=== PATIENT | male | born 1950 | race Hispanic/Latino ===

== ENCOUNTER 2019-02-25 11:29 | Emergency (ER) | payer OTHER ==
--- NOTE | 2019-02-25 13:11 | RAD REPORT ---
EXAM DESCRIPTION: Mario Alberto Vela (2 Views)02/25/2019 1:03 pm CLINICAL HISTORY: Chest pain COMPARISON: 2017 FINDINGS: The lungs appear clear of acute infiltrate. The heart is normal size IMPRESSION: No acute abnormalities displayed
--- NOTE | 2019-02-25 13:37 | EDPHYS ---
Physician Documentation [facility] Name: Shahid Milton Age: 68 yrs Sex: Male : 1950 Arrival Date: 02/25/2019 Time: 11:32 Bed 12 Private MD: Nilay Otero ED Physician Suresh Holder HPI: 02/25 13:31 This 68 yrs old Male presents to ER via Ambulatory with complaints of Fall snw Injury. 13:31 Details of fall: The patient fell from an upright position, while walking. Onset: The snw symptoms/episode began/occurred suddenly, 3 day(s) ago, and became persistent. Associated injuries: The patient sustained injury to the low back, pain. Severity of symptoms: At their worst the symptoms were moderate. The patient has not experienced similar symptoms in the past. It is unknown whether or not the patient has recently seen a physician. no significant pain at time of fall, tripped, + tightening, pulling, tingling pain to right lower back since, denies hematuria, denies chest pain. Historical: - Allergies: 11:47 No Known Allergies; aa5 - Home Meds: 11:47 "mood swings medication" [Active]; "medicine to help me urinate" [Active]; aa5 - PMHx: 11:47 "Anger problems"; aa5 - PSHx: 11:47 Hernia repair; Cholecystectomy; aa5 - Immunization history:: Flu vaccine is up to date. - Social history:: Smoking status: Patient/guardian denies using tobacco. - Ebola Screening: : No symptoms or risks identified at this time. ROS: 13:31 Constitutional: Negative for fever, chills, and weight loss, Eyes: Negative for injury, snw pain, redness, and discharge, ENT: Negative for injury, pain, and discharge, Neck: Negative for injury, pain, and swelling, Cardiovascular: Negative for chest pain, palpitations, and edema, Respiratory: Negative for shortness of breath, cough, wheezing, and pleuritic chest pain, Abdomen/GI: Negative for abdominal pain, nausea, vomiting, diarrhea, and constipation, : Negative for injury, bleeding, discharge, and swelling, MS/Extremity: Negative for injury and deformity, Skin: Negative for injury, rash, and discoloration, Neuro: Negative for headache, weakness, numbness, tingling, and seizure. 13:31 Back: Positive for pain at rest, pain with movement, of the right low back. Exam: 13:30 Constitutional: This is a well developed, well nourished patient who is awake, alert, snw and in no acute distress. Head/Face: Normocephalic, atraumatic. Eyes: Pupils equal round and reactive to light, extra-ocular motions intact. Lids and lashes normal. Conjunctiva and sclera are non-icteric and not injected. Cornea within normal limits. Periorbital areas with no swelling, redness, or edema. ENT: Nares patent. No nasal discharge, no septal abnormalities noted. Tympanic membranes are normal and external auditory canals are clear. Oropharynx with no redness, swelling, or masses, exudates, or evidence of obstruction, uvula midline. Mucous membranes moist. Neck: Trachea midline, no thyromegaly or masses palpated, and no cervical lymphadenopathy. Supple, full range of motion without nuchal rigidity, or vertebral point tenderness. No Meningismus. Chest/axilla: Normal chest wall appearance and motion. Nontender with no deformity. No lesions are appreciated. Cardiovascular: Regular rate and rhythm with a normal S1 and S2. No gallops, murmurs, or rubs. Normal PMI, no JVD. No pulse deficits. Respiratory: Lungs have equal breath sounds bilaterally, clear to auscultation and percussion. No rales, rhonchi or wheezes noted. No increased work of breathing, no retractions or nasal flaring. Abdomen/GI: Soft, non-tender, with normal bowel sounds. No distension or tympany. No guarding or rebound. No evidence of tenderness throughout. Skin: Warm, dry with normal turgor. Normal color with no rashes, no lesions, and no evidence of cellulitis. MS/ Extremity: Pulses equal, no cyanosis. Neurovascular intact. Full, normal range of motion. Neuro: Awake and alert, GCS 15, oriented to person, place, time, and situation. Cranial nerves II-XII grossly intact. Motor strength 5/5 in all extremities. Sensory grossly intact. Cerebellar exam normal. Normal gait. Psych: Awake, alert, with orientation to person, place and time. Behavior, mood, and affect are within normal limits. 13:30 Back: pain, that is moderate, ROM is normal, normal spinal alignment noted, vertebral tenderness, is not appreciated, muscle spasm, is appreciated in the right low back. Vital Signs: 11:48 BP 116 / 73; Pulse 63; Resp 16 S; Temp 97.5(TE); Pulse Ox 97% on R/A; Weight 88.45 kg aa5 (R); Height 5 ft. 9 in. (175.26 cm) (R); Pain 2/10; 11:48 Body Mass Index 28.80 (88.45 kg, 175.26 cm) aa5 MDM: 13:21 Patient medically screened. snw 13:37 Data reviewed: vital signs, nurses notes. Data interpreted: Pulse oximetry: on room air snw is 97 %. Interpretation: normal. Counseling: I had a detailed discussion with the patient and/or guardian regarding: the historical points, exam findings, and any diagnostic results supporting the discharge/admit diagnosis, radiology results, the need for outpatient follow up, to return to the emergency department if symptoms worsen or persist or if there are any questions or concerns that arise at home. Special discussion: Based on the history and exam findings, there is no indication for further emergent testing or inpatient evaluation. I discussed with the patient/guardian the need to see the orthopedic surgeon for further evaluation of the symptoms. I discussed with the patient/guardian the need to see the primary care provider for further evaluation of the symptoms. 02/25 12:37 Order name: Chest Pa And Lat (2 Views) XRAY; Complete Time: 13:15 snw Administered Medications: 13:55 Drug: TORadol 60 mg Route: IM; Site: left deltoid; iw 13:55 Drug: Valium 2 mg Route: PO; iw Disposition: 17:15 Co-signature as Attending Physician, Suresh Holder MD. rn Disposition: 02/25/19 13:36 Discharged to Home. Impression: Fall on same level, unspecified, Muscle spasm of back. - Condition is Stable. - Discharge Instructions: Fall Prevention in the Home, Muscle Cramps and Spasms, Cryotherapy, Heat Therapy. - Prescriptions for Mobic 7.5 mg Oral Tablet - take 1 tablet by ORAL route once daily take with food; 20 tablet. orphenadrine citrate 100 mg Oral Tablet Sustained Release - take 1 tablet by ORAL route 2 times per day As needed; 20 tablet. - Work release form, Medication Reconciliation Form, Thank You Letter, Antibiotic Education, Prescription Opioid Use form. - Follow up: Nilay Otero MD; When: 2 - 3 days; Reason: Recheck today's complaints, Continuance of care, Re-evaluation by your physician. Follow up: Emergency Department; When: As needed; Reason: Worsening of condition. Signatures: Dispatcher [employer] EDMS Jennifer Hitchcock, PULL SOCKET ASSEMBLER-C PULL SOCKET ASSEMBLER-Csnw Dolores Olivera, Suresh Watson RN, MD MD rn Calderon, Audri, RN RN aa5 Nory Walker sm3 Corrections: (The following items were deleted from the chart) 14:04 13:36 02/25/2019 13:36 Discharged to Home. Impression: Fall on same level, unspecified; sm3 Muscle spasm of back. Condition is Stable. Forms are Medication Reconciliation Form, Thank You Letter, Antibiotic Education, Prescription Opioid Use. Follow up: Nilay Otero; When: 2 - 3 days; Reason: Recheck today's complaints, Continuance of care, Re-evaluation by your physician. Follow up: Emergency Department; When: As needed; Reason: Worsening of condition. snw
--- NOTE | 2019-02-25 13:37 | ER ---
Nurse's Notes [facility] Name: Shahid Milton Age: 68 yrs Sex: Male : 1950 Arrival Date: 02/25/2019 Time: 11:32 Bed 12 Private MD: Nilay Otero Diagnosis: Fall on same level, unspecified;Muscle spasm of back Presentation: 02/25 11:44 Presenting complaint: Patient states: "I fell a week ago and landed on my right side". aa5 Pt c/o pain to right mid-lower back that it's described as burning, tingling, and stabbing. Transition of care: patient was not received from another setting of care. Onset of symptoms was January 2019. Risk Assessment: Do you want to hurt yourself or someone else? Patient reports no desire to harm self or others. Initial Sepsis Screen: Does the patient meet any 2 criteria? No. Patient's initial sepsis screen is negative. Does the patient have a suspected source of infection? No. Patient's initial sepsis screen is negative. Care prior to arrival: None. 11:44 Method Of Arrival: Ambulatory aa5 11:44 Acuity: FAITH 4 aa5 Triage Assessment: 14:00 General: Appears in no apparent distress. Behavior is calm. iw Historical: - Allergies: 11:47 No Known Allergies; aa5 - Home Meds: 11:47 "mood swings medication" [Active]; "medicine to help me urinate" [Active]; aa5 - PMHx: 11:47 "Anger problems"; aa5 - PSHx: 11:47 Hernia repair; Cholecystectomy; aa5 - Immunization history:: Flu vaccine is up to date. - Social history:: Smoking status: Patient/guardian denies using tobacco. - Ebola Screening: : No symptoms or risks identified at this time. Screenin:00 Abuse screen: Denies threats or abuse. Denies injuries from another. Nutritional iw screening: No deficits noted. Tuberculosis screening: No symptoms or risk factors identified. Fall Risk None identified. Assessment: 13:00 General: Appears in no apparent distress. Behavior is calm, cooperative. Pain: iw Complains of pain in right low back. Neuro: Level of Consciousness is awake, alert, obeys commands, Oriented to person, place, time, situation, Moves all extremities. Full function. Cardiovascular: Patient's skin is warm and dry. Respiratory: Respiratory effort is even, unlabored. Derm: Skin is intact, is healthy with good turgor. Musculoskeletal: Range of motion: intact in all extremities, Reports pain in right low back. Vital Signs: 11:48 BP 116 / 73; Pulse 63; Resp 16 S; Temp 97.5(TE); Pulse Ox 97% on R/A; Weight 88.45 kg aa5 (R); Height 5 ft. 9 in. (175.26 cm) (R); Pain 2/10; 11:48 Body Mass Index 28.80 (88.45 kg, 175.26 cm) aa5 ED Course: 11:32 Patient arrived in ED. mr 11:32 Nilay Otero MD is Private Physician. mr 11:45 Triage completed. aa5 11:45 Arm band placed on. aa5 11:45 Patient placed in waiting room, Patient notified of wait time. aa5 12:51 Dolores Olivera, RN is Primary Nurse. iw 12:54 Jennifer Hitchcock FNP-C is PHCP. snw 12:54 Suresh Holder MD is Attending Physician. snw 12:58 X-ray completed. Patient tolerated procedure well. Patient moved to radiology via mh1 wheelchair. Patient moved back from radiology. 13:00 Patient has correct armband on for positive identification. iw 13:02 Chest Pa And Lat (2 Views) XRAY In Process Unspecified. EDMS 13:35 Nilay Otero MD is Referral Physician. snw 14:03 No provider procedures requiring assistance completed. Patient did not have IV access iw during this emergency room visit. Administered Medications: 13:55 Drug: TORadol 60 mg Route: IM; Site: left deltoid; iw 13:55 Drug: Valium 2 mg Route: PO; iw Outcome: 13:36 Discharge ordered by . snw 14:03 Discharged to home ambulatory, with family. iw 14:03 Condition: good 14:03 Discharge instructions given to patient, family, Instructed on discharge instructions, follow up and referral plans. medication usage, Demonstrated understanding of instructions, follow-up care, medications, Prescriptions given X 2. 14:04 Patient left the ED. sm3 Signatures: Dispatcher [employer] EDMS Jennifer Hitchcock FNP-C FNP-Csnw BrockSusi mr JamesNuris mh1 Dolores Olivera, RN RN iw Dolores Healy RN RN aa5 Nory Walker 3
[2019-02-25] MEDS ORDERED: KETOROLAC 30 MG/ML INJ ONE (14:00)
[2019-02-25] MEDS ORDERED: DIAZEPAM 2 MG TABLET ONE ×2 (14:00→14:03)
[2019-02-25] MEDS ORDERED: ACETAMINOPHEN 500 MG TAB ONE (14:05)
[2019-02-25 15:40] VITALS: BP 116/73; TEMP 97.5; O2SAT 97
== END 2019-02-25 14:04 | disposition home or self-care (01) ==
LOC: ER 11:29
DX: M62.830 Muscle spasm of back (principal); W01.0XXA Fall on same level from slipping, tripping and stumbling without subsequent striking against object, initial encounter; Y93.01 Activity, walking, marching and hiking
CPT/HCPCS: 71046; 96372; 99283

== ENCOUNTER 2020-11-01 10:42 | Emergency (ER) | payer OTHER ==
[2020-11-01] MEDS ORDERED: ACETAMINOPHEN 500 MG TAB ONE (11:18)
--- NOTE | 2020-11-01 12:20 | RAD REPORT ---
EXAM DESCRIPTION: Mario Alberto Single View11/01/2020 11:23 am CLINICAL HISTORY: Chest pain COMPARISON: 2019 FINDINGS: The right base is mildly hazy. Left lung appears clear of acute infiltrate. The heart is n ormal size IMPRESSION: Right base is mildly hazy which may indicate mild pneumonia
--- NOTE | 2020-11-01 12:33 | ER ---
Nurse's Notes [facility] Name: Shahid Milton Age: 70 yrs Sex: Male : 1950 Arrival Date: 11/01/2020 Time: 10:44 Bed 23 Private MD: Chelsea Rosales Diagnosis: Pneumonia, unspecified organism;Coronavirus infection, unspecified Presentation: 11/01 10:51 Chief complaint: Patient states: nausea, body aches, fatigue, generalized weakness, no aa5 taste, no smell since Saturday. Pt denies SOB but reports chest pain with inspiration. Pt also reports "feeling hot this morning" and chills. Pt also reports diarrhea. Coronavirus screen: fatigue, fever, muscle pain, Client presents with at least one sign or symptom that may indicate coronavirus-19. Standard/surgical mask placed on the client. Provider contacted for isolation considerations. Ebola Screen: Patient negative for fever greater than or equal to 101.5 degrees Fahrenheit, and additional compatible Ebola Virus Disease symptoms. Initial Sepsis Screen: Does the patient meet any 2 criteria? No. Patient's initial sepsis screen is negative. Does the patient have a suspected source of infection? No. Patient's initial sepsis screen is negative. Risk Assessment: Do you want to hurt yourself or someone else? Patient reports no desire to harm self or others. Onset of symptoms was October 2020. 10:51 Acuity: FAITH 3 aa5 10:51 Method Of Arrival: Ambulatory aa5 Historical: - Allergies: 10:54 No Known Allergies; aa5 - PMHx: 10:54 "Anger problems"; aa5 - PSHx: 10:54 Hernia repair; Cholecystectomy; aa5 - Immunization history:: Flu vaccine is up to date. - Social history:: Smoking status: Patient denies any tobacco usage or history of. Screenin:00 Abuse screen: Denies threats or abuse. Nutritional screening: No deficits noted. aa5 Tuberculosis screening: No symptoms or risk factors identified. Fall Risk None identified. Assessment: 10:55 General: Appears comfortable, Behavior is calm, cooperative, Reports chills for 0-12 aa5 hours, fatigue for 2-3 days. Pain: Complains of pain in whole body Pain does not radiate. Pain currently is 6 out of 10 on a pain scale. Quality of pain is described as aching, Pain began 2-3 days ago. Is continuous. Neuro: Level of Consciousness is awake, alert, obeys commands, Oriented to person, place, time, situation. Cardiovascular: Reports chest pain only with inspiration and "taking a deep breath" Heart tones S1 S2 present Rhythm is regular. Respiratory: Reports slight cough Airway is patent Respiratory effort is even, unlabored, Respiratory pattern is regular, symmetrical, Breath sounds are clear bilaterally. Denies shortness of breath. GI: Abdomen is round non-distended, Bowel sounds present X 4 quads. Abd is soft and non tender X 4 quads. Reports diarrhea, nausea, Patient currently denies vomiting. : No signs and/or symptoms were reported regarding the genitourinary system. EENT: Reports no taste and no smell. Derm: Skin is pink, warm \\T\\ dry. Musculoskeletal: Range of motion: intact in all extremities. 12:50 General: Appears comfortable, Behavior is calm, cooperative, Reports chills for feeling zb ill for fatigue for 2-3 days. Pain:. Neuro: Level of Consciousness is awake, alert, obeys commands, Oriented to person, place, time, situation. Cardiovascular: Heart tones S1 S2 present Patient's skin is warm and dry. Respiratory: Airway is patent Respiratory effort is even, unlabored, Respiratory pattern is regular, symmetrical. GI: Abdomen is round non-distended, Bowel sounds present X 4 quads. Abd is soft and non tender X 4 quads. Reports diarrhea, nausea, Patient currently denies vomiting. : No signs and/or symptoms were reported regarding the genitourinary system. EENT: Reports no taste or smell . Derm: Skin is intact, is healthy with good turgor, Skin is normal. Musculoskeletal: Circulation, motion, and sensation intact. Range of motion: intact in all extremities. Vital Signs: 10:52 BP 152 / 68; Pulse 88; Resp 16 S; Temp 100.9(O); Pulse Ox 97% on R/A; Weight 90.72 kg aa5 (R); Height 5 ft. 9 in. (175.26 cm) (R); Pain 6/10; 12:50 Temp 97.9; Pulse Ox 100% on R/A; zb 10:52 Body Mass Index 29.54 (90.72 kg, 175.26 cm) aa5 ED Course: 10:44 Patient arrived in ED. ag5 10:45 Chelsea Rosales MD is Private Physician. ag5 10:51 Arm band placed on. aa5 10:51 Patient has correct armband on for positive identification. Bed in low position. Call aa5 light in reach. Side rails up X 1. 10:53 Triage completed. aa5 10:54 [facility]C [facility] kb 10:54 Barbi Monge MD is Attending Physician. kb 11:11 COVID swab sent to lab. Flu and/or RSV swab sent to lab. aa5 11:14 Dolores Healy RN is Primary Nurse. aa5 11:23 Chest Single View In Process Unspecified. EDMS 12:50 No provider procedures requiring assistance completed. Patient did not have IV access zb during this emergency room visit. Administered Medications: 11:14 Drug: Tylenol 1000 mg Route: PO; aa5 12:50 Follow up: Response: Temperature is decreased zb 12:50 Drug: Zithromax 500 mg Route: PO; zb 13:01 Follow up: Response: No adverse reaction zb 12:50 Drug: predniSONE 60 mg Route: PO; zb 13:01 Follow up: Response: No adverse reaction zb Outcome: 12:32 Discharge ordered by MD. kb 12:50 Discharged to home ambulatory, with family. zb 12:50 Condition: stable 12:50 Discharge instructions given to patient, family, Instructed on discharge instructions, follow up and referral plans. medication usage, Demonstrated understanding of instructions, follow-up care, medications, Prescriptions given X 3. 13:01 Patient left the ED. zb Addendum: 11/02/2020 16:46 Addendum: COVID-19 Result: Positive result giiven to ED physician to notify pt. h b Physician left voice mail for pt to call the ED back. 11/04/2020 16:00 Addendum: COVID-19 Result: Positive result giiven to ED physician to notify pt. d m5 Physician: Lawrence Prado MD Physician was able to contact pt and pt was notified of positive COVID-19 swab result. Physician answered pt questions. Signatures: Dispatcher [employer] EDMS Sera Jane FNP-C FNP-Ckb Markwardt, Deana, RN RN dm5 Dolores Healy RN RN aa5 Glo Jackson RN RN Sherine Brandon [facility] Glenis Kauffman RN RN zb Corrections: (The following items were deleted from the chart) 11/01 10:53 10:51 Chief complaint: Patient states: nausea, body aches, fatigue, generalized aa5 weakness, no taste, no smell since Saturday. Pt denies SOB but reports chest pain with inspiration. Pt also reports "feeling hot this morning" and chills. aa5 11:28 10:55 Cardiovascular: Heart tones S1 S2 present Rhythm is regular aa5 aa5
--- NOTE | 2020-11-01 12:33 | EDPHYS ---
Physician Documentation [facility] Name: Shahid Milton Age: 70 yrs Sex: Male : 1950 Arrival Date: 11/01/2020 Time: 10:44 Bed 23 Private MD: Chelsea Rosales ED Physician Barbi Monge HPI: 11/01 12:57 This 70 yrs old Male presents to ER via Ambulatory with complaints of Fever, kb Nausea, Cough, Weakness. 12:56 Pt reports cough, congestion, fever, chills, malaise, nausea, diarrhea, bodyaches, loss kb of taste and smell for 3 days. States "I came to get tested for covid". 12:57 The patient or guardian reports cough, that is intermittent, described as mild, with no kb sputum, flu symptoms, low-grade fever, myalgias. Onset: The symptoms/episode began/occurred 3 day(s) ago. Severity of symptoms: At their worst the symptoms were mild, moderate, in the emergency department the symptoms are unchanged. Modifying factors: The symptoms are alleviated by nothing, the symptoms are aggravated by nothing. Associated signs and symptoms: Pertinent positives: diarrhea, fever, nausea, rhinorrhea, Pertinent negatives: chest pain, ear ache, sore throat, vomiting. The patient has not experienced similar symptoms in the past. The patient has not recently seen a physician. Historical: - Allergies: 10:54 No Known Allergies; aa5 - PMHx: 10:54 "Anger problems"; aa5 - PSHx: 10:54 Hernia repair; Cholecystectomy; aa5 - Immunization history:: Flu vaccine is up to date. - Social history:: Smoking status: Patient denies any tobacco usage or history of. ROS: 12:57 Cardiovascular: Negative for chest pain, palpitations, and edema, MS/Extremity: kb Negative for injury and deformity, Skin: Negative for injury, rash, and discoloration. 12:57 Constitutional: Positive for body aches, chills, fatigue, fever, malaise. 12:57 ENT: Positive for sinus congestion. 12:57 Respiratory: Positive for cough, Negative for dyspnea on exertion, hemoptysis, orthopnea, pleurisy, shortness of breath, sputum production, wheezing. 12:57 Abdomen/GI: Positive for nausea, diarrhea. 12:57 Neuro: Positive for headache. Exam: 12:57 Constitutional: This is a well developed, well nourished patient who is awake, alert, kb and in no acute distress. Head/Face: Normocephalic, atraumatic. Chest/axilla: Normal chest wall appearance and motion. Nontender with no deformity. No lesions are appreciated. Cardiovascular: Regular rate and rhythm with a normal S1 and S2. No gallops, murmurs, or rubs. Normal PMI, no JVD. No pulse deficits. Respiratory: Lungs have equal breath sounds bilaterally, clear to auscultation and percussion. No rales, rhonchi or wheezes noted. No increased work of breathing, no retractions or nasal flaring. Abdomen/GI: Soft, non-tender, with normal bowel sounds. No distension or tympany. No guarding or rebound. No evidence of tenderness throughout. Skin: Warm, dry with normal turgor. Normal color with no rashes, no lesions, and no evidence of cellulitis. MS/ Extremity: Pulses equal, no cyanosis. Neurovascular intact. Full, normal range of motion. Neuro: Awake and alert, GCS 15, oriented to person, place, time, and situation. Cranial nerves II-XII grossly intact. Motor strength 5/5 in all extremities. Sensory grossly intact. Cerebellar exam normal. Normal gait. Vital Signs: 10:52 BP 152 / 68; Pulse 88; Resp 16 S; Temp 100.9(O); Pulse Ox 97% on R/A; Weight 90.72 kg aa5 (R); Height 5 ft. 9 in. (175.26 cm) (R); Pain 6/10; 12:50 Temp 97.9; Pulse Ox 100% on R/A; zb 10:52 Body Mass Index 29.54 (90.72 kg, 175.26 cm) aa5 MDM: 10:57 Patient medically screened. kb 12:31 Data reviewed: vital signs, nurses notes. Data interpreted: Pulse oximetry: on room air kb is 97 %. Interpretation: normal. Counseling: I had a detailed discussion with the patient and/or guardian regarding: the historical points, exam findings, and any diagnostic results supporting the discharge/admit diagnosis, lab results, radiology results, the need for outpatient follow up, a family practitioner, to return to the emergency department if symptoms worsen or persist or if there are any questions or concerns that arise at home. 11/01 10:55 Order name: COVID-19 kb 11/01 10:57 Order name: Chest Single View; Complete Time: 12:21 EDMS 11/01 11:26 Order name: Influenza Screen (A ; Complete Time: 12:15 EDMS Administered Medications: 11:14 Drug: Tylenol 1000 mg Route: PO; aa5 12:50 Follow up: Response: Temperature is decreased zb 12:50 Drug: Zithromax 500 mg Route: PO; zb 13:01 Follow up: Response: No adverse reaction zb 12:50 Drug: predniSONE 60 mg Route: PO; zb 13:01 Follow up: Response: No adverse reaction zb Disposition: 18:33 Co-signature as Attending Physician, Barbi Monge MD. ma2 Disposition: 11/01/20 12:32 Discharged to Home. Impression: Pneumonia, unspecified organism, Coronavirus infection, unspecified. - Condition is Stable. - Discharge Instructions: Community-Acquired Pneumonia, Adult, Njbx-po-Uawy, COVID-19. - Prescriptions for Medrol (Nirav) 4 mg Oral Tablets, Dose Pack - take 1 tablet by ORAL route as directed - follow package instructions; 1 packet. Albuterol Sulfate 90 mcg/actuation - inhale 1-2 puff by INHALATION route every 4-6 hours; 1 Inhaler. Zithromax 500 mg Oral Tablet - take 1 tablet by ORAL route once daily for 5 days; 5 tablet. - Medication Reconciliation Form, Thank You Letter, Antibiotic Education, Prescription Opioid Use form. - Follow up: Emergency Department; When: As needed; Reason: Worsening of condition. Follow up: Private Physician; When: 2 - 3 days; Reason: Recheck today's complaints, Continuance of care, Re-evaluation by your physician. Signatures: Dispatcher [employer] EDSera Joseph FNP-C FNP-Ckb Calderon, Audri, RN RN aa5 Barbi Monge MD MD ma2 Glenis Kauffman RN RN zb Corrections: (The following items were deleted from the chart) 12:46 12:39 Chest Single View+RAD.RAD.BRZ ordered. EDNJ EDMS 12:58 12:56 Pt reports cough, congestion, fever, chills, malaise, nausea, diarrhea, loss of kb taste and smell. . kb 13:01 12:32 11/01/2020 12:32 Discharged to Home. Impression: Pneumonia, unspecified organism; zb Coronavirus infection, unspecified. Condition is Stable. Forms are Medication Reconciliation Form, Thank You Letter, Antibiotic Education, Prescription Opioid Use. Follow up: Emergency Department; When: As needed; Reason: Worsening of condition. Follow up: Private Physician; When: 2 - 3 days; Reason: Recheck today's complaints, Continuance of care, Re-evaluation by your physician. kb
[2020-11-01] MEDS ORDERED: AZITHROMYCIN 250 MG TAB ONE (12:59)
[2020-11-01] MEDS ORDERED: predniSONE 20 MG TAB ONE (13:00)
--- OUTSIDE RECORDS SUMMARY | 2020-11-01 16:59 | XMS REPORT | Summary of Care ---
:1950 Author Organization [facility] Address [address] [place] [address] Care Team Providers Name Role Phone Nilay Otero Primary Care Provider Reason for Visit Reason Comments Exposure covid Encounter Details Date Type Department Care Team Description 09/14/2020 Laboratory Only [facility] Family Ceci Max PA [address] [place] [address] [facility] [place] [address] Exposure to Medicine - [facility], Adc Fam Pob I SARS-associated [address] [place] [address] coron[address] s ([address] Dx) [place] [address] Allergies No Known Allergiesdocumented as of this encounter (statuses as of 09/14/2020) Medications Medication Sig Dispensed Refills Start Date End Date Status tamsulosin 0.4 mg 24 hr Take by mouth 2 0 Active capsule (two) times daily. baclofen 10 mg tablet Take 10 mg by 0 Active mouth 3 (three) times daily. SERTraline 50 mg tablet Take 50 mg by 0 Active mouth daily. meloxicam 7.5 mg tablet Take 7.5 mg by 0 Active mouth daily. documented as of this encounter (statuses as of 09/14/2020) Active Problems No known active problemsdocumented as of this encounter (statuses as of 09/14/2020) Social History Tobacco Use Types Packs/Day Years Used Date Never Assessed Sex Assigned at Date Recorded Not on file documented as of this encounter Last Filed Vital Signs Not on filedocumented in this encounter Nursing Notes Sonali Lan RN - 09/14/2020 3:00 PM Zakia Milton is a 70 year old male here for a Rule Out Covid-19 Nasopharyngeal Swab. Patient educated on plan of care for visit, swabbing technique, risks and benefits of test and length of time toreceive results. Verbal consent obtained to perform test. CDC Fact Sheet for Patients provided to patient. All droplet and contact precautions taken with appropriate PPE worn while interacting with patient. - Goggles - N95 Mask - Gloves - Gown RR=18 % O2 Sat=98 Patient swabbed using appropriate nasopharyngeal technique, and patient tolerated well. Patient was discharged in stable condition. SONALI LAN RN 09/14/2020 2:53 PM documented in this encounter Plan of Treatment Name Type Priority Associated Diagnoses Order S mansoor COVID-19 (PCR MOLECULAR LAB Routine Exposure to Expe cted: 09/14/2020, TESTING) SARS-associated Expires: coronavirus Health Maintenance Due Date Last Done Comments HEPATITIS C (HCV) SCREEN 1950 DTaP,Tdap,and Td Vaccines (1 - Tdap) 1969 COLON CANCER SCREENING ANNUAL FIT/FOBT 2000 COLON CANCER SCREENING FIT DNA EVERY 3 YEARS 2000 COLON CANCER SCREENING SIGMOIDOSCOPY EVERY 5 YEARS 2000 COLONOSCOPY 2000 Colorectal Cancer Screening 2000 Zoster Recombinant Vaccine (SHINGRIX) (1 of 2) 2000 Medicare Wellness Visit 2015 PNEUMOCOCCAL VACCINES 65+ (1 of 1 - PPSV23) 2015 INFLUENZA VACCINE (#1) 2020 Depression Screening 01/20/2021 01/20/2020 documented as of this encounter Results Not on filedocumented in this encounter Visit Diagnoses Diagnosis Exposure to SARS-associated coronavirus - Primary documented in this encounter Additional Health Concerns Infection Onset Date Last Indicated Resolved Time COVID-19 Rule Out 09/14/2020 09/14/2020 documented as of this encounter Insurance Payer Benefit Plan / Subscriber ID Effective Dates Phone Addre ss Type Group [employer] C[employer]ON [id number] 2020-Prese Medicare Adv PLUS PLUS nt HMO CLASSIC/VALUE [address] (Home) [phone] [place], [place] (Work) [address] documented as of this encounter
--- OUTSIDE RECORDS SUMMARY | 2020-11-01 16:59 | XMS REPORT | Continuity of Care Document ---
:1950 Author Organization [facility] t Address 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 Social History Smoking Status Start Date Stop Date Source Never Smoker Leda Family P savita Medications Ordered Filled Start Stop Current Ordering Indication Dosage Frequency Signature Comments Components Source Medication Medication Date Date Medication? Clinician (SIG) Name Name Diclofenac Diclofenac Na Rosales [address] [facility] Sodium Sodium 06-23 applicatio Ta s - 00:00: 00:00 n to Memoria 00 :00 affected [facility] Gabapentin Gabapentin 2019- Yes Na Rosales [address] [facility] 03-03 [facility] - 00:[facility]: Mem[facility] 00 [facility] Magnesium Magnesium 2019- No Na Rosales [address] [facility] Oxide -Mg Oxide -Mg 03-03 as needed [facility] - Supplement Supplement 00:00: 00:00 Memoria 00 :00 [facility] meloxicam meloxicam No 1 Q1D meloxicam [facility] 7.5 mg 7.5 mg 7.5 mg Family tablet Take tablet Take tablet Practic 1 tablet 1 tablet Take 1 e every day every day tablet by oral by oral every day route. route. by oral route. sertraline sertraline No 1 Q1D sertraline [facility] 50 mg 50 mg 50 mg Family tablet Take tablet Take tablet Practic 1 tablet 1 tablet Take 1 e every day every day tablet by oral by oral every day route. route. by oral route. tamsulosin tamsulosin No 1capsul Q1D tamsulosin [facility] 0.4 mg 0.4 mg e(s) 0.4 mg Family capsule capsule capsule Practi c Take 1 Take 1 Take 1 e capsule capsule capsule every day every day every day by oral by oral by oral route. route. route. Sertraline Sertraline Yes Na Rosales [address] [facility] HCl HCl [facility] [place] Tamsulosin Tamsulosin Yes Na Rosales [address] [facility] HCl HCl [facility] [place] Meloxicam Meloxicam Yes Na Rosales [address] [facility] [place] Immunizations Ordered Immunization Filled Immunization Date Status Commen ts Source Name Name Influenza A Influenza A 2019-08-25 [facility] Fami ly monovalent (H5N1), monovalent (H5N1), 00:00:00 Practice ADJUVANTED-2013 ADJUVANTED-2012 Procedures This patient has no known procedures. Encounters Start End Encounter Admission Attending Care Care Encounter Source Date/Time Date/Time Type Type Clinicians Facility Department ID 2020-10-28 2020-10-28 Outpatient [facility] [id number] [facility] [place] 2020-10-11 2020-10-11 Outpatient [facility] [id number] [facility] 2020-09-22 2020-09-22 Outpatient [facility] [id number] [facility] l Outpati ent Clinics 2020-09-14 2020-09-14 Laboratory Lab, [facility] [id number] 14:51:48 15:11:48 Only [facility] [id number] [place] [id number] Professio [id number] nal 0[address] One 2020-07-25 2020-07-25 [facility] [id number] [address] 10:16:00 10:16:00 [facility] Outpati ent Clinics 2020-07-04 2020-07-04 [facility] [id number] 15:00:00 15:00:00 [facility] Outpati ent Clinics 2020-07-04 2020-07-[address] [facility] [id number] 09:52:00 09:52:00 [facility] l Group Outpati ent Clinics 2020-06-23 2020-06-23 [facility] [id number] 10:40:00 10:40:00 [facility] Medicine Medicine Outpati ent Clinics 2020-04-13 2020-04-13 [facility] [id number] 09:40:00 09:40:00 t [facility] Medicine l Medicine Outpati ent Clinics 2020-03-17 2020-03-17 [facility] [id number] 09:20:00 09:20:00 [facility] Medicine Outpati ent Clinics 2020-03-03 2020-03-03 [facility] [id number] 10:34:00 10:34:00 [facility] l Medicine Outpati ent Clinics 2020-03-03 2020-03-03 Outpatient Fernando Mistry [id number] 09:00:00 09:00:00 t [facility] [employer] [place] [facility] Family Medicine l Medicine Outpati ent Clinics 2020-02-24 2020-02-24 [place] [facility] [place] - [id number] V illage 00:00:00 00:00:00 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
--- OUTSIDE RECORDS SUMMARY | 2020-11-01 17:00 | XMS REPORT ---
:1950 Author Organization [facility] Address [address] [place] [address] Care Team Providers Name Role Phone Tray Ortega Unavailable [phone] PROBLEMS Type Condition ICD9-CM PMW11-XX Onset Condition SNOMED Code Notes Code Code Dates Status Problem Anxiety F41.9 Active 90568199 Problem Localized M17.11 Active 374081369 osteoarthritis of right knee Problem Osteoarthritis of M16.12 Active 12901030237024 8 left hip, unspecified osteoarthritis type Problem Erectile N52.9 Active 301732618 dysfunction, unspecified erectile dysfunction type Problem Benign prostatic N40.1 Active 2865568200477 hyperplasia with lower urinary tract symptoms Problem Pharyngoesophageal R13.14 Active 03609065 dysphagia Problem Acute pain of left M25.562 Active 81370111 knee Problem Primary M17.11 Active 001314400571128 osteoarthritis of right knee Problem 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 47650469332203 1 right hip joint due to dysplasia Problem Primary M17.12 Active 693179915595044 osteoarthritis of left knee Problem 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 Problem Dysphagia, R13.10 Active 19077531 unspecified type Problem Pain in right thigh M79.651 Active 927122880185 107 Problem History of colon Z86.010 Active 373960049 polyps Problem Abnormal barium R93.3 Active 084286880 swallow ALLERGIES No Known Allergies ENCOUNTERS from 1950 to 2020-10-13 Encounter Location Date Provider Diagnosis [facility] Nov, 2020 Tray Ortega Pain , joint, knee, left [facility] [address] M25.562 ; Carl in, joint, [facility], [place] knee, right M25 .561 ; [id number] Primary osteoar thritis of right knee M 17.11 and Primary osteoarthritis of left knee M17.12 IMMUNIZATIONS Vaccine Route Administration Date Status FluAD Unknown Dec 15, 2019 Administered PNEUMAVAX 23 Unknown Dec 24, 2018 Administered SOCIAL HISTORY Tobacco Use: Social History Observation Description Date Details (start date - stop date) Never Smoker Sex Assigned At : Social History Observation Description Sex Assigned At Unknown Alcohol Screen Question Answer Notes Did you have a drink containing alcohol in the past year? No Points 0 Interpretation Negative Tobacco Use/Smoking Question Answer Notes Are you a never smoker Additional Findings: Tobacco Non-User Current non-smoker REASON FOR REFERRAL No Information VITAL SIGNS Height 69.00 in Sep, Weight 200 lbs Sep, Temperature 97.5 degrees Fahrenheit Sep, BMI 29.53 kg/m2 Sep, Blood pressure systolic 114 mm Hg Sep, Blood pressure diastolic 76 mm Hg Sep, MEDICATIONS Medication SIG (Take, Route, Notes Start Date End Date Status Frequency, Duration) Pantoprazole Sodium Activ e Sertraline HCl 50 MG 1 tablet Orally Once a Active day for 90 days Magnesium Oxide -Mg 1 capsule as needed Active Supplement 400 MG Orally Once a day for 90 days Tamsulosin HCl 0.4 MG 1 capsule Orally Twice a Active day for 90 days Tramadol HCl Active Meloxicam 7.5 MG 1 tablet Orally Once a Active day for 30 day(s) Gabapentin 300 MG 2 tablet Orally three Active times a day for 90 days PROCEDURES No Information RESULTS No Results REASON FOR VISIT NEW PATIENT: [place] KNEE PAIN - XRAY MEDICAL (GENERAL) HISTORY Type Description Date Medical History erectile dysfunction Medical History anxiety Medical History sinus problems Surgical History Hernia 2016 Surgical History Meniscus right knee 2019 Goals Section No Information Health Concerns No Information MEDICAL EQUIPMENT No Information MENTAL STATUS No Information FUNCTIONAL STATUS No Information ASSESSMENTS Encounter Date Diagnosis Assessment Notes Treatment Notes Treatm ent Clinical Notes Sep, Pain, joint, knee, left (ICD-10 - M25.562) Sep, Pain, joint, knee, right (ICD-10 - M25.561) Sep, Primary I discussed with osteoarthritis of the patient at right knee (ICD-10 - length his M17.11) diagnosis and treatment plan and he expressed understanding. We will proceed with conservative treatment at this time. We discussed weight management, strengthening exercises, NSAIDs use, and corticosteroid/vis cosupplementation injections. The patient will return for bilateral knee kenalog/hyalgan injections once approved by insurance. Sep, Primary I discussed with osteoarthritis of the patient at left knee (ICD-10 - length his M17.12) diagnosis and treatment plan and he expressed understanding. We will proceed with conservative treatment at this time. We discussed weight management, strengthening exercises, NSAIDs use, and corticosteroid/vis cosupplementation injections. The patient will return for bilateral knee kenalog/hyalgan injections once approved by insurance. PLAN OF TREATMENT Treatment Notes Assessment Notes Clinical Notes Primary osteoarthritis of right knee I discussed with the carl barakat at length his diagnosis and treatment plan and he expressed understanding. We will proceed with conservative treatment at this time. We discussed weight management, strengthening exercises, NSAIDs use, and corticosteroid/viscosupplementatio n injections. The patient will return for bilateral knee kenalog/hyalgan injections once approved by insurance. Primary osteoarthritis of left knee I discussed with the adeel mead at length his diagnosis and treatment plan and he expressed understanding. We will proceed with conservative treatment at this time. We discussed weight management, strengthening exercises, NSAIDs use, and corticosteroid/viscosupplementatio n injections. The patient will return for bilateral knee kenalog/hyalgan injections once approved by insurance. Treatment Notes Test Name Order Date X-RAY EXAM KNEE 1 OR 2 VIEWS ([id number]) 2020-10-13 X-RAY EXAM KNEE STANDING VIEW ([id number]) 2020-10-13 XR KNEE 1 OR 2 ([id number]) 2020-10-13 Next Appt Details f/u for bilateral kenalog/hyalgan inject ions Reason: Provider Name:Chelsea Rosales, 2020-10-25 11:2 0:00 AM, [address], [place], [address], Insurance Providers Payer Name Payer Address Payer Insured Patient Coverage Cover age End Phone Name Relationship to Start Date Elio e Insured [employer] [address] Nini Milton GHISLA[place] CARL [place] [phone]
--- OUTSIDE RECORDS SUMMARY | 2020-11-01 17:00 | XMS REPORT ---
:1950 Author Organization [facility] Address [address], [address] [place] [address] Care Team Providers Name Role Phone Tray Ortega Unavailable [phone] PROBLEMS Type Condition ICD9-CM [id number] Onset Condition SNOMED Code Notes Code Code Dates Status Problem Anxiety F41.9 Active 95965607 Problem Localized M17.11 Active 031875754 osteoarthritis of right knee Problem Osteoarthritis of M16.12 Active 91885163411150 8 left hip, unspecified osteoarthritis type Problem Erectile N52.9 Active 369562097 dysfunction, unspecified erectile dysfunction type Problem Benign prostatic N40.1 Active 8263137018626 hyperplasia with lower urinary tract symptoms Problem Pharyngoesophageal R13.14 Active 87949115 dysphagia Problem Acute pain of left M25.562 Active 02010799 knee Problem Primary M17.11 Active 856694949635596 osteoarthritis of right knee Problem 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 93909630771205 1 right hip joint due to dysplasia Problem Primary M17.12 Active 580689971674849 osteoarthritis of left knee Problem 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 Problem Dysphagia, R13.10 Active 53635249 unspecified type Problem Pain in right thigh M79.651 Active 322065490558 107 Problem History of colon Z86.010 Active 312140228 polyps Problem Abnormal barium R93.3 Active 690170332 swallow ALLERGIES No Known Allergies ENCOUNTERS from 1950 to 2020-10-31 Encounter Location Date Provider Diagnosis [facility] [address] Oct, Tray cedeño osteoarthritis [facility] of right kne e M17.11 [facility] [place], [place] and Primary [address] osteoarthritis of left knee M17.12 IMMUNIZATIONS Vaccine Route Administration Date Status FluAD Unknown Dec 15, 2019 Administered PNEUMAVAX 23 Unknown Dec 24, 2018 Administered Bupivicaine [place] Unknown Oct 28, 2020 Administered Bupivicaine [place] Unknown Oct 28, 2020 Administered Hyalgan 20 mg Unknown Oct 28, 2020 Administered Hyalgan 20 mg Unknown Oct 28, 2020 Administered Kenalog (Triamcinolone) Unknown Oct 28, 2020 Administ ered Kenalog (Triamcinolone) Unknown Oct 28, 2020 Administ ered SOCIAL HISTORY Tobacco Use: Social History Observation [...] No Information VITAL SIGNS Height 69.00 in Oct, Weight 200 lbs Oct, Temperature 97.1 degrees Fahrenheit Oct, BMI 29.53 kg/m2 Oct, Blood pressure systolic 124 mm Hg Oct, Blood pressure diastolic 78 mm Hg Oct, MEDICATIONS Medication SIG (Take, Route, Notes Start Date End Date Status Frequency, Duration) Gabapentin 300 MG 2 tablet Orally three Active times a day for 90 days Meloxicam 7.5 MG 1 tablet Orally Once a Active day for 30 day(s) Tamsulosin HCl 0.4 MG 1 capsule Orally Twice Active a day for 90 days Tramadol HCl Active Sertraline HCl 50 MG 1 tablet Orally Once a Active day for 90 days Pantoprazole Sodium Not-T aking Magnesium Oxide -Mg 1 capsule as needed Active Supplement 400 MG Orally Once a day for 90 days PROCEDURES No Information RESULTS No Results REASON FOR VISIT [place] KNEE HYALGAN & KENALOG MEDICAL (GENERAL) HISTORY Type Description Date Medical History erectile dysfunction Medical History anxiety Medical History sinus problems Surgical History Hernia 2016 Surgical History Meniscus right knee 2020 Goals Section No Information Health Concerns No Information MEDICAL EQUIPMENT No Information MENTAL STATUS No Information FUNCTIONAL STATUS No Information ASSESSMENTS Encounter Date Diagnosis Assessment Notes Treatment Notes Treatm ent Clinical Notes Oct, Primary I discussed with osteoarthritis of the patient at right knee (ICD-10 - length his M17.11) diagnosis and treatment plan and he expressed understanding. We will proceed with conservative treatment at this time. We discussed weight management, strengthening exercises, NSAIDs use, and corticosteroid/vis cosupplementation injections. The patient underwent bilateral knee kenalog/hyalgan injections without complication. The patient was instructed to refrain from strenuous activities for the next 24 hours and to ice the area. He will return to clinic in 1 week for his 2nd hyaglan injection of the series. Oct, Primary I discussed with osteoarthritis of the patient at left knee (ICD-10 - length his M17.12) diagnosis and treatment plan and he expressed understanding. We will proceed with conservative treatment at this time. We discussed weight management, strengthening exercises, NSAIDs use, and corticosteroid/vis cosupplementation injections. The patient underwent bilateral knee kenalog/hyalgan injections without complication. The patient was instructed to refrain from strenuous activities for the next 24 hours and to ice the area. He will return to clinic in 1 week for his 2nd hyaglan injection of the series. PLAN OF TREATMENT Treatment Notes Assessment Notes Clinical Notes Primary osteoarthritis of right knee I discussed with the monica barakat at length his diagnosis and treatment plan and he expressed understanding. We will proceed with conservative treatment at this time. We discussed weight management, strengthening exercises, NSAIDs use, and corticosteroid/viscosupplementatio n injections. The patient underwent bilateral knee kenalog/hyalgan injections without complication. The patient was instructed to refrain from strenuous activities for the next 24 hours and to ice the area. He will return to clinic in 1 week for his 2nd hyaglan injection of the series. Primary osteoarthritis of left knee I discussed with the adeel mead at length his diagnosis and treatment plan and he expressed understanding. We will proceed with conservative treatment at this time. We discussed weight management, strengthening exercises, NSAIDs use, and corticosteroid/viscosupplementatio n injections. The patient underwent bilateral knee kenalog/hyalgan injections without complication. The patient was instructed to refrain from strenuous activities for the next 24 hours and to ice the area. He will return to clinic in 1 week for his 2nd hyaglan injection of the series. Next Appt Details 1 Week Reason: Provider Name:Tray Ortega 2020-11-03 0 9:45:00 AM, [address], [place], [address], Provider Name:Chelsea Rosales, 2020-11-03 11:4 0:00 AM, [address], [address], [place], [address], Insurance Providers Payer Name Payer Address Payer Insured Patient Coverage Cover age End Phone Name Relationship to Start Date Elio e Insured [facility] [address] Nini [place] self [place]LA[place] mess[place] [phone]
--- OUTSIDE RECORDS SUMMARY | 2020-11-01 17:00 | XMS REPORT ---
:1950 Author Organization [facility] Address 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 064512092 lumbar region without myelopathy or radiculopathy Problem Acute pain of left M25.562 Active 79256472 knee Problem History of colon Z86.010 Active 387546288 polyps Problem 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 74352709397072 1 right hip joint due to dysplasia Problem Abnormal barium R93.3 Active 502248696 swallow Problem Anxiety F41.9 Active 63452079 Problem Dysphagia, R13.10 Active 53342414 unspecified type Problem Benign prostatic N40.1 Active 7565289596044 hyperplasia with lower urinary tract symptoms Problem Pharyngoesophageal R13.14 Active 69201429 dysphagia Problem Pain in right thigh M79.651 Active 794736116667 107 ALLERGIES No Known Allergies ENCOUNTERS from 1950 to 2020-09-25 Encounter Location Date Provider Diagnosis [facility] [address] Aug, Chelsea Lowry te pain of left knee Family Medicine [address], M25.562 ; Anxiety F41.9 [place] [address] ; Localized osteoarthritis of right knee M17.11 ; P ain in right thigh M79 .651 ; Abnormal barium swallow R93.3 ; Dysphag ia, unspecified typ e R13.10 ; Muscle cramp, nocturnal R25.2 ; Status post medial men iscectomy of right knee Z 98.890 ; Benign prostati c hyperplasia wit h lower urinary tract s ymptoms N40.1 ; Nocturi a R35.1 and History of colon polyps Z86.010 IMMUNIZATIONS Vaccine Route Administration Date Status FluAD [...] Answer Notes Are you a never smoker REASON FOR REFERRAL No Information VITAL SIGNS Height 69.00 in Aug, Weight 200.4 lbs Aug, Temperature 97.3 degrees Fahrenheit Aug, BMI 29.59 kg/m2 Aug, Oximetry 99 % Aug, Respiratory Rate 15 /min Aug, Blood pressure systolic 129 mm Hg Aug, Blood pressure diastolic 73 mm Hg Aug, MEDICATIONS Medication SIG (Take, Route, Start Date End Date Status Frequency, Duration) Sertraline HCl 50 MG 1 tablet Orally Once a day Active for 90 days Gabapentin 300 MG 2 tablet Orally three A ctive times a day for 90 days Meloxicam 7.5 MG 1 tablet Orally Once a day Active for 30 day(s) Tamsulosin HCl 0.4 MG 1 capsule Orally Twice a Active day for 90 days Tramadol HCl 50 MG 1 tablet Orally every 12 Aug,Sep, 20 Active hours prn pain of 7-10 scale for 14 days Magnesium Oxide -Mg 1 capsule as needed Orally Active Supplement 400 MG Once a day for 90 days PROCEDURES No Information RESULTS No Results REASON FOR VISIT 3 [facility] f/u [phone], back pain, knee pain right and left, anxiety, abdominal pain hernia MEDICAL (GENERAL) HISTORY Type Description Date Medical History erectile dysfunction Medical History anxiety Medical History sinus problems Surgical History Hernia 2016 Surgical History Meniscus 2020 Goals Section No Information Health Concerns No Information MEDICAL EQUIPMENT No Information MENTAL STATUS No Information FUNCTIONAL STATUS No Information ASSESSMENTS Encounter Date Diagnosis Notes Aug, Acute pain of left knee (ICD-10 - M25.56 2) Aug, History of colon polyps (ICD-10 - Z86.01 0) Aug, Localized osteoarthritis of right knee ( ICD-10 - M17.11) Aug, Anxiety (ICD-10 - F41.9) Aug, Status post medial meniscectomy of right knee (ICD-10 - Z98.890) Aug, Nocturia (ICD-10 - R35.1) Aug, Benign prostatic hyperplasia with lower urinary tract symptoms (ICD-10 - N40.1) Aug, Abnormal barium swallow (ICD-10 - R93.3) Aug, Pain in right thigh (ICD-10 - M79.651) Aug, Muscle cramp, nocturnal (ICD-10 - R25.2) Aug, Dysphagia, unspecified type (ICD-10 - R1 3.10) PLAN OF TREATMENT Medication Medication Name Sig Start Date Stop Date Sertraline HCl 50 MG 1 tablet Orally Once a day for 90 days Tramadol HCl 50 MG 1 tablet Orally every 12 Aug, 11 N ov2019 hours prn pain of 7-10 scale for 14 days Meloxicam 7.5 MG 1 tablet Orally Once a day for 30 day(s) Magnesium Oxide -Mg Supplement 1 capsule as needed Orally 400 MG Once a day for 90 days Gabapentin 300 MG 2 tablet Orally three times a day for 90 days Treatment Notes Assessment Notes Clinical Notes Anxiety Anxiety Disorder: Care Instructions material was printed Localized osteoarthritis of right Knee Arthritis: Exercises- - will knee increase gabapentin to 2 tabs three times a day-- last took baclofen was 1 months ago-- Continue meloxican 7.5mg once daily may increase to twice daily as needed.rcurrent pain level 3 referral to chiropractor and pain mamanagment Pain in right thigh improving. with stretches and exercises. advised to put additional pillow under lower right leg to alleviate pressure on right knee also due to compensation for right upper thigh pain. discussed with hx of scope and meniscal injury may increase risk of OA pain in joint. Muscle cramp, nocturnal Gluteal Strain: Rehab Exercises material was printed, Gluteal Strain: Rehab Exercises material was printed Status post medial meniscectomy of if worsens please f/u wit h ortho right knee Next Appt Details 4 Weeks Reason: Provider Name:Chelsea Rosales, 2020-10-25 11:2 0:00 AM, [address], [place], [address], Insurance Providers Payer Name Payer Address Payer Insured Patient Coverage Cover age End Phone Name Relationship to Start Date Elio e Insured [employer] [address] Nini [place] self [place]LA[place] messina [phone]
== END 2020-11-01 13:01 | disposition home or self-care (01) ==
LOC: ER 10:42
DX: U07.1 COVID-19 (principal); J18.9 Pneumonia, unspecified organism
CPT/HCPCS: 87804 ×2; 71045; 99284; U0002; J7512

== ENCOUNTER 2020-11-05 16:47 | Emergency (ER) | payer OTHER ==
--- OUTSIDE RECORDS SUMMARY | 2020-11-05 16:49 | XMS REPORT | Continuity of Care Document ---
:1950 Author Organization [facility] Address 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 Social History Smoking Status Start Date Stop Date Source Never Smoker [facility] Medications Ordered Filled Start Stop Current Ordering Indication Dosage Frequency Signature Comments Components Source Medication Medication Date Date Medication? Clinician (SIG) Name Name Diclofenac Diclofenac 2020- No Na Rosales [address] [facility] Sodium Sodium 06-23 applicatio Ta s - 00:00: 00:00 n to Memoria 00 :00 affected [facility] Gabapentin Gabapentin Yes Na Rosales [address] [facility] 03-03 [facility]: Memoria 00 [facility] Magnesium Magnesium 2019- No Na Rosales [address] [facility] Oxide -Mg Oxide -Mg 03-03 as needed [facility] - Supplement Supplement 00:00: 00:00 Memoria 00 :00 [facility] meloxicam meloxicam No 1 Q1D meloxicam [facility] 7.5 mg 7.5 mg 7.5 mg Family tablet Take tablet Take tablet Practic 1 tablet 1 tablet Take 1 e every day every day tablet by oral by oral every day route. route. by oral route. sertraline sertraline No 1 Q1D sertraline [facility] 50 mg 50 mg 50 mg Family tablet Take tablet Take tablet Practic 1 tablet 1 tablet Take 1 e every day every day tablet by oral by oral every day route. route. by oral route. tamsulosin tamsulosin No 1capsul Q1D tamsulosin [facility] 0.4 mg 0.4 mg e(s) 0.4 mg Family capsule capsule capsule Practi c Take 1 Take 1 Take 1 e capsule capsule capsule every day every day every day by oral by oral by oral route. route. route. Sertraline Sertraline Yes Na Rosales [address] [facility] HCl HCl [facility] Tamsulosin Tamsulosin Yes Na Rosales [address] [facility] [address] HCl HCl [facility] Meloxicam Meloxicam Yes Na Rosales [address] [facility] Immunizations Ordered Immunization Filled Immunization Date Status Commen ts Source Name Name Influenza A Influenza A 2019-08-25 [facility] ly monovalent (H5N1), monovalent (H5N1), 00:00:00 Practice ADJUVANTED-2013 ADJUVANTED-2012 Procedures This patient has no known procedures. Encounters Start End Encounter Admission Attending Care Care Encounter Source Date/Time Date/Time Type Type Clinicians Facility Department ID 2020-10-28 2020-10-28 Outpatient [facility] [id number] [facility]00 [facility] 2020-10-11 2020-10-11 Outpatient [facility] [id number] [facility] 2020-09-22 2020-09-22 Outpatient [facility] [id number] [facility] 00:[facility]:00 [facility] - [facility] l Outpati ent Clinics 2020-09-14 2020-09-14 Laboratory Lab, [facility] [id number] 14:51:48 15:11:48 Only [facility] [id number] [place] [id number] Professio [phone] nal [address] One 2020-07-25 2020-07-25 [facility] [id number] [address] 10:16:00 10:16:00 [facility] Medicine Medicine Outpati ent Clinics 2020-07-04 2020-07-04 [facility] [id number] 15:00:00 15:00:00 [facility] Medicine Outpati ent Clinics 2020-07-04 2020-07-04 Outpatient [facility] [id number] 09:52:00 09:52:00 [place] l Group Outpati ent Clinics 2020-06-23 2020-06-23 [facility] [id number] 10:40:00 10:40:00 [facility] Family Medicine l Medicine Outpati ent Clinics 2020-04-13 2020-04-13 [facility] [id number] 09:40:00 09:40:00 t [facility] Medicine l Medicine Outpati ent Clinics 2020-03-17 2020-03-17 [facility] [id number] 09:20:00 09:20:00 [facility] Medicine l Medicine Outpati ent Clinics 2020-03-03 2020-03-03 [facility] [id number] 10:34:00 10:34:00 [facility] Medicine l Medicine Outpati ent Clinics 2020-03-03 2020-03-03 Outpatient Fernando Kingt [id number] 09:00:00 09:00:00 t [facility] [place] [facility] Medicine l Medicine Outpati ent Clinics 2020-02-24 2020-02-24 [place] [facility] [place] - [id number] [facility] 00:00:00 00:00:00 [place] Fam kirsten o, TRANSPORTATION MANAGER: Medical - Practi c [email or web address] [email or web address], [address], [place] [address] , Ph. 2020-01-20 2020-01-20 [facility] [id number] 05:37:00 09:41:00 Encounter Levar Lowe [id number] [place] [id number] Surgical [id number] [place] 071 2020-01-20 2020-01-20 Orders Doctor DAVIS [id number] 00:00:00 00:00:00 Only Unassigned, JUAN MANUEL [id number] [place] [facility] [id number] 2020-01-19 2020-01-19 Correctional Maintenance Technician Devon Urrutia [facility] [id number] 13:19:44 13:39:36 Visit Lab Main [place] [id number] [place] [id number] Professio [phone] [facility] 353 Building Results This patient has no known results.
[2020-11-05 19:26] LABS: Absolute Lymphocytes (CBC) 0.7 K/uL (0.7-4.9); Basophils % 0.6 % (0-1.3); Hematocrit 38.8 % (39.6-49.0); RBC Red Blood Cell Count 4.72 M/uL (4.33-5.43)
[2020-11-05] MEDS ORDERED: ALBUTEROL INHALER 60 PUFF/8 GM IH ONE (19:26)
[2020-11-05] MEDS ORDERED: BENZONATATE 100 MG CAP PO ONE (19:26)
[2020-11-05 19:41] LABS: Protime INR 1.19
[2020-11-05 19:49] LABS: ALT/SGPT 39 U/L (12-78); AST/SGOT 36 U/L (15-37); Albumin 3.1 g/dL (3.4-5.0); Alkaline Phosphatase 85 U/L (45-117); BUN Blood Urea Nitrogen 22 mg/dL (7-18); Bicarbonate 28 mmol/L (21-32); Bilirubin Direct 0.1 mg/dL (0-0.2); Bilirubin Total 0.7 mg/dL (0.2-1.0); Glucose Level 100 mg/dL (74-106); Magnesium 2.1 mg/dL (1.8-2.4); NT PRO-BNP 108 pg/mL (<125); Potassium 4.8 mmol/L (3.5-5.1); Protein, Total 7.7 g/dL (6.4-8.2); Sodium Level 136 mmol/L (136-145); Troponin (Emerg Dept Use Only) < 0.02 ng/mL (0.0-0.045)
[2020-11-05] MEDS ORDERED: METHYLPREDNISOLONE 40 MG INJ ONE (20:20)
--- NOTE | 2020-11-05 20:26 | RAD REPORT ---
EXAM DESCRIPTION: Eugen[place] Single View11/05/2020 7:44 pm CLINICAL HISTORY: Shortness of breath COMPARISON: November 01, 2020 FINDINGS: Moderate patchy right lung opacities. Mild patchy left lung opacities Heart is mildly enlarged. Right hemidiaphragm is elevated IMPRESSION: Bilateral pulmonary opacities probably pneumonia
--- NOTE | 2020-11-05 20:30 | RAD REPORT ---
EXAM DESCRIPTION: 11 - Chest For Pe Angio - 11/05/2020 8:17 pm CLINICAL HISTORY: Shortness breath COMPARISON: None. TECHNIQUE: Dynamically enhanced axial 3 mm thick images of the chest were obtained during administra tion of <100> mL Isovue 370 IV contrast. Coronal and oblique reconstruction images were generated and reviewed. Exam utilizes a protocol for optimal evaluation of pulmonary arterial tree. Maximum intensity projections 3D imaging was utilized All CT scans are performed using dose optimization technique as appropriate and may include automated exposure control or mA/KV adjustment according to patient size. FINDINGS: A pulmonary embolus is not seen. A thoracic aortic aneurysm is not noted. A pleural effusion is not seen. A pericardial effusion is not seen. Mild to moderate right and mild left ground-glass opacities Small hiatal hernia IMPRESSION: Negative for a pulmonary embolism. Mild to moderate ground-glass opacities within the lungs may indicate Covid pneumonia
--- NOTE | 2020-11-05 20:40 | EDPHYS ---
Physician Documentation [facility] Name: Shahid Milton Age: 70 yrs Sex: Male : 1950 Arrival Date: 11/05/2020 Time: 16:50 Bed 19 Private MD: ED Physician Baldomero Aguirre HPI: 11/05 19:00 This 70 yrs old Male presents to ER via Ambulatory with complaints of cp Breathing Difficulty, COVID+. 19:00 The patient has shortness of breath at rest. Onset: The symptoms/episode began/occurred cp gradually, and became worse today. The patient's shortness of breath is aggravated by light activity. Associated signs and symptoms: Pertinent positives: chest pain, non-productive cough, Pertinent negatives: fever, hemoptysis, vomiting. 19:00 Patient reports testing positive for COVID-19 4 days ago. Currently taking oral cp Zithromax and Medrol dose deven. Historical: - Allergies: 17:20 No Known Allergies; jl7 - PMHx: 17:20 "Anger problems"; jl7 - PSHx: 17:20 Hernia repair; Cholecystectomy; jl7 - Immunization history:: Adult Immunizations up to date. - Social history:: Smoking status: Patient denies any tobacco usage or history of. ROS: 19:05 Constitutional: Negative for body aches, chills, fever, poor PO intake. cp 19:05 Eyes: Negative for injury, pain, redness, and discharge. cp 19:05 ENT: Negative for ear pain, sore throat, difficulty swallowing, difficulty handling secretions. 19:05 Cardiovascular: Positive for chest pain, with cough, Negative for edema, palpitations. 19:05 Respiratory: Positive for cough, "sounds productive". 19:05 Abdomen/GI: Negative for abdominal pain, nausea, vomiting, and diarrhea. 19:05 Neuro: Positive for headache, Negative for altered mental status, syncope, weakness. 19:05 All other systems are negative. Exam: 19:10 Constitutional: The patient appears in no acute distress, alert, awake, cp non-diaphoretic, non-toxic, well developed, well nourished. 19:10 Head/Face: Normocephalic, atraumatic. cp 19:10 Eyes: Periorbital structures: appear normal, Conjunctiva: normal, no exudate, no injection, Sclera: no appreciated abnormality, Lids and lashes: appear normal, bilaterally. 19:10 ENT: External ear(s): are unremarkable, Nose: is normal, Mouth: Lips: moist, Oral mucosa: moist, Posterior pharynx: is normal, airway is patent. 19:10 Neck: ROM/movement: is normal, is supple, without pain, no range of motions limitations. 19:10 Chest/axilla: Inspection: normal, Palpation: is normal, no crepitus, no tenderness. 19:10 Cardiovascular: Rate: normal, Rhythm: regular, Edema: is not appreciated, JVD: is not appreciated. 19:10 Respiratory: the patient does not display signs of respiratory distress, Respirations: labored breathing, is not present, intercostal retractions, are absent, shallow respirations, are not present, Breath sounds: bronchial sounds, that are mild, are heard diffusely, decreased breath sounds, are not appreciated, stridor, is not appreciated. 19:10 Abdomen/GI: Inspection: abdomen appears normal, Palpation: abdomen is soft and non-tender, in all quadrants. 19:10 Skin: no rash present. 19:10 Neuro: Orientation: to person, place \\T\\ time. Mentation: is normal, Motor: moves all fours. 19:27 ECG was reviewed by the Attending Physician. Vital Signs: 17:16 BP 114 / 82; Pulse 73; Resp 22; Temp 98.5; Pulse Ox 99% ; Weight 90.72 kg; Height 5 ft. jl7 10 in. (177.80 cm); Pain 2/10; 19:32 BP 119 / 74; Pulse 72; Resp 24 S; Pulse Ox 96% on R/A; ca1 20:28 BP 125 / 69; Pulse 78; Resp 24 S; Pulse Ox 98% on R/A; ca1 17:16 Body Mass Index 28.70 (90.72 kg, 177.80 cm) jl7 MDM: 18:32 Patient medically screened. [place] 20:39 Data reviewed: vital signs, nurses notes, lab test result(s), EKG, radiologic studies, cp CT scan, plain films, I have discussed the patient's presentation/case with the attending Emergency Department Physician; and as a result, I will discharge patient. 20:39 Test interpretation: by ED physician or midlevel provider: ECG. Counseling: I had a cp detailed discussion with the patient and/or guardian regarding: the historical points, exam findings, and any diagnostic results supporting the discharge/admit diagnosis, lab results, radiology results, to return to the emergency department if symptoms worsen or persist or if there are any questions or concerns that arise at home. ED course: VSS. Patient appears non-toxic and no signs of respiratory distress. Oxygen sats 89% on RA. Will discharge to home for continued monitoring. 12 18:51 Order name: Basic Metabolic Panel; Complete Time: 19:49 cp 1212 18:51 Order name: CBC with Diff; Complete Time: 19:44 cp /12 18:51 Order name: LFT's; Complete Time: 19:49 cp 12 18:51 Order name: Magnesium; Complete Time: 19:49 cp 1212 18:51 Order name: NT PRO-BNP; Complete Time: 19:49 cp 12 18:51 Order name: PT-INR; Complete Time: 19:49 cp 12 18:51 Order name: Troponin (emerg Dept Use Only); Complete Time: 19:49 cp 12 18:51 Order name: XRAY Chest (1 view); Complete Time: 20:32 cp 12 18:51 Order name: EKG; Complete Time: 18:52 cp /12 18:51 Order name: D-Dimer; Complete Time: 19:49 cp 12/12 19:50 Order name: CT Chest For PE Angio; Complete Time: 20:32 cp /12 20:32 Interpretation: Report reviewed. 12 18:51 Order name: Cardiac monitoring; Complete Time: 19:24 cp 12 18:51 Order name: EKG - Nurse/Tech; Complete Time: 19:24 cp 12 18:51 Order name: IV Saline Lock; Complete Time: 19:24 cp 12 18:51 Order name: Labs collected and sent; Complete Time: 19:24 cp 12/12 18:51 Order name: O2 Per Protocol; Complete Time: 19:24 cp 12 18:51 Order name: O2 Sat Monitoring; Complete Time: 19:24 cp EC:27 Rate is 83 beats/min. Rhythm is regular. DE interval is normal. QRS interval is normal. cp QT interval is normal. T waves are Inverted in leads III, aVF, aVR. Interpreted by me. Reviewed by me. Administered Medications: 19:23 Drug: Albuterol HFA Inhaler 2 puffs Route: Inhalation; mg2 20:30 Follow up: Response: No adverse reaction; Marked relief of symptoms ca1 19:24 Drug: Tessalon Perle 200 mg Route: PO; mg2 20:30 Follow up: Response: No adverse reaction; Marked relief of symptoms ca1 20:08 Drug: SOLU-Medrol 80 mg Route: IVP; Site: right antecubital; ca1 20:45 Follow up: Response: No adverse reaction; Marked relief of symptoms ca1 Disposition: 11/06 17:57 Co-signature as Attending Physician, Baldomero Aguirre MD I agree with the assessment and [facility] plan of care. Disposition: 11/05/20 20:40 Discharged to Home. Impression: Coronavirus infection, unspecified, Pneumonia due to other specified infectious organisms. - Condition is Stable. - Discharge Instructions: Community-Acquired Pneumonia, Adult, COVID-19. - Prescriptions for Prednisone 20 mg Oral Tablet - take 2 tablet by ORAL route once daily for 5 days; 10 tablet. Albuterol Sulfate 2.5 mg /3 mL (0.083 %) Inhalation Solution for Nebulization - inhale 1 unit by NEBULIZATION route every 8 hours As needed; 1 box. - Medication Reconciliation Form, Thank You Letter, Antibiotic Education, Prescription Opioid Use form. - Follow up: Private Physician; When: 1 - 2 days; Reason: Recheck today's complaints. - Problem is new. - Symptoms have improved. Signatures: Dispatcher [employer] Baldomero Smith MD MD cha Page, Corey, PA PA cp Leal, Jahala RN RN jl7 Crow Dillon, JOEL RN mg2 Misty Fair RN RN ca1 Corrections: (The following items were deleted from the chart) 11/05 20:56 20:40 11/05/2020 20:40 Discharged to Home. Impression: Coronavirus infection, ca1 unspecified; Pneumonia due to other specified infectious organisms. Condition is Stable. Forms are Medication Reconciliation Form, Thank You Letter, Antibiotic Education, Prescription Opioid Use. Follow up: Private Physician; When: 1 - 2 days; Reason: Recheck today's complaints. Problem is new. Symptoms have improved. cp
--- NOTE | 2020-11-05 20:40 | ER ---
Nurse's Notes [facility] Name: Shahid Milton Age: 70 yrs Sex: Male : 1950 Arrival Date: 11/05/2020 Time: 16:50 Bed 19 Private MD: Diagnosis: Coronavirus infection, unspecified;Pneumonia due to other specified infectious organisms Presentation: 11/05 17:16 Chief complaint: Patient states: Shortness of breath on exertion, can't complete a jl7 sentence, tested positive for COVID on Saturday, ROBLERO and body aches and chest soreness with coughing. Coronavirus screen: Client denies travel out of the [place] in the last 14 days. cough unrelated to allergies, difficulty breathing, shortness of breath, Client presents with at least one sign or symptom that may indicate coronavirus-19. Standard/surgical mask placed on the client. Provider contacted for isolation considerations. Client reports previous positive COVID test result. Date of collection: November 01, 2020 results are located within the EHR/EMR. Staff notified of need for isolation. Ebola Screen: No symptoms or risks identified at this time. Initial Sepsis Screen: Does the patient meet any 2 criteria? No. Patient's initial sepsis screen is negative. Does the patient have a suspected source of infection? No. Patient's initial sepsis screen is negative. Risk Assessment: Do you want to hurt yourself or someone else? Patient reports no desire to harm self or others. Onset of symptoms was November 01, 2020. 17:16 Method Of Arrival: Ambulatory jl7 17:16 Acuity: FAITH 3 jl7 Triage Assessment: 17:20 General: Appears in no apparent distress. uncomfortable, Behavior is calm, cooperative, jl7 appropriate for age. Pain: Complains of pain in all over Pain currently is 2 out of 10 on a pain scale. Respiratory: Reports shortness of breath on exertion Airway is patent Respiratory effort is even, unlabored, Respiratory pattern is symmetrical, tachypnea Onset: The symptoms/episode began/occurred gradually, the patient has mild shortness of breath. Historical: - Allergies: 17:20 No Known Allergies; jl7 - PMHx: 17:20 "Anger problems"; jl7 - PSHx: 17:20 Hernia repair; Cholecystectomy; jl7 - Immunization history:: Adult Immunizations up to date. - Social history:: Smoking status: Patient denies any tobacco usage or history of. Screenin:24 Abuse screen: Denies threats or abuse. Denies injuries from another. Nutritional mg2 screening: No deficits noted. Tuberculosis screening: No symptoms or risk factors identified. Fall Risk IV access (20 points). Assessment: 19:25 General: Appears in no apparent distress. comfortable, Behavior is calm, cooperative. mg2 Pain: Complains of pain in chest. Neuro: Level of Consciousness is awake, alert, obeys commands, Oriented to person, place, time, situation. Cardiovascular: Rhythm is with PVC. Respiratory: Airway is patent Respiratory effort is even, unlabored, Respiratory pattern is regular, symmetrical. Respiratory: Reports shortness of breath cough that is. GI: No signs and/or symptoms were reported involving the gastrointestinal system. : No signs and/or symptoms were reported regarding the genitourinary system. EENT: No signs and/or symptoms were reported regarding the EENT system. Derm: Skin is intact, is healthy with good turgor, Skin is pink, warm \\T\\ dry. normal. Musculoskeletal: Circulation, motion, and sensation intact. Capillary refill < 3 seconds. 20:28 Reassessment: Patient appears in no apparent distress at this time. Patient and/or ca1 family updated on plan of care and expected duration. Pain level reassessed. Patient is alert, oriented x 3, equal unlabored respirations, skin warm/dry/pink. 20:55 Reassessment: Patient appears in no apparent distress at this time. Patient is alert, ca1 oriented x 3, equal unlabored respirations, skin warm/dry/pink. Vital Signs: 17:16 BP 114 / 82; Pulse 73; Resp 22; Temp 98.5; Pulse Ox 99% ; Weight 90.72 kg; Height 5 ft. jl7 10 in. (177.80 cm); Pain 2/10; 19:32 BP 119 / 74; Pulse 72; Resp 24 S; Pulse Ox 96% on R/A; ca1 20:28 BP 125 / 69; Pulse 78; Resp 24 S; Pulse Ox 98% on R/A; ca1 17:16 Body Mass Index 28.70 (90.72 kg, 177.80 cm) jl7 ED Course: 16:50 Patient arrived in ED. ag5 17:19 Triage completed. jl7 17:20 Arm band placed on right wrist. jl7 18:32 Baldomero Hughes PA is PHCP. cp 18:32 Baldomero Aguirre MD is Attending Physician. cp 18:47 Misty Fair RN is Primary Nurse. ca1 19:10 Inserted saline lock: 20 gauge in right antecubital area, using aseptic technique. mg2 Blood collected. 19:24 No provider procedures requiring assistance completed. mg2 19:26 Patient has correct armband on for positive identification. Placed in gown. Call light mg2 in reach. Side rails up X2. case monitor on. Pulse ox on. NIBP on. Door closed. 19:44 Notified Nurse Practitioner and/or Physician Mortarman of a critical lab result(s), ca1 D-Dimer 1821. 19:45 XRAY Chest (1 view) In Process Unspecified. EDMS 20:17 CT Chest For PE Angio In Process Unspecified. EDMS 20:55 IV discontinued, intact, bleeding controlled, No redness/swelling at site. Pressure ca1 dressing applied. Administered Medications: 19:23 Drug: Albuterol HFA Inhaler 2 puffs Route: Inhalation; mg2 20:30 Follow up: Response: No adverse reaction; Marked relief of symptoms ca1 19:24 Drug: Tessalon Perle 200 mg Route: PO; mg2 20:30 Follow up: Response: No adverse reaction; Marked relief of symptoms ca1 20:08 Drug: SOLU-Medrol 80 mg Route: IVP; Site: right antecubital; ca1 20:45 Follow up: Response: No adverse reaction; Marked relief of symptoms ca1 Outcome: 20:40 Discharge ordered by MD. cp 20:55 Discharged to home via wheelchair, with significant other. ca1 20:55 Condition: stable 20:55 Discharge instructions given to patient, Instructed on discharge instructions, follow up and referral plans. medication usage, Demonstrated understanding of instructions, follow-up care, medications, Prescriptions given X 2. 20:56 Patient left the ED. ca1 Signatures: Dispatcher [employer] EDMS Baldomero Hughes PA PA cp Leal, Jahala, RN RN jl7 Crow Dillon RN RN mg2 Misty Fair RN RN ca1 Sherine Brandon ag5
[2020-11-09 20:16] VITALS: TEMP 98.5
[2020-11-09 20:18] VITALS: BP 125/69; O2SAT 98
== END 2020-11-05 20:56 | disposition home or self-care (01) ==
LOC: ER 16:47
DX: U07.1 COVID-19 (principal); J16.8 Pneumonia due to other specified infectious organisms
CPT/HCPCS: 93005; 85025; 80048; 36415; 83735; 85610; 85379; 80076; 84484; 83880; 71275; 71045; 96374; 99285; Q9967; J2920

== ENCOUNTER 2021-07-14 14:35 | Emergency (ER) | payer OTHER ==
--- OUTSIDE RECORDS SUMMARY | 2021-07-14 14:38 | XMS REPORT | Continuity of Care Document ---
:1950 Author Organization [facility] t Address [address] [place] [address] [address] [place] [address] Care Team Providers Name Role Phone Lab, Fam Pob I Attending Clinician Unavailable Nurse, Fam Pob I Attending Clinician Unavailable Doctor Unassigned, Name Attending Clinician Unavailable Everette Salter MD Attending Clinician Pob, Lab Main Attending Clinician Unavailable Everette Salter MD Admitting Clinician Problems Condition Condition Condition Status Onset Resolution Last Treating Co mments Source Name Details Category Date Date Treatment Clinician Date Benign Benign Problem Active [facility] prostatic Prostatic 02-22 Fami ly hyperplasi Hyperplasi 00:00: Pr actic a a 00 e Osteoarthr Osteoarthr Problem Active [facility] it[facility] itis 02-22 Family 00:00: Practic 00 e 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 Depression 00 e Allergies, Adverse Reactions, Alerts This [...] gram [facility] Sodium Sodium 06-23 applicatio Luke s - 00:00: 00:00 n to [facility]oria 00 :00 affected [facility] Gabapentin Gabapentin 2019-0 Yes Na Rosales [address] [facility] 03-03 [facility]: [facility] 00 [facility] Magnesium Magnesium 2019-0 2020- No Na Rosales [address] [facility] Oxide -Mg Oxide -Mg 03-03 as needed [facility] - Supplement Supplement 00:00: 00:00 Memoria 00 :00 [facility] Sertraline Sertraline Yes Na Rosales [address] [facility] HCl HCl [facility] Tamsulosin Tamsulosin Yes Na Rosales [address] [facility] HCl HCl [facility] Meloxicam Meloxicam Yes Na Rosales [address] [facility] meloxicam meloxicam No 1 Q1D meloxicam [facility] 7.5 mg 7.5 mg 7.5 mg Family tablet Take tablet Take tablet Practic 1 tablet 1 tablet Take 1 e every day every day tablet by oral by oral every day route. route. by oral route. sertraline sertraline No 1 Q1D sertraline [place] 50 mg 50 mg 50 mg Family tablet Take tablet Take tablet Practic 1 tablet 1 tablet Take 1 e every day every day tablet by oral by oral every day route. route. by oral route. tamsulosin tamsulosin No 1capsul Q1D tamsulosin [place] 0.4 mg 0.4 mg e(s) 0.4 mg Family capsule capsule capsule Practi c Take 1 Take 1 Take 1 e capsule capsule capsule every day every day every day by oral by oral by oral route. route. route. Immunizations Ordered Immunization Filled Immunization Date Status Commen ts Source Name Name Influenza A Influenza A 2019-08-25 Completed [facility] Fami [facility] monovalent (H5N1), monovalent (H5N1), 00:00:00 Practice ADJUVANTED-2013 ADJUVANTED-2012 Procedures This patient has no known procedures. Encounters Start End Encounter Admission Attending Care Care Encounter Source Date/Time Date/Time Type Type Clinicians Facility Department ID 2021-06-16 2021-06-[address] [facility] [id number] [facility] 2021-06-08 2021-06-08 Outpatient [facility] [id number] [facility] 2021-03-12 2021-03-12 [facility] [id number] [facility] 2021-03-09 2021-03-09 Out[facility] [id number] [facility] 2021-03-06 2021-03-06 [facility] [id number] [facility] 2021-01-17 2021-01-17 [facility] [id number] [facility] 2021-01-05 2021-01-05 [facility] [id number] [facility] 2020-12-21 2020-12-21 Laboratory Lab, [facility] [id number] 10:53:43 11:13:43 Only Fam Pob I Health [id number] [place] [id number] Professio [phone] nal [facility] Office [facility] 2020-12-05 2020-12-05 Telephone Nurse, [facility] [id number] 00:00:00 00:00:00 Fam Pob I Health [id number] [place] [id number] Professio [phone] nal [facility] 2020-12-02 2020-12-02 Laboratory Lab, [facility] [id number] 18:20:33 18:40:33 Only Fam Pob I Health [id number] [place] [id number] Professio [phone] nal [facility] 2020-11-30 2020-11-30 Outpatient [facility] [id number] [facility] 2020-11-15 2020-11-15 Letter Doctor [place] [id number] 00:00:00 00:00:00 (Out) Unassigned, JUAN MANUEL [id number] [place] [id number] 2020-10-28 2020-10-28 [facility]patient [facility] [id number] [facility] 2020-10-11 2020-10-11 [facility]patient [facility] [id number] [facility] 2020-09-22 2020-09-22 Outpatient [facility] [id number] [facility] 2020-09-14 2020-09-14 Laboratory Lab, [facility] [id number] 14:51:48 15:11:48 Only Fam [facility] [id number] [place] [id number] Kristy [phone] nal 044 Office Building One 2020-07-25 2020-07-25 [facility] [id number] [facility] 10:16:00 10:16:00 t [employer] [facility] l Medicine Outpati ent Clinics 2020-07-04 2020-07-04 [facility] [id number] 15:00:00 15:00:00 t [employer] [facility] Family [facility] l Medicine Outpati ent Clinics 2020-07-04 2020-07-04 Outpatient [facility] [id number] 09:52:00 09:52:00 [facility] Outpati ent Clinics 2020-06-23 2020-06-23 [facility] [id number] 10:40:00 10:40:00 t Convergent Radiotherapy [facility] Medicine Outpati ent Clinics 2020-04-13 2020-04-13 [facility] [id number] 09:40:00 09:40:00 t [place] [employer] LuRetrotope s - Drive [facility] Medicine Outpati ent Clinics 2020-03-17 2020-03-17 [facility] [id number] 09:20:00 09:20:00 t [place] [employer] - Drive [facility] Medicine Outpati ent Clinics 2020-03-03 2020-03-03 [facility] [id number] 10:34:00 10:34:00 t [place] [employer] [facility] Medicine Outpati ent Clinics 2020-03-03 2020-03-03 [facility] [id number] 09:00:00 09:00:00 t [employer] [facility] Medicine Outpati ent Clinics 2020-02-24 2020-02-24 [facility] [place] - [id number] V illage 00:00:00 00:00:00 [facility] kirsten o, VC++ DEVELOPER: Medical - Practi c [email or web address] [email or web address] [place] [address], [place] [address] , Ph. 2020-01-20 2020-01-20 [facility] [id number] 05:37:00 09:41:00 Encounter Levar Lowe [id number] [place] [id number] Surgical [phone] [place] 071 2020-01-20 2020-01-20 Orders Doctor DAVIS [id number] 00:00:00 00:00:00 Only Unassigned, JUAN MANUEL [id number] [place] [facility] [id number] 2020-01-19 2020-01-19 Awake Overnight Counselor Devon [facility] [id number] 13:19:44 13:39:36 Visit Lab Main [place] [id number] [place] [id number] Professio [phone] [facility] 353 Building Results This patient has no known results.
--- NOTE | 2021-07-14 16:59 | RAD REPORT ---
EXAM DESCRIPTION: Mario Alberto Single View07/14/2021 4:41 pm CLINICAL HISTORY: cough COMPARISON: 2019 FINDINGS: The lungs appear clear of acute infiltrate. The heart is normal size IMPRESSION: No acute abnormalities displayed
--- NOTE | 2021-07-14 18:30 | ER ---
Nurse's Notes [facility] Name: Shahid Milton Age: 71 yrs Sex: Male : 1950 Arrival Date: 07/14/2021 Time: 14:38 Bed 26 Private MD: Diagnosis: Acute upper respiratory infection, unspecified Presentation: 07/14 15:38 Chief complaint: Patient states: Chest pain, coughing, loss taste a little bit, fatigue kg starting 2 days ago. Pt stated "I previously had COVID and this is what it felt like this back in November.". Coronavirus screen: Client denies travel out of the [place] in the last 14 days. At this time, unable to obtain information related to travel outside the [place] Client presents with at least one sign or symptom that may indicate coronavirus-19. Standard/surgical mask placed on the client. Provider contacted for isolation considerations. [facility] Department has been notified of person under investigation for COVID-19. Ebola Screen: Patient negative for fever greater than or equal to 101.5 degrees Fahrenheit, and additional compatible Ebola Virus Disease symptoms Patient denies exposure to infectious person. Patient denies travel to an Ebola-affected area in the 21 days before illness onset. Initial Sepsis Screen: Does the patient meet any 2 criteria?. Initial Sepsis Screen: Does the patient meet any 2 criteria? No. Patient's initial sepsis screen is negative. Does the patient have a suspected source of infection? No. Patient's initial sepsis screen is negative. Risk Assessment: Do you want to hurt yourself or someone else? Patient reports no desire to harm self or others. Onset of symptoms was July 12, 2021. 15:38 Method Of Arrival: Ambulatory kg 15:38 Acuity: FAITH 4 kg Triage Assessment: 15:42 General: Appears in no apparent distress. Behavior is calm, cooperative, appropriate kg for age, quiet. Pain: Complains of pain in chest. Historical: - Allergies: 15:42 No Known Allergies; kg - PMHx: 15:42 "Anger problems"; kg - PSHx: 15:42 None; kg - Immunization history:: Adult Immunizations up to date, Client reports receiving the 2nd dose of the Covid vaccine, Date received: February 03, 2021 Moderna Client reports receiving the 1st dose of the Covid vaccine, December 30, 2020 [facility]eri. - Social history:: Smoking status: Patient denies any tobacco usage or history of. Screenin:25 Abuse screen: Denies threats or abuse. Nutritional screening: No deficits noted. vg1 Tuberculosis screening: No symptoms or risk factors identified. Fall Risk None identified. Assessment: 18:24 General: Appears in no apparent distress. comfortable, Behavior is calm, cooperative. vg1 Pain: Complains of pain in mid-sternal area Pain currently is 1 out of 10 on a pain scale. Pain began 2-3 days ago. Neuro: Level of Consciousness is awake, alert, obeys commands, Oriented to person, place, time, situation. Cardiovascular: Patient's skin is warm and dry. Respiratory: Reports cough that is dry, pain with respiration Airway is patent Respiratory effort is even, unlabored. GI: Patient currently denies diarrhea, nausea, vomiting. : No signs and/or symptoms were reported regarding the genitourinary system. EENT: Reports sore throat. Derm: Skin is intact, is healthy with good turgor. Musculoskeletal: Circulation, motion, and sensation intact. Vital Signs: 15:38 BP 124 / 66; Pulse 75; Resp 20; Temp 98.3(O); Pulse Ox 99% on R/A; Weight 86.18 kg (R); kg Height 5 ft. 9 in. (175.26 cm) (R); Pain 2/10; 18:38 BP 122 / 68; Pulse 78; Resp 18; Pulse Ox 98% on R/A; vg1 15:38 Body Mass Index 28.06 (86.18 kg, 175.26 cm) kg ED Course: 14:38 Patient arrived in ED. as 15:42 Triage completed. kg 15:42 Arm band placed on right wrist. kg 15:43 Josef Pickens PA is PHCP. jmm 15:43 Lawrence Prado MD is Attending Physician. jmm 16:41 Chest Single View XRAY In Process Unspecified. EDMS 18:15 Pretty Arnold, RN is Primary Nurse. vg1 18:25 Patient has correct armband on for positive identification. Bed in low position. Call vg1 light in reach. 18:38 No provider procedures requiring assistance completed. Patient did not have IV access vg1 during this emergency room visit. Administered Medications: No medications were administered Outcome: 18:29 Discharge ordered by . jennifer 18:38 Discharged to home ambulatory. vg1 18:38 Condition: stable 18:38 Discharge instructions given to patient, Instructed on discharge instructions, follow up and referral plans. Demonstrated understanding of instructions, follow-up care. 18:39 Patient left the ED. vg1 Signatures: Dispatcher [employer] EDMS Josef Pickens PA PA jmm Martinez, Amelia as Garcia, Victoria, RN RN vg1 Hailey Singh RN RN kg
--- NOTE | 2021-07-14 18:30 | EDPHYS ---
Physician Documentation [facility] Name: Shahid Milton Age: 71 yrs Sex: Male : 1950 Arrival Date: 07/14/2021 Time: 14:38 Bed 26 Private MD: ED Physician Lawrence Prado HPI: 07/14 18:26 This 71 yrs old Male presents to ER via Ambulatory with complaints of r/o jmm covid. 18:26 The patient or guardian reports cough. Onset: The symptoms/episode began/occurred jmm gradually, 2 day(s) ago. Modifying factors: The symptoms are alleviated by nothing. the symptoms are aggravated by nothing. Associated signs and symptoms: Pertinent negatives: fever. 71-year-old male that presents emerged part with complaints of cough, congestion, shortness of breath, and loss of taste. Patient states symptoms are similar to when he was infected with coronavirus this past November. Patient states he did recently have exposure to someone with coronavirus.. Historical: - Allergies: 15:42 No Known Allergies; kg - PMHx: 15:42 "Anger problems"; kg - PSHx: 15:42 None; kg - Immunization history:: Adult Immunizations up to date, Client reports receiving the 2nd dose of the Covid vaccine, Date received: February 03, 2021 [facility] Client reports receiving the 1st dose of the Covid vaccine, December 30, 2020 [facility]. - Social history:: Smoking status: Patient denies any tobacco usage or history of. ROS: 18:26 Constitutional: Negative for fever, chills, and weight loss. jmm 18:26 Cardiovascular: Positive for chest pain, with cough. 18:26 Respiratory: Positive for cough, shortness of breath. 18:26 All other systems are negative. Exam: 18:26 Constitutional: This is a well developed, well nourished patient who is awake, alert, jmm and in no acute distress. Head/Face: atraumatic. Eyes: EOMI, no conjunctival erythema appreciated ENT: Moist Mucus Membranes Neck: Trachea midline, Supple Chest/axilla: Normal chest wall appearance and motion. Cardiovascular: Regular rate and rhythm. No edema appreciated Respiratory: Normal respirations, no respiratory distress appreciated Abdomen/GI: Non distended, soft Back: Normal ROM Skin: General appearance color normal MS/ Extremity: Moves all extremities, no obvious deformities appreciated, no edema noted to the lower extremities Neuro: Awake and alert, normal gait Psych: Behavior is normal, Mood is normal, Patient is cooperative and pleasant Vital Signs: 15:38 BP 124 / 66; Pulse 75; Resp 20; Temp 98.3(O); Pulse Ox 99% on R/A; Weight 86.18 kg (R); kg Height 5 ft. 9 in. (175.26 cm) (R); Pain 2/10; 18:38 BP 122 / 68; Pulse 78; Resp 18; Pulse Ox 98% on R/A; vg1 15:38 Body Mass Index 28.06 (86.18 kg, 175.26 cm) kg MDM: 16:08 Patient medically screened. [facility] 18:28 Data reviewed: vital signs, nurses notes. ED course: Patient is alert and nontoxic in jmm appearance in the ER. I discussed all labs and imaging studies with the patient. Patient will follow up with their primary care provider. Patient understood and agrees with plan of care. Patient is alert and nontoxic in appearance in the ER. . 07/14 16:09 Order name: Chest Single View XRAY; Complete Time: 17:12 [facility] 07/14 17:27 Order name: SARS-COV-2 RT PCR; Complete Time: 17:31 EDMS Administered Medications: No medications were administered Disposition: 19:22 Co-signature as Attending Physician, Lawrence Prado MD I agree with the assessment and kdr plan of care. Disposition Summary: 07/14/21 18:29 Discharge Ordered Location: Home [facility] Condition: Stable [facility] Diagnosis - Acute upper respiratory infection, unspecified [facility] Followup: [facility] - With: Private Physician - When: 2 - 3 days - Reason: Recheck today's complaints, Continuance of care, Re-evaluation by your physician Discharge Instructions: - Discharge Summary Sheet [facility] - COVID-19 [facility] Forms: - Medication Reconciliation Form [facility] - Thank You Letter [facility] - Antibiotic Education [facility] - Prescription Opioid Use [facility] Signatures: Dispatcher [employer] EDMS Lawrence Prado MD MD kdr Mickail, Joel, PA PA [facility] Hailey Singh, RN RN kg
[2021-07-14 19:25] VITALS: TEMP 98.3
[2021-07-14 19:27] VITALS: BP 122/68; O2SAT 98
== END 2021-07-14 18:39 | disposition home or self-care (01) ==
LOC: ER 14:35
DX: J06.9 Acute upper respiratory infection, unspecified (principal); Z86.16 Personal history of COVID-19
CPT/HCPCS: 71045; 99283; U0003

== ENCOUNTER 2021-11-08 10:27 | Day surgery (SDC) | payer OTHER ==
[2021-11-03 11:46] LABS: Absolute Lymphocytes (CBC) 1.3 K/uL (0.7-4.9); Basophils % 0.7 % (0-1.3); Hematocrit 37.2 % (39.6-49.0); Lymphocytes % 19.3 % (15.3-44.8); MPV 7.5 fL (7.6-11.3); RBC Red Blood Cell Count 4.45 M/uL (4.33-5.43)
[2021-11-03 11:53] LABS: Protime INR 1.03
[2021-11-03 11:58] LABS: BUN Blood Urea Nitrogen 24 mg/dL (7-18); Bicarbonate 27 mmol/L (21-32); Glucose Level 103 mg/dL (74-106); Potassium 3.7 mmol/L (3.5-5.1); Sodium Level 144 mmol/L (136-145)
[2021-11-08] MEDS ORDERED: Ringers Lactate 1,000 ML IV ONE ×2 (10:43→15:27)
[2021-11-08] MEDS ORDERED: CEFAZOLIN/SWI 2gm 2 GM/20 ML SYR ONE (10:47)
[2021-11-08] MEDS ORDERED: TRANEXAMIC ACID 1,000 MG in NA CHLORIDE 0.9% 50 ML IV ONE (11:00)
[2021-11-08] MEDS ORDERED: propofoL 200 MG/20 ML VIAL IV ONE (11:39)
[2021-11-08] MEDS ORDERED: FENTANYL CITR 100 MCG/2 ML ONE (11:39)
[2021-11-08] MEDS ORDERED: LIDOCAINE 2% MPF 5 ML VIAL ONE (11:39)
[2021-11-08] MEDS ORDERED: MIDAZOLAM HCL 2 MG/2 ML INJ ONE ×2 (11:39→13:12)
[2021-11-08] MEDS ORDERED: CELECOXIB 100 MG CAPSULE ONE (11:52)
[2021-11-08] MEDS ORDERED: ACETAMINOPHEN 500 MG TAB ONE (11:52)
[2021-11-08] MEDS ORDERED: CELECOXIB 100 MG CAPSULE PO ONE (12:00)
[2021-11-08] MEDS ORDERED: ACETAMINOPHEN 500 MG TAB PO ONE (12:00)
[2021-11-08] MEDS ORDERED: BUPIVACAINE 0.5% Inj,MDV 50 mL VIAL ONE (12:32)
[2021-11-08] MEDS ORDERED: BUPIVACAINE 0.5% PF 10 ML VIAL ONE (12:33)
[2021-11-08] MEDS ORDERED: LIDOCAINE 1% MPF 5 ML VIAL ONE (12:37)
[2021-11-08] MEDS ORDERED: BUPIVACAINE 0.25% PF 10 ML VIAL ONE (12:41)
[2021-11-08] MEDS ORDERED: dexAMETHasone 10 MG/ML VIAL ONE (12:41)
[2021-11-08] MEDS ORDERED: HYDROMORPHONE HCL 1 MG/ML INJ ONE (13:42)
[2021-11-08] MEDS ORDERED: KETAMINE HCL 500 MG/5 ML VIAL ONE (13:45)
[2021-11-08] MEDS ORDERED: NS 0.9% VIAL 10 ML ONE (13:45)
[2021-11-08] MEDS ORDERED: GLYCOPYRROLATE 0.2 MG/ML SYR ONE (14:01)
[2021-11-08] MEDS: BUPIVACAINE 0.5% PF 10 ML VIAL ONE ×2 (14:31→15:15)
--- NOTE | 2021-11-08 16:07 | P.BOP ---
Preoperative diagnosis: right knee osteoarthritis Postoperative diagnosis: same Primary procedure: right total knee arthroplasty Satellite Dish Technician: NONE,NONE Estimated blood loss: 20 cc Specimen: right knee bone remnants Findings: see dictation Anesthesia: General Complications: None Implants: Biomet Alison Persona 10 CR femur, G tibia, 32 patella, 10 CR poly Fluids & blood products: per anesthesia record; TT: 64 mins @ 300 mmHg Transferred to: Recovery Room Condition: Good
[2021-11-08] MEDS ORDERED: ONDANSETRON 4 MG/2 ML VIAL IV PRN (16:11)
[2021-11-08] MEDS ORDERED: DOCUSATE NA 100 MG CAP PO PRN (16:11)
[2021-11-08] MEDS ORDERED: TRAMADOL HCL 50 MG TAB PO PRN (16:14)
[2021-11-08 16:38] LABS: Hematocrit 35.5 % (39.6-49.0)
[2021-11-08] MEDS: HYDROMORPHONE HCL 1 MG/ML INJ ONE ×2 (16:50→16:55)
--- NOTE | 2021-11-08 16:57 | RAD REPORT ---
EXAM DESCRIPTION: RAD - Knee Right 2 View - 11/08/2021 4:26 pm CLINICAL HISTORY: Right knee surgery FINDINGS: Right knee prosthesis in good position No fracture or dislocation
[2021-11-08 17:07] VITALS: O2SAT 100
[2021-11-08] MEDS: CEFAZOLIN 2 GM in NA CHLORIDE 0.9% 100 ML IVPB SCH (17:38)
[2021-11-08] MEDS: MORPHINE 2 MG/ML SYR IV PRN ×2 (17:39→23:20)
[2021-11-08 17:58] VITALS: BMI 30.1
[2021-11-08] MEDS ORDERED: PNEUMOCOCCAL VACCINE 0.5 ML IMVAC ONE (20:00)
[2021-11-08] MEDS: GABAPENTIN 300 MG CAP PO SCH (20:33)
[2021-11-08] MEDS: HYDROCODONE/APAP 7.5/325 MG TAB PO PRN (20:33)
[2021-11-08] MEDS ORDERED: TAMSULOSIN 0.4 MG SR CAP PO SCH (21:00)
--- NOTE | 2021-11-08 21:46 | P.OP ---
Preoperative diagnosis: right knee osteoarthritis Postoperative diagnosis: same Primary procedure: right total knee arthroplasty Anesthesia: general Estimated blood loss: 20 cc Specimen: right knee bone remnants Findings: see dictation Operative Technique: Indication For Procedure: Shahid is a 71 year-old male presenting to my clinic with signs, symptoms and x-ray findings consistent with severe right knee osteoarthritis. I discussed with the patient at length risks and benefits associated with operative and nonoperative treatment. He had failed conservative treatment measures and had significant difficulties with ADLs secondary to his pain. We discussed operative treatment and elected to proceed with right total knee arthroplasty. He expressed understanding and elected to proceed with operative treatment. Description Of Procedure: After informed consent was obtained, the patient was identified in the preoperative holding area. The right lower extremity was marked. The patient was then taken to the PACU where he underwent a right lower extremity adductor canal block performed by Anesthesia. He was then taken to the operating room, transferred to the operating table in supine fashion, and placed under general anesthesia. The right lower extremity was then prepped and draped in usual sterile fashion. A time-out was initiated. The correct patient and procedure were confirmed and identified. The patient did receive his preoperative prophylactic antibiotics. The right lower extremity was then exsanguinated and tourniquet was inflated to 300 mmHg. Approximately 15 cm longitudinal incision was made centered over the anterior aspect of the right knee. Dissection was then taken to the extensor mechanism and a medial parapatellar arthrotomy was performed. The patella was everted and dislocated laterally and the knee was flexed in the fat pad. Medial lateral meniscus and ACL were all excised exposing the distal femur. Excess hypertrophic synovium was also excised within the suprapatellar pouch. The patient had an MRI of her right knee preoperatively for surgical planning and creation of cutting blocks. The cutting block was then placed over the distal femur and pins were then placed. The distal femoral cutting block was then placed over the pins. Knee joint was then used to ensure proper depth cut and the distal femur was then cut. The chamfer cutting guide was then placed over the distal end of the femur. Anterior, posterior cuts as well as anterior and posterior chamfer cuts were then made again confirming proper depth of the cut using an Juan Manuel wing. Excess bone remnants were then sent to pathology for further evaluation. Next, attention was taken to the proximal tibia. A tibial jig and tibial cutting blo ck was then placed on proximal aspect of the right tibia and locked into position. Pins were then placed and alignment guide was then used to confirm proper alignment of the cut and then coronal and sagittal planes. Once this was confirmed, the cutting jig was placed over the pins and the proximal tibia was cut. Sizing trays were then selected and size 10 mm spacer was used and there was good overall balance in flexion and extension. Next, the trial implants were then placed using the size 10 standard CR femur and a size F tibia with an 10 mm CR poly. There was overall good range of motion and good stability. The trial implants were then removed. This improved the overall stability of the knee and components. The wound was then irrigated thoroughly with normal saline and the knee was then injected with 30 cc of 0.5% Marcaine both in the posterior capsule and mediallateral gutters as well as quadriceps tendon and periosteum. The tibia was then punched. The femur was drilled. The cement was then prepared on the back table. Cement was then placed first on the tibial surface followed by size F tibia. Excess cement was removed with [place] elevators. Size 10 standard CR femur was then placed on the distal femur after cement was placed on the distal femur. Excess cement was then removed and a size 10 mm CR trial poly was then placed. The knee was held in extension as the cement hardened. Undersurface of the patella was prepared debriding osteophytes using rongeurs as well as osteophytes.. Cement was placed on the undersurface of the patella after it was cut and a size 32 patella was placed. Once the cement was hardened, the knee was ranged, there was good overall stability both in flexion, extension and as well as stability with varus and valgus stresses. Trial poly was then removed and a size 10 mm CR poly was then placed and locked into position. The knee was then ranged again. There was good overall range of motion both for flexion and extension with good stability. The wound was then irrigated again thoroughly with normal saline using pulse lavage. Tourniquet was let down. Hemostasis was achieved using Bovie electrocautery. Extensor mechanism was then approximated using a #1 Vicryl both in interrupted and running fashion. The fascia was then approximated using 0 Vicryl. Subcutaneous tissue was approximated with a 2-0 Vicryl. Skin was approximated using madison. Sterile dressings were applied. The patient was awakened and transferred back in stable condition Complications: None Implants: Biomet Alison Persona 10 CR femur, F tibia, 32 patella, 10 CR poly Fluids & blood products: per anesthesia record; TT: 64 mins @ 300 mmHg Transferred to: Recovery Room Condition: Good
[2021-11-09] MEDS: HYDROCODONE/APAP 7.5/325 MG TAB PO PRN ×2 (03:11→13:00)
[2021-11-09] MEDS: MORPHINE 2 MG/ML SYR IV PRN (05:33)
[2021-11-09] MEDS: ENOXAPARIN 30 MG/0.3 ML SQ SCH ×2 (05:33→08:19)
[2021-11-09 05:56] LABS: Hematocrit 35.3 % (39.6-49.0)
[2021-11-09] MEDS ORDERED: PANTOPRAZOLE 40MG TABLET PO SCH (07:30)
[2021-11-09] MEDS: GABAPENTIN 300 MG CAP PO SCH (08:18)
[2021-11-09] MEDS: CEFAZOLIN 2 GM in NA CHLORIDE 0.9% 100 ML IVPB SCH ×3 (08:19)
[2021-11-09] MEDS ORDERED: SERTRALINE HCL 50 MG TAB PO SCH (09:00)
[2021-11-09] MEDS ORDERED: CELECOXIB 100 MG CAPSULE PO SCH (09:00)
[2021-11-09 10:31] VITALS: BP 113/57; TEMP 97.5
--- NOTE | 2021-11-09 13:05 | P.DS ---
Discharge Date: 11/09/21 Disposition: [facility] HOME/HOME HEALTH CARE Discharge Condition: GOOD Consultations: none Procedures: right total knee arthroplasty Brief History of Present Illness: Shahid is a 71-year-old male who was admitted after right total knee arthroplasty on November 08, 2021 in stable condition. Hospital Course: Patient was admitted to floor after his right total knee arthroplasty in stable condition. Physical therapy was consulted to aid with mobilization. Patient mobilized well and his vital signs remained stable while in the hospital. He was given Lovenox for DVT prophylaxis while in the hospital and was discharged on Xarelto. He will follow up in 2 weeks for wound check and staple removal. Vital Signs/Physical Exam: Temp Pulse Resp BP Pulse Ox 97.5 F 74 19 113/57 L 97 11/09/21 10:30 11/09/21 10:30 11/09/21 10:30 11/09/21 10:30 11/09/21 10:30 Laboratory Data at Discharge: WBC 6.60 K/uL (4.3-10.9) 11/03/21 11:26 Hgb 11.8 g/dL (13.6-17.9) L 11/09/21 05:35 Hct 35.3 % (39.6-49.0) L 11/09/21 05:35 Plt Count 296 K/uL (152-406) 11/03/21 11:26 PT 11.8 SECONDS (9.5-12.5) 11/03/21 11:26 INR 1.03 11/03/21 11:26 APTT 36.1 SECONDS (24.3-36.9) 11/03/21 11:26 Sodium 144 mmol/L (136-145) 11/03/21 11:26 Potassium 3.7 mmol/L (3.5-5.1) 11/03/21 11:26 BUN 24 mg/dL (7-18) H 11/03/21 11:26 Creatinine 0.78 mg/dL (0.55-1.3) 11/03/21 11:26 Glucose 103 mg/dL (74-106) 11/03/21 11:26 Home Medications: Tamsulosin [Flomax*] 0.4 mg PO BEDTIME 06/18/17 Ascorbic Acid [Vitamin C] 1 cap PO DAILY 11/03/21 Cholecalciferol (Vitamin D3) [Vitamin D3] 25 mcg PO DAILY 11/03/21 Cyanocobalamin (Vitamin B-12) [Vitamin B12] 1,000 mcg PO DAILY 11/03/21 Gabapentin 600 mg PO BID 11/03/21 Pantoprazole [Protonix Tab*] 1 tab PO DAILY 11/03/21 Sertraline HCl 1 tab PO DAILY 11/03/21 Hydrocodone 7.5/APAP 325 [[place] 7.5/325 mg*] 1 tab PO Q4H PRN tab 11/09/21 Physician Discharge Instructions: Keep dressing clean dry and intact. Use bilateral thigh-high JONO hose for 2 weeks. Follow-up with Dr. Ortega in 2 weeks for staple removal. Begin Lyudmilarelto tomorrow, November 10 with breakfast. Diet: Regular Activity: Weight bearing as tolerated Followup: Tray Ortega MD [ACTIVE - CAN ADMIT] - 1-2 Weeks
== END 2021-11-09 16:25 | disposition home health service (06) ==
LOC: OR 10:27 → 2ND 16:36 → OR 11-09 16:25
PROVIDERS: ATTEND Orthopaedic Surgery Sports Medicine
PROC: 0SRC069 Replacement of Right Knee Joint with Oxidized Zirconium on Polyethylene Synthetic Substitute, Cemented, Open Approach (ICD-10-PCS; principal; 2021-11-08 12:30)
DX: M17.11 Unilateral primary osteoarthritis, right knee (principal); F41.9 Anxiety disorder, unspecified; N52.9 Male erectile dysfunction, unspecified; Z86.16 Personal history of COVID-19; Z83.3 Family history of diabetes mellitus; Z82.61 Family history of arthritis
CPT/HCPCS: 93005; 85025; 80048; 36415 ×3; 85610; 88304; 88311; 85730; 85018 ×2; 85014 ×2; 73560; 97110; 97116; 97161; 94010; 27447; U0002; J2704; J1650 ×2; J2250 ×2; J3010; J1100; J2270 ×3; J1170 ×2; J0690 ×4; J7120 ×2; J2405; 88305

== ENCOUNTER 2022-07-10 11:32 | Emergency (ER) | payer MEDICARE ==
--- OUTSIDE RECORDS SUMMARY | 2022-07-10 11:36 | XMS REPORT | Continuity of Care Document ---
:1950 Author Organization [facility] t Address [address] [place] [address] [address] [place] [address] Care Team Providers Name Role Phone VAN, NA LY Primary Care Physician Unavailable Van, Na L Attending Clinician Unavailable LOU CLARK Attending Clinician Unavailable OWENS_Matthew Attending Clinician Unavailable Doctor Unassigned, [place] Attending Clinician Unavailable Lou Clark MD Attending Clinician Pob, [facility] Lab Main Attending Clinician Unavailable YESSI GONZALEZ Attending Clinician Unavailable Yessi Walter Attending Clinician Lab, [facility] Fam Pob I Attending Clinician Unavailable Nurse, [facility] Pob I Attending Clinician Unavailable Gay-Estelaayo_A_AH Attending Clinician Unavailable Levar Salter MD Attending Clinician [phone] LOU CLARK Admitting Clinician Unavailable OWENS_T Admitting Clinician Unavailable Gay-Mbayo_A_AH Admitting Clinician Unavailable Levar Salter MD Admitting Clinician [phone] Payers Payer Name Policy Type Policy Number Effective Date Expiration Date S sofi [employer] GENERIC [id number] 2021 00:00:00 [facility] [id number] 2021 (MEDICARE 00:00:00 REPLACEMENT HMO) [employer] OF [place] - [id number] [place] (MEDICARE 00:00:00 REPLACEMENT/ADVANTA GE - HMO) Problems Condition Condition Condition Status Onset Resolution Last Treating Co mments Source Name Details Category Date Date Treatment Clinician Date Primary Primary Disease Active Overview: Univ ers osteoarthr osteoarthr 03-30 Formattin ity of itis of itis of 00:00: g of this [place] left knee left knee 00 note Medi juan might be Branch different from the original. 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 Hyperplasi 00:00: Pr actic a a 00 e Osteoarthr Osteoarthr Problem Active V illage itis itis 02-22 Family 00:00: Practic 00 e Allergies, Adverse Reactions, Alerts Allergy Allergy Status Severity Reaction(s) Onset Inactive Treating Comm ents Source Name Type Date Date Clinician NO KNOWN Drug Active Univers ALLERGIE Class ity of [facility] Social History Social Habit Start Date Stop Date Quantity Comments Source Exposure to 2022-03-27 2022-04-06 Not sure [facility] SARS-CoV-2 (event) 00:00:00 14:14:00 Medica l Branch Tobacco use and 2022-04-06 2022-04-06 Never used [facility] exposure 00:00:00 00:00:[address] [facility] Branch Sex Ass[birth year] At [birth year] [facility] 00:00:00 00:00:00 [facility] Smoking Status Start Date Stop Date Source Unknown if ever smoked [facility] Never smoker [facility] Medications Ordered Filled Start Stop Current Ordering Indication Dosage Frequency Signature Comments Components Source Medication Medication Date Date Medication? Clinician (SIG) Name Name gabapentin Yes 300mg Take 300 Un denise 300 mg 5-13 mg by ity of capsule 14:11: mouth 2 [place] 56 (two) Medical times Branch daily. mecobalamin Yes 1000mg Take 1,000 Univers (B12 ACTIVE 5-13 mg by ity of ORAL) 14:11: mouth [place] 56 daily. Medical Branch ascorbic 2022-0 Yes 500mg Take 500 Univ ers acid, 5-13 mg by ity of vitamin C, 14:11: mouth [place] (VITAMIN C) 56 daily. Medica l 500 mg Branch tablet Cholecalcif 2022-0 Yes 1{capsu Take 1 U nivers jian, 5-13 le} capsule by ity of Vitamin D3, 14:11: mouth [place] (VITAMIN 56 daily. Medical D3) 25 mcg Branch (1,000 unit) capsule gabapentin 2022-0 Yes 300mg Take 300 Un denise 300 mg 5-13 mg by ity of capsule 14:11: mouth 2 [place] 56 (two) Medical times Branch daily. mecobalamin 2022-0 Yes 1000mg Take 1,000 Univers (B12 ACTIVE 5-13 mg by ity of ORAL) 14:11: mouth [place] 56 daily. Medical Branch ascorbic 2022-0 Yes 500mg Take 500 Univ ers acid, 5-13 mg by ity of vitamin C, 14:11: mouth [place] (VITAMIN C) 56 daily. Medica l 500 mg Branch tablet Cholecalcif 2022-0 Yes 1{capsu Take 1 U nivers jian, 5-13 le} capsule by ity of Vitamin D3, 14:11: mouth [place] (VITAMIN 56 daily. Medical D3) 25 mcg Branch (1,000 unit) capsule gabapentin 2022-0 Yes 300mg Take 300 Un denise 300 mg 5-13 mg by ity of capsule 14:11: mouth 2 [place] 56 (two) Medical times Branch daily. mecobalamin 2022-0 Yes 1000mg Take 1,000 Univers (B12 ACTIVE 5-13 mg by ity of ORAL) 14:11: mouth [place] 56 daily. Medical Branch ascorbic 2022-0 Yes 500mg Take 500 Univ ers acid, 5-13 mg by ity of vitamin C, 14:11: mouth [place] (VITAMIN C) 56 daily. Medica l 500 mg Branch tablet Cholecalcif 2022-0 Yes 1{capsu Take 1 U nivers jian, 5-13 le} capsule by ity of Vitamin D3, 14:11: mouth [place] (VITAMIN 56 daily. Medical D3) 25 mcg Branch (1,000 unit) capsule gabapentin 2022-0 Yes 300mg Take 300 Un denise 300 mg 5-13 mg by ity of capsule 14:11: mouth 2 [place] 56 (two) Medical times Branch daily. mecobalamin 0 Yes 1000mg Take 1,000 Univers (B12 ACTIVE 5-13 mg by ity of ORAL) 14:11: mouth [place] 56 daily. Medical Branch ascorbic 2021-0 Yes 500mg Take 500 Univ ers acid, 5-13 mg by ity of vitamin C, 14:11: mouth [place] (VITAMIN C) 56 daily. Medica l 500 mg Branch tablet Cholecalcif 0 Yes 1{capsu Take 1 U nivers jian, 5-13 le} capsule by ity of Vitamin D3, 14:11: mouth [place] (VITAMIN 56 daily. Medical D3) 25 mcg Branch (1,000 unit) capsule tamsulosin 0 Yes Take by Univ ers 0.4 mg 24 5-13 mouth 2 ity of hr capsule 14:07: (two) [place] 41 times Medical daily. Branch baclofen 10 0 Yes 10mg Take 10 mg Univers mg tablet 5-13 by mouth 3 ity of 14:07: (three) [place] 41 times Medical daily. Branch SERTraline 0 Yes 50mg Take 50 mg U nivers 50 mg 5-13 by mouth ity of tablet 14:07: daily. Medical Branch meloxicam 2021-0 Yes 7.5mg Take 7.5 Uni vers 7.5 mg 5-13 mg by ity of tablet 14:07: mouth [place] 41 daily. Medical Branch tamsulosin 0 Yes Take by Univ ers 0.4 mg 24 5-13 mouth 2 ity of hr capsule 14:07: (two) [place] 41 times Medical daily. Branch baclofen 10 2021-0 Yes 10mg Take 10 mg Univers mg tablet 5-13 by mouth 3 ity of 14:07: (three) [place] 41 times Medical daily. Branch SERTraline 2021-0 Yes 50mg Take 50 mg U nivers 50 mg 5-13 by mouth ity of tablet 14:07: daily. [place] [address] Medical Branch meloxicam 2021-0 Yes 7.5mg Take 7.5 Uni vers 7.5 mg 5-13 mg by ity of tablet 14:07: mouth [place] 41 daily. Medical Branch tamsulosin 2021-0 Yes Take by Univ ers 0.4 mg 24 5-13 mouth 2 ity of hr capsule 14:07: (two) [place] 41 times Medical daily. Branch baclofen 10 2021-0 Yes 10mg Take 10 mg Univers mg tablet 5-13 by mouth 3 ity of 14:07: (three) [place] 41 times Medical daily. Branch SERTraline 2021-0 Yes 50mg Take 50 mg U nivers 50 mg 5-13 by mouth ity of tablet 14:07: daily. [place] [address] Medical Branch meloxicam 2021-0 Yes 7.5mg Take 7.5 Uni vers 7.5 mg 5-13 mg by ity of tablet 14:07: mouth [place] 41 daily. Medical Branch tamsulosin 0 Yes Take by Univ ers 0.4 mg 24 5-13 mouth 2 ity of hr capsule 14:07: (two) [place] 41 times Medical daily. Branch baclofen 10 0 Yes 10mg Take 10 mg Univers mg tablet 5-13 by mouth 3 ity of 14:07: (three) [place] 41 times Medical daily. Branch SERTraline 2021-0 Yes 50mg Take 50 mg U nivers 50 mg 5-13 by mouth ity of tablet 14:07: daily. [place] [address] Medical Branch meloxicam 2021-0 Yes 7.5mg Take 7.5 Uni vers 7.5 mg 5-13 mg by ity of tablet 14:07: mouth [place] 41 daily. Medical Branch tamsulosin 2021-0 Yes Take by Univ ers 0.4 mg 24 5-13 mouth 2 ity of hr capsule 14:07: (two) [place] 41 times Medical daily. Branch baclofen 10 2021-0 Yes 10mg Take 10 mg Univers mg tablet 5-13 by mouth 3 ity of 14:07: (three) [place] 41 times Medical daily. Branch SERTraline 2021-0 Yes 50mg Take 50 mg U nivers 50 mg 5-13 by mouth ity of tablet 14:07: daily. [place] [address] Medical Branch meloxicam 2021-0 Yes 7.5mg Take 7.5 Uni vers 7.5 mg 5-13 mg by ity of tablet 14:07: mouth [place] 41 daily. Medical Branch diclofenac 2021-0 2022- No [id number] 75mg Take 1 Univers 75 mg EC 03-30- 9109 tablet by ity o f tablet 00:00: 04:59 mouth 2 [place] 00 :00 (two) Medical times [place] daily with meals for 30 days. diclofenac 2021-0 2- No [id number] 75mg Take 1 Univers 75 mg EC 03-30 9109 tablet by ity o f tablet 00:00: 04:59 mouth 2 [place] 00 :00 (two) [facility] times [place] daily with meals for 30 days. diclofenac 2021-0 2- No [id number] 75mg Take 1 Univers 75 mg EC 03-30 9109 tablet by ity o f tablet 00:00: 04:59 mouth 2 [place] 00 :00 (two) [facility] times [place] daily with meals for 30 days. diclofenac 2021-0 2021- No [id number] 75mg Take 1 Univers 75 mg EC 03-30 9109 tablet by ity o f tablet 00:00: 04:59 mouth 2 [place] 00 :00 [place] [facility] times [place] daily with meals for 30 days. pantoprazol 0 Yes 40mg Take 40 mg Univers e 40 mg EC 4-20 by mouth ity o f tablet 00:00: daily. [address] pantoprazol 2021-0 Yes 40mg Take 40 mg Univers e 40 mg EC 4-20 by mouth ity o f tablet 00:00: daily. [address] pantoprazol 2021-0 Yes 40mg Take 40 mg Univers e 40 mg EC 4-20 by mouth ity o f tablet 00:00: daily. [address] pantoprazol 0 Yes 40mg Take 40 mg Univers e 40 mg EC 4-20 by mouth ity o f tablet 00:00: daily. [address] Diclofenac Diclofenac 2020-0 2020- No Na Van 2 gram Common Sodium Sodium 06-23 applicatio Spir it 00:00: 00:00 n to - [facility] 00 :00 affected [facility] Gabapentin Gabapentin 2020-0 Yes Na Van 2 tablet Common 03-03 Spirit 00:00: - [facility] 00 [facility] Magnesium Magnesium 2020-0 2020- No Na Van 1 capsule Common Oxide -Mg Oxide -Mg 03-03 07-08 as needed Spirit Supplement Supplement 00:00: 00:00 - [facility] 00 :00 [facility] Sertraline Sertraline Yes Na Van 1 tablet Common HCl HCl Spirit - [facility] Tamsulosin Tamsulosin Yes Na Van 1 capsule Common HCl HCl [facility] Meloxicam Meloxicam Yes Na Van 1 tablet Common [facility] meloxicam meloxicam No 1 Q1D meloxicam [facility] 7.5 mg 7.5 mg 7.5 mg Family tablet Take tablet Take tablet Practic 1 tablet 1 tablet Take 1 e every day every day tablet by oral by oral every day route. route. by oral route. sertraline sertraline No 1 Q1D sertraline [facility] 50 mg 50 mg 50 mg Family tablet Take tablet Take tablet Practic 1 tablet 1 tablet Take 1 e every day every day tablet by oral by oral every day route. route. by oral route. tamsulosin tamsulosin No 1capsul Q1D tamsulosin [facility] 0.4 mg 0.4 mg e(s) 0.4 mg Family capsule capsule capsule Practi c Take 1 Take 1 Take 1 e capsule capsule capsule every day every day every day by oral by oral by oral route. route. route. Immunizations Ordered Immunization Filled Immunization Date Status Commen ts Source Name Name Influenza A Influenza A 2019-08-25 Completed [facility] Fami ly monovalent (H5N1), monovalent (H5N1), 00:00:00 Practice ADJUVANTED-2013 ADJUVANTED-2012 Procedures Procedure Date / Time Performed Performing Clinician [facility] facundo EXTERNAL PROVIDER 2022-05-04 05:01:00 [facility] Name [facility] Branch EXTERNAL PROVIDER 2022-04-09 05:01:00 [facility], [facility] REC[facility] Name [facility] Encounters Start End Encounter Admission Attending Care Care Encounter Source Date/Time Date/Time Type Type Clinicians Facility Department ID 2022-06-[address] [facility] [id number] 2 Common 16:32:01 [facility] 2022-04-[address] [facility] [id number] 2 Common 10:48:00 [facility] 2022-04-10 Outpatient Juani CLARK [facility] SOR [id number] Univers 10:12:09 LOU jimenez [facility] 2022-03-[address] [facility] [id number] 2 Common 08:54:02 [facility] 2022-02-13 Outpatient Van, Na STLMLC STLMLC [id number] 2 Common 14:43:01 [facility] 2022-02-07 Outpatient Van, Na STLMLC STLMLC [id number] 2 Common 13:52:00 [facility] 2021-12-20 Outpatient Van, Na STLMLC STLMLC [id number] 2 Common 14:31:59 [facility] 2021-12-20 Outpatient Van, Na STLMLC STLMLC [id number] 2 Common 14:21:08 05701 [facility] 2021-12-20 Outpatient Van, Na STLMLC STLMLC [id number] 2 Common 14:08:38 [id number] [facility] 2021-12-20 Outpatient Van, Na STLMLC STLMLC [id number] 2 Common 14:03:42 [id number] [facility] 2021-12-20 Outpatient Van, Na STLMLC STLMLC [id number] 2 Common 14:02:52 72706 [facility] 2021-12-20 Outpatient Van, Na STLMLC STLMLC [id number] 2 Common 13:57:01 [id number] [facility] 2021-12-20 Outpatient Van, Na STLMLC STLMLC [id number] 2 Common 13:26:06 [id number] [facility] 2021-12-20 Outpatient Van, Na STLMLC STLMLC [id number] 2 Common 12:31:46 [id number] [facility] 2021-12-20 Outpatient Van, Na STLMLC STLMLC [id number] 2 Common 12:17:55 [id number] [facility] 2021-12-20 Outpatient Van, Na STLMLC STLMLC [id number] 2 Common 12:17:21 01539 [facility] 2021-12-20 Outpatient Van, Na STLMLC STLMLC [id number] 2 Common 12:11:20 [id number] [facility] 2021-12-20 Outpatient Van, Na STLMLC STLMLC [id number] 2 Common 12:08:44 [id number] [facility] 2021-12-20 Outpatient Van, Na STLMLC STLMLC [id number] 2 Common 12:06:23 05184 [facility] 2021-12-20 Outpatient Van, Na STLMLC STLMLC [id number] 2 Common 12:00:42 93742 [facility] 2021-12-20 Outpatient Van, Na STLMLC STLMLC [id number] 2 Common 12:00:23 94512 [facility] 2021-12-20 Outpatient Van, Na STLMLC STLMLC [id number] 2 Common 11:59:14 [id number] [facility] 2021-12-20 Outpatient Van, Na STLMLC STLMLC [id number] 2 Common 11:17:32 [id number] [facility] 2022-06-20 2022-06-20 ambulatory STLMLC STLMLC [id number] Common 00:00:00 00:00:00 [facility] 2022-06-08 2022-06-08 Outpatient OWENS_T DMG DMG [id number] Devoted 03:28:00 03:28:00 0715 Medica l Group 2022-06-05 2022-06-05 ambulatory STLMLC STLMLC [id number] Common 00:00:00 00:00:00 [facility] 2022-06-05 2022-06-05 ambulatory STLMLC STLMLC [id number] Common 00:00:00 00:00:00 [facility] 2022-06-05 2022-06-05 ambulatory STLMLC STLMLC [id number] Common 00:00:00 00:00:00 [facility] 2022-06-05 2022-06-05 ambulatory STLMLC STLMLC [id number] Common 00:00:00 00:00:00 [facility] 2022-05-11 2022-05-11 ambulatory STLMLC STLMLC [id number] Common 00:00:00 00:00:00 [facility] 2022-05-04 2022-05-04 ambulatory STLMLC STLMLC [id number] Common 00:00:00 00:00:00 [facility] 2022-05-04 2022-05-04 Orders Doctor DAVIS [id number] Univers 00:00:00 00:00:00 Only Unassigned, JUAN MANUEL 350.1.13.10 [facility] [id number] [place] as [phone] [address] 2022-04-30 2022-04-30 Outpatient Juani CLARK [facility] [id number] Univers 13:45:00 13:45:00 LOU [id number] [facility] 2022-04-30 2022-04-30 [facility] [id number] Univers 13:45:00 13:45:00 LOU [facility] 2022-04-30 2022-04-30 ambulatory STLMLC STLMLC [id number] Common 00:00:00 00:00:00 [facility] 2022-04-27 2022-04-27 Outpatient OWENS_T DMG G [id number] Devoted 07:01:00 07:01:00 0603 Medica l Group 2022-04-24 2022-04-24 Outpatient OWENS_T KE KEG [id number] Devoted 09:01:00 09:01:00 0531 Medica l Group 2022-04-13 2022-04-13 Outpatient Juani CLARK [facility] [id number] Univers 10:15:00 10:15:00 LOU [facility] 2022-04-13 2022-04-13 Outpatient OWENS_T DMG [facility] [id number] Devoted 09:00:00 09:00:00 0520 Medica l Group 2022-04-11 2022-04-11 [facility] [id number] Univers 12:32:49 23:59:00 LOU ity [facility] 2022-04-11 2022-04-11 Hospital Eduardo [facility] [id number] Univers 12:32:49 23:59:00 Encounter Lou SIMPSON [id number] ity [place]2.[place] [id number] [facility] 807 [place] 2022-04-11 2022-04-11 Outpatient R [facility] [id number] Univers 13:00:00 13:00:00 LOU [id number] ity [facility] 2022-04-11 2022-04-11 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 [id number] Ia dical WILTON 353 Branch BUILDING 2022-04-09 2022-04-09 Orders Doctor DAVIS [id number] [id number] Univers 00:00:00 00:00:00 Only Unassigned, JUAN MANUEL 350.1.13.10 ity of [place] [facility] 4.2.7.2.686 Sander as [id number] [facility] 00[address] [place] 2022-04-05 2022-04-07 Outpatient R [facility] [id number] Univers 13:00:00 11:47:07 LOU jimenez [facility] 2022-03-30 2022-03-30 Outpatient R CARLOS [facility] [id number] Univers 09:00:00 10:16:49 YESSI ity [facility] 2022-03-30 2022-03-30 Alexandra Gonzalez [facility] [id number] Univers 00:00:00 00:00:00 Yessi [facility] 350.1.13.10 it y of [place] 4.2.7.2.686 Sander as ANNELISE?BLEA [phone] Ia dical KNEY [address] [place] MEDICAL OFFICE BUILDING 2022-03-20 2022-03-20 ambulatory STLMLC STLMLC [id number] Common 00:00:00 00:00:00 [facility] 2022-03-15 2022-03-15 ambulatory STLMLC STLMLC [id number] Common 00:00:00 00:00:00 [facility] 2022-03-14 2022-03-14 ambulatory STLMLC STLMLC [id number] Common 00:00:00 00:00:00 [facility] 2022-02-28 2022-02-28 ambulatory STLMLC STLMLC [id number] Common 00:00:00 00:00:00 [facility] 2022-02-26 2022-02-26 ambulatory STLMLC STLMLC [id number] Common 00:00:00 00:00:00 [facility] 2022-02-26 2022-02-26 ambulatory STLMLC STLMLC [id number] Common 00:00:00 00:00:00 [facility] 2022-02-26 2022-02-26 ambulatory STLMLC STLMLC [id number] Common 00:00:00 00:00:00 [facility] 2022-01-30 2022-01-30 ambulatory STLMLC STLMLC [id number] Common 00:00:00 00:00:00 [facility] 2022-01-08 2022-01-08 ambulatory STLMLC STLMLC [id number] Common 00:00:00 00:00:00 [facility] 2022-01-03 2022-01-03 ambulatory STLMLC STLMLC [id number] Common 00:00:00 00:00:00 [facility] 2021-12-14 2021-12-14 ambulatory STLMLC STLMLC [id number] Common 00:00:00 00:00:00 [facility] 2021-12-07 2021-12-07 ambulatory STLMLC STLMLC [id number] Common 00:00:00 00:00:00 [facility] 2021-12-07 2021-12-07 ambulatory STLMLC STLMLC [id number] Common 00:00:00 00:00:00 [facility] 2021-11-30 2021-11-30 ambulatory STLMLC STLMLC [id number] Common 00:00:00 00:00:00 [facility] 2021-11-28 2021-11-28 ambulatory STLMLC STLMLC [id number] Common 00:00:00 00:00:00 [facility] 2021-11-15 2021-11-15 ambulatory STLMLC STLMLC [id number] Common 00:00:00 00:00:00 [facility] 2021-11-14 2021-11-14 ambulatory STLMLC STLMLC [id number] Common 00:00:00 00:00:00 [facility] 2021-10-31 2021-10-31 ambulatory STLMLC STLMLC [id number] Common 00:00:00 00:00:00 [facility] 2021-09-27 2021-09-27 ambulatory STLMLC STLMLC [id number] Common 00:00:00 00:00:00 [facility] 2021-09-27 2021-09-27 ambulatory STLMLC STLMLC [id number] Common 00:00:00 00:00:00 [facility] 2021-09-25 2021-09-25 Outpatient STLMLC STLMLC [id number] Common 00:00:00 00:00:00 [facility] 2021-09-25 2021-09-25 ambulatory STLMLC STLMLC [id number] Common 00:00:00 00:00:00 [facility] 2021-09-20 2021-09-20 Outpatient STLMLC STLMLC [id number] Common 00:00:00 00:00:00 [facility] 2021-09-14 2021-09-14 Outpatient STLMLC STLMLC [id number] Common 00:00:00 00:00:00 [facility] 2021-09-12 2021-09-12 Outpatient STLMLC STLMLC [id number] Common 00:00:00 00:00:00 [facility] 2021-08-15 2021-08-15 Outpatient STLMLC STLMLC [id number] Common 00:00:00 00:00:00 [facility] 2021-06-16 2021-06-16 Outpatient STLMLC STLMLC [id number] Common 00:00:00 00:00:00 [facility] 2021-06-08 2021-06-08 Outpatient STLMLC STLMLC [id number] Common 00:00:00 00:00:00 [facility] 2021-06-06 2021-06-06 Outpatient OWENS_T DMG [facility] [id number] Devoted 12:57:00 12:57:00 0713 Medica l Group 2021-03-27 2021-03-27 [place] [id number] Devoted 06:02:00 06:02:00 0503 Medica l Group 2021-03-14 2021-03-14 Outpatient DMG [facility] [id number] Devoted 12:00:00 12:00:00 0420 Medica l Group 2021-03-12 2021-03-12 Outpatient STLMLC STLMLC [id number] Common 00:00:00 00:00:00 [facility] 2021-03-09 2021-03-09 Outpatient STLMLC STLMLC [id number] Common 00:00:00 00:00:00 [facility] 2021-03-06 2021-03-06 Outpatient STLMLC STLMLC [id number] Common 00:00:00 00:00:00 [facility] 2021-01-17 2021-01-17 Outpatient STLMLC STLMLC [id number] Common 00:00:00 00:00:00 [facility] 2021-01-05 2021-01-05 Outpatient STLMLC STLMLC [id number] Common 00:00:00 00:00:00 [facility] 2020-12-21 2020-12-21 Laboratory Lab, [facility] [id number] [id number] 10:53:43 11:13:43 Only Fam Pob I Health 350.1.13.10 [place] [id number] Professio [phone] [place] [address] [address] 2020-12-05 2020-12-05 Telephone Nurse, [facility] 1.2.840.114 [id number] 00:00:00 00:00:00 Fam Pob I Health 350.1.13.10 [place] [id number] Professio [phone] [place] [address] [address] 2020-12-02 2020-12-02 Laboratory Lab, [facility] 1.2.840.114 [id number] 18:20:33 18:40:33 Only Fam Pob I Health 350.1.13.10 [place] 4.2.7.2.686 Professio [phone] [place] [address] [address] 2020-11-30 2020-11-30 Outpatient STLMLC STLMLC [id number] Common 00:00:00 00:00:00 [facility] 2020-11-18 2020-11-18 Outpatient Gay-Mbayo [facility] [id number] 12:04:00 12:04:00 _A_AH [id number] Family Practic e 2020-11-18 2020-11-18 Outpatient Gay-Mbayo VFP VFP [id number] [facility] 12:04:00 12:04:00 _A_AH [id number] Family Practic e 2020-11-15 2020-11-15 Letter Doctor CANNON 1.2.840.114 [id number] 00:00:00 00:00:00 (Out) Unassigned, JUAN MANUEL 350.1.13.10 [place] [facility] 4.2.7.2.686 [id number] 2020-10-28 2020-10-28 Outpatient STLMLC STLMLC [id number] Common 00:00:00 00:00:00 [facility] 2020-10-11 2020-10-11 Outpatient STLMLC STLMLC [id number] Common 00:00:00 00:00:00 [facility] 2020-09-22 2020-09-22 Outpatient STLMLC STLC [id number] Common 00:00:00 00:00:00 [facility] 2020-09-14 2020-09-14 Laboratory Lab, [facility] 1.2.840.114 [id number] 14:51:48 15:11:48 Only Fam [facility] 350.1.13.10 [place] 4.2.7.2.686 Professio [phone] nal [address] 2020-07-25 2020-07-25 Outpatient [facility] [id number] Common 10:16:00 10:16:[address] [place] [address] [facility] 2020-07-04 2020-07-04 Outpatient [facility] [id number] Common 15:00:00 15:00:00 t [address] [facility] 2020-07-04 2020-07-04 Outpatient [facility] [id number] Common 09:52:00 09:52:00 [facility] 2020-06-23 2020-06-23 [facility] [id number] Common 10:40:00 10:40:[address] [facility] 2020-06-08 2020-06-08 Outpatient Gay-Mbayo VFP VFP [id number] [facility] 09:39:00 09:39:00 _A_AH [id number] Family Practic [facility] 2020-06-02 2020-06-02 Outpatient Gay-Mbayo VFP VFP [id number] [facility] 12:40:00 12:40:00 _A_AH [id number] Family Practic e 2020-04-28 2020-04-28 Outpatient Gay-Mbayo VFP VFP [id number] [facility] 01:10:00 01:10:00 _A_AH [id number] Family Practic e 2020-04-13 2020-04-13 Out[facility] 30 [id number] [place] 09:40:00 09:40:[address] [facility] 2020-03-24 2020-03-24 Outpatient Gay-Edo VFP VFP [id number] [facility] 12:45:00 12:45:00 _A_AH [id number] Family Practic e 2020-03-24 2020-03-24 Outpatient Gay-Edo VFP VFP [id number] [facility] 12:45:00 12:45:00 _A_AH [id number] Family Practic e 2020-03-23 2020-03-23 Outpatient Gay-Edo VFP VFP [id number] [facility] 08:31:00 08:31:00 _A_AH [id number] Family Practic e 2020-03-17 2020-03-17 Outpatient [facility] 30 [id number] [place] 09:20:00 09:20:[address] [facility] 2020-03-03 2020-03-03 Outpatient [facility] [id number] Common 10:34:00 10:34:[address] [facility] 2020-03-03 2020-03-03 Out[facility] 29 [id number] Common 09:00:00 09:00:[address] [facility] 2020-02-24 2020-02-24 [facility] [place] - [id number] V illage 00:00:00 00:00:00 Eduarda [facility] 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
[2022-07-10 12:07] LABS: Hematocrit 37.7 % (39.6-49.0); Lymphocytes % 10.8 % (15.3-44.8); MCV 83.2 fL (80-100); MPV 8.2 fL (7.6-11.3); RBC Red Blood Cell Count 4.54 M/uL (4.33-5.43)
[2022-07-10] MEDS ORDERED: ONDANSETRON 4 MG/2 ML VIAL ONE ×2 (12:17→14:59)
[2022-07-10] MEDS ORDERED: MORPHINE 4 MG/ML SYR ONE ×2 (12:25→14:59)
[2022-07-10 12:31] LABS: Urine Blood 3+ (Negative); Urine Glucose Negative (Negative); Urine Protein Negative (Negative); Urine Specific Gravity >=1.030 (1.005-1.030); Urine pH 5.5 (5.0-7.0)
[2022-07-10 12:50] LABS: Albumin 3.5 g/dL (3.4-5.0); Bilirubin Total 0.8 mg/dL (0.2-1.0); Potassium 3.9 mmol/L (3.5-5.1); Protein, Total 7.6 g/dL (6.4-8.2)
--- NOTE | 2022-07-10 13:26 | RAD REPORT ---
EXAM DESCRIPTION: CT - Abdomen Pelvis W Contrast - 07/10/2022 1:05 pm CLINICAL HISTORY: LLQ abdominal pain COMPARISON: No comparisons TECHNIQUE: Biphasic, helical CT imaging of the abdomen and pelvis was performed following 100 ml non -ionic IV contrast. No oral contrast administered. All CT scans are performed using dose optimization technique as appropriate and may include automated exposure control or mA/KV adjustment according to patient size. FINDINGS: No suspicious findings in the lung bases. The liver, spleen, and pancreas show no suspicious findings. Gallbladder is absent. Intrahepatic and extrahepatic mild biliary tree dilatation is present. This is not uncommon after cholecystectomy. No right-sided pain symptoms were detailed. Duct stones can be occult but are not suspected. Right renal function is normal. No right-sided hydronephrosis. 5 mm sized nonobstructing calculi are seen in the lower pole calices of the right kidney. There is mild hydronephrosis of the pelvis and ca lices of the left kidney. There is a 6 millimeter obstructing calculus in the mid left ureter. This c auses delayed left renal function. No pyelonephritis findings. No solid mass lesion of either kidney. There is mild left perinephric stranding. Urinary bladder is mostly contracted limiting assessment. Approximately 15 millimeter area along the right anterior bladder wall could be a diverticulum. Further assessment could be performed in the keith dder or full. Prominent prostate gland is present. No adrenal abnormalities. No dilated bowel loops or bowel wall thickening. Moderate stool volume seen in the right-side of the colon. An active colon process is not identified. No free air, free fluid or inflammatory stranding. No mass or bulky lymphadenopathy. Clips are present from prior right inguinal hernia repair. Moderat nubia large fat only left inguinal hernia is present. No suspicious bony findings. Disc and bone degenerative changes are present. IMPRESSION: Mild left-sided hydronephrosis secondary to a 6 mm obstructing calculus in the mid left ureter. This stone causes delayed function of the left kidney compared to the right. No pyelonephritis or solid mass lesion. Nonobstructing calculi are seen in the lower pole of the righ t kidney. Bladder is too contracted to allow assessment. No bladder calculi seen. There is a small focal protru laura right anterior bladder wall that may be a diverticulum. This can be monitored or evaluated by so nography when the bladder is full.
[2022-07-10 13:38] LABS: Urine Bacteria <20 /HPF (<20)
--- NOTE | 2022-07-10 15:34 | ER ---
Nurse's Notes [facility] Name: Shahid Milton Age: 72 yrs Sex: Male : 1950 Arrival Date: 07/10/2022 Time: 11:35 Bed 13 Private MD: Chelsea Rosales Diagnosis: Lower abdominal pain, unspecified;6mm Left kidney stone;Mild Hydronephrosis Presentation: 07/10 11:45 Chief complaint: Patient states: left lower abd pain, nausea, vomiting. Coronavirus iw screen: Client presents with at least one sign or symptom that may indicate coronavirus-19. Ebola Screen: Patient negative for fever greater than or equal to 101.5 degrees Fahrenheit, and additional compatible Ebola Virus Disease symptoms Patient denies exposure to infectious person. Patient denies travel to an Ebola-affected area in the 21 days before illness onset. No symptoms or risks identified at this time. Initial Sepsis Screen: Does the patient meet any 2 criteria? No. Patient's initial sepsis screen is negative. Does the patient have a suspected source of infection? No. Patient's initial sepsis screen is negative. Risk Assessment: Do you want to hurt yourself or someone else? Patient reports no desire to harm self or others. Onset of symptoms was July 09, 2022. 11:45 Method Of Arrival: Ambulatory iw 11:45 Acuity: FAITH 3 iw Triage Assessment: 13:30 General: Appears in no apparent distress. Behavior is calm, cooperative. GI: Reports jg9 lower abdominal pain, pain is improving and only increased with movement/activity. Historical: - Allergies: 12:02 No Known Allergies; jg9 - Home Meds: 12:02 "medicine to help me urinate" [Active]; "mood swings medication" [Active]; jg9 - PMHx: 12:02 "Anger problems"; jg9 - Immunization history:: Adult Immunizations up to date. - Social history:: Smoking status: Patient denies any tobacco usage or history of. Screenin:52 Abuse screen: Denies threats or abuse. Denies injuries from another. Nutritional jg9 screening: No deficits noted. Tuberculosis screening: No symptoms or risk factors identified. Fall Risk None identified. Assessment: 12:00 Reassessment: Patient appears in no apparent distress at this time. No changes from jg9 previously documented assessment. Patient and/or family updated on plan of care and expected duration. Pain level reassessed. Patient is alert, oriented x 3, equal unlabored respirations, skin warm/dry/pink. 12:01 Pain: Complains of pain in left lower quadrant Pain currently is 5 out of 10 on a pain jg9 scale. GI: Abdomen is round non-distended, Last BM was July 09, 1900. 13:00 Reassessment: No changes from previously documented assessment. Patient and/or family jg9 updated on plan of care and expected duration. Pain level reassessed. Patient is alert, oriented x 3, equal unlabored respirations, skin warm/dry/pink. Patient states feeling better. Patient states symptoms have improved. 14:00 Reassessment: No changes from previously documented assessment. patient updated on plan jg9 of care. 15:00 Reassessment: Patient and/or family updated on plan of care and expected duration. Pain jg9 level reassessed. Patient is alert, oriented x 3, equal unlabored respirations, skin warm/dry/pink. Patient states feeling better. Patient states symptoms have improved. Vital Signs: 11:45 BP 124 / 76; Pulse 74; Resp 16 S; Pulse Ox 98% on R/A; Pain 5/10; jg9 12:30 BP 114 / 69; Pulse 59; Resp 16 S; Pulse Ox 96% ; jg9 13:00 BP 126 / 76; Pulse 58; Resp 17 S; Pulse Ox 96% on R/A; Pain 0/10; jg9 14:00 BP 117 / 72; Pulse 65; Resp 14 S; Pulse Ox 100% on R/A; Pain 0/10; jg9 15:30 BP 122 / 78; Pulse 75; Resp 16 S; Pulse Ox 97% on R/A; Pain 0/10; jg9 ED Course: 11:35 Patient arrived in ED. mr 11:35 Chelsea Rosales MD is Private Physician. mr 11:35 Marlo Orlando DO is Attending Physician. ms3 11:39 Maria Fernanda Suggs, JOEL is Primary Nurse. jg9 11:50 Inserted saline lock: 20 gauge in right antecubital area, using aseptic technique. jg9 Blood collected. 11:52 Pt visited by . jg9 11:52 Patient has correct armband on for positive identification. Bed in low position. Call jg9 light in reach. Side rails up X 1. Warm blanket given. 13:06 CT Abd/Pelvis - IV Contrast Only In Process Unspecified. EDMS 13:29 Triage completed. iw 13:30 Arm band placed on right wrist. jg9 15:33 Roney Cristina MD is Referral Physician. ms3 15:55 No provider procedures requiring assistance completed. jg9 15:56 IV discontinued. jg9 Administered Medications: 12:12 Drug: Zofran (Ondansetron) 4 mg Route: IVP; Site: right antecubital; jg9 12:37 Follow up: Response: No adverse reaction; Nausea is decreased jg9 12:37 Drug: morphine 4 mg {Note: pain 5/10 to LL abdomen, RASS-0.} Route: IVP; Infused Over: jg9 4 mins; Site: right antecubital; 14:09 Follow up: Response: No adverse reaction; Pain is decreased jg9 15:00 Drug: morphine 4 mg Route: IVP; Infused Over: 4 mins; Site: right antecubital; jg9 15:30 Follow up: Response: No adverse reaction; Pain is decreased; RASS: Alert and Calm (0) jg9 15:00 Drug: Zofran (Ondansetron) 4 mg Route: IVP; Site: right antecubital; jg9 15:30 Follow up: Response: No adverse reaction; Nausea is decreased jg9 Medication: 15:56 VIS not applicable for this client. jg9 Outcome: 15:34 Discharge ordered by . ms3 15:55 Discharged to home ambulatory. jg9 15:55 Condition: improved 15:55 Discharge instructions given to patient, Instructed on discharge instructions, follow up and referral plans. Demonstrated understanding of instructions, follow-up care, Prescriptions given X 3. 15:58 Patient left the ED. jg9 Signatures: Dispatcher [employer] EDFL Vinod Susi Dolores Jeff, RN RN Marlo Camilo DO DO ms3 Maria Fernanda Suggs RN RN jg9 Corrections: (The following items were deleted from the chart) 12:41 11:45 BP 124 / 76; Pulse 74bpm; Resp 16bpm; Spontaneous; Pulse Ox 98% RA; jg9 jg9 12:41 12:01 Pain: Complains of pain in left lower quadrant Pain currently is 7 out of 10 on a jg9 pain scale. jg9
--- NOTE | 2022-07-10 15:35 | EDPHYS ---
Physician Documentation [facility] Name: Shahid Milton Age: 72 yrs Sex: Male : 1950 Arrival Date: 07/10/2022 Time: 11:35 Bed 13 Private MD: Chelsea Rosales ED Physician Marlo Orlando HPI: 07/10 15:34 This 72 yrs old Male presents to ER via Ambulatory with complaints of ms3 Nausea/Vomiting, Abdominal Pain, Back Pain. 15:34 The patient presents to the emergency department with nausea, vomiting. Onset: The ms3 symptoms/episode began/occurred yesterday. Possible causes: bad food exposure. The symptoms are aggravated by nothing. The symptoms are alleviated by nothing. Associated signs and symptoms: The patient has no apparent associated signs or symptoms. Severity of symptoms: At their worst the symptoms were moderate in the emergency department the symptoms are unchanged Pain is currently a 5 / 10. Historical: - Allergies: 12:02 No Known Allergies; jg9 - Home Meds: 12:02 "medicine to help me urinate" [Active]; "mood swings medication" [Active]; jg9 - PMHx: 12:02 "Anger problems"; jg9 - Immunization history:: Adult Immunizations up to date. - Social history:: Smoking status: Patient denies any tobacco usage or history of. ROS: 15:34 Eyes: Negative for injury, pain, redness, and discharge, ENT: Negative for injury, ms3 pain, and discharge, Neck: Negative for injury, pain, and swelling, Cardiovascular: Negative for chest pain, and palpitations. Respiratory: Negative for shortness of breath, cough, wheezing, and pleuritic chest pain. 15:34 Constitutional: Positive for chills. 15:34 Abdomen/GI: Positive for abdominal pain, nausea, vomiting. 15:34 All other systems are negative. Exam: 15:34 Constitutional: This is a well developed, well nourished patient who is awake, alert, ms3 and in no acute distress. Head/Face: Normocephalic, atraumatic. Neck: Trachea midline, no cervical lymphadenopathy. Supple, full range of motion without nuchal rigidity, or vertebral point tenderness. No Meningismus. Chest/axilla: Normal chest wall appearance and motion. Nontender with no deformity. Cardiovascular: Regular rate and rhythm with a normal S1 and S2. No gallops, murmurs, or rubs. Normal PMI, no JVD. No pulse deficits. Respiratory: Lungs have equal breath sounds bilaterally, clear to auscultation and percussion. No rales, rhonchi or wheezes noted. No increased work of breathing, no retractions or nasal flaring. 15:34 Skin: Warm, dry with normal turgor. Normal color with no rashes, no lesions, and no evidence of cellulitis. MS/ Extremity: Pulses equal, no cyanosis. Neurovascular intact. Full, normal range of motion. Psych: Awake, alert, with orientation to person, place and time. Behavior, mood, and affect are within normal limits. 15:34 Abdomen/GI: Inspection: abdomen appears normal, Bowel sounds: normal, Palpation: mild abdominal tenderness, in the left lower quadrant. Vital Signs: 11:45 BP 124 / 76; Pulse 74; Resp 16 S; Pulse Ox 98% on R/A; Pain 5/10; jg9 12:30 BP 114 / 69; Pulse 59; Resp 16 S; Pulse Ox 96% ; jg9 13:00 BP 126 / 76; Pulse 58; Resp 17 S; Pulse Ox 96% on R/A; Pain 0/10; jg9 14:00 BP 117 / 72; Pulse 65; Resp 14 S; Pulse Ox 100% on R/A; Pain 0/10; jg9 15:30 BP 122 / 78; Pulse 75; Resp 16 S; Pulse Ox 97% on R/A; Pain 0/10; jg9 MDM: 11:48 Patient medically screened. ms3 15:34 Differential diagnosis: Nonspecific abd pain, appendicitis, diverticulitis. Data ms3 reviewed: vital signs, nurses notes, lab test result(s), radiologic studies, and as a result, I will discharge patient. Counseling: I had a detailed discussion with the patient and/or guardian regarding: the historical points, exam findings, and any diagnostic results supporting the discharge/admit diagnosis, lab results, radiology results, the need for outpatient follow up, a urologist. Special discussion: I discussed with the patient/guardian in detail that at this point there is no indication for admission to the hospital. It is understood, however, that if the symptoms persist or worsen the patient needs to return immediately for re-evaluation. ED course: Patient is improved, in NAD, non-toxic appearing, ambulatory in ED, speaking full sentences.. 07/10 11:51 Order name: CBC with Diff; Complete Time: 13:27 ms3 07/10 11:51 Order name: CMP; Complete Time: 13:27 ms3 07/10 11:51 Order name: Lipase; Complete Time: 13:27 ms3 07/10 11:51 Order name: Urine Microscopic Only; Complete Time: 14:18 ms3 07/10 11:51 Order name: CT Abd/Pelvis - IV Contrast Only; Complete Time: 13:27 ms3 07/10 12:31 Order name: Urine Dipstick-Ancillary; Complete Time: 13:27 EDMS 07/10 11:51 Order name: IV Saline Lock; Complete Time: 11:51 ms3 07/10 11:51 Order name: Labs collected and sent; Complete Time: 11:58 ms3 07/10 11:51 Order name: Urine Dipstick-Ancillary (obtain specimen); Complete Time: 12:37 ms3 Administered Medications: 12:12 Drug: Zofran (Ondansetron) 4 mg Route: IVP; Site: right antecubital; jg9 12:37 Follow up: Response: No adverse reaction; Nausea is decreased jg9 12:37 Drug: morphine 4 mg {Note: pain 5/10 to LL abdomen, RASS-0.} Route: IVP; Infused Over: jg9 4 mins; Site: right antecubital; 14:09 Follow up: Response: No adverse reaction; Pain is decreased jg9 15:00 Drug: morphine 4 mg Route: IVP; Infused Over: 4 mins; Site: right antecubital; jg9 15:30 Follow up: Response: No adverse reaction; Pain is decreased; RASS: Alert and Calm (0) jg9 15:00 Drug: Zofran (Ondansetron) 4 mg Route: IVP; Site: right antecubital; jg9 15:30 Follow up: Response: No adverse reaction; Nausea is decreased jg9 Disposition Summary: 07/10/22 15:34 Discharge Ordered Location: Home ms3 Condition: Stable ms3 Diagnosis - Lower abdominal pain, unspecified ms3 - 6mm Left kidney stone ms3 - Mild Hydronephrosis ms3 Followup: ms3 - With: Roney Cristina MD - When: 1 - 2 days - Reason: Recheck today's complaints Discharge Instructions: - Discharge Summary Sheet ms3 - Kidney Stones, [id number] ms3 Forms: - Medication Reconciliation Form ms3 - Thank You Letter ms3 - Antibiotic Education ms3 - Prescription Opioid Use ms3 Prescriptions: - Zofran 4 mg Oral Tablet - take 1 tablet by ORAL route every 8 hours As needed; 20 tablet; Refills: 0, ms3 Product Selection Permitted - Flomax 0.4 mg Oral capsule - take 1 capsule by ORAL route once daily 1/2 hour following the same meal each kb day; 20 capsule; Refills: 0, Product Selection Permitted Signatures: Dispatcher [employer] Marlo Santos DO DO ms3 Maria Fernanda Suggs, RN RN jg9
[2022-07-10 16:32] VITALS: BP 122/78; O2SAT 97
== END 2022-07-10 15:58 | disposition home or self-care (01) ==
LOC: ER 11:32
DX: N13.2 Hydronephrosis with renal and ureteral calculous obstruction (principal)
CPT/HCPCS: 85025; 36415; 83690; 80053; 74177; Q9967; J2405 ×2; 81003; 81015

== ENCOUNTER 2022-07-11 15:53 | Day surgery (SDC) | payer MEDICARE ==
[~2022-07-11 15:53] MED LIST: ACETAMINOPHEN 500 MG TAB PO ONE
[2022-07-11 16:10] LABS: SARS-CoV-2 Antigen Rapid Res Negative (Negative)
[2022-07-11] MEDS ORDERED: CEFAZOLIN 2 GM IN 0.9% NACL 2 GM/100 ML BAG ONE (17:51)
[2022-07-11] MEDS ORDERED: propofoL 200 MG/20 ML VIAL IV ONE (18:50)
[2022-07-11] MEDS ORDERED: FENTANYL CITR 100 MCG/2 ML ONE (18:50)
[2022-07-11] MEDS ORDERED: LIDOCAINE 1% MPF 5 ML VIAL ONE (18:50)
--- NOTE | 2022-07-11 18:59 | RAD REPORT ---
EXAM DESCRIPTION: RAD - Chest Single View - 07/11/2022 6:20 pm CLINICAL HISTORY: pending procedure, obstructing calculus, flank pain COMPARISON: Single-view chest 07/14/2021 TECHNIQUE: AP portable chest image was obtained 07/11/2022 6:20 pm . FINDINGS: Lung volumes are low. No focal lung parenchymal process. Interstitial pattern is accentuat ed by portable technique and low lung volumes. Heart size is accentuated by the same limitations. No failure or volume overload seen. No measurable pleural effusion and no pneumothorax. No acute bony abnormality seen. No acute aortic findings suspe cted. IMPRESSION: No acute cardiopulmonary process.
[2022-07-11] MEDS ORDERED: HYDROCODONE/APAP 5/325 MG TAB PO PRN (19:22)
[2022-07-11] MEDS ORDERED: PHENAZOPYRIDINE 100MG TAB PO ONE (19:22)
[2022-07-11] MEDS ORDERED: dexAMETHasone 10 MG/ML VIAL ONE (19:34)
[2022-07-11] MEDS ORDERED: ONDANSETRON 4 MG/2 ML VIAL ONE (19:43)
[2022-07-11] MEDS ORDERED: KETOROLAC 30 MG/ML INJ ONE (19:46)
[2022-07-11] MEDS ORDERED: Ringers Lactate 1,000 ML IV ONE (20:17)
--- NOTE | 2022-07-11 20:45 | RAD REPORT ---
EXAM DESCRIPTION: RAD - Urethrocystogrphy Retrograde - 07/11/2022 8:20 pm FINDINGS: There were 6 portable KUB images obtained during fluoroscopic assisted placement of a left ureteral stent. No suspicious or unexpected findings. Fluoro time was 10 seconds. Cumulative dose wa s 5.5 mGy.
[2022-07-11 21:17] VITALS: BP 123/63; TEMP 97.5; O2SAT 97
--- NOTE | 2022-07-12 07:54 | EKG ---
Test Date: 2022-07-11 Test Time: 15:41:03 Kier Operator: ЮЛИЯ MEASUREMENT RESULTS: Intervals: Rate: 62 MO: 166 QRSD: 82 QT: 416 QTc: 422 [place]: P: 42 MO: 166 QRS: 26 T: -17 INTERPRETIVE STATEMENTS: Normal sinus rhythm T wave abnormality, consider inferior ischemia Abnormal ECG Compared to ECG 11/03/2021 11:01:53 T-wave abnormality now present Possible ischemia now present Sinus bradycardia no longer present Atrial premature complex(es) no longer present Electronically Signed On 07-12-22 07:53:15 CDT by Marshall Wilcox
--- NOTE | 2022-07-12 11:17 | OP ---
Surgeon: ANDIE ESPINOZA Preoperative Diagnoses: 1.Acute kidney injury. 2.Left flank pain. 3.Left hydronephrosis. 4.Left ureterolithiasis with 6 mm mid ureteral calculus. Postoperative Diagnoses: 1.Acute kidney injury. 2.Left flank pain. 3.Left hydronephrosis. 4.Left ureterolithiasis with 6 mm mid ureteral calculus. 5.Meatal stenosis. 6.Benign prostatic hypertrophy with lower urinary obstructive symptoms. Principal Procedures: 1.Cystoscopy. 2.Left retrograde pyelography. 3.Left ureteral stent placement. 4.Meatal dilation using sounds. Indication For Procedure: Mr. Milton is a 72-year-old gentleman with GERD, who is a first-time sto ne former with a left 6 mm mid ureteral stone causing intractable nausea and vomiting as well as acut e kidney injury associated with 5 mm right-sided nephroureterolithiasis. Because of his intractable nausea and vomiting and acute kidney injury, he was counseled and recommended for left ureteral stent placement urgently. Procedure In Detail: The patient was consented in the preoperative holding area before being transfe rred to the operative suite where general anesthesia was induced. He was given Ancef IV antimicrobia l prophylaxis and pneumo boots were provided for DVT prophylaxis. He was placed in the lithotomy pos ition, padded, and secured to the table appropriately. His genitalia were prepped using Hibiclens an d he was draped in standard fashion. The case was begun, attempting to use a 22-Senegalese rigid cystosc ope to enter the urethra, but there was significant meatal stenosis that prohibited this. As a resul t, urethral sounds were required to dilate the meatus and fossa navicularis to 26-Senegalese. After this , I was able to pass the 22-Senegalese rigid cystoscope via the urethra and into the bladder, surpassing a prostate with significant lateral lobar hypertrophy with elevated median bar and intravesical proje ction of a median lobe that abutted the trigone. We then, the bladder was free of mucosal lesions, f oreign body, or stone, but the bladder was moderately trabeculated throughout with numerous cellule f ormation. The ureteral orifices were orthotopic in location and I cannulated the left ureteral orifi ce using the tip of the 5-Senegalese ureteral access catheter. Left retrograde pyelography: Using a 70:30 mixture of Omnipaque and saline, contrast mixture was injected via the 5-Senegalese uretera l access catheter and did propagate up a mildly tortuous ureter before entering a mildly hydronephrot ic renal pelvis with mild caliectasis. No radio-opaque calculus was visible. I thus passed a Sensor wire via the 5-Senegalese ureteral access catheter and was able to successfully navigate it into the upp er pole as evidenced fluoroscopically. Over the Sensor wire, I then placed a 6-Senegalese by 24 cm doubl e-J ureteral stent with a coil observed fluoroscopically in the upper pole and 1 cystoscopically form ed in the bladder. I then decompressed his bladder of fluid and urine, before removing the cystoscop e. The patient was taken out of the lithotomy position, awakened from general anesthesia, transferre d to a stretcher, and then transferred to the recovery room in good condition. Complications: None. Discharge Disposition: He will be discharged if he meets PACU protocol with a prescription for Bactr im Double Strength tablets times the next 7 days. Subsequently, he should be scheduled for definitiv e management of the stone via left-sided ureteroscopy with laser lithotripsy and stent exchange withi n the coming weeks. Since he has a 5 mm right sided stone, a KUB may be obtained to assess for visib ility to see if potentially we could perform ESWL on that right side before he has another stone event. He will subsequently require a metabolic stone profile asses sment. NAREN/MODL Voice ID: [id number] Report ID: [id number]
== END 2022-07-11 21:36 | disposition home or self-care (01) ==
LOC: OR 15:53
PROVIDERS: ATTEND Urology
PROC: 0T9780Z Drainage of Left Ureter with Drainage Device, Via Natural or Artificial Opening Endoscopic (ICD-10-PCS; principal; 2022-07-11 19:00)
DX: N17.9 Acute kidney failure, unspecified (principal); R11.2 Nausea with vomiting, unspecified; N13.30 Unspecified hydronephrosis; N20.1 Calculus of ureter; N35.911 Unspecified urethral stricture, male, meatal; N40.1 Benign prostatic hyperplasia with lower urinary tract symptoms; Z20.822 Contact with and (suspected) exposure to COVID-19
CPT/HCPCS: 87088; 87086; 36415; 71045; 74450; 51610; 87811; 52332; J2704; J3010; J1100; J0690; J7120; J2405; 93005

== ENCOUNTER 2022-07-24 09:31 | Day surgery (SDC) | payer MEDICARE ==
[2022-07-20 15:43] LABS: SARS-CoV-2 Antigen Rapid Res Negative (Negative)
[2022-07-20 15:44] LABS: Protime INR 1.12
[2022-07-20 16:07] LABS: Potassium 4.2 mmol/L (3.5-5.1)
--- NOTE | 2022-07-20 16:43 | RAD REPORT ---
EXAM DESCRIPTION: RAD - Abdomen 1 View (KUB) - 07/20/2022 2:52 pm CLINICAL HISTORY: Pre op pending surgery COMPARISON: Abdomen Pelvis W Contrast dated 07/10/2022 FINDINGS: Double pigtail stent is in place in the left collecting system. Stent appears well positio constantino. There are numerous pelvic phleboliths present. Patient had a left mid ureter 5 mm obstructing ca lculus. There is a calcification of similar size superimposed on the stent at the inferior aspect of the left sacral ala. There is an additional larger overall density just distal the small calcification also s uperimposed on the ureter. Patient had no corresponding calculus for this larger density on the study. This may be superimposed vascular structure. No other evidence for a stone along the c ourse of the stent. No acute bowel finding. Lower lumbar degenerative change. IMPRESSION: Well-positioned left ureteral stent. Small 5 mm calcific density superimposed on the stent in the mid pelvis may be the obstructing calcul us seen on the July 10 study.
[~2022-07-24 09:31] MED LIST changes: -ACETAMINOPHEN 500 MG TAB PO ONE; +AMPICILLIN SODIUM 2 GM in NA CHLORIDE 0.9% 100 ML IVPB ONE; +Gentamicin Inj 200 MG in NA CHLORIDE 0.9% 100 ML IV SCH
[2022-07-24] MEDS ORDERED: Ringers Lactate 1,000 ML IV ONE (09:45)
[2022-07-24] MEDS ORDERED: propofoL 200 MG/20 ML VIAL IV ONE (11:03)
[2022-07-24] MEDS ORDERED: dexAMETHasone 10 MG/ML VIAL ONE (11:04)
[2022-07-24] MEDS ORDERED: KETOROLAC 30 MG/ML INJ ONE (11:04)
[2022-07-24] MEDS ORDERED: FENTANYL CITR 100 MCG/2 ML ONE (11:04)
[2022-07-24] MEDS ORDERED: ONDANSETRON 4 MG/2 ML VIAL ONE (11:04)
[2022-07-24] MEDS ORDERED: LIDOCAINE 2% MPF 5 ML VIAL ONE (11:07)
[2022-07-24] MEDS ORDERED: MIDAZOLAM HCL 2 MG/2 ML INJ ONE (13:30)
[2022-07-24] MEDS ORDERED: HYDROCODONE/APAP 5/325 MG TAB PO PRN (13:38)
[2022-07-24] MEDS ORDERED: PHENAZOPYRIDINE 100MG TAB PO ONE ×2 (13:38→15:09)
[2022-07-24] MEDS ORDERED: Mastisol Adhesive Liq ONE (14:03)
[2022-07-24 14:58] VITALS: TEMP 97.5
--- NOTE | 2022-07-24 15:05 | OP ---
Surgeon: ANDIE ESPINOZA Preoperative Diagnosis: Left ureterolithiasis approximately 5 mm. Postoperative Diagnosis: Left ureterolithiasis approximately 5 mm. Principal Procedures: 1.Cystoscopy. 2.Left ureteroscopy with stone basketing and removal. 3.Left ureteral stent exchange. Indication For Procedure: Mr. Milton presented to the Urology Clinic with a 6 mm mid ureterolithia sis with intractable nausea, vomiting, and acute kidney injury. He underwent left ureteral stent dhaval cement 07/11/2022 and presents today for definitive management and removal of the calculus. Procedure In Detail: The patient was consented in the preoperative holding area before being transfe rred to the operative suite where general anesthesia was induced. Pneumo boots were applied for DVT prophylaxis, and he was given ampicillin and 2-3 mg/kg gentamicin, IV antimicrobial prophylaxis. He was placed in the lithotomy position, padded and secured to the table appropriately, and his genitali a was prepped using Hibiclens. He was draped in standard fashion and the case was begun using a 22-F rench rigid cystoscope to traverse the urethra and into the bladder with relative ease. The bladder was decompressed of fluid and urine, and the left ureteral stent was noted to emanate from the left u reteral orifice. Using an alligator grasper, the stent was grasped via its tip and delivered via the meatus with the proximal coil remaining in the mid ureter as evidenced fluoroscopically. I then pas sed a Sensor wire via the stent and observed a coil within the putative upper pole of the kidney. Le aving the Sensor wire in place as a safety wire, I then employed the semi-rigid ureteroscope and pres surized normal saline irrigation to traverse the urethra and into the left ureteral orifice navigatin g it up into the mid proximal ureter where the stone was visualized. Because the ureter was relative ly dilated at this point and the stone relative to the ureter lumen was small enough, I employed a 1. 9-Yakut 0 tip Nitinol basket to grasp the stone and delivered out of the ureter and via the meatus w ith ease. The stone was sent for chemical analysis. I then passed over the indwelling safety wire. A 6-Yakut x 26 cm double-J ureteral stent with a coil observed fluoroscopically in the upper pole a nd 1 cystoscopically formed in the bladder. The stent was left on its tether, and so I entered the b ladder using a cystoscope and decompressed the bladder confirming the coil of the stent appropriately within the bladder. I then secured the tether of the stent to the glans penis using benzoin and Juan José ri-Strips. He was then taken out of the lithotomy position, awakened from general anesthesia, transf erred to a stretcher, and then transferred to the recovery room in good condition. Complications: None. Discharge Disposition: He should follow up in the Urology Clinic on Saturday morning for tethered uret eral stent removal. He will be given a single dose of antimicrobial prophylaxis at that time. Since this is his first time in stone forming event, he need only follow up if he has another recurrent ev ent. Otherwise, he will be counseled to increase the volume of his fluid intake so that he does not form another stone. NAREN/ADRIANE Voice ID: [id number] Report ID: [id number]
[2022-07-24] MEDS ORDERED: HYDROCODONE/APAP 5/325 MG TAB ONE (15:09)
[2022-07-24 15:45] VITALS: BP 123/72; O2SAT 99
--- NOTE | 2022-07-24 15:47 | RAD REPORT ---
EXAM DESCRIPTION: RAD - Urethrocystogrphy Retrograde - 07/24/2022 2:35 pm CLINICAL HISTORY: LEFT STENT COMPARISON: Urethrocystogrphy Retrograde dated 07/11/2022 FINDINGS/IMPRESSION: Seven intraoperative fluoroscopic images were submitted showing cannulation of the left ureter and placement of a left-sided ureteral stent. Fluoro time: 16 seconds Cumulative dose: 7.4 mGy
== END 2022-07-24 15:30 | disposition home or self-care (01) ==
LOC: OR 09:31
PROVIDERS: ATTEND Urology
PROC: 0T9780Z Drainage of Left Ureter with Drainage Device, Via Natural or Artificial Opening Endoscopic (ICD-10-PCS; 2022-07-24)
PROC: 0TC78ZZ Extirpation of Matter from Left Ureter, Via Natural or Artificial Opening Endoscopic (ICD-10-PCS; principal; 2022-07-24 12:30)
DX: N20.1 Calculus of ureter (principal); Z20.822 Contact with and (suspected) exposure to COVID-19; F41.9 Anxiety disorder, unspecified; N52.9 Male erectile dysfunction, unspecified; Z80.42 Family history of malignant neoplasm of prostate
CPT/HCPCS: 52352; 52332; 87088; 87086; 80048; 36415; 85610; 88300; 82360; 74018; 74450; 51610; 87811; J2704; J1580; J2250; J3010; J1100; J7120; J2405; J0290; J2001

== ENCOUNTER 2022-08-22 05:53 | Observation (INO) | payer MEDICARE ==
[2022-08-17 08:53] LABS: Specific Gravity 1.027 (1.005-1.030); Urine Bilirubin NEGATIVE (Negative); Urine Blood Negative (Negative); Urine Clarity Clear (Clear); Urine Color Light-Yellow (Yellow); Urine Glucose NEGATIVE (Negative); Urine Protein NEGATIVE (Negative); Urine Urobilinogen Normal (Normal); Urine pH 5.5 (5.0-7.0)
[2022-08-17 09:02] LABS: SARS-CoV-2 Antigen Rapid Res Negative (Negative)
[2022-08-22] MEDS ORDERED: CEFAZOLIN 2 GM IN 0.9% NACL 2 GM/100 ML BAG ONE (06:12)
[2022-08-22] MEDS ORDERED: Ringers Lactate 1,000 ML IV ONE (06:12)
[2022-08-22] MEDS ORDERED: LIDOCAINE 1% MPF 5 ML VIAL ONE (07:04)
[2022-08-22] MEDS ORDERED: EPINEPHRINE/PF 1 MG/ML AMP ONE (07:05)
[2022-08-22] MEDS ORDERED: BUPIVACAINE 0.25% PF 30 ML VIAL ONE (07:05)
[2022-08-22] MEDS ORDERED: FENTANYL CITR 100 MCG/2 ML ONE (07:05)
[2022-08-22] MEDS ORDERED: MIDAZOLAM HCL 2 MG/2 ML INJ ONE (07:05)
[2022-08-22] MEDS ORDERED: dexAMETHasone 10 MG/ML VIAL ONE ×2 (07:05→07:52)
[2022-08-22] MEDS ORDERED: CELECOXIB 100 MG CAPSULE ONE (07:06)
[2022-08-22] MEDS ORDERED: GABAPENTIN 100 MG CAP ONE (07:07)
[2022-08-22] MEDS ORDERED: Oxycodone HCl/Acetaminophen 1 TAB TAB ONE (07:07)
[2022-08-22] MEDS ORDERED: ACETAMINOPHEN 500 MG TAB ONE (07:07)
[2022-08-22] MEDS ORDERED: TRANEXAMIC ACID 1,000 MG/10 ML VIAL IV ONE (07:38)
[2022-08-22] MEDS ORDERED: HYDROMORPHONE HCL 1 MG/ML INJ ONE (07:46)
[2022-08-22] MEDS ORDERED: LIDOCAINE 2% MPF 5 ML VIAL ONE (07:52)
[2022-08-22] MEDS ORDERED: KETOROLAC 30 MG/ML INJ ONE (07:52)
[2022-08-22] MEDS ORDERED: propofoL 200 MG/20 ML VIAL IV ONE (07:52)
[2022-08-22] MEDS ORDERED: ONDANSETRON 4 MG/2 ML VIAL ONE (07:53)
[2022-08-22] MEDS ORDERED: KETAMINE HCL 500 MG/5 ML VIAL ONE (07:53)
[2022-08-22] MEDS ORDERED: EPHEDRINE SULF 50 MG/ML VIAL ONE (08:34)
--- NOTE | 2022-08-22 10:55 | P.BOP ---
Preoperative diagnosis: left knee osteoarthritis Postoperative diagnosis: same Primary procedure: left total knee arthroplasty Purchasing Clerk: NONE,NONE Estimated blood loss: 40 cc Specimen: left knee bone remnants Findings: see dictation Anesthesia: General Complications: None Implants: Biomet Alison Persona 10 CR femur, F tibia, 10 CR poly, 32 patella Fluids & blood products: per anesthesia record; TT: 79 mins @ 300 mmHg Transferred to: Recovery Room Condition: Good
[2022-08-22] MEDS ORDERED: ONDANSETRON 4 MG/2 ML VIAL IV PRN (10:56)
[2022-08-22] MEDS ORDERED: ACETAMINOPHEN 325 MG TABLET PO PRN (10:56)
[2022-08-22] MEDS ORDERED: MORPHINE 2 MG/ML SYR IV PRN (10:56)
[2022-08-22] MEDS ORDERED: DOCUSATE NA 100 MG CAP PO PRN (10:56)
[2022-08-22] MEDS ORDERED: TRAMADOL HCL 50 MG TAB PO PRN (10:59)
--- NOTE | 2022-08-22 11:04 | P.OP ---
Preoperative diagnosis: left knee osteoarthritis Postoperative diagnosis: same Primary procedure: left total knee arthroplasty Anesthesia: general Estimated blood loss: 40 cc Specimen: left knee bone remnants Findings: see dictation Operative Technique: Indication For Procedure: Shahid is a 72 year-old male presenting to my clinic with signs, symptoms and x-ray findings consistent with severe left knee osteoarthritis. I discussed with the patient at length risks and benefits associated with operative and nonoperative treatment. He had failed conservative treatment measures and had significant difficulties with ADLs secondary to his pain. We discussed operative treatment and elected to proceed with left total knee arthroplasty. He expressed understanding and elected to proceed with operative treatment. Description Of Procedure: After informed consent was obtained, the patient was identified in the preoperative holding area. The left lower extremity was marked. The patient was then taken to the PACU where he underwent a left lower extremity adductor canal block performed by Anesthesia. He was then taken to the operating room, transferred to the operating table in supine fashion, and placed under general anesthesia. The left lower extremity was then prepped and draped in usual sterile fashion. A time-out was initiated. The correct patient and procedure were confirmed and identified. The patient did receive his preoperative prophylactic antibiotics. The left lower extremity was then exsanguinated and tourniquet was inflated to 300 mmHg. Approximately 15 cm longitudinal incision was made centered over the anterior aspect of the left knee. Dissection was then taken to the extensor mechanism and a medial parapatellar arthrotomy was performed. The patella was everted and dislocated laterally and the knee was flexed in the fat pad. Medial lateral meniscus and ACL were all excised exposing the distal femur. Excess hypertrophic synovium was also excised within the suprapatellar pouch. The patient had an MRI of her left knee preoperatively for surgical planning and creation of cutting blocks. The cutting block was then placed over the distal femur and pins were then placed. The distal femoral cutting block was then placed over the pins. Knee joint was then used to ensure proper depth cut and the distal femur was then cu t. The chamfer cutting guide was then placed over the distal end of the femur. Anterior, posterior cuts as well as anterior and posterior chamfer cuts were then made again confirming proper depth of the cut using an Juan Manuel wing. Excess bone remnants were then sent to pathology for further evaluation. Next, attention was taken to the proximal tibia. A tibial jig and tibial cutting block was then placed on proximal aspect of the left tibia and locked into position. Pins were then placed and alignment guide was then used to confirm proper alignment of the cut and then coronal and sagittal planes. Once this was confirmed, the cutting jig was placed over the pins and the proximal tibia was cut. Sizing trays were then selected and size 10 mm spacer was used and there was good overall balance in flexion and extension. Next, the trial implants were then placed using the size 10 standard CR femur and a size F tibia with an 10 mm CR poly. There was overall good range of motion and good stability. The trial implants were then removed. This improved the overall stability of the knee and components. The wound was then irrigated thoroughly with normal saline and the knee was then injected with 30 cc of 0.5% Marcaine both in the posterior capsule and mediallateral gutters as well as quadriceps tendon and periosteum. The tibia was then punched. The femur was drilled. The cement was then prepared on the back table. Cement was then placed first on the tibial surface followed by size F tibia. Excess cement was removed with [place] elevators. Size 10 standard CR femur was then placed on the distal femur after cement was placed on the distal femur. Excess cement was then removed and a size 10 mm CR trial poly was then placed. The knee was held in extension as the cement hardened. Undersurface of the patella was prepared debriding osteophytes using rongeurs as well as osteophytes.. Cement was placed on the undersurface of the patella after it was cut and a size 32 patella was placed. Once the cement was hardened, the knee was ranged, there was good overall stability both in flexion, extension and as well as stability with varus and valgus stresses. Trial poly was then removed and a size 10 mm CR poly was then placed and locked into position. The knee was then ranged again. There was good overall range of motion both for flexion and extension with good stability. The wound was then irrigated again thoroughly with normal saline using pulse lavage. Tourniquet was let down. Hemostasis was achieved using Bovie electrocautery. Extensor mechanism was then approximated using a #1 Vicryl both in interrupted and running fashion. The fascia was then approximated using 0 Vicryl. Subcutaneous tissue was approximated with a 2-0 Vicryl. Skin was approximated using madison. Sterile dressings were applied. The patient was awakened and transferred back in stable condition Complications: None Implants: Biomet Alison Persona 10 CR femur, F tibia, 10 CR poly, 32 patella Fluids & blood products: per anesthesia record; TT: 79 mins @ 300 mmHg Transferred to: Recovery Room Condition: Good
--- OUTSIDE RECORDS SUMMARY | 2022-08-22 11:23 | XMS REPORT | Continuity of Care Document ---
:1950 Author Organization [facility] t Address [address] [place] [address] Dr. Can. [address] [place] [id number] Care Team Providers Name Role Phone RANJAN VAN Primary Care Physician Unavailable Ranjan Van Attending Clinician Unavailable LOU CLARK Attending Clinician Unavailable Delbridge_T Attending Clinician Unavailable OWENS_T Attending Clinician Unavailable Doctor Unassigned, [place] Attending Clinician Unavailable Lou Clark MD Attending Clinician Pob, Adc Lab Main Attending Clinician Unavailable YESSI GONZALEZ Attending Clinician Unavailable Yessi Walter Attending Clinician Lab, Adc Fam Pob I Attending Clinician Unavailable Nurse, Devon Fam Pob I Attending Clinician Unavailable Gya-Junior_A_AH Attending Clinician Unavailable Levar Salter MD Attending Clinician [phone] LOU CLARK Admitting Clinician Unavailable Delbridge_T Admitting Clinician Unavailable OWENS_T Admitting Clinician Unavailable Gay-Edo_A_AH Admitting Clinician Unavailable Levar Salter MD Admitting Clinician [phone] Payers Payer Name Policy Type Policy Number Effective Date Expiration Date Jesus GALDAMEZ [employer] [id number] 2021 00:00:00 [employer] [id number] 2021 (MEDICARE 00:00:00 REPLACEMENT HMO) [employer] [facility] [place] - [id number] ZAFAR (MEDICARE 00:00:00 REPLACEMENT/ADVANTA GE - HMO) Problems Condition Condition Condition Status Onset Resolution Last Treating Co mments Source Name Details Category Date Date Treatment Clinician Date 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 Depression 00 e Benign Benign Problem Active [place] prostatic Prostatic 02-22 Fami ly hyperplasi Hyperplasi 00:00: Pr actic a a 00 e Osteoarthr Osteoarthr Problem Active [facility] ill[facility] itis itis 02-22 Family 00:00: Practic 00 e History of History of Problem C ommon arthroplas arthroplas Sp rick ty of ty of - CHI right knee right knee [facility] [id number] Anxiety Problem [facility] [id number] Erectile Problem Comm on dysfunctio Spirit n, - [facility]I unspecifie [facility] erectile [facility] dysfunctio Medica l n type [place] [id number] Osteoarthr Problem C ommon itis of Spirit left hip, - CHI unspecifie d [facility] osteoarthr Medica l itis type Center [id number] Localized Problem Com mon osteoarthr Spirit itis of - [facility]I right knee [facility] [id number] Osteoarthr Problem C ommon itis of Spirit right hip - CHI joint due to [facility] dysplasia [facility] [id number] 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[facility] [place] myelopathy Medica l or Center radiculopa thy [id number] Gastroesop Problem Co mmon hageal Spirit reflux - [facility], [facility] es[facility] Center s present Chronic Chronic Problem Common fatigue fatigue Spirit syndrome - [facility] [id number] Pain in Problem Comm on right Spirit thigh - CHI [facility] [id number] Benign Problem Commo n 101 prostatic Spirit hyperplasi - [facility]I a with [facility] urinary Medical tract Center symptoms [id number] Abnormal Problem Comm on barium Spirit swallow - [facility] [id number] History of Problem Co mmon colon Spirit polyps - [facility] [id number] Localized Problem Co mmon [address] osteoarthr Spirit itis of - CHI left knee [facility] [id number] Primary Problem Comm on osteoarthr Spirit itis of - CHI right knee [facility] Memory Memory Problem Common deficit deficit [facility] Vitamin D Vitamin D Problem Com mon deficiency deficiency Sp rick [facility] [id number] Chronic Problem Common gastritis [facility] without - [facility] bleeding[facility] type [id number] Status Problem Commo n 105 post total Spirit right knee - CHI replacemen [facility] [id number] MEGHAN (acute Problem C ommon [id number] kidney Spirit injury) [facility] [id number] Acute pain Problem Com mon of left Spirit knee [facility] [id number] Calculus Problem Commo n of kidney Spirit [facility] [id number] Dysphagia, Problem Com mon unspecifie Spirit d type [facility] Somnolence Somnolence Problem C ommon , daytime [facility] [id number] Ureterolit Problem Com mon hiasis [facility] Allergies, Adverse Reactions, Alerts Allergy Allergy Status Severity Reaction(s) Onset Inactive Treating Comm ents Source Name Type Date Date Clinician NO KNOWN Drug Active [facility] Social History Social Habit Start Date Stop Date Quantity Comments Source History of Tobacco [facility] - [facility] Use [facility] Sex Assigned At Common Sp rick - [facility]I [facility] Exposure to 2022-03-27 2022-04-06 Not sure [facility] SARS-CoV-2 (event) 00:00:00 14:14:00 [facility] Tobacco use and 2022-04-06 2022-04-06 Never used [facility] exposure 00:00:00 00:00:00 Medical Branch Smoking Status Start Date Stop Date Source Unknown if ever smoked [facility] Never Smoker Common [facility] Medications Ordered Filled Start Stop Current Ordering Indication Dosage Frequency Signature Comments Components Source Medication Medication Date Date Medication? Clinician (SIG) Name Name HYDROcodone HYDROcodone No 1{table HYDROcodon -Acetaminop -Acetaminop - t_as_ne e-Acetamin hen 7.5-325 hen 7.5-325 00:00: eded} ophen MG MG 00 7.5-325 MG Xarelto 10 Xarelto 10 No 1{table QD Xarelto 10 MG MG 9-26 t} MG 00:00: 00 HYDROcodone HYDROcodone No 1{table HYDROcodon -Acetaminop -Acetaminop - t_as_ne e-Acetamin hen 7.5-325 hen 7.5-325 00:00: eded} ophen MG MG 00 7.5-325 MG Xarelto 10 Xarelto 10 No 1{table QD Xarelto 10 MG MG 9-26 t} MG 00:00: 00 traMADol traMADol No 1{table traMADol HCl 50 MG HCl 50 MG 08-16 t_as_ne HCl 50 MG 00:00: eded} 00 traMADol traMADol No 1{table traMADol HCl 50 MG HCl 50 MG -22 t_as_ne HCl 50 MG 00:00: eded} 00 Diclofenac Diclofenac No 1{table BID Diclofenac Sodium 75 Sodium 75 7-12 t_as_ne Sodium 75 MG MG 00:00: eded} MG 00 Diclofenac Diclofenac No 1{table BID Diclofenac Sodium 75 Sodium 75 7-12 t_as_ne Sodium 75 MG MG 00:00: eded} MG 00 Diclofenac Diclofenac No 1{table BID Diclofenac Sodium 75 Sodium 75 7-12 t_as_ne Sodium 75 MG MG 00:00: eded} MG 00 gabapentin Yes 300mg Take 300 Un denise 300 mg 5-13 mg by ity of capsule 14:11: mouth 2 [place] 56 (two) Medical times Branch daily. mecobalamin Yes 1000mg Take 1,000 Univers (B12 ACTIVE 5-13 mg by ity of ORAL) 14:11: mouth [place] 56 daily. Medical Branch ascorbic Yes 500mg Take 500 Univ ers acid, [...] mouth [place] 56 daily. Medical Branch ascorbic Yes 500mg Take 500 Univ ers acid, 5-13 mg by ity of vitamin C, 14:11: mouth [place] (VITAMIN C) 56 daily. Medica l 500 mg Branch tablet Cholecalcif Yes 1{capsu Take 1 U nivers jian, 5-13 le} capsule by ity of Vitamin D3, 14:11: mouth [place] (VITAMIN 56 daily. Medical D3) 25 mcg Branch (1,000 unit) capsule tamsulosin Yes Take by Univ ers 0.4 mg 24 5-13 mouth 2 ity of hr capsule 14:07: (two) [place] 41 times Medical daily. Branch baclofen 10 Yes 10mg Take 10 mg Univers mg tablet 5-13 by mouth 3 ity of 14:07: (three) [place] 41 times Medical daily. Branch SERTraline Yes 50mg Take 50 mg U nivers 50 mg 5-13 by mouth ity of tablet 14:07: daily. [place] [address] Medical Branch meloxicam 0 Yes 7.5mg Take 7.5 Uni vers 7.5 mg 5-13 mg by ity of tablet 14:07: mouth [place] 41 daily. Medical Branch tamsulosin Yes Take by Univ ers 0.4 mg 24 5-13 mouth 2 ity of hr capsule 14:07: (two) [place] 41 times Medical daily. Branch baclofen 10 0 Yes 10mg Take 10 mg Univers mg tablet 5-13 by mouth 3 ity of 14:07: (three) [place] 41 times Medical daily. Branch SERTraline 2021-0 Yes 50mg Take 50 mg U nivers 50 mg 5-13 by mouth ity of tablet 14:07: daily. [place] [address] Medical Branch meloxicam 0 Yes 7.5mg Take 7.5 Uni vers 7.5 mg 5-13 mg by ity of tablet 14:07: mouth [place] 41 daily. Medical Branch tamsulosin 0 Yes Take by Univ ers 0.4 mg 24 5-13 mouth 2 ity of hr capsule 14:07: (two) [place] 41 times Medical daily. Branch baclofen 10 0 Yes 10mg Take 10 mg Univers mg tablet 5-13 by mouth 3 ity of 14:07: (three) [place] 41 times Medical daily. Branch SERTraline 0 Yes 50mg Take 50 mg U nivers 50 mg 5-13 by mouth ity of tablet 14:07: daily. [place] [address] Medical Branch meloxicam Yes 7.5mg Take 7.5 Uni vers 7.5 mg 5-13 mg by ity of tablet 14:07: mouth [place] 41 daily. Medical Branch tamsulosin Yes Take by Univ ers 0.4 mg 24 5-13 mouth 2 ity of hr capsule 14:07: (two) [place] 41 times Medical daily. Branch baclofen 10 Yes 10mg Take 10 mg Univers mg tablet 5-13 by mouth 3 ity of 14:07: (three) [place] 41 times Medical daily. Branch SERTraline Yes 50mg Take 50 mg U nivers 50 mg 5-13 by mouth ity of tablet 14:07: daily. [place] [address] Medical Branch meloxicam Yes 7.5mg Take 7.5 Uni vers 7.5 mg 5-13 mg by ity of tablet 14:07: mouth [place] 41 daily. Medical Branch tamsulosin Yes Take by Univ ers 0.4 mg 24 5-13 mouth 2 ity of hr capsule 14:07: (two) [place] 41 times Medical daily. Branch baclofen 10 Yes 10mg Take 10 mg Univers mg tablet 5-13 by mouth 3 ity of 14:07: (three) [place] 41 times Medical daily. Branch SERTraline Yes 50mg Take 50 mg U nivers 50 mg 5-13 by mouth ity of tablet 14:07: daily. [place] [address] Medical Branch meloxicam Yes 7.5mg Take 7.5 Uni vers 7.5 mg 5-13 mg by ity of tablet 14:07: mouth [place] 41 daily. Medical Branch diclofenac 2021-2021- No [id number] 75mg Take 1 Univers 75 mg EC 03-30 9109 tablet by ity o f tablet 00:00: 04:59 mouth 2 [place] 00 :00 (two) Medical times [place] daily with meals for 30 days. diclofenac 2021-2021- No [id number] 75mg Take 1 Univers 75 mg EC 03-30 9109 tablet by ity o f tablet 00:00: 04:59 mouth 2 [place] 00 :00 (two) Medical times [place] daily with meals for 30 days. diclofenac 2021- No [id number] 75mg Take 1 Univers 75 mg EC 03-30 9109 tablet by ity o f tablet 00:00: 04:59 mouth 2 [place] 00 :00 (two) [facility] daily with meals for 30 days. diclofenac 2021- No [id number] 75mg Take 1 Univers 75 mg EC 03-30 9109 tablet by ity o f tablet 00:00: 04:59 mouth 2 [place] 00 :00 (two) [facility] times [place] daily with meals for 30 days. pantoprazol Yes 40mg Take 40 mg Univers e 40 mg EC 4-20 by mouth ity o f tablet 00:00: daily. [address] pantoprazol Yes 40mg Take 40 mg Univers e 40 mg EC 4-20 by mouth ity o f tablet 00:00: daily. [address] pantoprazol Yes 40mg Take 40 mg Univers e 40 mg EC 4-20 by mouth ity o f tablet 00:00: daily. [address] pantoprazol Yes 40mg Take 40 mg Univers e 40 mg EC 4-20 by mouth ity o f tablet 00:00: daily. [address] traMADol traMADol No 1{table traMADol HCl 50 MG HCl 50 MG 1-13 t_as_ne HCl 50 MG 00:00: eded} 00 traMADol traMADol No 1{table traMADol HCl 50 MG HCl 50 MG 1-13 t_as_ne HCl 50 MG 00:00: eded} 00 traMADol traMADol No 1{table traMADol HCl 50 MG HCl 50 MG 1-13 t_as_ne HCl 50 MG 00:00: eded} 00 HYDROcodone HYDROcodone No 1{table QID HYDROcodon -Acetaminop -Acetaminop 1-04 t_as_ne e-Acetamin hen 5-325 hen 5-325 00:00: eded} ophen MG MG 00 5-325 MG HYDROcodone HYDROcodone No 1{table QID HYDROcodon -Acetaminop -Acetaminop 1-04 t_as_ne e-Acetamin hen 5-325 hen 5-325 00:00: eded} ophen MG MG 00 5-325 MG HYDROcodone HYDROcodone No 1{table QID HYDROcodon -Acetaminop -Acetaminop 1-04 t_as_ne e-Acetamin hen 5-325 hen 5-325 00:00: eded} ophen MG MG 00 5-325 MG Xarelto 10 Xarelto 10 2020-11 No 1{table QD Xarelto 10 MG MG 2-14 t} MG 00:00: 00 HYDROcodone HYDROcodone 2020-11 No 1{table HYDROcodon -Acetaminop -Acetaminop 2-14 t_as_ne e-Acetamin hen 7.5-325 hen 7.5-325 00:00: eded} ophen MG MG 00 7.5-325 MG HYDROcodone HYDROcodone 2020-11 No 1{table HYDROcodon -Acetaminop -Acetaminop 2-14 t_as_ne e-Acetamin hen 7.5-325 hen 7.5-325 00:00: eded} ophen MG MG 00 7.5-325 MG Xarelto 10 Xarelto 10 2020-11 No 1{table QD Xarelto 10 MG MG 2-14 t} MG 00:00: 00 HYDROcodone HYDROcodone 2020-11 No 1{table HYDROcodon -Acetaminop -Acetaminop 2-14 t_as_ne e-Acetamin hen 7.5-325 hen 7.5-325 00:00: eded} ophen MG MG 00 7.5-325 MG Xarelto 10 Xarelto 10 2020-11 No 1{table QD Xarelto 10 MG MG 2-14 t} MG 00:00: 00 Vitamin B12 Vitamin B12 No 1000ug Common (Cyanocobal (Cyanocobal 7-15 S pirit ivory) ivory) 00:00: - CHI 00 [facility] Vitamin B12 Vitamin B12 No 1000ug Common (Cyanocobal (Cyanocobal 7-15 S pirit ivory) ivory) 00:00: - CHI 00 [facility] Vitamin B12 Vitamin B12 2021-0 No 1000ug Common (Cyanocobal (Cyanocobal 7-15 S pirit ivory) ivory) 00:00: - CHI 00 [facility] Hyalgan 20 Hyalgan 20 2020-0 No 20mg C ommon mg mg 2- Spirit 00:00: - CHI 00 [facility] Hyalgan 20 Hyalgan 20 2020-0 No 20mg C ommon mg mg 2 Spirit 00:00: - CHI 00 [facility] Hyalgan 20 Hyalgan 20 2020-0 No 20mg C ommon mg mg 2 Spirit 00:00: - CHI 00 [facility] Hyalgan 20 Hyalgan 20 2020-0 No 20mg C ommon mg mg 01-17 Spirit 00:00: - CHI 00 [facility] Hyalgan 20 Hyalgan 20 2020-0 No 20mg C ommon mg mg 01-17 Spirit 00:00: - CHI 00 [facility] Hyalgan 20 Hyalgan 20 2020-0 No 20mg C ommon mg mg 01-17 Spirit 00:00: - CHI [facility] Hyalgan 20 Hyalgan 20 2020-0 No 20mg C ommon mg mg 2 Spirit 00:00: - CHI 00 [facility] Hyalgan 20 Hyalgan 20 2020-0 No 20mg C ommon mg mg 2 Spirit 00:00: - CHI [facility] Hyalgan 20 Hyalgan 20 2020-0 No 20mg C ommon mg mg 2 Spirit 00:00: - CHI [facility] Hyalgan 20 Hyalgan 20 2020-0 No 20mg C ommon mg mg 2 Spirit 00:00: - CHI 00 [facility] Hyalgan 20 Hyalgan 20 2020-0 No 20mg C ommon mg mg 2 Spirit 00:00: - CHI [facility] Hyalgan 20 Hyalgan 20 2020-0 No 20mg C ommon mg mg 2- Spirit 00:00: - CHI 00 [facility] Bupivicaine Bupivicaine 2020-1 No 2.5mg Common [place] 2-04 Spirit 00:00: - CHI 00 [facility] Bupivicaine Bupivicaine 2020-1 No 2.5mg Common [place] 2-04 Spirit 00:00: - CHI 00 [facility] Hyalgan 20 Hyalgan 20 2019- No 20mg C ommon mg mg 2-04 Spirit 00:00: - CHI 00 [facility] Hyalgan 20 Hyalgan 20 2019- No 20mg C ommon mg mg 2-04 Spirit 00:00: - CHI 00 [facility] Kenalog Kenalog 2019-11 No 40mg Common (Triamcinol (Triamcinol 2-04 S pirit one) one) 00:00: - CHI 00 [facility] Kenalog Kenalog 2019-11 No 40mg Common (Triamcinol (Triamcinol 2-04 S pirit one) one) 00:00: - CHI 00 [facility] Bupivicaine Bupivicaine 2019- No 2.5mg Common [place] 2-04 Spirit 00:00: - CHI 00 [facility] Bupivicaine Bupivicaine 2019- No 2.5mg Common [place] 2-04 Spirit 00:00: - CHI 00 [facility] Hyalgan 20 Hyalgan 20 2019- No 20mg C ommon mg mg 2-04 Spirit 00:00: - CHI 00 [facility] Hyalgan 20 Hyalgan 20 2019- No 20mg C ommon mg mg 2-04 Spirit 00:00: - CHI 00 [facility] Kenalog Kenalog 2019- No 40mg Common (Triamcinol (Triamcinol 2-04 S pirit one) one) 00:00: - CHI 00 [facility] Kenalog Kenalog 2019- No 40mg Common (Triamcinol (Triamcinol 2-04 S pirit one) one) 00:00: - CHI 00 [facility] Bupivicaine Bupivicaine 2019- No 2.5mg Common [place] 2-04 Spirit 00:00: - CHI 00 [facility] Bupivicaine Bupivicaine 2019- No 2.5mg Common [place] 2-04 Spirit 00:00: - CHI 00 [facility] Hyalgan 20 Hyalgan 20 2019- No 20mg C ommon mg mg 2-04 Spirit 00:00: - CHI 00 [facility] Hyalgan 20 Hyalgan 20 2019- No 20mg C ommon mg mg 2-04 Spirit 00:00: - CHI 00 [facility] Kenalog Kenalog 2019- No 40mg Common (Triamcinol (Triamcinol 2-04 S pirit one) one) 00:00: - CHI 00 [facility] Kenalog Kenalog 2019- No 40mg Common (Triamcinol (Triamcinol 2-04 S pirit one) one) 00:00: - CHI 00 [facility] Diclofenac Diclofenac 2020-0 2020- No Na Van 2 gram Common Sodium Sodium 30 09-21 applicatio Spir it 00:00: 00:00 n to - CHI 00 :00 affected [facility] Gabapentin Gabapentin 2019-0 Yes Na Van 2 tablet Common 4 Spirit 00:00: - CHI 00 [facility] Magnesium Magnesium 2019-0 2020- No Na Van 1 capsule Common Oxide -Mg Oxide -Mg 03-03 as needed Spirit Supplement Supplement 00:00: 00:00 - CHI 00 :00 [facility] Sertraline Sertraline Yes Na Van 1 tablet Common HCl HCl [facility] Tamsulosin Tamsulosin Yes Na Van 1 capsule Common HCl HCl [facility] Meloxicam Meloxicam Yes Na Van 1 tablet Common [facility] Sertraline Sertraline No 1{table QD Sertraline HCl 50 MG HCl 50 MG t} HCl 50 MG Tamsulosin Tamsulosin No Tamsulosin HCl 0.4 MG HCl 0.4 MG HCl 0.4 MG Gabapentin Gabapentin No 2{table TID Gabapentin 300 MG 300 MG t} 300 MG Sertraline Sertraline No Sertraline HCl 50 MG HCl 50 MG HCl 50 MG Pantoprazol Pantoprazol No 1{table QD Pantoprazo e Sodium 40 e Sodium 40 t} le Sodium MG MG 40 MG HYDROcodone HYDROcodone No 1{table QID HYDROcodon -Acetaminop -Acetaminop t_as_ne e-Acetamin hen 5-325 hen 5-325 eded} ophen MG MG 5-325 MG Meloxicam Meloxicam No 1{table QD Meloxicam 7.5 MG 7.5 MG t} 7.5 MG Vitamin C Vitamin C No 1{table QD Vitamin C 100 MG 100 MG t} 100 MG Magnesium Magnesium No 1{capsu QD Magnesium Oxide -Mg Oxide -Mg le_as_n Oxide -Mg Supplement Supplement eeded} Supplement 400 MG 400 MG 400 MG Pantoprazol Pantoprazol No 1{table QD Pantoprazo e Sodium 40 e Sodium 40 t} le Sodium MG MG 40 MG Magnesium Magnesium No 1{capsu QD Magnesium Oxide -Mg Oxide -Mg le_as_n Oxide -Mg Supplement Supplement eeded} Supplement 400 MG 400 MG 400 MG Gabapentin Gabapentin No 2{table TID Gabapentin 300 MG 300 MG t} 300 MG Sertraline Sertraline No Sertraline HCl 50 MG HCl 50 MG HCl 50 MG Vitamin C Vitamin C No 1{table QD Vitamin C 100 MG 100 MG t} 100 MG Sertraline Sertraline No 1{table QD Sertraline HCl 50 MG HCl 50 MG t} HCl 50 MG Tamsulosin Tamsulosin No Tamsulosin HCl 0.4 MG HCl 0.4 MG HCl 0.4 MG Meloxicam Meloxicam No 1{table QD Meloxicam 7.5 MG 7.5 MG t} 7.5 MG HYDROcodone HYDROcodone No 1{table QID HYDROcodon -Acetaminop -Acetaminop t_as_ne e-Acetamin hen 5-325 hen 5-325 eded} ophen MG MG 5-325 MG Pantoprazol Pantoprazol No 1{table QD Pantoprazo e Sodium 40 e Sodium 40 t} le Sodium MG MG 40 MG Vitamin C Vitamin C No 1{table QD Vitamin C 100 MG 100 MG t} 100 MG Magnesium Magnesium No 1{capsu QD Magnesium Oxide -Mg Oxide -Mg le_as_n Oxide -Mg Supplement Supplement eeded} Supplement 400 MG 400 MG 400 MG Gabapentin Gabapentin No 2{table TID Gabapentin 300 MG 300 MG t} 300 MG Sertraline Sertraline No Sertraline HCl 50 MG HCl 50 MG HCl 50 MG Sertraline Sertraline No 1{table QD Sertraline HCl 50 MG HCl 50 MG t} HCl 50 MG Tamsulosin Tamsulosin No Tamsulosin HCl 0.4 MG HCl 0.4 MG HCl 0.4 MG Meloxicam Meloxicam No 1{table QD Meloxicam 7.5 MG 7.5 MG t} 7.5 MG HYDROcodone HYDROcodone No 1{table QID HYDROcodon -Acetaminop -Acetaminop t_as_ne e-Acetamin hen 5-325 hen 5-325 eded} ophen MG MG 5-325 MG meloxicam meloxicam No 1 Q1D meloxicam [place] 7.5 mg 7.5 mg 7.5 mg Family tablet Take tablet Take tablet Practic 1 tablet 1 tablet Take 1 e every day every day tablet by oral by oral every day route. route. by oral route. sertraline sertraline No 1 Q1D sertraline [facility] 50 mg 50 mg 50 mg Family tablet Take tablet Take tablet Practic 1 tablet 1 tablet Take 1 e every day every day tablet by oral by oral every day route. route. by oral route. tamsulosin tamsulosin No 1capsul Q1D tamsulosin [facility] 0.4 mg 0.4 mg e(s) 0.4 mg Family capsule capsule capsule Practi c Take 1 Take 1 Take 1 e capsule capsule capsule every day every day every day by oral by oral by oral route. route. route. Immunizations Ordered Immunization Filled Immunization Date Status Commen ts Source Name Name Prevnar 20 (PCV20) Prevnar 20 (PCV20) 2022-08-14 Completed [facility] - 15:32:00 [facility] FLUZONE HIGH DOSE FLUZONE HIGH DOSE 2022-08-14 Completed [facility] - OVER 65 OVER 65 15:32:00 [facility] Prevnar 20 (PCV20) Prevnar 20 (PCV20) 2022-08-14 Completed [facility] - 15:32:00 [facility] FLUZONE HIGH DOSE FLUZONE HIGH DOSE 2022-08-14 Completed [facility] - OVER 65 OVER 65 15:32:00 [facility] Prevnar 20 (PCV20) Prevnar 20 (PCV20) 2022-08-14 Completed [facility] - 15:32:00 [facility] FLUZONE HIGH DOSE FLUZONE HIGH DOSE 2022-08-14 Completed [facility] - OVER 65 OVER 65 15:32:00 [facility] FluAD FluAD 2021-09-12 Completed [facility] - 16:26:00 [facility] FluAD FluAD 2021-09-12 Completed [facility] - 16:26:00 [facility] FluAD FluAD 2021-09-12 Completed [facility] - 16:26:00 [facility] FluAD FluAD 2019-12-15 Completed [facility] - 16:17:00 [facility] FluAD FluAD 2019-12-15 Completed [facility] - 16:17:00 [facility] FluAD FluAD 2019-12-15 Completed [facility] - 16:17:00 [facility] Influenza A Influenza A 2019-08-25 Completed [facility] monovalent (H5N1), monovalent (H5N1), 00:00:00 Practice ADJUVANTED-2012 ADJUVANTED-2012 PNEUMAVAX 23 PNEUMAVAX 2018-12-24 Completed Common Spi rit - 16:17:00 [facility] PNEUMAVAX 23 PNEUMAVAX 2018-12-24 Completed Common Spi rit - 16:17:00 [facility] PNEUMAVAX 23 PNEUMAVAX 2018-12-24 Completed Common Spi rit - 16:17:00 [facility] Vital Signs Vital Name Observation Time Observation Value Comments Source height 2022-08-16 13:00:00 69.00 [in_i] [facility] weight 2022-08-16 13:00:00 208 [lb_av] [facility] temperature 2022-08-16 13:00:00 98.2 [degF] [facility] bmi 2022-08-16 13:00:00 30.71 kg/m2 [facility] blood pressure 2022-08-16 13:00:00 132 mm[Hg] [facility] - systolic [facility] blood pressure 2022-08-16 13:00:00 74 mm[Hg] [facility] - diastolic [facility] height 2022-08-14 14:00:00 69.00 [in_i] [facility] weight 2022-08-14 14:00:00 210.6 [lb_av] [facility] temperature 2022-08-14 14:00:00 98.0 [degF] [facility] bmi 2022-08-14 14:00:00 31.1 kg/m2 Common S [facility] oximetry 2022-08-14 14:00:00 97 % Common S [facility] respiratory rate 2022-08-14 14:00:00 18 /min Comm on [facility] blood pressure 2022-08-14 14:00:00 136 mm[Hg] Common [facility] - systolic [facility] blood pressure 2022-08-14 14:00:00 71 mm[Hg] Common [facility] - diastolic [facility] Procedures Procedure Date / Time Performed Performing Clinician Sour e EXTERNAL PROVIDER 2022-05-04 05:01:00 Doctor Unassigned, No Univ ersity [facility] RECORDS Name Medical Branch EXTERNAL PROVIDER 2022-04-09 05:01:00 [facility] Encounters Start End Encounter Admission Attending Care Care Encounter Source Date/Time Date/Time Type Type Clinicians Facility Department ID 2022-08-16 Outpatient Van, Na STLMLC STLMLC [id number] 2 Common 11:29:01 [facility] 2022-08-14 Outpatient Van, Na STLMLC STLMLC [id number] 2 Common 14:01:00 [facility] 2022-08-10 Outpatient Van, Na STLMLC STLMLC [id number] 2 Common 10:27:01 [facility] 2022-08-01 Outpatient Van, Na STLMLC STLMLC [id number] 2 Common 16:21:00 [facility] 2022-07-18 Outpatient Van, Na STLMLC STLMLC [id number] 2 Common 10:20:01 [facility] 2022-06-05 Outpatient Van, Na STLMLC STLMLC [id number] 2 Common 16:32:01 [facility] 2022-04-24 Outpatient Van, Na STLMLC STLMLC [id number] 2 Common 10:48:00 [facility] 2022-04-10 Outpatient Juani CLARK [facility] [id number] [facility]:12[facility] Van, Na STLMLC STLMLC [id number] Common 08:54:02 [facility] 2022-02-13 Outpatient Van, Na STLMLC STLMLC [id number] Common 14:43:01 [facility] 2022-02-07 Outpatient Van, Na STLMLC STLMLC [id number] 2 Common 13:52:00 [facility] 2021-12-20 Outpatient Van, Na STLMLC STLMLC [id number] 2 Common 14:31:59 [facility] 2021-12-20 Outpatient Van, Na STLMLC STLMLC [id number] 2 Common 14:21:08 [id number] [facility] 2021-12-20 Outpatient Van, Na STLMLC STLMLC [id number] Common 14:08:38 [id number] [facility] 2021-12-20 Outpatient Van, Na STLMLC STLMLC [id number] 2 Common 14:03:42 [id number] [facility] 2021-12-20 Outpatient Van, Na STLMLC STLMLC [id number] 2 Common 14:02:52 [facility] 2021-12-20 Outpatient Van, Na STLMLC STLMLC [id number] 2 Common 13:57:01 [id number] [facility] 2021-12-20 Outpatient Van, Na STLMLC STLMLC [id number] 2 Common 13:26:06 [id number] [facility] 2021-12-20 Outpatient Van, Na STLMLC STLMLC [id number] Common 12:31:46 [id number] [facility] 2021-12-20 Outpatient Van, Na STLMLC STLMLC [id number] 2 Common 12:17:55 [id number] [facility] 2021-12-20 Outpatient Van, Na STLMLC STLMLC [id number] 2 Common 12:17:21 [id number] [facility] 2021-12-20 Outpatient Van, Na STLMLC STLMLC [id number] 2 Common 12:11:20 [id number] [facility] 2021-12-20 Outpatient Van, Na STLMLC STLMLC [id number] 2 Common 12:08:44 [id number] [facility] 2021-12-20 Outpatient Van, Na STLMLC STLMLC [id number] 2 Common 12:06:23 [id number] [facility] 2021-12-20 Outpatient Van, Na STLMLC STLMLC [id number] 2 Common 12:00:42 [id number] [facility] 2021-12-20 Outpatient Van, Na STLMLC STLMLC [id number] 2 Common 12:00:23 [id number] [facility] 2021-12-20 Outpatient Van, Na STLMLC STLMLC [id number] 2 Common 11:59:14 [id number] [facility] 2021-12-20 Outpatient Van, Na STLMLC STLMLC [id number] 2 Common 11:17:32 [id number] [facility] 2022-08-20 2022-08-20 (TEL) STLMLC STLMLC [id number] Co mmon 00:00:00 00:00:00 [facility] 2022-08-16 2022-08-16 Outpatient Delbridge_T DMG DM [id number] Devoted 00:00:00 00:00:00 0922 [facility] 2022-08-16 2022-08-16 OFFICE STLMLC STLMLC [id number] Co mmon 00:00:00 00:00:00 VISIT [facility] ESTAB PT - CHI LEVEL 4 [facility] 2022-08-14 2022-08-14 SUB ANNUAL STLMLC STLMLC [id number] Common 00:00:00 00:00:00 MCR Spirit WELLNESS - CHI VISIT [facility] 2022-07-27 2022-07-27 ambulatory STLMLC STLMLC [id number] Common 00:00:00 00:00:00 [facility] 2022-07-26 2022-07-26 ambulatory STLMLC STLMLC [id number] Common 00:00:00 00:00:00 [facility] 2022-07-11 2022-07-11 ambulatory STLMLC STLMLC [id number] Common 00:00:00 00:00:00 [facility] 2022-07-10 2022-07-10 ambulatory STLMLC STLMLC [id number] Common 00:00:00 00:00:00 [facility] 2022-06-20 2022-06-20 ambulatory STLMLC STLMLC [id number] Common 00:00:00 00:00:00 [facility] 2022-06-08 2022-06-08 Outpatient OWENS_T DMG DMG [id number] Devoted 03:28:00 03:28:00 0715 [facility] 2022-06-05 2022-06-05 ambulatory STLMLC STLMLC [id number] Common 00:00:00 00:00:00 [facility] 2022-06-05 2022-06-05 ambulatory STLMLC STLMLC [id number] Common 00:00:00 00:00:00 [facility] 2022-06-05 2022-06-05 ambulatory STLMLC STLMLC [id number] Common 00:00:00 00:00:00 [facility] 2022-06-05 2022-06-05 ambulatory STLMLC STLMLC [id number] Common 00:00:00 00:00:00 [facility] 2022-05-11 2022-05-11 ambulatory STLMLC STLMLC [id number] Common 00:00:00 00:00:00 [facility] 2022-05-04 2022-05-04 ambulatory STLMLC STLMLC [id number] Common 00:00:00 00:00:00 [facility] 2022-05-04 2022-05-04 Alejandra CANNON 1.2.840.114 [id number] Univers 00:00:00 00:00:00 Only Unassigned, JUAN MANUEL 350.1.13.10 ity of [facility] 4.2.7.2.686 Sander [id number] [facility] [address] 2022-04-30 2022-04-30 Outpatient Juani CLARK [facility] [id number] Univers 13:45:00 13:45:00 LOU [id number] tony [facility] 2022-04-30 2022-04-30 [facility] [id number] Univers 13:45:00 13:45:00 LOU jimenez [facility] 2022-04-30 2022-04-30 ambulatory STLMLC STLMLC [id number] Common 00:00:00 00:00:00 [facility] 2022-04-27 2022-04-27 [facility] [id number] Devoted 07:01:00 07:01:00 0603 [facility] 2022-04-24 2022-04-24 Outpatient OWENS_T [facility] [id number] Devoted 09:01:00 09:01:00 0531 [facility] 2022-04-13 2022-04-13 [facility] [id number] Univers 10:15:00 10:15:00 LOU selam [facility] 2022-04-13 2022-04-13 Outpatient OWENS_T [facility] [id number] Devoted 09:00:00 09:00:00 0520 [facility] 2022-04-11 2022-04-11 Outpatient Juani CLARK [facility] [id number] Univers 12:32:49 23:59:00 LOU [facility] 2022-04-11 2022-04-11 [facility] 1.2.840.114 [id number] Univers 12:32:49 23:59:00 Encounter Lou SIMPSON 350.1.13.10 ity of [place] 4.2.7.2.686 [facility] [id number] [facility] [address] 2022-04-11 2022-04-11 Outpatient R [facility] [id number] Univers 13:00:00 13:00:00 LOU [id number] ity [facility] 2022-04-11 2022-04-11 Low Vision Therapist Renan, Devon Lab Main [facility] 1.2.8 40.114 [id number] Univers 12:30:00 12:45:00 Visit Lou Clark [place] 350.1.13.10 ity of [place].2.7.2.[place] [id number] Vt stacie NÚÑEZ 353 [facility] 2022-04-09 2022-04-09 Orders Doctor DAVIS 1.2.840.114 [id number] Univers 00:00:00 00:00:00 Only Unassigned, JUAN MANUEL 350.1.13.10 ity of [facility] 4.2.7.2.686 Sander as [phone] [address] 2022-04-05 2022-04-07 [facility] [id number] Univers 13:00:00 11:47:07 LOU [facility] 2022-03-30 2022-03-30 Outpatient [facility]ani [facility] [id number] Univers 09:00:00 10:16:49 YESSI [facility] 2022-03-30 2022-03-30 Telephone [facility] [id number] Univers 00:00:00 00:00:00 [facility] 350.1.13.10 it y of [place] 4.2.7.2.686 Sander as ANNELISE?BLEA [phone] Vt stacie [facility] [address] [facility] 2022-03-20 2022-03-20 ambulatory STLMLC STLMLC [id number] Common 00:00:00 00:00:00 [facility] 2022-03-15 2022-03-15 ambulatory STLMLC STLMLC [id number] Common 00:00:00 00:00:00 [facility] 2022-03-14 2022-03-14 ambulatory STLMLC STLMLC [id number] Common 00:00:00 00:00:00 [facility] 2022-02-28 2022-02-28 ambulatory STLMLC STLMLC [id number] Common 00:00:00 00:00:00 [facility] 2022-02-26 2022-02-26 ambulatory STLMLC STLMLC [id number] Common 00:00:00 00:00:00 [facility] 2022-02-26 2022-02-26 ambulatory STLMLC STLMLC [id number] Common 00:00:00 00:00:00 [facility] 2022-02-26 2022-02-26 ambulatory STLMLC STLMLC [id number] Common 00:00:00 00:00:00 [facility] 2022-01-30 2022-01-30 ambulatory STLMLC STLMLC [id number] Common 00:00:00 00:00:00 [facility] 2022-01-08 2022-01-08 ambulatory STLMLC STLMLC [id number] Common 00:00:00 00:00:00 [facility] 2022-01-03 2022-01-03 ambulatory STLMLC STLMLC [id number] Common 00:00:00 00:00:00 [facility] 2021-12-14 2021-12-14 ambulatory STLMLC STLMLC [id number] Common 00:00:00 00:00:00 [facility] 2021-12-07 2021-12-07 ambulatory STLMLC STLMLC [id number] Common 00:00:00 00:00:00 [facility] 2021-12-07 2021-12-07 ambulatory STLMLC STLMLC [id number] Common 00:00:00 00:00:00 [facility] 2021-11-30 2021-11-30 ambulatory STLMLC STLMLC [id number] Common 00:00:00 00:00:00 [facility] 2021-11-28 2021-11-28 ambulatory STLMLC STLMLC [id number] Common 00:00:00 00:00:00 [facility] 2021-11-152021-11-15 ambulatory STLMLC STLMLC [id number] Common 00:00:00 00:00:00 [facility] 2021-11-14 2021-11-14 ambulatory STLMLC STLMLC [id number] Common 00:00:00 00:00:00 [facility] 2021-10-31 2021-10-31 ambulatory STLMLC STLMLC [id number] Common 00:00:00 00:00:00 [facility] 2021-09-27 2021-09-27 ambulatory STLMLC STLMLC [id number] Common 00:00:00 00:00:00 [facility] 2021-09-27 2021-09-27 ambulatory STLMLC STLMLC [id number] Common 00:00:00 00:00:00 [facility] 2021-09-25 2021-09-25 Outpatient STLMLC STLMLC [id number] Common 00:00:00 00:00:00 [facility] 2021-09-25 2021-09-25 ambulatory STLMLC STLMLC [id number] Common 00:00:00 00:00:00 [facility] 2021-09-20 2021-09-20 Outpatient STLMLC STLMLC [id number] Common 00:00:00 00:00:00 [facility] 2021-09-14 2021-09-14 Outpatient STLMLC STLMLC [id number] Common 00:00:00 00:00:00 [facility] 2021-09-12 2021-09-12 Outpatient STLMLC STLMLC [id number] Common 00:00:00 00:00:00 [facility] 2021-08-15 2021-08-15 Outpatient STLMLC STLMLC [id number] Common 00:00:00 00:00:00 [facility] 2021-06-16 2021-06-16 Outpatient STLMLC STLMLC [id number] Common 00:00:00 00:00:00 [facility] 2021-06-08 2021-06-08 Outpatient STLMLC STLMLC [id number] Common 00:00:00 00:00:00 [facility] 2021-06-06 2021-06-06 Outpatient OWENS_T DMG [facility] [id number] Devoted 12:57:00 12:57:00 0713 [facility] 2021-03-27 2021-03-27 Outpatient DMG [facility] [id number] Devoted 06:02:00 06:02:00 0503 [facility] l [facility] 2021-03-14 2021-03-14 Outpatient DMG [facility] [id number] Devoted 12:00:00 12:00:00 0420 Med[facility] l [facility] 2021-03-12 2021-03-12 Outpatient STLMLC STLMLC [id number] Common 00:00:00 00:00:00 [facility] 2021-03-09 2021-03-09 Outpatient STLMLC STLMLC [id number] Common 00:00:00 00:00:00 [facility] 2021-03-06 2021-03-06 Outpatient STLMLC STLMLC [id number] Common 00:00:00 00:00:00 [facility] 2021-01-17 2021-01-17 Outpatient STLMLC STLMLC [id number] Common 00:00:00 00:00:00 [facility] 2021-01-05 2021-01-05 Outpatient STLMLC STLMLC [id number] Common 00:00:00 00:00:00 [facility] 2020-12-21 2020-12-21 Laboratory Lab, [facility] 1.2.840.114 [id number] 10:53:43 11:13:43 Only Fam [facility] 350.1.13.10 [place] 4.2.7.2.686 Professio [phone] nal 0[address] One 2020-12-05 2020-12-05 Telephone Nurse, [facility] 1.2.840.114 [id number] 00:00:00 00:00:00 Fam Pob I Health 350.1.13.10 [place] 4.2.7.2.686 Professio [phone] nal 044 [address] One 2020-12-02 2020-12-02 Laboratory Lab, [facility] 1.2.840.114 [id number] 18:20:33 18:40:33 Only Fam Pob I Health 350.1.13.10 [place] 4.2.7.2.686 Professio [phone] nal 044 Office [address] One 2020-11-30 2020-11-30 Outpatient STLMLC STLMLC [id number] Common 00:00:00 00:00:00 [facility] 2020-11-18 2020-11-18 Outpatient Gay-Mbayo VFP VFP [id number] [place] [address] 12:04:00 12:04:00 _A_AH 44941 Family Practic e 2020-11-18 2020-11-18 Outpatient Gay-Mbayo VFP VFP [id number] 12:04:00 12:04:00 _A_AH 44915 Family Practic e 2020-11-15 2020-11-15 Letter Doctor DAVIS 1.2.840.114 [id number] 00:00:00 00:00:00 (Out) Unassigned, JUAN MANUEL 350.1.13.10 [place] [facility] 4.2.7.2.686 [phone] 044 2020-10-28 2020-10-28 Outpatient STLMLC STLMLC [id number] Common 00:00:00 00:00:00 [facility] 2020-10-11 2020-10-11 Outpatient STLMLC STLMLC [id number] Common 00:00:00 00:00:00 [facility] 2020-09-22 2020-09-22 Outpatient STLMLC STLMLC [id number] Common 00:00:00 00:00:00 [facility] 2020-09-14 2020-09-14 Laboratory Lab, [facility] 1.2.840.114 [id number] 14:51:48 15:11:48 Only Fam Pob I Health 350.1.13.10 [place] 4.2.7.2.686 Professio [phone] nal 044 Office [address] One 2020-07-25 2020-07-25 [facility] [id number] Common 10:16:00 10:16:[address] [facility] 2020-07-04 2020-07-04 Outpatient [facility] [id number] Common 15:00:00 15:00:[address] [facility] 2020-07-04 2020-07-04 Outpatient [facility] [id number] Common 09:52:00 09:52:00 [facility] 2020-06-23 2020-06-23 [facility] [id number] Common 10:40:00 10:40:[address] [facility] 2020-06-08 2020-06-08 Outpatient Gay-Mbayo VFP VFP [id number] [place] 09:39:00 09:39:00 _A_AH 79414 Family Practic e 2020-06-02 2020-06-02 Outpatient Gay-Mbayo VFP VFP [id number] [place] 12:40:00 12:40:00 _A_AH 60349 Family Practic e 2020-04-28 2020-04-28 Outpatient Gay-Mbayo VFP VFP [id number] [place] 01:10:00 01:10:00 _A_AH 09245 Family Practic e 2020-04-13 2020-04-13 [facility] [id number] Common 09:40:00 09:40:[address] [facility] 2020-03-24 2020-03-24 Outpatient Gay-Mbayo VFP VFP [id number] Village 12:45:00 12:45:00 _A_AH 51693 Family Practic e 2020-03-24 2020-03-24 Outpatient Gay-Mbayo VFP VFP [id number] [id number] Village 12:45:00 12:45:00 _A_AH 50339 Family Practic e 2020-03-23 2020-03-23 Outpatient Gay-Mbayo VFP VFP [id number] [place] 08:31:00 08:31:00 _A_AH 87540 Family Practic e 2020-03-17 2020-03-17 Out[facility] [id number] Common 09:20:00 09:20:[address] [facility] 2020-03-03 2020-03-03 Outpatient [facility] [id number] Common 10:34:00 10:34:[address] [facility] 2020-03-03 2020-03-03 Outpatient [facility] [id number] Common 09:00:00 09:00:[address] [facility] 2020-02-24 2020-02-24 [place] [facility] [place] - [id number] V illage 00:00:00 00:00:00 GayEd [facility] Fam kisrten stewart, MEETING FACILITATOR: Medical - Practi c [address] VM_HOU_V@_ e [facility], [address] [place] [address], [place] [address] , Ph. 2020-01-20 2020-01-20 [facility]ly [facility] 1.2.840.114 [id number] 05:37:00 09:41:00 Encounter Levar Simpson 350.1.13.10 [place] 4.2.7.2.686 Surgical [id number] [place] 07 2020-01-20 2020-01-20 Orders Doctor DAVIS 1.2.840.114 [id number] 00:00:00 00:00:00 Only Unassigned, JUAN MANUEL 350.1.13.10 [place] [facility] 4.2.7.2.686 [id number] [id number] 2020-01-19 2020-01-19 Low Vision Therapist Devon Urrutia [facility] 1.2.840.114 [id number] 13:19:44 13:39:36 Visit Lab Main [place] 350.1.13.10 [place] 4.2.7.2.686 Professio [id number] [address] 2020-01-13 2020-01-13 Outpatient Zafar [facility] [address] [place] [address] 07:14:00 07:14:00 _A_AH 04136 Family Practic e Results This patient has no known results.
[2022-08-22 11:34] LABS: Hematocrit 36.1 % (39.6-49.0)
[2022-08-22 11:50] VITALS: O2SAT 98
--- NOTE | 2022-08-22 12:52 | RAD REPORT ---
EXAM DESCRIPTION: RAD - Knee Left 2 View - 08/22/2022 11:37 am CLINICAL HISTORY: Post Op COMPARISON: No comparisons FINDINGS: Left total knee arthroplasty has been performed. Hardware is in expected positioning and a lignment. Skin madison are noted. No unexpected immediate postoperative finding.
[2022-08-22 13:22] VITALS: BMI 31.0
[2022-08-22] MEDS ORDERED: INFLUENZA VACCINE (for 6+ mo) 0.5 ML DOSE IMVAC ONE (14:00)
[2022-08-22] MEDS ORDERED: PNEUMOCOCCAL VACCINE 0.5 ML IMVAC ONE (14:00)
[2022-08-22] MEDS: CEFAZOLIN SODIUM 2 GM in NA CHLORIDE 0.9% 100 ML IVPB SCH (16:04)
[2022-08-22] MEDS: GABAPENTIN 300 MG CAP PO SCH (19:53)
[2022-08-22] MEDS ORDERED: TAMSULOSIN 0.4 MG SR CAP PO SCH (21:00)
[2022-08-22 22:07] VITALS: TEMP 97.7
[2022-08-23] MEDS: CEFAZOLIN SODIUM 2 GM in NA CHLORIDE 0.9% 100 ML IVPB SCH ×2 (00:59→09:03)
[2022-08-23 03:52] LABS: Hematocrit 33.4 % (39.6-49.0)
[2022-08-23] MEDS ORDERED: ENOXAPARIN 30 MG/0.3 ML SQ SCH (06:00)
[2022-08-23 08:39] VITALS: BP 148/65
[2022-08-23] MEDS ORDERED: MAGNESIUM OXIDE 400 MG TAB PO SCH (09:00)
[2022-08-23] MEDS ORDERED: PANTOPRAZOLE 40MG TABLET PO SCH (09:00)
[2022-08-23] MEDS ORDERED: CELECOXIB 100 MG CAPSULE PO SCH (09:00)
[2022-08-23] MEDS ORDERED: SERTRALINE HCL 50 MG TAB PO SCH (09:00)
[2022-08-23] MEDS: GABAPENTIN 300 MG CAP PO SCH (09:03)
--- NOTE | 2022-08-23 09:41 | P.DS ---
Admission Date: 08/22/22 Discharge Date: 08/23/22 Disposition: DC HOME/HOME HEALTH CARE Discharge Condition: GOOD Reason for Admission: L TKA Consultations: none Procedures: left TKA on 08/22/2022 Brief History of Present Illness: Shahid is a 72-year-old male that underwent left total knee arthroplasty on August 22, 2022 without complication. He was admitted to the floor in stable condition. Hospital Course: Patient was admitted to floor after left total knee arthroplasty in stable condition. Physical therapy was consulted to aid with mobilization. Patient's vital signs remained stable while on the floor and was discharged in stable condition on August 23, 2022. He was mobilizing well. He will begin Xarelto tomorrow with breakfast for DVT prophylaxis. He will follow-up in 2 weeks for staple removal. Vital Signs/Physical Exam: Temp Pulse Resp BP Pulse Ox 97.7 F 69 16 148/65 H 99 08/23/22 00:00 08/23/22 08:00 08/23/22 08:00 08/23/22 08:00 08/23/22 08:00 Laboratory Data at Discharge: Hgb 11.5 g/dL (13.6-17.9) L 08/23/22 03:35 Hct 33.4 % (39.6-49.0) L 08/23/22 03:35 Home Medications: Tamsulosin [Flomax*] 0.4 mg PO BEDTIME 06/18/17 Cholecalciferol (Vitamin D3) [Vitamin D3] 25 mcg PO DAILY 11/03/21 Gabapentin 600 mg PO BID 11/03/21 Pantoprazole [Protonix Tab*] 1 tab PO DAILY 11/03/21 Sertraline HCl 1 tab PO DAILY 11/03/21 Magnesium Oxide [Mag 0X*] 1 tab PO DAILY 07/11/22 Physician Discharge Instructions: keep dressing clean and dry. Begin taking Xarelto on August 24, 2022 with breakfast. Use JONO hose for 2 weeks to aid with swelling. Follow-up with Dr. Ortega in 2 weeks for removal of madison. Diet: Regular Activity: Weight bearing as tolerated Followup: Tray Ortega MD [ACTIVE - CAN ADMIT] - 1-2 Weeks
== END 2022-08-23 10:59 | disposition home or self-care (01) ==
LOC: PRE 05:53 → 4TH 11:18
PROVIDERS: ADMIT Orthopaedic Surgery Sports Medicine; ATTEND Orthopaedic Surgery Sports Medicine
PROC: 0SRD069 Replacement of Left Knee Joint with Oxidized Zirconium on Polyethylene Synthetic Substitute, Cemented, Open Approach (ICD-10-PCS; principal; 2022-08-22 08:00)
DX: M17.12 Unilateral primary osteoarthritis, left knee (principal); Z20.822 Contact with and (suspected) exposure to COVID-19
CPT/HCPCS: 87088; 87086; 36415 ×3; 88305; 88311; 85018 ×2; 85014 ×2; 81003; 73560; 97110 ×2; 97116 ×3; 97139; 97161; 97530; 94010; 87811; 27447; G0379; J2704; J0171; J2001 ×2; J1650; J2250; J3010; J1100 ×2; J1170; J0690; J7120; J2405; G0378 ×2

== ENCOUNTER 2022-09-15 10:05 | Emergency (ER) | payer MEDICARE ==
--- OUTSIDE RECORDS SUMMARY | 2022-09-15 10:18 | XMS REPORT | Continuity of Care Document ---
:1950 Author Organization [facility] t Address [address] [place] [address] Care Team Providers Name Role Phone RANJAN VAN Primary Care Physician Unavailable [id number] Attending Clinician Unavailable Ranjan Van Attending Clinician Unavailable LOU CLARK Attending Clinician Unavailable LEVAR SALTER Attending Clinician Unavailable Rasheed_T Attending Clinician Unavailable OW_T Attending Clinician Unavailable Doctor Unassigned, [place] Attending Clinician Unavailable Lou Clark MD Attending Clinician Pob, [facility] Main Attending Clinician Unavailable Stephanie Munroe PT Attending Clinician Unavailable YESSI GONZALEZ Attending Clinician Unavailable Yessi Walter S Attending Clinician Lab, [facility] Fam Pob I Attending Clinician Unavailable TAYLER COREAS Attending Clinician Unavailable Nurse, Devon Fam Pob I Attending Clinician Unavailable DAVIS GARRETT Attending Clinician Unavailable Zafar_Rubin_JASON Attending Clinician Unavailable TRENA FRANCO Attending Clinician Unavailable Levar Salter MD Attending Clinician [phone] Admitting Clinician Unavailable LOU CLARK Admitting Clinician Unavailable LEVAR SALTER Admitting Clinician Unavailable Rasheed_Matthew Admitting Clinician Unavailable LEXIE_Matthew Admitting Clinician Unavailable Gay-Mbayo_A_AH Admitting Clinician Unavailable Joie CERNA, Levar Gaviria Admitting Clinician [phone] Payers Payer Name Policy Type Policy Number Effective Date Expiration Date S sofi MISC MISC [id number] CIGNA GENERIC [id number] 2021 00:00:00 [employer] [place] [id number] 2020 PLUS 00:00:00 CLASSIC/VALUE [employer] [id number] 2021 (MEDICARE 00:00:00 REPLACEMENT HMO) [facility] [employer] [address] [facility] [address] [facility] [facility] [address] [facility] [facility] [address] [employer] DW2E [facility] [employer] OF [place] - [id number] [place] 00:00:00 (MEDICARE REPLACEMENT/ADVAN TAGE - HMO) Problems Condition Condition Condition Status [...] Osteoarthr Problem Active V illage itis itis 3 Family 00:00: Practic 00 e [id number] Anxiety Problem Common [facility] [id number] Erectile Problem Comm on dysfunctio Spirit n, - [facility] un[facility]ie [facility] type Center [id number] Osteoarthr Problem C ommon 16991 itis of Spirit left hip, - [facility] osteoarthr Medica l itis type Center [id number] Localized Problem Com mon osteoarthr Spirit itis of - [facility] right knee [facility] [id number] Osteoarthr Problem C ommon itis of Spirit right hip - [facility] joint due [facility] [id number] MEGHAN (acute Problem C ommon [id number] kidney Spirit injury) - 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 [id number] Pain in Problem Comm on right [facility] thigh [facility] [id number] Benign Problem Commo n 101 prostatic [facility] hyperplasi - [facility] a with [facility] urinary Medical tract Center symptoms [id number] Abnormal Problem Comm on barium [facility] swallow [facility] [id number] History of Problem Co mmon colon [facility] polyps [facility] [id number] Localized Problem Co mmon osteoarthr Spirit itis of - [facility]I left knee [facility] [id number] Primary Problem Comm on osteoarthr Spirit itis of - [facility] right knee [facility] Memory Memory Problem Common deficit deficit [facility] Vitamin D Vitamin D Problem Com mon deficiency deficiency Sp rick [facility] [id number] Chronic Problem Common gastritis [facility] without - [facility] bleeding[facility] Center type Somnolence Somnolence Problem C ommon , daytime [facility] [id number] Acute pain Problem Com mon of left Spirit knee - [facility] [id number] Dysphagia, Problem Com mon unspecifie [facility] d type - 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 - [facility] replacemen [facility] History of History of Problem C ommon arthroplas arthroplas Sp rick ty of ty of - [facility] right knee right knee [facility] Allergies, Adverse Reactions, Alerts Allergy Allergy Status Severity Reaction(s) Onset Inactive Treating Comm ents Source Name Type Date Date Clinician NO KNOWN Drug Active Univers ALLERGIE Class ity of S [facility] Social History Social Habit Start Date Stop Date Quantity Comments Source History of Tobacco Common [facility] - [facility] Use [facility] Sex Assigned At Common Sp rick - [facility] Exposure to 2022-03-27 2022-04-06 Not sure [facility] SARS-CoV-2 (event) 00:00:00 14:14:00 [facility] Tobacco use and 2022-04-06 2022-04-06 Never used [facility] exposure 00:00:00 00:00:00 [facility] Branch Smoking Status Start Date Stop Date Source Unknown if ever smoked [facility] Never Smoker Common [facility] Medications Ordered Filled Start Stop Current Ordering Indication Dosage Frequency Signature Comments Components Source Medication Medication Date Date Medication? Clinician (SIG) Name Name HYDROcodone HYDROcodone 2021-11 No 1{table QID HYDROcodon -Acetaminop -Acetaminop 0-04 t_as_ne e-Acetamin hen 7.5-325 hen 7.5-325 00:00: eded} ophen MG MG 00 7.5-325 MG HYDROcodone HYDROcodone No 1{table HYDROcodon -Acetaminop -Acetaminop 9-27 t_as_ne e-Acetamin hen 7.5-325 hen 7.5-325 00:00: eded} ophen MG MG 00 7.5-325 MG HYDROcodone HYDROcodone No 1{table HYDROcodon -Acetaminop -Acetaminop 9-27 t_as_ne e-Acetamin hen 7.5-325 hen 7.5-325 00:00: eded} ophen MG MG 00 7.5-325 MG HYDROcodone HYDROcodone No 1{table HYDROcodon -Acetaminop -Acetaminop 9-27 t_as_ne e-Acetamin hen 7.5-325 hen 7.5-325 00:00: eded} ophen MG MG 00 7.5-325 MG HYDROcodone HYDROcodone No 1{table HYDROcodon -Acetaminop -Acetaminop 9-27 t_as_ne e-Acetamin hen 7.5-325 hen 7.5-325 00:00: eded} ophen MG MG 00 7.5-325 MG HYDROcodone HYDROcodone No 1{table HYDROcodon -Acetaminop -Acetaminop 9-27 t_as_ne e-Acetamin hen 7.5-325 hen 7.5-325 00:00: eded} ophen MG MG 00 7.5-325 MG HYDROcodone HYDROcodone No 1{table HYDROcodon -Acetaminop -Acetaminop -27 t_as_ne e-Acetamin hen 7.5-325 hen 7.5-325 00:00: eded} ophen MG MG 00 7.5-325 MG HYDROcodone HYDROcodone No 1{table HYDROcodon -Acetaminop -Acetaminop 9-27 t_as_ne e-Acetamin hen 7.5-325 hen 7.5-325 00:00: eded} ophen MG MG 00 7.5-325 MG HYDROcodone HYDROcodone No 1{table HYDROcodon -Acetaminop -Acetaminop -27 t_as_ne e-Acetamin hen 7.5-325 hen 7.5-325 00:00: eded} ophen MG MG 00 7.5-325 MG HYDROcodone HYDROcodone No 1{table HYDROcodon -Acetaminop -Acetaminop -27 t_as_ne e-Acetamin hen 7.5-325 hen 7.5-325 00:00: eded} ophen MG MG 00 7.5-325 MG HYDROcodone HYDROcodone No 1{table HYDROcodon -Acetaminop -Acetaminop 9-27 t_as_ne e-Acetamin hen 7.5-325 hen 7.5-325 00:00: eded} ophen MG MG 00 7.5-325 MG HYDROcodone HYDROcodone No 1{table HYDROcodon -Acetaminop -Acetaminop 9-27 t_as_ne e-Acetamin hen 7.5-325 hen 7.5-325 00:00: eded} ophen MG MG 00 7.5-325 MG Xarelto 10 Xarelto 10 2-0 No 1{table QD Xarelto 10 MG MG 9-26 t} MG 00:00: 00 HYDROcodone HYDROcodone 2-0 No 1{table HYDROcodon -Acetaminop -Acetaminop - t_as_ne e-Acetamin hen 7.5-325 hen 7.5-325 00:00: eded} ophen MG MG 00 7.5-325 MG Xarelto 10 Xarelto 10 2-0 No 1{table QD Xarelto 10 MG MG 9-26 t} MG 00:00: 00 Xarelto 10 Xarelto 10 2-0 No 1{table QD Xarelto 10 MG MG 9-26 t} MG 00:00: 00 Xarelto 10 Xarelto 10 2-0 No 1{table QD Xarelto 10 MG MG 9-26 t} MG 00:00: 00 Xarelto 10 Xarelto 10 2-0 No 1{table QD Xarelto 10 MG MG 9-26 t} MG 00:00: 00 Xarelto 10 Xarelto 10 2-0 No 1{table QD Xarelto 10 MG MG 9-26 t} MG 00:00: 00 Xarelto 10 Xarelto 10 2-0 No 1{table QD Xarelto 10 MG MG 9-26 t} MG 00:00: 00 Xarelto 10 Xarelto 10 2-0 No 1{table QD Xarelto 10 MG MG 9-26 t} MG 00:00: 00 HYDROcodone HYDROcodone 2-0 No 1{table HYDROcodon -Acetaminop -Acetaminop - t_as_ne e-Acetamin hen 7.5-325 hen 7.5-325 00:00: eded} ophen MG MG 00 7.5-325 MG Xarelto 10 Xarelto 10 2-0 No 1{table QD Xarelto 10 MG MG 9-26 t} MG 00:00: 00 Xarelto 10 Xarelto 10 2-0 No 1{table QD Xarelto 10 MG MG 9-26 t} MG 00:00: 00 Xarelto 10 Xarelto 10 2-0 No 1{table QD Xarelto 10 MG MG 9-26 t} MG 00:00: 00 Xarelto 10 Xarelto 10 2-0 No 1{table QD Xarelto 10 MG MG 9-26 t} MG 00:00: 00 Xarelto 10 Xarelto 10 2-0 No 1{table QD Xarelto 10 MG MG 9-26 t} MG 00:00: 00 traMADol traMADol 2-0 No 1{table traMADol HCl 50 MG HCl 50 MG 9-22 t_as_ne HCl 50 MG 00:00: eded} 00 traMADol traMADol 2-0 No 1{table traMADol HCl 50 MG HCl 50 MG 9-22 t_as_ne HCl 50 MG 00:00: eded} 00 traMADol traMADol 2-0 No 1{table traMADol HCl 50 MG HCl 50 MG 9-22 t_as_ne HCl 50 MG 00:00: eded} 00 traMADol traMADol 2-0 No 1{table traMADol HCl 50 MG HCl 50 MG 9-22 t_as_ne HCl 50 MG 00:00: eded} 00 traMADol traMADol 2-0 No 1{table traMADol HCl 50 MG HCl 50 MG 9-22 t_as_ne HCl 50 MG 00:00: eded} 00 traMADol traMADol 2-0 No 1{table traMADol HCl 50 MG HCl 50 MG 9-22 t_as_ne HCl 50 MG 00:00: eded} 00 traMADol traMADol 2-0 No 1{table traMADol HCl 50 MG HCl 50 MG 9-22 t_as_ne HCl 50 MG 00:00: eded} 00 traMADol traMADol 2-0 No 1{table traMADol HCl 50 MG HCl 50 MG 9-22 t_as_ne HCl 50 MG 00:00: eded} 00 traMADol traMADol 2-0 No 1{table traMADol HCl 50 MG HCl 50 MG 9-22 t_as_ne HCl 50 MG 00:00: eded} 00 traMADol traMADol 2-0 No 1{table traMADol HCl 50 MG HCl 50 MG 9-22 t_as_ne HCl 50 MG 00:00: eded} 00 traMADol traMADol 2-0 No 1{table traMADol HCl 50 MG HCl 50 MG 9-22 t_as_ne HCl 50 MG 00:00: eded} 00 traMADol traMADol 2022-0 No 1{table traMADol HCl 50 MG HCl 50 MG 9-22 t_as_ne HCl 50 MG 00:00: eded} 00 traMADol traMADol 2021-0 No 1{table traMADol HCl 50 MG HCl 50 MG 9-22 t_as_ne HCl 50 MG 00:00: eded} 00 Diclofenac Diclofenac 2021-0 No 1{table BID Diclofenac Sodium 75 Sodium 75 7-12 t_as_ne Sodium 75 MG MG 00:00: eded} MG 00 Diclofenac Diclofenac 2021-0 No 1{table BID Diclofenac Sodium 75 Sodium 75 7-12 t_as_ne Sodium 75 MG MG 00:00: eded} MG 00 Diclofenac Diclofenac 2021-0 No 1{table BID Diclofenac Sodium 75 Sodium 75 7-12 t_as_ne Sodium 75 MG MG 00:00: eded} MG 00 Diclofenac Diclofenac 2021-0 No 1{table BID Diclofenac Sodium 75 Sodium 75 7-12 t_as_ne Sodium 75 MG MG 00:00: eded} MG 00 Diclofenac Diclofenac 2021-0 No 1{table BID Diclofenac Sodium 75 Sodium 75 7-12 t_as_ne Sodium 75 MG MG 00:00: eded} MG 00 Diclofenac Diclofenac 2021-0 No 1{table BID Diclofenac Sodium 75 Sodium 75 7-12 t_as_ne Sodium 75 MG MG 00:00: eded} MG 00 Diclofenac Diclofenac 2021-0 No 1{table BID Diclofenac Sodium 75 Sodium 75 7-12 t_as_ne Sodium 75 MG MG 00:00: eded} MG 00 Diclofenac Diclofenac 2021-0 No 1{table BID Diclofenac Sodium 75 Sodium 75 7-12 t_as_ne Sodium 75 MG MG 00:00: eded} MG 00 Diclofenac Diclofenac 2021-0 No 1{table BID Diclofenac Sodium 75 Sodium 75 7-12 t_as_ne Sodium 75 MG MG 00:00: eded} MG 00 Diclofenac Diclofenac 2021-0 No 1{table BID Diclofenac Sodium 75 Sodium 75 7-12 t_as_ne Sodium 75 MG MG 00:00: eded} MG 00 Diclofenac Diclofenac 2021-0 No 1{table BID Diclofenac Sodium 75 Sodium 75 7-12 t_as_ne Sodium 75 MG MG 00:00: eded} MG 00 Diclofenac Diclofenac 2021-0 No 1{table BID Diclofenac Sodium 75 Sodium 75 7-12 t_as_ne Sodium 75 MG MG 00:00: eded} MG 00 Diclofenac Diclofenac 2021-0 No 1{table BID Diclofenac Sodium 75 Sodium 75 7-12 t_as_ne Sodium 75 MG MG 00:00: eded} MG 00 Diclofenac Diclofenac 2021-0 No 1{table BID Diclofenac Sodium 75 Sodium 75 7-12 t_as_ne Sodium 75 MG MG 00:00: eded} MG 00 Diclofenac Diclofenac 2021-0 No 1{table BID Diclofenac Sodium 75 Sodium 75 7-12 t_as_ne Sodium 75 MG MG 00:00: eded} MG 00 Diclofenac Diclofenac 2021-0 No 1{table BID Diclofenac Sodium 75 Sodium 75 7-12 t_as_ne Sodium 75 MG MG 00:00: eded} MG 00 Diclofenac Diclofenac 2021-0 No 1{table BID Diclofenac Sodium 75 Sodium 75 7-12 t_as_ne Sodium 75 MG MG 00:00: eded} MG 00 Diclofenac Diclofenac 2021-0 No 1{table BID Diclofenac Sodium 75 Sodium 75 7-12 t_as_ne Sodium 75 MG MG 00:00: eded} MG 00 Diclofenac Diclofenac 2021-0 No 1{table BID Diclofenac Sodium 75 Sodium 75 7-12 t_as_ne Sodium 75 MG MG 00:00: eded} MG 00 Diclofenac Diclofenac 2021-0 No 1{table BID Diclofenac Sodium 75 Sodium 75 7-12 t_as_ne Sodium 75 MG MG 00:00: eded} MG 00 Diclofenac Diclofenac 2021-0 No 1{table BID Diclofenac Sodium 75 Sodium 75 7-12 t_as_ne Sodium 75 MG MG 00:00: eded} MG 00 Diclofenac Diclofenac 2021-0 No 1{table BID Diclofenac Sodium 75 Sodium 75 7-12 t_as_ne Sodium 75 MG MG 00:00: eded} MG 00 Diclofenac Diclofenac 2-0 No 1{table BID Diclofenac Sodium 75 Sodium 75 7-12 t_as_ne Sodium 75 MG MG 00:00: eded} MG 00 Diclofenac Diclofenac 2021-0 No 1{table BID Diclofenac Sodium 75 Sodium 75 7-12 t_as_ne Sodium 75 MG MG 00:00: eded} MG 00 gabapentin 2021-0 Yes 300mg Take 300 Un denise 300 [...] 25 mcg Branch (1,000 unit) capsule gabapentin 0 Yes 300mg Take 300 Un denise 300 [...] by mouth ity of tablet 14:07: daily. [place] [address] Medical Branch meloxicam 0 Yes 7.5mg Take [...] by mouth ity of tablet 14:07: daily. [place] [address] Medical Branch meloxicam 2021-0 Yes 7.5mg Take [...] [place] 41 daily. Medical Branch diclofenac 2021-0 2- No [id number] 75mg Take 1 Univers 75 mg EC 03-30 9109 tablet by ity o f tablet 00:00: 04:59 mouth 2 [place] 00 :00 (two) Medical times [place] daily with meals for 30 days. diclofenac 2021- No [id number] 75mg Take 1 Univers 75 mg EC 03-30 9109 tablet by ity o f tablet 00:00: 04:59 mouth 2 [place] 00 :00 (two) [facility] times [place] daily with meals for 30 days. diclofenac 2021- No [id number] 75mg Take 1 Univers 75 mg EC 03-30 9109 tablet by ity o f tablet 00:00: 04:59 mouth 2 [place] 00 :00 (two) [facility] times [place] daily with meals for 30 days. diclofenac 2021- No [id number] 75mg Take 1 Univers 75 mg EC 03-30 9109 tablet by ity o f tablet 00:00: 04:59 mouth 2 [place] 00 :00 (two) [facility] times [place] daily with meals for 30 days. pantoprazol Yes 40mg Take 40 mg Univers e 40 mg EC 4-20 by mouth ity o f tablet 00:00: daily. [address] pantoprazol 0 Yes 40mg Take 40 mg Univers e 40 mg EC 4-20 by mouth ity o f tablet 00:00: daily. [address] pantoprazol 0 Yes 40mg Take 40 mg Univers e 40 mg EC 4-20 by mouth ity o f tablet 00:00: daily. [address] pantoprazol 0 Yes 40mg Take 40 mg Univers e 40 mg EC 4-20 by mouth ity o f tablet 00:00: daily. [address] traMADol traMADol 2021- No 1{table traMADol HCl 50 MG HCl 50 MG 1-13 t_as_ne HCl 50 MG 00:00: eded} 00 traMADol traMADol No 1{table traMADol HCl 50 MG HCl 50 MG 1-13 t_as_ne HCl 50 MG 00:00: eded} 00 traMADol traMADol 2021-0 No 1{table traMADol HCl 50 MG HCl 50 MG 1-13 t_as_ne HCl 50 MG 00:00: eded} 00 traMADol traMADol 2-0 No 1{table traMADol HCl 50 MG HCl 50 MG 1-13 t_as_ne HCl 50 MG 00:00: eded} 00 traMADol traMADol 2-0 No 1{table traMADol HCl 50 MG HCl 50 MG 1-13 t_as_ne HCl 50 MG 00:00: eded} 00 traMADol traMADol 2-0 No 1{table traMADol HCl 50 MG HCl 50 MG 1-13 t_as_ne HCl 50 MG 00:00: eded} 00 traMADol traMADol 2-0 No 1{table traMADol HCl 50 MG HCl 50 MG 1-13 t_as_ne HCl 50 MG 00:00: eded} 00 traMADol traMADol 2-0 No 1{table traMADol HCl 50 MG HCl 50 MG 1-13 t_as_ne HCl 50 MG 00:00: eded} 00 traMADol traMADol 2-0 No 1{table traMADol HCl 50 MG HCl 50 MG 1-13 t_as_ne HCl 50 MG 00:00: eded} 00 traMADol traMADol 2-0 No 1{table traMADol HCl 50 MG HCl 50 MG 1-13 t_as_ne HCl 50 MG 00:00: eded} 00 traMADol traMADol 2-0 No 1{table traMADol HCl 50 MG HCl 50 MG 1-13 t_as_ne HCl 50 MG 00:00: eded} 00 traMADol traMADol 2-0 No 1{table traMADol HCl 50 MG HCl 50 MG 1-13 t_as_ne HCl 50 MG 00:00: eded} 00 traMADol traMADol 2-0 No 1{table traMADol HCl 50 MG HCl 50 MG 1-13 t_as_ne HCl 50 MG 00:00: eded} 00 traMADol traMADol 2-0 No 1{table traMADol HCl 50 MG HCl 50 MG 1-13 t_as_ne HCl 50 MG 00:00: eded} 00 traMADol traMADol 2-0 No 1{table traMADol HCl 50 MG HCl 50 MG 1-13 t_as_ne HCl 50 MG 00:00: eded} 00 traMADol traMADol 2-0 No 1{table traMADol HCl 50 MG HCl 50 MG 1-13 t_as_ne HCl 50 MG 00:00: eded} 00 traMADol traMADol 2-0 No 1{table traMADol HCl 50 MG HCl 50 MG 1-13 t_as_ne HCl 50 MG 00:00: eded} 00 traMADol traMADol 2-0 No 1{table traMADol HCl 50 MG HCl 50 MG 1-13 t_as_ne HCl 50 MG 00:00: eded} 00 traMADol traMADol 2-0 No 1{table traMADol HCl 50 MG HCl 50 MG 1-13 t_as_ne HCl 50 MG 00:00: eded} 00 traMADol traMADol 2-0 No 1{table traMADol HCl 50 MG HCl 50 MG 1-13 t_as_ne HCl 50 MG 00:00: eded} 00 traMADol traMADol 2-0 No 1{table traMADol HCl 50 MG HCl 50 MG 1-13 t_as_ne HCl 50 MG 00:00: eded} 00 traMADol traMADol 2-0 No 1{table traMADol HCl 50 MG HCl 50 MG 1-13 t_as_ne HCl 50 MG 00:00: eded} 00 traMADol traMADol 2-0 No 1{table traMADol HCl 50 MG HCl 50 MG 1-13 t_as_ne HCl 50 MG 00:00: eded} 00 traMADol traMADol 2-0 No 1{table traMADol HCl 50 MG HCl 50 MG 1-13 t_as_ne HCl 50 MG 00:00: eded} 00 traMADol traMADol 2-0 No 1{table traMADol HCl 50 MG HCl 50 MG 1-13 t_as_ne HCl 50 MG 00:00: eded} 00 traMADol traMADol 2-0 No 1{table traMADol HCl 50 MG HCl 50 MG 1-13 t_as_ne HCl 50 MG 00:00: eded} 00 traMADol traMADol 2-0 No 1{table traMADol HCl 50 MG HCl 50 MG 1-13 t_as_ne HCl 50 MG 00:00: eded} 00 traMADol traMADol 2-0 No 1{table traMADol HCl 50 MG HCl 50 MG 1-13 t_as_ne HCl 50 MG 00:00: eded} 00 traMADol traMADol 2-0 No 1{table traMADol HCl 50 MG HCl 50 MG 1-13 t_as_ne HCl 50 MG 00:00: eded} 00 traMADol traMADol 2-0 No 1{table HCl 50 MG HCl 50 MG 1-13 t_as_ne 00:00: eded} 00 traMADol traMADol 2-0 No 1{table HCl 50 MG HCl 50 MG 1-13 t_as_ne 00:00: eded} 00 traMADol traMADol 2-0 No 1{table traMADol HCl 50 MG HCl 50 MG 1-13 t_as_ne HCl 50 MG 00:00: eded} 00 traMADol traMADol 2-0 No 1{table traMADol HCl 50 MG HCl 50 MG 1-13 t_as_ne HCl 50 MG 00:00: eded} 00 traMADol traMADol 2-0 No 1{table traMADol HCl 50 MG HCl 50 MG 1-13 t_as_ne HCl 50 MG 00:00: eded} 00 traMADol traMADol 2-0 No 1{table traMADol HCl 50 MG HCl 50 MG 1-13 t_as_ne HCl 50 MG 00:00: eded} 00 traMADol traMADol 2-0 No 1{table traMADol HCl 50 MG HCl 50 MG 1-13 t_as_ne HCl 50 MG 00:00: eded} 00 traMADol traMADol 2-0 No 1{table traMADol HCl 50 MG HCl 50 MG 1-13 t_as_ne HCl 50 MG 00:00: eded} 00 traMADol traMADol 2-0 No 1{table traMADol HCl 50 MG HCl 50 MG 1-13 t_as_ne HCl 50 MG 00:00: eded} 00 traMADol traMADol 2-0 No 1{table traMADol HCl 50 MG HCl 50 MG 1-13 t_as_ne HCl 50 MG 00:00: eded} 00 traMADol traMADol 2-0 No 1{table traMADol HCl 50 MG HCl 50 MG 1-13 t_as_ne HCl 50 MG 00:00: eded} 00 traMADol traMADol 2-0 No 1{table traMADol HCl 50 MG HCl 50 MG 1-13 t_as_ne HCl 50 MG 00:00: eded} 00 HYDROcodone HYDROcodone 2-0 No 1{table QID HYDROcodon -Acetaminop -Acetaminop 1-04 t_as_ne e-Acetamin hen 5-325 hen 5-325 00:00: eded} ophen MG MG 00 5-325 MG HYDROcodone HYDROcodone 2021- No 1{table QID HYDROcodon -Acetaminop -Acetaminop 1-04 [...] MG MG 00 5-325 MG HYDROcodone HYDROcodone 2021- No 1{table QID HYDROcodon -Acetaminop -Acetaminop 1-04 t_as_ne e-Acetamin hen 5-325 hen 5-325 00:00: eded} ophen MG MG 00 5-325 MG HYDROcodone HYDROcodone 2021-0 No 1{table QID HYDROcodon -Acetaminop -Acetaminop 1-04 t_as_ne e-Acetamin hen 5-325 hen 5-325 00:00: eded} ophen MG MG 00 5-325 MG HYDROcodone HYDROcodone 2021-0 No 1{table QID HYDROcodon -Acetaminop -Acetaminop 1-04 t_as_ne e-Acetamin hen 5-325 hen 5-325 00:00: eded} ophen MG MG 00 5-325 MG HYDROcodone HYDROcodone 2021-0 No 1{table QID HYDROcodon -Acetaminop -Acetaminop 1-04 t_as_ne e-Acetamin hen 5-325 hen 5-325 00:00: eded} ophen MG MG 00 5-325 MG HYDROcodone HYDROcodone No 1{table QID HYDROcodon -Acetaminop -Acetaminop 1-04 t_as_ne e-Acetamin hen 5-325 hen 5-325 00:00: eded} ophen MG MG 00 5-325 MG HYDROcodone HYDROcodone 0 No 1{table QID HYDROcodon -Acetaminop -Acetaminop 1-04 [...] MG MG 00 5-325 MG HYDROcodone HYDROcodone 2021-0 No 1{table QID HYDROcodon -Acetaminop -Acetaminop 1-04 t_as_ne e-Acetamin hen 5-325 hen 5-325 00:00: eded} ophen MG MG 00 5-325 MG HYDROcodone HYDROcodone 2021-0 No 1{table QID HYDROcodon -Acetaminop -Acetaminop 1-04 t_as_ne e-Acetamin hen 5-325 hen 5-325 00:00: eded} ophen MG MG 00 5-325 MG HYDROcodone HYDROcodone 2021-0 No 1{table QID HYDROcodon -Acetaminop -Acetaminop 1-04 t_as_ne e-Acetamin hen 5-325 hen 5-325 00:00: eded} ophen MG MG 00 5-325 MG HYDROcodone HYDROcodone 2021-0 No 1{table QID HYDROcodon -Acetaminop -Acetaminop 1-04 t_as_ne e-Acetamin hen 5-325 hen 5-325 00:00: eded} ophen MG MG 00 5-325 MG HYDROcodone HYDROcodone 2022-0 No 1{table QID HYDROcodon -Acetaminop -Acetaminop 1-04 [...] MG MG 00 5-325 MG HYDROcodone HYDROcodone 0 No 1{table QID HYDROcodon -Acetaminop -Acetaminop 1-04 t_as_ne e-Acetamin hen 5-325 hen 5-325 00:00: eded} ophen MG MG 00 5-325 MG HYDROcodone HYDROcodone 2021-0 No 1{table QID HYDROcodon -Acetaminop -Acetaminop 1-04 t_as_ne e-Acetamin hen 5-325 hen 5-325 00:00: eded} ophen MG MG 00 5-325 MG HYDROcodone HYDROcodone 2021-0 No 1{table QID HYDROcodon -Acetaminop -Acetaminop 1-04 t_as_ne e-Acetamin hen 5-325 hen 5-325 00:00: eded} ophen MG MG 00 5-325 MG HYDROcodone HYDROcodone 2021-0 No 1{table QID -Acetaminop -Acetaminop 1-04 t_as_ne hen 5-325 hen 5-325 00:00: eded} MG MG 00 HYDROcodone HYDROcodone 2021-0 No 1{table QID HYDROcodon -Acetaminop -Acetaminop 1-04 t_as_ne e-Acetamin hen 5-325 hen 5-325 00:00: eded} ophen MG MG 00 5-325 MG HYDROcodone HYDROcodone 2021-0 No 1{table QID -Acetaminop -Acetaminop 1-04 t_as_ne hen 5-325 hen 5-325 00:00: eded} MG MG 00 HYDROcodone HYDROcodone 2021-0 No 1{table QID -Acetaminop -Acetaminop 1-04 t_as_ne hen 5-325 hen 5-325 00:00: eded} MG MG 00 HYDROcodone HYDROcodone 2021-0 No 1{table QID HYDROcodon -Acetaminop -Acetaminop 1-04 t_as_ne e-Acetamin hen 5-325 hen 5-325 00:00: eded} ophen MG MG 00 5-325 MG HYDROcodone HYDROcodone 2021-0 No 1{table QID HYDROcodon -Acetaminop -Acetaminop 1-04 t_as_ne e-Acetamin hen 5-325 hen 5-325 00:00: eded} ophen MG MG 00 5-325 MG HYDROcodone HYDROcodone 2021-0 No 1{table QID HYDROcodon -Acetaminop -Acetaminop 1-04 [...] MG MG 00 5-325 MG HYDROcodone HYDROcodone 2020-11 No 1{table QID -Acetaminop -Acetaminop 2-21 t_as_ne hen 5-325 hen 5-325 00:00: eded} MG MG 00 HYDROcodone HYDROcodone 2020-11 No 1{table QID HYDROcodon -Acetaminop -Acetaminop 2-21 t_as_ne e-Acetamin hen 5-325 hen 5-325 00:00: eded} ophen MG MG 00 5-325 MG HYDROcodone HYDROcodone 2020-11 No 1{table QID HYDROcodon -Acetaminop -Acetaminop 2-21 t_as_ne e-Acetamin hen 5-325 hen 5-325 00:00: eded} ophen MG MG 00 5-325 MG HYDROcodone HYDROcodone 2020-11 No 1{table QID -Acetaminop -Acetaminop 2-21 t_as_ne hen 5-325 hen 5-325 00:00: eded} MG MG 00 Xarelto 10 Xarelto 10 2020-11 No 1{table [...] MG MG 2-14 t} MG 00:00: 00 Xarelto 10 Xarelto 10 2020-11 No 1{table [...] MG MG 2-14 t} MG 00:00: 00 Xarelto 10 Xarelto 10 2020-11 No 1{table [...] MG MG 2-14 t} MG 00:00: 00 Xarelto 10 Xarelto 10 2020-11 No 1{table [...] MG MG 2-14 t} MG 00:00: 00 Xarelto 10 Xarelto 10 2020-11 No 1{table QD Xarelto 10 MG MG 2-14 t} MG 00:00: 00 HYDROcodone HYDROcodone 2020-11 No 1{table HYDROcodon -Acetaminop -Acetaminop 2-14 t_as_ne e-Acetamin hen 7.5-325 hen 7.5-325 00:00: eded} ophen MG MG 00 7.5-325 MG Xarelto 10 Xarelto 10 2020-11 No 1{table QD MG MG 2-14 t} 00:00: 00 HYDROcodone HYDROcodone 2020-11 No 1{table -Acetaminop -Acetaminop 2-14 t_as_ne hen 7.5-325 hen 7.5-325 00:00: eded} MG MG 00 Xarelto 10 Xarelto 10 2020-11 No 1{table [...] 7.5-325 MG HYDROcodone HYDROcodone 2020-11 No 1{table -Acetaminop -Acetaminop 2-14 t_as_ne hen 7.5-325 hen 7.5-325 00:00: eded} MG MG 00 Xarelto 10 Xarelto 10 2020-11 No 1{table QD MG MG 2-14 t} 00:00: 00 HYDROcodone HYDROcodone 2020-11 No 1{table HYDROcodon -Acetaminop -Acetaminop 2-14 t_as_ne e-Acetamin hen 7.5-325 hen 7.5-325 00:00: eded} ophen MG MG 00 7.5-325 MG Xarelto 10 Xarelto 10 2020-11 No 1{table QD Xarelto 10 MG MG 2-14 t} MG 00:00: 00 HYDROcodone HYDROcodone 2020-11 No 1{table -Acetaminop -Acetaminop 2-14 t_as_ne hen 7.5-325 hen 7.5-325 00:00: eded} MG MG 00 Xarelto 10 Xarelto 10 2020-11 No 1{table QD MG MG 2-14 t} 00:00: 00 HYDROcodone HYDROcodone 2020-11 No 1{table -Acetaminop -Acetaminop 2-14 t_as_ne hen 7.5-325 hen 7.5-325 00:00: eded} MG MG 00 Xarelto 10 Xarelto 10 2020-11 No 1{table QD MG MG 2-14 t} 00:00: 00 Xarelto 10 Xarelto 10 2020-11 No 1{table [...] eded} ophen MG MG 00 7.5-325 MG Vitamin B12 Vitamin B12 0 No 1000ug Common (Cyanocobal (Cyanocobal 7-15 S pirit ivory) ivory) 00:00: - [facility] 00 [facility] Vitamin B12 Vitamin B12 2020-0 No 1000ug Common (Cyanocobal (Cyanocobal 7-15 S pirit ivory) ivory) 00:00: - [facility] 00 [facility] Vitamin B12 Vitamin B12 2020-0 No 1000ug Common (Cyanocobal (Cyanocobal 7-15 S pirit ivory) ivory) 00:00: - [facility] 00 [facility] Vitamin B12 Vitamin B12 2020-0 No 1000ug Common (Cyanocobal (Cyanocobal 7-15 S pirit ivory) ivory) 00:00: - [facility] 00 [facility] Vitamin B12 Vitamin B12 2020-0 No 1000ug Common (Cyanocobal (Cyanocobal 7-15 S pirit ivory) ivory) 00:00: - [facility] 00 [facility] Vitamin B12 Vitamin B12 2020-0 No 1000ug Common (Cyanocobal (Cyanocobal 7-15 S pirit ivory) ivory) 00:00: - [facility] 00 [facility] Vitamin B12 Vitamin B12 2020-0 No 1000ug Common (Cyanocobal (Cyanocobal 7-15 S pirit ivory) ivory) 00:00: - [facility] 00 [facility] Vitamin B12 Vitamin B12 2020-0 No 1000ug Common (Cyanocobal (Cyanocobal 7-15 S pirit ivory) ivory) 00:00: - [facility] 00 [facility] Vitamin B12 Vitamin B12 2020-0 No 1000ug Common (Cyanocobal (Cyanocobal 7-15 S pirit ivory) ivory) 00:00: - [facility] 00 [facility] Vitamin B12 Vitamin B12 2020-0 No 1000ug Common (Cyanocobal (Cyanocobal 7-15 S pirit ivory) ivory) 00:00: - [facility] 00 [facility] Vitamin B12 Vitamin B12 2020-0 No 1000ug Common (Cyanocobal (Cyanocobal 7-15 S pirit ivory) ivory) 00:00: - [facility] 00 [facility] Vitamin B12 Vitamin B12 2020-0 No 1000ug Common (Cyanocobal (Cyanocobal 7-15 S pirit ivory) ivory) 00:00: - [facility] 00 [facility] Vitamin B12 Vitamin B12 2020-0 No 1000ug Common (Cyanocobal (Cyanocobal 7-15 S pirit ivory) ivory) 00:00: - [facility] 00 [facility] Vitamin B12 Vitamin B12 2020-0 No 1000ug Common (Cyanocobal (Cyanocobal 7-15 S pirit ivory) ivory) 00:00: - [facility] 00 [facility] Vitamin B12 Vitamin B12 2020-0 No 1000ug Common (Cyanocobal (Cyanocobal 7-15 S pirit ivory) ivory) 00:00: - [facility] 00 [facility] Vitamin B12 Vitamin B12 2020-0 No 1000ug Common (Cyanocobal (Cyanocobal 7-15 S pirit ivory) ivory) 00:00: - [facility] 00 [facility] Vitamin B12 Vitamin B12 2020-0 No 1000ug Common (Cyanocobal (Cyanocobal 7-15 S pirit ivory) ivory) 00:00: - [facility] 00 [facility] Vitamin B12 Vitamin B12 2020-0 No 1000ug Common (Cyanocobal (Cyanocobal 7-15 S pirit ivory) ivory) 00:00: - [facility] 00 [facility] Vitamin B12 Vitamin B12 2020-0 No 1000ug Common (Cyanocobal (Cyanocobal 7-15 S pirit ivory) ivory) 00:00: - [facility] 00 [facility] Vitamin B12 Vitamin B12 2020-0 No 1000ug Common (Cyanocobal (Cyanocobal 7-15 S pirit ivory) ivory) 00:00: - [facility] 00 [facility] Vitamin B12 Vitamin B12 2020-0 No 1000ug Common (Cyanocobal (Cyanocobal 7-15 S pirit ivory) ivory) 00:00: - [facility] 00 [facility] Vitamin B12 Vitamin B12 2020-0 No 1000ug Common (Cyanocobal (Cyanocobal 7-15 S pirit ivory) ivory) 00:00: - [facility] 00 [facility] Vitamin B12 Vitamin B12 1-0 No 1000ug Common (Cyanocobal (Cyanocobal 7-15 S pirit ivory) ivory) 00:00: - [facility] 00 [facility] Vitamin B12 Vitamin B12 2021-0 No 1000ug Common (Cyanocobal (Cyanocobal 7-15 S pirit ivory) ivory) 00:00: - [facility] 00 [facility] Vitamin B12 Vitamin B12 2020-0 No 1000ug Common (Cyanocobal (Cyanocobal 7-15 S pirit ivory) ivory) 00:00: - [facility] 00 [facility] Vitamin B12 Vitamin B12 2020-0 No 1000ug Common (Cyanocobal (Cyanocobal 7-15 S pirit ivory) ivory) 00:00: - [facility] 00 [facility] Vitamin B12 Vitamin B12 1-0 No 1000ug Common (Cyanocobal (Cyanocobal 7-15 S pirit ivory) ivory) 00:00: - [facility] 00 [facility] Vitamin B12 Vitamin B12 2020-0 No 1000ug Common (Cyanocobal (Cyanocobal 7-15 S pirit ivory) ivory) 00:00: - [facility] 00 [facility] Vitamin B12 Vitamin B12 2020-0 No 1000ug Common (Cyanocobal (Cyanocobal 7-15 S pirit ivory) ivory) 00:00: - [facility] 00 [facility] Vitamin B12 Vitamin B12 1-0 No 1000ug Common (Cyanocobal (Cyanocobal 7-15 S pirit ivory) ivory) 00:00: - [facility] 00 [facility] Vitamin B12 Vitamin B12 2021-0 No 1000ug Common (Cyanocobal (Cyanocobal 7-15 S pirit ivory) ivory) 00:00: - [facility] 00 [facility] Vitamin B12 Vitamin B12 2021-0 No 1000ug Common (Cyanocobal (Cyanocobal 7-15 S pirit ivory) ivory) 00:00: - [facility] 00 [facility] Vitamin B12 Vitamin B12 2021-0 No 1000ug Common (Cyanocobal (Cyanocobal 7-15 S pirit ivory) ivory) 00:00: - [facility] 00 [facility] Vitamin B12 Vitamin B12 2021-0 No 1000ug Common (Cyanocobal (Cyanocobal 7-15 S pirit ivory) ivory) 00:00: - [facility] 00 [facility] Vitamin B12 Vitamin B12 2020-0 No 1000ug Common (Cyanocobal (Cyanocobal 7-15 S pirit ivory) ivory) 00:00: - [facility] 00 [facility] Vitamin B12 Vitamin B12 2020-0 No 1000ug Common (Cyanocobal (Cyanocobal 7-15 S pirit ivory) ivory) 00:00: - [facility] 00 [facility] Vitamin B12 Vitamin B12 2020-0 No 1000ug Common (Cyanocobal (Cyanocobal 7-15 S pirit ivory) ivory) 00:00: - [facility] 00 [facility] Hyalgan 20 Hyalgan 20 2020-0 No 20mg C ommon mg mg 2-23 Spirit 00:00: - [facility] 00 [facility] Hyalgan 20 Hyalgan 20 2020-0 No 20mg C ommon mg mg 2-23 Spirit 00:00: - [facility] 00 [facility] Hyalgan 20 Hyalgan 20 2020-0 No 20mg C ommon mg mg 2-23 Spirit 00:00: - [facility] 00 [facility] Hyalgan 20 Hyalgan 20 2020-0 No 20mg C ommon mg mg 2-23 Spirit 00:00: - [facility] 00 [facility] Hyalgan 20 Hyalgan 20 2020-0 No 20mg C ommon mg mg 2-23 Spirit 00:00: - [facility] 00 [facility] Hyalgan 20 Hyalgan 20 2020-0 No 20mg C ommon mg mg 2-23 Spirit 00:00: - [facility] 00 [facility] Hyalgan 20 Hyalgan 20 2020-0 No 20mg C ommon mg mg 2-23 Spirit 00:00: - [facility] 00 [facility] Hyalgan 20 Hyalgan 20 2020-0 No 20mg C ommon mg mg 2-23 Spirit 00:00: - [facility] 00 [facility] Hyalgan 20 Hyalgan 20 2020-0 No 20mg C ommon mg mg 2-23 Spirit 00:00: - [facility] 00 [facility] Hyalgan 20 Hyalgan 20 2020-0 No 20mg C ommon mg mg 2-23 Spirit 00:00: - [facility] 00 [facility] Hyalgan 20 Hyalgan 20 2020-0 No 20mg C ommon mg mg 01-17 Spirit 00:00: - [facility] 00 [facility] Hyalgan 20 Hyalgan 20 2020-0 No 20mg C ommon mg mg 01-17 Spirit 00:00: - [facility] 00 [facility] Hyalgan 20 Hyalgan 20 2020-0 No 20mg C ommon mg mg 01-17 Spirit 00:00: - [facility] 00 [facility] Hyalgan 20 Hyalgan 20 2020-0 No 20mg C ommon mg mg 01-17 Spirit 00:00: - [facility] 00 [facility] Hyalgan 20 Hyalgan 20 2020-0 No 20mg C ommon mg mg 01-17 Spirit 00:00: - [facility] 00 [facility] Hyalgan 20 Hyalgan 20 2020-0 No 20mg C ommon mg mg 01-17 Spirit 00:00: - [facility] 00 [facility] Hyalgan 20 Hyalgan 20 2020-0 No 20mg C ommon mg mg 01-17 Spirit 00:00: - [facility] 00 [facility] Hyalgan 20 Hyalgan 20 2020-0 No 20mg C ommon mg mg 01-17 Spirit 00:00: - [facility] 00 [facility] Hyalgan 20 Hyalgan 20 2020-0 No 20mg C ommon mg mg 01-17 Spirit 00:00: - [facility] 00 [facility] Hyalgan 20 Hyalgan 20 2020-0 No 20mg C ommon mg mg 01-17 Spirit 00:00: - [facility] 00 [facility] Hyalgan 20 Hyalgan 20 2020-0 No 20mg C ommon mg mg 01-17 Spirit 00:00: - [facility] 00 [facility] Hyalgan 20 Hyalgan 20 2020-0 No 20mg C ommon mg mg 01-17 Spirit 00:00: - [facility] 00 [facility] Hyalgan 20 Hyalgan 20 2020-0 No 20mg C ommon mg mg 01-17 Spirit 00:00: - [facility] 00 [facility] Hyalgan 20 Hyalgan 20 1-0 No 20mg C ommon mg mg 01-17 Spirit 00:00: - [facility] 00 [facility] Hyalgan 20 Hyalgan 20 2020-0 No 20mg C ommon mg mg 01-17 Spirit 00:00: - [facility] 00 [facility] Hyalgan 20 Hyalgan 20 2020-0 No 20mg C ommon mg mg 01-17 Spirit 00:00: - [facility] 00 [facility] Hyalgan 20 Hyalgan 20 2020-0 No 20mg C ommon mg mg 01-17 Spirit 00:00: - [facility] 00 [facility] Hyalgan 20 Hyalgan 20 2020-0 No 20mg C ommon mg mg 2 Spirit 00:00: - [facility] 00 [facility] Hyalgan 20 Hyalgan 20 2020-0 No 20mg C ommon mg mg 2 Spirit 00:00: - [facility] 00 [facility] Hyalgan 20 Hyalgan 20 2020-0 No 20mg C ommon mg mg 01-17 Spirit 00:00: - [facility] 00 [facility] Hyalgan 20 Hyalgan 20 2020-0 No 20mg C ommon mg mg 01-17 Spirit 00:00: - [facility] 00 [facility] Hyalgan 20 Hyalgan 20 2020-0 No 20mg C ommon mg mg 01-17 Spirit 00:00: - [facility] 00 [facility] Hyalgan 20 Hyalgan 20 2020-0 No 20mg C ommon mg mg 01-17 Spirit 00:00: - [facility] 00 [facility] Hyalgan 20 Hyalgan 20 2020-0 No 20mg C ommon mg mg 01-17 Spirit 00:00: - [facility] 00 [facility] Hyalgan 20 Hyalgan 20 2020-0 No 20mg C ommon mg mg 01-17 Spirit 00:00: - [facility] 00 [facility] Hyalgan 20 Hyalgan 20 2020-0 No 20mg C ommon mg mg 01-17 Spirit 00:00: - [facility] 00 [facility] Hyalgan 20 Hyalgan 20 2020-0 No 20mg C ommon mg mg 01-17 Spirit 00:00: - [facility] 00 [facility] Hyalgan 20 Hyalgan 20 1-0 No 20mg C ommon mg mg - Spirit 00:00: - [facility] 00 [facility] Hyalgan 20 Hyalgan 20 1-0 No 20mg C ommon mg mg 2- Spirit 00:00: - [facility] 00 [facility] Hyalgan 20 Hyalgan 20 2020-0 No 20mg C ommon mg mg 2- Spirit 00:00: - [facility] 00 [facility] Hyalgan 20 Hyalgan 20 2020-0 No 20mg C ommon mg mg 01-17 Spirit 00:00: - [facility] 00 [facility] Hyalgan 20 Hyalgan 20 2020-0 No 20mg C ommon mg mg 01-17 Spirit 00:00: - [facility] 00 [facility] Hyalgan 20 Hyalgan 20 2020-0 No 20mg C ommon mg mg 01-17 Spirit 00:00: - [facility] 00 [facility] Hyalgan 20 Hyalgan 20 2020-0 No 20mg C ommon mg mg 01-17 Spirit 00:00: - [facility] 00 [facility] Hyalgan 20 Hyalgan 20 2020-0 No 20mg C ommon mg mg 01-17 Spirit 00:00: - [facility] 00 [facility] Hyalgan 20 Hyalgan 20 2020-0 No 20mg C ommon mg mg 01-17 Spirit 00:00: - [facility] 00 [facility] Hyalgan 20 Hyalgan 20 2020-0 No 20mg C ommon mg mg 01-17 Spirit 00:00: - [facility] 00 [facility] Hyalgan 20 Hyalgan 20 2020-0 No 20mg C ommon mg mg 01-17 Spirit 00:00: - [facility] 00 [facility] Hyalgan 20 Hyalgan 20 2020-0 No 20mg C ommon mg mg 01-17 Spirit 00:00: - [facility] 00 [facility] Hyalgan 20 Hyalgan 20 2020-0 No 20mg C ommon mg mg 01-17 Spirit 00:00: - [facility] 00 [facility] Hyalgan 20 Hyalgan 20 2020-0 No 20mg C ommon mg mg 01-17 Spirit 00:00: - [facility] 00 [facility] Hyalgan 20 Hyalgan 20 2020-0 No 20mg C ommon mg mg - Spirit 00:00: - [facility] 00 [facility] Hyalgan 20 Hyalgan 20 2020-0 No 20mg C ommon mg mg 2- Spirit 00:00: - [facility] 00 [facility] Hyalgan 20 Hyalgan 20 2020-0 No 20mg C ommon mg mg 2- Spirit 00:00: - [facility] 00 [facility] Hyalgan 20 Hyalgan 20 2020-0 No 20mg C ommon mg mg 01-17 Spirit 00:00: - [facility] 00 [facility] Hyalgan 20 Hyalgan 20 2020-0 No 20mg C ommon mg mg 01-17 Spirit 00:00: - [facility] 00 [facility] Hyalgan 20 Hyalgan 20 2020-0 No 20mg C ommon mg mg 01-17 Spirit 00:00: - [facility] 00 [facility] Hyalgan 20 Hyalgan 20 2020-0 No 20mg C ommon mg mg 01-17 Spirit 00:00: - [facility] 00 [facility] Hyalgan 20 Hyalgan 20 2020-0 No 20mg C ommon mg mg 01-17 Spirit 00:00: - [facility] 00 [facility] Hyalgan 20 Hyalgan 20 2020-0 No 20mg C ommon mg mg 01-17 Spirit 00:00: - [facility] 00 [facility] Hyalgan 20 Hyalgan 20 2020-0 No 20mg C ommon mg mg 01-17 Spirit 00:00: - [facility] 00 [facility] Hyalgan 20 Hyalgan 20 2020-0 No 20mg C ommon mg mg 01-17 Spirit 00:00: - [facility] 00 [facility] Hyalgan 20 Hyalgan 20 2020-0 No 20mg C ommon mg mg 01-17 Spirit 00:00: - [facility] 00 [facility] Hyalgan 20 Hyalgan 20 2020-0 No 20mg C ommon mg mg 01-17 Spirit 00:00: - [facility] 00 [facility] Hyalgan 20 Hyalgan 20 2020-0 No 20mg C ommon mg mg 01-17 Spirit 00:00: - [facility] 00 [facility] Hyalgan 20 Hyalgan 20 2020-0 No 20mg C ommon mg mg 01-17 Spirit 00:00: - [facility] 00 [facility] Hyalgan 20 Hyalgan 20 2020-0 No 20mg C ommon mg mg 01-17 [facility] 00:00: - [facility] 00 [facility] Hyalgan 20 Hyalgan 20 2020-0 No 20mg C ommon mg mg 01-17 [facility] 00:00: - [facility] 00 [facility] Hyalgan 20 Hyalgan 20 2020-0 No 20mg C ommon mg mg 2 Spirit 00:00: - [facility] 00 [facility] Hyalgan 20 Hyalgan 20 2020-0 No 20mg C ommon mg mg 01-17 [facility] 00:00: - [facility] Hyalgan 20 Hyalgan 20 2020-0 No 20mg C ommon mg mg 01-17 [facility] 00:00: - [facility] Hyalgan 20 Hyalgan 20 2020-0 No 20mg C ommon mg mg 01-17 [facility] 00:00: - [facility] 00 [facility] Hyalgan 20 Hyalgan 20 2020-0 No 20mg C ommon mg mg 01-17 [facility] 00:00: - [facility] Hyalgan 20 Hyalgan 20 2020-0 No 20mg C ommon mg mg 01-17 Spirit 00:00: - [facility] Hyalgan 20 Hyalgan 20 2020-0 No 20mg C ommon mg mg 01-05 [facility] 00:00: - [facility] Hyalgan 20 Hyalgan 20 2020-0 No 20mg C ommon mg mg 01-05 [facility] 00:00: - [facility] Hyalgan 20 Hyalgan 20 2020-0 No 20mg C ommon mg mg 01-05 [facility] 00:00: - [facility] Hyalgan 20 Hyalgan 20 2020-0 No 20mg C ommon mg mg 01-05 [facility] 00:00: - [facility] Hyalgan 20 Hyalgan 20 2020-0 No 20mg C ommon mg mg 01-05 [facility] 00:00: - [facility] Hyalgan 20 Hyalgan 20 2020-0 No 20mg C ommon mg mg 01-05 [facility] 00:00: - [facility] 00 [facility] Hyalgan 20 Hyalgan 20 2020-0 No 20mg C ommon mg mg 01-05 [facility] 00:00: - [facility] Hyalgan 20 Hyalgan 20 2020-0 No 20mg C ommon mg mg 01-05 [facility] 00:00: - [facility] Hyalgan 20 Hyalgan 20 2020-0 No 20mg C ommon mg mg 01-05 [facility] 00:00: - [facility] Hyalgan 20 Hyalgan 20 2020-0 No 20mg C ommon mg mg 01-05 [facility] 00:00: - [facility] Hyalgan 20 Hyalgan 20 2020-0 No 20mg C ommon mg mg 01-05 [facility] 00:00: - [facility] Hyalgan 20 Hyalgan 20 1-0 No 20mg C ommon mg mg 01-05 [facility] 00:00: - [facility] Hyalgan 20 Hyalgan 20 2020-0 No 20mg C ommon mg mg 01-05 [facility] 00:00: - [facility] Hyalgan 20 Hyalgan 20 1-0 No 20mg C ommon mg mg 01-05 [facility] 00:00: - [facility] Hyalgan 20 Hyalgan 20 2020-0 No 20mg C ommon mg mg 01-05 [facility] 00:00: - [facility] Hyalgan 20 Hyalgan 20 2020-0 No 20mg C ommon mg mg 01-05 [facility] 00:00: - [facility] Hyalgan 20 Hyalgan 20 2020-0 No 20mg C ommon mg mg 01-05 [facility] 00:00: - [facility] Hyalgan 20 Hyalgan 20 2020-0 No 20mg C ommon mg mg 01-05 [facility] 00:00: - [facility] Hyalgan 20 Hyalgan 20 2020-0 No 20mg C ommon mg mg 01-05 [facility] 00:00: - [facility] Hyalgan 20 Hyalgan 20 2020-0 No 20mg C ommon mg mg 01-05 [facility] 00:00: - [facility] Hyalgan 20 Hyalgan 20 1-0 No 20mg C ommon mg mg 01-05 [facility] 00:00: - [facility] Hyalgan 20 Hyalgan 20 1-0 No 20mg C ommon mg mg 01-05 [facility] 00:00: - [facility] Hyalgan 20 Hyalgan 20 1-0 No 20mg C ommon mg mg 01-05 [facility] 00:00: - [facility] Hyalgan 20 Hyalgan 20 1-0 No 20mg C ommon mg mg 01-05 [facility] 00:00: - [facility] Hyalgan 20 Hyalgan 20 1-0 No 20mg C ommon mg mg 01-05 [facility] 00:00: - [facility] Hyalgan 20 Hyalgan 20 2020-0 No 20mg C ommon mg mg 01-05 [facility] 00:00: - [facility] Hyalgan 20 Hyalgan 20 2020-0 No 20mg C ommon mg mg 01-05 [facility] 00:00: - [facility] Hyalgan 20 Hyalgan 20 2020-0 No 20mg C ommon mg mg 01-05 [facility] 00:00: - [facility] Hyalgan 20 Hyalgan 20 2020-0 No 20mg C ommon mg mg 01-05 [facility] 00:00: - [facility] Hyalgan 20 Hyalgan 20 2020-0 No 20mg C ommon mg mg 01-05 [facility] 00:00: - [facility] Hyalgan 20 Hyalgan 20 2020-0 No 20mg C ommon mg mg 01-05 [facility] 00:00: - [facility] Hyalgan 20 Hyalgan 20 2020-0 No 20mg C ommon mg mg 01-05 [facility] 00:00: - [facility] Hyalgan 20 Hyalgan 20 2020-0 No 20mg C ommon mg mg 01-05 [facility] 00:00: - [facility] Hyalgan 20 Hyalgan 20 2020-0 No 20mg C ommon mg mg 01-05 [facility] 00:00: - [facility] Hyalgan 20 Hyalgan 20 2020-0 No 20mg C ommon mg mg 01-05 [facility] 00:00: - [facility] Hyalgan 20 Hyalgan 20 2020-0 No 20mg C ommon mg mg 01-05 [facility] 00:00: - [facility] Hyalgan 20 Hyalgan 20 2020-0 No 20mg C ommon mg mg 01-05 [facility] 00:00: - [facility] Hyalgan 20 Hyalgan 20 1-0 No 20mg C ommon mg mg 01-05 [facility] 00:00: - [facility] Hyalgan 20 Hyalgan 20 2020-0 No 20mg C ommon mg mg 01-05 [facility] 00:00: - [facility] 00 [facility] Hyalgan 20 Hyalgan 20 2020-0 No 20mg C ommon mg mg 01-05 [facility] 00:00: - [facility] Hyalgan 20 Hyalgan 20 2020-0 No 20mg C ommon mg mg 01-05 [facility] 00:00: - [facility] Hyalgan 20 Hyalgan 20 2020-0 No 20mg C ommon mg mg 01-05 [facility] 00:00: - [facility] Hyalgan 20 Hyalgan 20 2020-0 No 20mg C ommon mg mg 01-05 [facility] 00:00: - [facility] Hyalgan 20 Hyalgan 20 2020-0 No 20mg C ommon mg mg 01-05 [facility] 00:00: - [facility] Hyalgan 20 Hyalgan 20 2020-0 No 20mg C ommon mg mg 01-05 [facility] 00:00: - [facility] Hyalgan 20 Hyalgan 20 2020-0 No 20mg C ommon mg mg 01-05 [facility] 00:00: - [facility] Hyalgan 20 Hyalgan 20 2020-0 No 20mg C ommon mg mg 01-05 [facility] 00:00: - [facility] Hyalgan 20 Hyalgan 20 2020-0 No 20mg C ommon mg mg 01-05 [facility] 00:00: - [facility] Hyalgan 20 Hyalgan 20 2020-0 No 20mg C ommon mg mg 01-05 [facility] 00:00: - [facility] Hyalgan 20 Hyalgan 20 2020-0 No 20mg C ommon mg mg 01-05 [facility] 00:00: - [facility] Hyalgan 20 Hyalgan 20 1-0 No 20mg C ommon mg mg 01-05 [facility] 00:00: - [facility] Hyalgan 20 Hyalgan 20 1-0 No 20mg C ommon mg mg 01-05 [facility] 00:00: - [facility] Hyalgan 20 Hyalgan 20 1-0 No 20mg C ommon mg mg 01-05 [facility] 00:00: - [facility] Hyalgan 20 Hyalgan 20 1-0 No 20mg C ommon mg mg 01-05 [facility] 00:00: - [facility] Hyalgan 20 Hyalgan 20 2020-0 No 20mg C ommon mg mg 01-05 [facility] 00:00: - [facility] Hyalgan 20 Hyalgan 20 2020-0 No 20mg C ommon mg mg 01-05 [facility] 00:00: - [facility] Hyalgan 20 Hyalgan 20 2020-0 No 20mg C ommon mg mg 01-05 [facility] 00:00: - [facility] Hyalgan 20 Hyalgan 20 2020-0 No 20mg C ommon mg mg 01-05 [facility] 00:00: - [facility] Hyalgan 20 Hyalgan 20 2020-0 No 20mg C ommon mg mg 01-05 [facility] 00:00: - [facility] Hyalgan 20 Hyalgan 20 2020-0 No 20mg C ommon mg mg 01-05 [facility] 00:00: - [facility] Hyalgan 20 Hyalgan 20 2020-0 No 20mg C ommon mg mg 01-05 [facility] 00:00: - [facility] Hyalgan 20 Hyalgan 20 2020-0 No 20mg C ommon mg mg 01-05 [facility] 00:00: - [facility] Hyalgan 20 Hyalgan 20 2020-0 No 20mg C ommon mg mg 01-05 [facility] 00:00: - [facility] Hyalgan 20 Hyalgan 20 2020-0 No 20mg C ommon mg mg 01-05 [facility] 00:00: - [facility] Hyalgan 20 Hyalgan 20 2020-0 No 20mg C ommon mg mg 01-05 [facility] 00:00: - [facility] Hyalgan 20 Hyalgan 20 2020-0 No 20mg C ommon mg mg 01-05 [facility] 00:00: - [facility] Hyalgan 20 Hyalgan 20 2020-0 No 20mg C ommon mg mg 01-05 [facility] 00:00: - [facility] Hyalgan 20 Hyalgan 20 2020-0 No 20mg C ommon mg mg 01-05 Spirit 00:00: - [facility] Hyalgan 20 Hyalgan 20 2020-0 No 20mg C ommon mg mg 2 [facility] 00:00: - [facility] Hyalgan 20 Hyalgan 20 2020-0 No 20mg C ommon mg mg 01-05 Spirit 00:00: - [facility]I 00 [facility] Hyalgan 20 Hyalgan 20 2020-0 No 20mg C ommon mg mg 01-05 Spirit 00:00: - [facility] Hyalgan 20 Hyalgan 20 2020-0 No 20mg C ommon mg mg 01-05 Spirit 00:00: - [facility]I 00 [facility] Hyalgan 20 Hyalgan 20 2020-0 No 20mg C ommon mg mg 01-05 Spirit 00:00: - [facility] 00 [facility] Hyalgan 20 Hyalgan 20 2020-0 No 20mg C ommon mg mg 01-05 Spirit 00:00: - [facility]I 00 [facility] Bupivicaine Bupivicaine 2019-1 No 2.5mg [facility] [place] 2-04 [facility] 00:00: - [facility] Hyalgan 20 Hyalgan 20 2019-1 No 20mg C ommon mg mg 2 [facility] 00:00: - [facility] 00 [facility] Hyalgan 20 Hyalgan 20 2019-1 No 20mg C ommon mg mg 204 [facility] 00:00: - [facility] 00 [facility] Kenalog Kenalog 2020-1 No 40mg Common (Triamcinol (Triamcinol 2-04 S pirit one) one) 00:00: - [facility]I 00 [facility] Kenalog Kenalog 2020-1 No 40mg Common (Triamcinol (Triamcinol 2-04 S pirit one) one) 00:00: - [facility]I 00 [facility] Bupivicaine Bupivicaine 2020-1 No 2.5mg [facility] [place] 2-04 [facility] 00:00: - [facility]I 00 [facility] Bupivicaine Bupivicaine 2020-1 No 2.5mg [facility] [place] 2-04 [facility] 00:00: - [facility] Hyalgan 20 Hyalgan 20 2019-1 No 20mg C ommon mg mg 2-04 Spirit 00:00: - [facility] Hyalgan 20 Hyalgan 20 2019-1 No 20mg C ommon mg mg 2-04 Spirit 00:00: - [facility]I 00 [facility] Kenalog Kenalog 2019- No 40mg Common (Triamcinol (Triamcinol 2-04 S pirit one) one) 00:00: - [facility]I 00 [facility] Kenalog Kenalog 2019- No 40mg Common (Triamcinol (Triamcinol 2-04 S pirit one) one) 00:00: - [facility]I 00 [facility] Bupivicaine Bupivicaine 2019- No 2.5mg [facility] [place] 2-04 [facility] 00:00: - [facility]I 00 [facility] Bupivicaine Bupivicaine 2019- No 2.5mg [facility] [place] 2-04 [facility] 00:00: - [facility]I 00 [facility] Hyalgan 20 Hyalgan 20 2019- No 20mg C ommon mg mg 204 [facility] 00:00: - [facility] 00 [facility] Hyalgan 20 Hyalgan 20 2019- No 20mg C ommon mg mg 2-04 Spirit 00:00: - [facility]I 00 [facility] Kenalog Kenalog 2019- No 40mg Common (Triamcinol (Triamcinol 2-04 S pirit one) one) 00:00: - [facility]I 00 [facility] Kenalog Kenalog 2019- No 40mg Common (Triamcinol (Triamcinol 2-04 S pirit one) one) 00:00: - [facility]I 00 [facility] Bupivicaine Bupivicaine 2019- No 2.5mg [facility] [place] 2-04 [facility] 00:00: - [facility]I 00 [facility] Bupivicaine Bupivicaine 2019- No 2.5mg [facility] [place] 2-04 [facility] 00:00: - [facility]I 00 [facility] Hyalgan 20 Hyalgan 20 2019-1 No 20mg C ommon mg mg 2-04 Spirit 00:00: - [facility] 00 [facility] Hyalgan 20 Hyalgan 20 2019-1 No 20mg C ommon mg mg 2-04 Spirit 00:00: - [facility] 00 [facility] Kenalog Kenalog 2019- No 40mg Common (Triamcinol (Triamcinol 2-04 S pirit one) one) 00:00: - [facility]I 00 [facility] Kenalog Kenalog 2019-11 No 40mg Common (Triamcinol (Triamcinol 2-04 S pirit one) one) 00:00: - [facility]I 00 [facility] Bupivicaine Bupivicaine 2019- No 2.5mg [facility] [place] 2-04 [facility] 00:00: - [facility]I 00 [facility] Bupivicaine Bupivicaine 2019- No 2.5mg [facility] [place] 2-04 [facility] 00:00: - [facility]I 00 [facility] Hyalgan 20 Hyalgan 20 2019- No 20mg C ommon mg mg 2-04 Spirit 00:00: - [facility]I 00 [facility] Hyalgan 20 Hyalgan 20 2019- No 20mg C ommon mg mg 2-04 Spirit 00:00: - [facility]I 00 [facility] Kenalog Kenalog 2019-11 No 40mg Common (Triamcinol (Triamcinol 2-04 S pirit one) one) 00:00: - CHI 00 [facility] Kenalog Kenalog 2019-11 No 40mg Common (Triamcinol (Triamcinol 2-04 S pirit one) one) 00:00: - [facility]I 00 [facility] Bupivicaine Bupivicaine 2019- No 2.5mg [facility] [place] 2-04 [facility] 00:00: - [facility]I 00 [facility] Bupivicaine Bupivicaine 2019- No 2.5mg [facility] [place] 2-04 [facility] 00:00: - [facility]I 00 [facility] Hyalgan 20 Hyalgan 20 2019- No 20mg C ommon mg mg 2-04 Spirit 00:00: - [facility]I 00 [facility] Hyalgan 20 Hyalgan 20 2019- No 20mg C ommon mg mg 2-04 Spirit 00:00: - [facility]I 00 [facility] Kenalog Kenalog 2019- No 40mg Common (Triamcinol (Triamcinol 2-04 S pirit one) one) 00:00: - [facility]I 00 [facility] Kenalog Kenalog 2019- No 40mg Common (Triamcinol (Triamcinol 2-04 S pirit one) one) 00:00: - [facility]I 00 [facility] Bupivicaine Bupivicaine 2019- No 2.5mg [facility] [place] 2-04 [facility] 00:00: - [facility]I 00 [facility] Bupivicaine Bupivicaine 2019- No 2.5mg [facility] [place] 2-04 [facility] 00:00: - [facility]I 00 [facility] Hyalgan 20 Hyalgan 20 2019- No 20mg C ommon mg mg 2-04 Spirit 00:00: - [facility] 00 [facility] Hyalgan 20 Hyalgan 20 2019- No 20mg C ommon mg mg 2-04 Spirit 00:00: - [facility]I 00 [facility] Kenalog Kenalog 2019-11 No 40mg Common (Triamcinol (Triamcinol 2-04 S pirit one) one) 00:00: - [facility]I 00 [facility] Kenalog Kenalog 2019-11 No 40mg Common (Triamcinol (Triamcinol 2-04 S pirit one) one) 00:00: - [facility]I 00 [facility] Bupivicaine Bupivicaine 2019- No [facility] [place] 2-04 [facility] 00:00: - [facility]I 00 [facility] Bupivicaine Bupivicaine 2019-11 No [facility] [place] 2-04 [facility] 00:00: - [facility]I 00 [facility] Hyalgan 20 Hyalgan 20 2019- No 20mg C ommon mg mg 2-04 [facility] 00:00: - [facility]I 00 [facility] Hyalgan 20 Hyalgan 20 2019- No 20mg C ommon mg mg 2-04 Spirit 00:00: - [facility]I 00 [facility] Kenalog Kenalog 2019-11 No 40mg Common (Triamcinol (Triamcinol 2-04 S pirit one) one) 00:00: - [facility]I 00 [facility] Kenalog Kenalog 2019-11 No 40mg Common (Triamcinol (Triamcinol 2-04 S pirit one) one) 00:00: - CHI 00 [facility] Bupivicaine Bupivicaine 2019- No [facility] [place] 2-04 [facility] 00:00: - [facility]I 00 [facility] Bupivicaine Bupivicaine 2019- No [facility] [place] 2-04 [facility] 00:00: - [facility]I 00 [facility] Hyalgan 20 Hyalgan 20 2019- No 20mg C ommon mg mg 2-04 Spirit 00:00: - [facility]I 00 [facility] Hyalgan 20 Hyalgan 20 2019- No 20mg C ommon mg mg 2-04 [facility] 00:00: - [facility]I 00 [facility] Kenalog Kenalog 2019- No 40mg Common (Triamcinol (Triamcinol 2-04 S pirit one) one) 00:00: - [facility]I 00 [facility] Kenalog Kenalog 2019- No 40mg Common (Triamcinol (Triamcinol 2-04 S pirit one) one) 00:00: - [facility]I 00 [facility] Bupivicaine Bupivicaine 2019- No [facility] [place] 2-04 [facility] 00:00: - [facility]I 00 [facility] Bupivicaine Bupivicaine 2019- No [facility] [place] 2-04 [facility] 00:00: - [facility]I 00 [facility] Hyalgan 20 Hyalgan 20 2019- No 20mg C ommon mg mg 2-04 [facility] 00:00: - [facility] 00 [facility] Hyalgan 20 Hyalgan 20 2019- No 20mg C ommon mg mg 2-04 [facility] 00:00: - [facility]I 00 [facility] Kenalog Kenalog 2019- No 40mg Common (Triamcinol (Triamcinol 2-04 S pirit one) one) 00:00: - [facility]I 00 [facility] Kenalog Kenalog 2019-11 No 40mg Common (Triamcinol (Triamcinol 2-04 S pirit one) one) 00:00: - CHI 00 [facility] Bupivicaine Bupivicaine 2019- No 2.5mg [facility] [place] 2-04 [facility] 00:00: - [facility]I 00 [facility] Bupivicaine Bupivicaine 2019- No 2.5mg [facility] [place] 2-04 [facility] 00:00: - CHI 00 [facility] Hyalgan 20 Hyalgan 20 2019- No 20mg C ommon mg mg 2-04 Spirit 00:00: - [facility]I 00 [facility] Hyalgan 20 Hyalgan 20 2019- No 20mg C ommon mg mg 2-04 Spirit 00:00: - [facility]I 00 [facility] Kenalog Kenalog 2019-11 No 40mg Common (Triamcinol (Triamcinol 2-04 S pirit one) one) 00:00: - CHI 00 [facility] Kenalog Kenalog 2019- No 40mg Common (Triamcinol (Triamcinol 2-04 S pirit one) one) 00:00: - CHI 00 [facility] Bupivicaine Bupivicaine 2019- No 2.5mg [facility] [place] 2-04 [facility] 00:00: - CHI 00 [facility] Bupivicaine Bupivicaine 2019- No 2.5mg [facility] [place] 2-04 [facility] 00:00: - CHI 00 [facility] Hyalgan 20 Hyalgan 20 2019- No 20mg C ommon mg mg 2-04 Spirit 00:00: - [facility]I 00 [facility] Hyalgan 20 Hyalgan 20 2019- No 20mg C ommon mg mg 2-04 Spirit 00:00: - [facility]I 00 [facility] Kenalog Kenalog 2019-11 No 40mg Common (Triamcinol (Triamcinol 2-04 S pirit one) one) 00:00: - CHI 00 [facility] Kenalog Kenalog 2019-11 No 40mg Common (Triamcinol (Triamcinol 2-04 S pirit one) one) 00:00: - CHI 00 [facility] Bupivicaine Bupivicaine 2019- No 2.5mg [facility] [place] 2-04 [facility] 00:00: - CHI 00 [facility] Bupivicaine Bupivicaine 2019- No 2.5mg [facility] [place] 2-04 [facility] 00:00: - CHI 00 [facility] Hyalgan 20 Hyalgan 20 2019- No 20mg C ommon mg mg 2-04 Spirit 00:00: - [facility]I 00 [facility] Hyalgan 20 Hyalgan 20 2019- No 20mg C ommon mg mg 2-04 Spirit 00:00: - CHI 00 [facility] Kenalog Kenalog 2019- No 40mg Common (Triamcinol (Triamcinol 2-04 S pirit one) one) 00:00: - CHI 00 [facility] Kenalog Kenalog 2019- No 40mg Common (Triamcinol (Triamcinol 2-04 S pirit one) one) 00:00: - CHI 00 [facility] Bupivicaine Bupivicaine 2019- No 2.5mg [facility] [place] 2-04 [facility] 00:00: - CHI 00 [facility] Bupivicaine Bupivicaine 2019- No 2.5mg [facility] [place] 2-04 [facility] 00:00: - CHI 00 [facility] Hyalgan 20 Hyalgan 20 2019- No 20mg C ommon mg mg 2-04 Spirit 00:00: - [facility]I 00 [facility] Hyalgan 20 Hyalgan 20 2019- No 20mg C ommon mg mg 2-04 Spirit 00:00: - CHI 00 [facility] Kenalog Kenalog 2019- No 40mg Common (Triamcinol (Triamcinol 2-04 S pirit one) one) 00:00: - CHI 00 [facility] Kenalog Kenalog 2019- No 40mg Common (Triamcinol (Triamcinol 2-04 S pirit one) one) 00:00: - CHI 00 [facility] Bupivicaine Bupivicaine 2019- No 2.5mg [facility] [place] 2-04 [facility] 00:00: - CHI 00 [facility] Bupivicaine Bupivicaine 2019- No 2.5mg [facility] [place] 2-04 [facility] 00:00: - CHI 00 [facility] Hyalgan 20 Hyalgan 20 2019- No 20mg C ommon mg mg 2-04 Spirit 00:00: - CHI 00 [facility] Hyalgan 20 Hyalgan 20 2019- No 20mg C ommon mg mg 2-04 Spirit 00:00: - CHI 00 [facility] Kenalog Kenalog 2019- No 40mg Common (Triamcinol (Triamcinol 2-04 S pirit one) one) 00:00: - CHI 00 [facility] Kenalog Kenalog 2020- No 40mg Common (Triamcinol (Triamcinol 2-04 S pirit one) one) 00:00: - CHI 00 [facility] Bupivicaine Bupivicaine 2019- No 2.5mg [facility] [place] 2-04 [facility] 00:00: - CHI 00 [facility] Bupivicaine Bupivicaine 2019-11 No 2.5mg [facility] [place] 2-04 [facility] 00:00: - CHI 00 [facility] Hyalgan 20 Hyalgan 20 2019- No 20mg C ommon mg mg 2-04 Spirit 00:00: - CHI 00 [facility] Hyalgan 20 Hyalgan 20 2019- No 20mg C ommon mg mg 2-04 Spirit 00:00: - CHI 00 [facility] Kenalog Kenalog 2019-11 No 40mg Common (Triamcinol (Triamcinol 2-04 S pirit one) one) 00:00: - CHI 00 [facility] Kenalog Kenalog 2019-11 No 40mg Common (Triamcinol (Triamcinol 2-04 S pirit one) one) 00:00: - CHI 00 [facility] Bupivicaine Bupivicaine 2019-11 No 2.5mg [facility] [place] 2-04 [facility] 00:00: - CHI 00 [facility] Bupivicaine Bupivicaine 2019- No 2.5mg [facility] [place] 2-04 [facility] 00:00: - CHI 00 [facility] Hyalgan 20 Hyalgan 20 2019- No 20mg C ommon mg mg 2-04 Spirit 00:00: - CHI 00 [facility] Hyalgan 20 Hyalgan 20 2019- No 20mg C ommon mg mg 2-04 Spirit 00:00: - CHI 00 [facility] Kenalog Kenalog 2019-11 No 40mg Common (Triamcinol (Triamcinol 2-04 S pirit one) one) 00:00: - CHI 00 [facility] Kenalog Kenalog 2019-11 No 40mg Common (Triamcinol (Triamcinol 2-04 S pirit one) one) 00:00: - CHI 00 [facility] Bupivicaine Bupivicaine 2019- No 2.5mg [facility] [place] 2-04 [facility] 00:00: - CHI 00 [facility] Bupivicaine Bupivicaine 2019- No 2.5mg [facility] [place] 2-04 [facility] 00:00: - CHI 00 [facility] Hyalgan 20 Hyalgan 20 2019- No 20mg C ommon mg mg 2-04 Spirit 00:00: - CHI 00 [facility] Hyalgan 20 Hyalgan 20 2019- No 20mg C ommon mg mg 2-04 Spirit 00:00: - CHI 00 [facility] Kenalog Kenalog 2019- No 40mg Common (Triamcinol (Triamcinol 2-04 S pirit one) one) 00:00: - CHI 00 [facility] Kenalog Kenalog 2019- No 40mg Common (Triamcinol (Triamcinol 2-04 S pirit one) one) 00:00: - CHI 00 [facility] Bupivicaine Bupivicaine 2019- No 2.5mg [facility] [place] 2-04 [facility] 00:00: - CHI 00 [facility] Bupivicaine Bupivicaine 2019- No 2.5mg [facility] [place] 2-04 [facility] 00:00: - CHI 00 [facility] Hyalgan 20 Hyalgan 20 2019- No 20mg C ommon mg mg 2-04 Spirit 00:00: - CHI 00 [facility] Hyalgan 20 Hyalgan 20 2019- No 20mg C ommon mg mg 2-04 [facility] 00:00: - CHI 00 [facility] Kenalog Kenalog 2019- No 40mg Common (Triamcinol (Triamcinol 2-04 S pirit one) one) 00:00: - CHI 00 [facility] Kenalog Kenalog 2019-11 No 40mg Common (Triamcinol (Triamcinol 2-04 S pirit one) one) 00:00: - CHI 00 [facility] Bupivicaine Bupivicaine 2019- No 2.5mg [facility] [place] 2-04 [facility] 00:00: - CHI 00 [facility] Bupivicaine Bupivicaine 2019- No 2.5mg [facility] [place] 2-04 [facility] 00:00: - CHI 00 [facility] Hyalgan 20 Hyalgan 20 2019- No 20mg C ommon mg mg 2-04 [facility] 00:00: - CHI 00 [facility] Hyalgan 20 Hyalgan 20 2019- No 20mg C ommon mg mg 2-04 [facility] 00:00: - CHI 00 [facility] Kenalog Kenalog 2019-11 No 40mg Common (Triamcinol (Triamcinol 2-04 S pirit one) one) 00:00: - CHI 00 [facility] Kenalog Kenalog 2019- No 40mg Common (Triamcinol (Triamcinol 2-04 S pirit one) one) 00:00: - CHI 00 [facility] Bupivicaine Bupivicaine 2019- No 2.5mg [facility] [place] 2-04 [facility] 00:00: - CHI 00 [facility] Bupivicaine Bupivicaine 2019- No 2.5mg [facility] [place] 2-04 [facility] 00:00: - CHI 00 [facility] Hyalgan 20 Hyalgan 20 2019- No 20mg C ommon mg mg 2-04 Spirit 00:00: - CHI 00 [facility] Hyalgan 20 Hyalgan 20 2019- No 20mg C ommon mg mg 2-04 [facility] 00:00: - CHI 00 [facility] Kenalog Kenalog 2019- No 40mg Common (Triamcinol (Triamcinol 2-04 S pirit one) one) 00:00: - CHI 00 [facility] Kenalog Kenalog 2019- No 40mg Common (Triamcinol (Triamcinol 2-04 S pirit one) one) 00:00: - CHI 00 [facility] Bupivicaine Bupivicaine 2019- No 2.5mg [facility] [place] 2-04 [facility] 00:00: - CHI 00 [facility] Bupivicaine Bupivicaine 2019- No 2.5mg [facility] [place] 2-04 [facility] 00:00: - CHI 00 [facility] Hyalgan 20 Hyalgan 20 2019- No 20mg C ommon mg mg 2-04 Spirit 00:00: - CHI 00 [facility] Hyalgan 20 Hyalgan 20 2019- No 20mg C ommon mg mg 2-04 [facility] 00:00: - CHI 00 [facility] Kenalog Kenalog 2019- No 40mg Common (Triamcinol (Triamcinol 2-04 S pirit one) one) 00:00: - CHI 00 [facility] Kenalog Kenalog 2019- No 40mg Common (Triamcinol (Triamcinol 2-04 S pirit one) one) 00:00: - CHI 00 [facility] Bupivicaine Bupivicaine 2019- No 2.5mg [facility] [place] 2-04 [facility] 00:00: - CHI 00 [facility] Bupivicaine Bupivicaine 2019- No 2.5mg [facility] [place] 2-04 [facility] 00:00: - CHI 00 [facility] Hyalgan 20 Hyalgan 20 2019- No 20mg C ommon mg mg 2-04 [facility] 00:00: - CHI 00 [facility] Hyalgan 20 Hyalgan 20 2019- No 20mg C ommon mg mg 2-04 [facility] 00:00: - CHI 00 [facility] Kenalog Kenalog 2019- No 40mg Common (Triamcinol (Triamcinol 2-04 S pirit one) one) 00:00: - CHI 00 [facility] Kenalog Kenalog 2019- No 40mg Common (Triamcinol (Triamcinol 2-04 S pirit one) one) 00:00: - CHI 00 [facility] Bupivicaine Bupivicaine 2019- No 2.5mg [facility] [place] 2-04 [facility] 00:00: - CHI 00 [facility] Bupivicaine Bupivicaine 2019- No 2.5mg [facility] [place] 2-04 [facility] 00:00: - CHI 00 [facility] Hyalgan 20 Hyalgan 20 2019- No 20mg C ommon mg mg 2-04 [facility] 00:00: - CHI 00 [facility] Hyalgan 20 Hyalgan 20 2019- No 20mg C ommon mg mg 2-04 [facility] 00:00: - CHI 00 [facility] Kenalog Kenalog 2019- No 40mg Common (Triamcinol (Triamcinol 2-04 S pirit one) one) 00:00: - CHI 00 [facility] Kenalog Kenalog 2020- No 40mg Common (Triamcinol (Triamcinol 2-04 S pirit one) one) 00:00: - CHI 00 [facility] Bupivicaine Bupivicaine 2019- No 2.5mg [facility] [place] 2-04 [facility] 00:00: - CHI 00 [facility] Bupivicaine Bupivicaine 2020-1 No 2.5mg [facility] [place] 2-04 [facility] 00:00: - CHI 00 [facility] Hyalgan 20 Hyalgan 20 2019- No 20mg C ommon mg mg 2-04 [facility] 00:00: - CHI 00 [facility] Hyalgan 20 Hyalgan 20 2019- No 20mg C ommon mg mg 2-04 [facility] 00:00: - CHI 00 [facility] Kenalog Kenalog 2019-11 No 40mg Common (Triamcinol (Triamcinol 2-04 S pirit one) one) 00:00: - CHI 00 [facility] Kenalog Kenalog 2019-11 No 40mg Common (Triamcinol (Triamcinol 2-04 S pirit one) one) 00:00: - CHI 00 [facility] Bupivicaine Bupivicaine 2019-11 No 2.5mg [facility] [place] 2-04 [facility] 00:00: - CHI 00 [facility] Bupivicaine Bupivicaine 2019- No 2.5mg [facility] [place] 2-04 [facility] 00:00: - CHI 00 [facility] Hyalgan 20 Hyalgan 20 2019- No 20mg C ommon mg mg 2-04 [facility] 00:00: - [facility]I 00 [facility] Hyalgan 20 Hyalgan 20 2019- No 20mg C ommon mg mg 2-04 [facility] 00:00: - CHI 00 [facility] Kenalog Kenalog 2019-11 No 40mg Common (Triamcinol (Triamcinol 2-04 S pirit one) one) 00:00: - CHI 00 [facility] Kenalog Kenalog 2019-11 No 40mg Common (Triamcinol (Triamcinol 2-04 S pirit one) one) 00:00: - CHI 00 [facility] Bupivicaine Bupivicaine 2019- No 2.5mg [facility] [place] 2-04 [facility] 00:00: - CHI 00 [facility] Bupivicaine Bupivicaine 2019- No 2.5mg [facility] [place] 2-04 [facility] 00:00: - CHI 00 [facility] Hyalgan 20 Hyalgan 20 2019- No 20mg C ommon mg mg 2-04 [facility] 00:00: - CHI 00 [facility] Hyalgan 20 Hyalgan 20 2019- No 20mg C ommon mg mg 2-04 [facility] 00:00: - CHI 00 [facility] Kenalog Kenalog 2019-11 No 40mg Common (Triamcinol (Triamcinol 2-04 S pirit one) one) 00:00: - CHI 00 [facility] Kenalog Kenalog 2019-11 No 40mg Common (Triamcinol (Triamcinol 2-04 S pirit one) one) 00:00: - CHI 00 [facility] Bupivicaine Bupivicaine 2019- No 2.5mg [facility] [place] 2-04 [facility] 00:00: - CHI 00 [facility] Bupivicaine Bupivicaine 2019- No 2.5mg [facility] [place] 2-04 [facility] 00:00: - CHI 00 [facility] Hyalgan 20 Hyalgan 20 2019- No 20mg C ommon mg mg 2-04 [facility] 00:00: - CHI 00 [facility] Hyalgan 20 Hyalgan 20 2019- No 20mg C ommon mg mg 2-04 [facility] 00:00: - CHI 00 [facility] Kenalog Kenalog 2019-11 No 40mg Common (Triamcinol (Triamcinol 2-04 S pirit one) one) 00:00: - CHI 00 [facility] Kenalog Kenalog 2019-11 No 40mg Common (Triamcinol (Triamcinol 2-04 S pirit one) one) 00:00: - CHI 00 [facility] Bupivicaine Bupivicaine 2019- No 2.5mg [facility] [place] 2-04 [facility] 00:00: - CHI 00 [facility] Bupivicaine Bupivicaine 2019- No 2.5mg [facility] [place] 2-04 [facility] 00:00: - CHI 00 [facility] Hyalgan 20 Hyalgan 20 2019- No 20mg C ommon mg mg 2-04 [facility] 00:00: - CHI 00 [facility] Hyalgan 20 Hyalgan 20 2019- No 20mg C ommon mg mg 2-04 [facility] 00:00: - CHI 00 [facility] Kenalog Kenalog 2019-11 No 40mg Common (Triamcinol (Triamcinol 2-04 S pirit one) one) 00:00: - [facility] 00 [facility] Kenalog Kenalog 2019- No 40mg Common (Triamcinol (Triamcinol 2-04 S pirit one) one) 00:00: - [facility] 00 [facility] Bupivicaine Bupivicaine 2019- No 2.5mg [place]04 [facility] 00:00: - [facility] 00 [facility] Bupivicaine Bupivicaine 2019- No 2.5mg Common [place] 2[place]04 Spirit 00:00: - [facility] 00 [facility] Hyalgan 20 Hyalgan 20 2019- No 20mg C ommon mg mg 2-04 Spirit 00:00: - [facility] 00 [facility] Hyalgan 20 Hyalgan 20 2019- No 20mg C ommon mg mg 2-04 Spirit 00:00: - [facility] 00 [facility] Kenalog Kenalog 2019- No 40mg Common (Triamcinol (Triamcinol 2-04 S pirit one) one) 00:00: - [facility] 00 [facility] Kenalog Kenalog 2019- No 40mg Common (Triamcinol (Triamcinol 2-04 S pirit one) one) 00:00: - [facility] 00 [facility] Bupivicaine Bupivicaine 2019- No 2.5mg Common [place] 2[place]04 Spirit 00:00: - [facility] 00 [facility] Bupivicaine Bupivicaine 2019- No 2.5mg Common [place] 2-04 Spirit 00:00: - [facility] 00 [facility] Hyalgan 20 Hyalgan 20 2019- No 20mg C ommon mg mg 2-04 Spirit 00:00: - [facility] 00 [facility] Hyalgan 20 Hyalgan 20 2019- No 20mg C ommon mg mg 2-04 Spirit 00:00: - [facility] 00 [facility] Kenalog Kenalog 2019- No 40mg Common (Triamcinol (Triamcinol 2-04 S pirit one) one) 00:00: - [facility] 00 [facility] Kenalog Kenalog 2020- No 40mg Common (Triamcinol (Triamcinol 2-04 S pirit one) one) 00:00: - [facility] 00 [facility] Bupivicaine Bupivicaine 2019- No 2.5mg Common [place] 2[place]04 Spirit 00:00: - [facility] 00 [facility] Bupivicaine Bupivicaine 2019- No 2.5mg Common [place] 2-04 Spirit 00:00: - [facility] 00 [facility] Hyalgan 20 Hyalgan 20 2019- No 20mg C ommon mg mg 2-04 Spirit 00:00: - [facility] 00 [facility] Hyalgan 20 Hyalgan 20 2019- No 20mg C ommon mg mg 2-04 Spirit 00:00: - [facility] 00 [facility] Kenalog Kenalog 2019- No 40mg Common (Triamcinol (Triamcinol 2-04 S pirit one) one) 00:00: - [facility] 00 [facility] Kenalog Kenalog 2019- No 40mg Common (Triamcinol (Triamcinol 2-04 S pirit one) one) 00:00: - [facility] 00 [facility] Bupivicaine Bupivicaine 2019- No 2.5mg Common [place] 2[place]04 Spirit 00:00: - [facility] 00 [facility] Bupivicaine Bupivicaine 2019- No 2.5mg Common [place] 2-04 Spirit 00:00: - [facility] 00 [facility] Hyalgan 20 Hyalgan 20 2019- No 20mg C ommon mg mg 2-04 Spirit 00:00: - [facility] 00 [facility] Hyalgan 20 Hyalgan 20 2019- No 20mg C ommon mg mg 2-04 Spirit 00:00: - [facility] 00 [facility] Kenalog Kenalog 2019- No 40mg Common (Triamcinol (Triamcinol 2-04 S pirit one) one) 00:00: - [facility] 00 [facility] Kenalog Kenalog 2020- No 40mg Common (Triamcinol (Triamcinol 2-04 S pirit one) one) 00:00: - [facility] 00 [facility] Bupivicaine Bupivicaine 2020- No 2.5mg Common [place] 2-04 Spirit 00:00: - [facility] 00 [facility] Bupivicaine Bupivicaine 2020- No 2.5mg Common [place] 2-04 Spirit 00:00: - [facility] 00 [facility] Hyalgan 20 Hyalgan 20 2019- No 20mg C ommon mg mg 2-04 Spirit 00:00: - [facility] 00 [facility] Hyalgan 20 Hyalgan 20 2019- No 20mg C ommon mg mg 2-04 Spirit 00:00: - [facility] 00 [facility] Kenalog Kenalog 2019-11 No 40mg Common (Triamcinol (Triamcinol 2-04 S pirit one) one) 00:00: - [facility] 00 [facility] Kenalog Kenalog 2019-11 No 40mg Common (Triamcinol (Triamcinol 2-04 S pirit one) one) 00:00: - [facility] 00 [facility] Bupivicaine Bupivicaine 2019-11 No 2.5mg Common [place] 2-04 Spirit 00:00: - [facility] 00 [facility] Bupivicaine Bupivicaine 2019-11 No 2.5mg Common [place] 2-04 Spirit 00:00: - [facility] 00 [facility] Hyalgan 20 Hyalgan 20 2019-11 No 20mg C ommon mg mg 2-04 Spirit 00:00: - [facility] 00 [facility] Hyalgan 20 Hyalgan 20 2019- No 20mg C ommon mg mg 2-04 Spirit 00:00: - [facility] 00 [facility] Kenalog Kenalog 2019-11 No 40mg Common (Triamcinol (Triamcinol 2-04 S pirit one) one) 00:00: - [facility] 00 [facility] Kenalog Kenalog 2019-11 No 40mg Common (Triamcinol (Triamcinol 2-04 S pirit one) one) 00:00: - [facility] 00 [facility] Bupivicaine Bupivicaine 2019- No 2.5mg Common [place] 2-04 Spirit 00:00: - [facility] 00 [facility] Bupivicaine Bupivicaine 2019- No 2.5mg Common [place] 2-04 Spirit 00:00: - [facility] 00 [facility] Hyalgan 20 Hyalgan 20 2019- No 20mg C ommon mg mg 2-04 Spirit 00:00: - [facility] 00 [facility] Hyalgan 20 Hyalgan 20 2020-1 No 20mg C ommon mg mg 2-04 Spirit 00:00: - [facility] 00 [facility] Kenalog Kenalog 2020-1 No 40mg Common (Triamcinol (Triamcinol 2-04 S pirit one) one) 00:00: - [facility] 00 [facility] Kenalog Kenalog 2020-1 No 40mg Common (Triamcinol (Triamcinol 2-04 S pirit one) one) 00:00: - [facility] 00 [facility] Bupivicaine Bupivicaine 2020-1 No 2.5mg Common [place] 2-04 Spirit 00:00: - [facility] 00 [facility] Bupivicaine Bupivicaine 2020-1 No 2.5mg Common [place] 2-04 Spirit 00:00: - [facility] 00 [facility] Bupivicaine Bupivicaine 2020-1 No 2.5mg Common [place] 2-04 Spirit 00:00: - [facility] 00 [facility] Hyalgan 20 Hyalgan 20 2020-1 No 20mg C ommon mg mg 2-04 Spirit 00:00: - [facility] 00 [facility] Hyalgan 20 Hyalgan 20 2020-1 No 20mg C ommon mg mg 2-04 Spirit 00:00: - [facility] 00 [facility] Kenalog Kenalog 2020-1 No 40mg Common (Triamcinol (Triamcinol 2-04 S pirit one) one) 00:00: - [facility] 00 [facility] Kenalog Kenalog 2020-1 No 40mg Common (Triamcinol (Triamcinol 2-04 S pirit one) one) 00:00: - [facility] 00 [facility] Diclofenac Diclofenac 2020-0 2020- No Na Van 2 gram Common Sodium Sodium 730 10-28 applicatio Spir it 00:00: 00:00 n to - CHI 00 :00 affected [facility] Gabapentin Gabapentin 2020-0 Yes Na Van 2 tablet Common 03-03 Spirit 00:00: - [facility] 00 [facility] Magnesium Magnesium 2020-0 2020- No Na Van 1 capsule Common Oxide -Mg Oxide -Mg 03-03 07-08 as needed Spirit Supplement Supplement 00:00: 00:00 - CHI 00 :00 [facility] Sertraline Sertraline Yes Na Van 1 tablet Common HCl HCl [facility] Tamsulosin Tamsulosin Yes Na Van 1 capsule Common HCl HCl [facility] Meloxicam Meloxicam Yes Na Van 1 tablet Common [facility] Vitamin C Vitamin C No 1{table QD Vitamin C 100 MG 100 MG t} 100 MG Gabapentin Gabapentin No 2{table TID Gabapentin 300 MG 300 MG t} 300 MG Pantoprazol Pantoprazol No 1{table QD Pantoprazo e Sodium 40 e Sodium 40 t} le Sodium MG MG 40 MG Meloxicam Meloxicam No 1{table QD Meloxicam 7.5 MG 7.5 MG t} 7.5 MG Sertraline Sertraline No 1{table QD Sertraline HCl 50 MG HCl 50 MG t} HCl 50 MG HYDROcodone HYDROcodone No 1{table QID HYDROcodon -Acetaminop -Acetaminop t_as_ne e-Acetamin hen 5-325 hen 5-325 eded} ophen MG MG 5-325 MG Sertraline Sertraline No Sertraline HCl 50 MG HCl 50 MG HCl 50 MG Vitamin C Vitamin C No 1{table QD Vitamin C 100 MG 100 MG t} 100 MG Gabapentin Gabapentin No 2{table TID Gabapentin 300 MG 300 MG t} 300 MG Pantoprazol Pantoprazol No 1{table QD Pantoprazo e Sodium 40 e Sodium 40 t} le Sodium MG MG 40 MG Meloxicam Meloxicam No 1{table QD Meloxicam 7.5 MG 7.5 MG t} 7.5 MG Sertraline Sertraline No 1{table QD Sertraline HCl 50 MG HCl 50 MG t} HCl 50 MG HYDROcodone HYDROcodone No 1{table QID HYDROcodon -Acetaminop -Acetaminop t_as_ne e-Acetamin hen 5-325 hen 5-325 eded} ophen MG MG 5-325 MG Sertraline Sertraline No Sertraline HCl 50 MG HCl 50 MG HCl 50 MG Vitamin C Vitamin C No 1{table QD Vitamin C 100 MG 100 MG t} 100 MG Gabapentin Gabapentin No 2{table TID Gabapentin 300 MG 300 MG t} 300 MG Pantoprazol Pantoprazol No 1{table QD Pantoprazo e Sodium 40 e Sodium 40 t} le Sodium MG MG 40 MG Meloxicam Meloxicam No 1{table QD Meloxicam 7.5 MG 7.5 MG t} 7.5 MG Sertraline Sertraline No 1{table QD Sertraline HCl 50 MG HCl 50 MG t} HCl 50 MG HYDROcodone HYDROcodone No 1{table QID HYDROcodon -Acetaminop -Acetaminop t_as_ne e-Acetamin hen 5-325 hen 5-325 eded} ophen MG MG 5-325 MG Sertraline Sertraline No Sertraline HCl 50 MG HCl 50 MG HCl 50 MG Vitamin C Vitamin C No 1{table QD Vitamin C 100 MG 100 MG t} 100 MG Gabapentin Gabapentin No 2{table TID Gabapentin 300 MG 300 MG t} 300 MG Pantoprazol Pantoprazol No 1{table QD Pantoprazo e Sodium 40 e Sodium 40 t} le Sodium MG MG 40 MG Meloxicam Meloxicam No 1{table QD Meloxicam 7.5 MG 7.5 MG t} 7.5 MG Sertraline Sertraline No 1{table QD Sertraline HCl 50 MG HCl 50 MG t} HCl 50 MG HYDROcodone HYDROcodone No 1{table QID HYDROcodon -Acetaminop -Acetaminop t_as_ne e-Acetamin hen 5-325 hen 5-325 eded} ophen MG MG 5-325 MG Sertraline Sertraline No Sertraline HCl 50 MG HCl 50 MG HCl 50 MG Vitamin C Vitamin C No 1{table QD Vitamin C 100 MG 100 MG t} 100 MG Gabapentin Gabapentin No 2{table TID Gabapentin 300 MG 300 MG t} 300 MG Sertraline Sertraline No 1{table QD Sertraline HCl 50 MG HCl 50 MG t} HCl 50 MG Vitamin C Vitamin C No 1{table QD Vitamin C 100 MG 100 MG t} 100 MG Sertraline Sertraline No Sertraline HCl 50 MG HCl 50 MG HCl 50 MG Meloxicam Meloxicam No 1{table QD Meloxicam 7.5 MG 7.5 MG t} 7.5 MG Pantoprazol Pantoprazol No 1{table QD Pantoprazo e Sodium 40 e Sodium 40 t} le Sodium MG MG 40 MG HYDROcodone HYDROcodone No 1{table QID HYDROcodon -Acetaminop -Acetaminop t_as_ne e-Acetamin hen 5-325 hen 5-325 eded} ophen MG MG 5-325 MG Gabapentin Gabapentin No 2{table TID Gabapentin 300 MG 300 MG t} 300 MG Sertraline Sertraline No 1{table QD Sertraline HCl 50 MG HCl 50 MG t} HCl 50 MG Vitamin C Vitamin C No 1{table QD Vitamin C 100 MG 100 MG t} 100 MG Sertraline Sertraline No Sertraline HCl 50 MG HCl 50 MG HCl 50 MG Meloxicam Meloxicam No 1{table QD Meloxicam 7.5 MG 7.5 MG t} 7.5 MG Pantoprazol Pantoprazol No 1{table QD Pantoprazo e Sodium 40 e Sodium 40 t} le Sodium MG MG 40 MG HYDROcodone HYDROcodone No 1{table QID HYDROcodon -Acetaminop -Acetaminop t_as_ne e-Acetamin hen 5-325 hen 5-325 eded} ophen MG MG 5-325 MG Gabapentin Gabapentin No 2{table TID Gabapentin 300 MG 300 MG t} 300 MG Sertraline Sertraline No 1{table QD Sertraline HCl 50 MG HCl 50 MG t} HCl 50 MG Vitamin C Vitamin C No 1{table QD Vitamin C 100 MG 100 MG t} 100 MG Sertraline Sertraline No Sertraline HCl 50 MG HCl 50 MG HCl 50 MG Meloxicam Meloxicam No 1{table QD Meloxicam 7.5 MG 7.5 MG t} 7.5 MG Pantoprazol Pantoprazol No 1{table QD Pantoprazo e Sodium 40 e Sodium 40 t} le Sodium MG MG 40 MG HYDROcodone HYDROcodone No 1{table QID HYDROcodon -Acetaminop -Acetaminop t_as_ne e-Acetamin hen 5-325 hen 5-325 eded} ophen MG MG 5-325 MG Gabapentin Gabapentin No 2{table TID Gabapentin 300 MG 300 MG t} 300 MG Sertraline Sertraline No 1{table QD Sertraline HCl 50 MG HCl 50 MG t} HCl 50 MG Vitamin C Vitamin C No 1{table QD Vitamin C 100 MG 100 MG t} 100 MG Sertraline Sertraline No Sertraline HCl 50 MG HCl 50 MG HCl 50 MG Meloxicam Meloxicam No 1{table QD Meloxicam 7.5 MG 7.5 MG t} 7.5 MG Pantoprazol Pantoprazol No 1{table QD Pantoprazo e Sodium 40 e Sodium 40 t} le Sodium MG MG 40 MG HYDROcodone HYDROcodone No 1{table QID HYDROcodon -Acetaminop -Acetaminop t_as_ne e-Acetamin hen 5-325 hen 5-325 eded} ophen MG MG 5-325 MG Gabapentin Gabapentin No 2{table TID Gabapentin 300 MG 300 MG t} 300 MG Sertraline Sertraline No 1{table QD Sertraline HCl 50 MG HCl 50 MG t} HCl 50 MG Vitamin C Vitamin C No 1{table QD Vitamin C 100 MG 100 MG t} 100 MG Sertraline Sertraline No Sertraline HCl 50 MG HCl 50 MG HCl 50 MG Meloxicam Meloxicam No 1{table QD Meloxicam 7.5 MG 7.5 MG t} 7.5 MG Pantoprazol Pantoprazol No 1{table QD Pantoprazo e Sodium 40 e Sodium 40 t} le Sodium MG MG 40 MG HYDROcodone HYDROcodone No 1{table QID HYDROcodon -Acetaminop -Acetaminop t_as_ne e-Acetamin hen 5-325 hen 5-325 eded} ophen MG MG 5-325 MG Pantoprazol Pantoprazol No 1{table QD Pantoprazo e Sodium 40 e Sodium 40 t} le Sodium MG MG 40 MG Sertraline Sertraline No 1{table QD Sertraline HCl 50 MG HCl 50 MG t} HCl 50 MG HYDROcodone HYDROcodone No 1{table QID HYDROcodon -Acetaminop -Acetaminop t_as_ne e-Acetamin hen 5-325 hen 5-325 eded} ophen MG MG 5-325 MG Vitamin C Vitamin C No 1{table QD Vitamin C 100 MG 100 MG t} 100 MG Sertraline Sertraline No Sertraline HCl 50 MG HCl 50 MG HCl 50 MG Gabapentin Gabapentin No 2{table TID Gabapentin 300 MG 300 MG t} 300 MG Pantoprazol Pantoprazol No 1{table QD Pantoprazo e Sodium 40 e Sodium 40 t} le Sodium MG MG 40 MG Sertraline Sertraline No 1{table QD Sertraline HCl 50 MG HCl 50 MG t} HCl 50 MG HYDROcodone HYDROcodone No 1{table QID HYDROcodon -Acetaminop -Acetaminop t_as_ne e-Acetamin hen 5-325 hen 5-325 eded} ophen MG MG 5-325 MG Vitamin C Vitamin C No 1{table QD Vitamin C 100 MG 100 MG t} 100 MG Sertraline Sertraline No Sertraline HCl 50 MG HCl 50 MG HCl 50 MG Gabapentin Gabapentin No 2{table TID Gabapentin 300 MG 300 MG t} 300 MG Sertraline Sertraline No 1{table QD Sertraline HCl 50 MG HCl 50 MG t} HCl 50 MG HYDROcodone HYDROcodone No 1{table QID HYDROcodon -Acetaminop -Acetaminop t_as_ne e-Acetamin hen 5-325 hen 5-325 eded} ophen MG MG 5-325 MG Vitamin C Vitamin C No 1{table QD Vitamin C 100 MG 100 MG t} 100 MG Gabapentin Gabapentin No 2{table TID Gabapentin 300 MG 300 MG t} 300 MG Sertraline Sertraline No Sertraline HCl 50 MG HCl 50 MG HCl 50 MG Pantoprazol Pantoprazol No 1{table QD Pantoprazo e Sodium 40 e Sodium 40 t} le Sodium MG MG 40 MG Vitamin C Vitamin C No 1{table QD Vitamin C 100 MG 100 MG t} 100 MG HYDROcodone HYDROcodone No 1{table QID HYDROcodon -Acetaminop -Acetaminop t_as_ne e-Acetamin hen 5-325 hen 5-325 eded} ophen MG MG 5-325 MG Sertraline Sertraline No 1{table QD Sertraline HCl 50 MG HCl 50 MG t} HCl 50 MG Pantoprazol Pantoprazol No 1{table QD Pantoprazo e Sodium 40 e Sodium 40 t} le Sodium MG MG 40 MG Sertraline Sertraline No Sertraline HCl 50 MG HCl 50 MG HCl 50 MG Gabapentin Gabapentin No 2{table TID Gabapentin 300 MG 300 MG t} 300 MG Sertraline Sertraline No 1{table QD Sertraline [...] t} le Sodium MG MG 40 MG Sertraline Sertraline No 1{table QD Sertraline HCl 50 MG HCl 50 MG t} HCl 50 MG Vitamin C Vitamin C [...] MG HCl 0.4 MG HCl 0.4 MG Tamsulosin Tamsulosin No Tamsulosin HCl 0.4 MG HCl 0.4 MG HCl 0.4 MG Meloxicam Meloxicam No 1{table QD Meloxicam 7.5 MG 7.5 MG t} 7.5 MG HYDROcodone HYDROcodone No 1{table QID HYDROcodon -Acetaminop -Acetaminop t_as_ne e-Acetamin hen 5-325 hen 5-325 eded} ophen MG MG 5-325 MG Gabapentin Gabapentin No 2{table TID Gabapentin 300 MG 300 MG t} 300 MG Pantoprazol Pantoprazol No 1{table QD Pantoprazo [...] 5-325 eded} ophen MG MG 5-325 MG Sertraline Sertraline No Sertraline HCl 50 MG HCl 50 MG HCl 50 MG Pantoprazol Pantoprazol No 1{table QD Pantoprazo e Sodium 40 e Sodium 40 t} le Sodium MG MG 40 MG Pantoprazol Pantoprazol No 1{table QD Pantoprazo e Sodium 40 e Sodium 40 t} le Sodium MG MG 40 MG Vitamin C Vitamin C No 1{table QD Vitamin C 100 MG 100 MG t} 100 MG Magnesium Magnesium No 1{capsu QD Magnesium Oxide -Mg Oxide -Mg le_as_n Oxide -Mg Supplement Supplement eeded} Supplement 400 MG 400 MG 400 MG HYDROcodone HYDROcodone No 1{table QID HYDROcodon -Acetaminop -Acetaminop t_as_ne e-Acetamin hen 5-325 hen 5-325 eded} ophen MG MG 5-325 MG Gabapentin Gabapentin No 2{table TID Gabapentin [...] 100 MG 100 MG t} 100 MG Pantoprazol Pantoprazol No 1{table QD Pantoprazo e Sodium 40 e Sodium 40 t} le Sodium MG MG 40 MG Meloxicam Meloxicam No 1{table QD Meloxicam 7.5 MG 7.5 MG t} 7.5 MG HYDROcodone HYDROcodone No 1{table QID HYDROcodon -Acetaminop -Acetaminop t_as_ne e-Acetamin hen 5-325 hen 5-325 eded} ophen MG MG 5-325 MG Sertraline Sertraline No 1{table QD Sertraline HCl 50 MG HCl 50 MG t} HCl 50 MG Gabapentin Gabapentin No 2{table TID Gabapentin 300 MG 300 MG t} 300 MG Vitamin C Vitamin C No 1{table QD Vitamin C 100 MG 100 MG t} 100 MG Magnesium Magnesium No 1{capsu QD Magnesium Oxide -Mg Oxide -Mg le_as_n Oxide -Mg Supplement Supplement eeded} Supplement 400 MG 400 MG 400 MG Magnesium Magnesium No 1{capsu QD Magnesium Oxide -Mg Oxide -Mg le_as_n Oxide -Mg Supplement Supplement eeded} Supplement 400 MG 400 MG 400 MG Sertraline Sertraline No Sertraline HCl 50 MG HCl 50 MG HCl 50 MG Tamsulosin Tamsulosin No Tamsulosin HCl 0.4 MG HCl 0.4 MG HCl 0.4 MG Pantoprazol Pantoprazol No 1{table QD Pantoprazo [...] 5-325 eded} ophen MG MG 5-325 MG Magnesium Magnesium No 1{capsu QD Magnesium Oxide -Mg Oxide -Mg le_as_n Oxide -Mg Supplement Supplement eeded} Supplement 400 MG 400 MG 400 MG Vitamin C Vitamin C No 1{table QD Vitamin C 100 MG 100 MG t} 100 MG Gabapentin Gabapentin No 2{table TID Gabapentin 300 MG 300 MG t} 300 MG Tamsulosin Tamsulosin No 1{capsu BID Tamsulosin HCl 0.4 MG HCl 0.4 MG le} HCl 0.4 MG Sertraline Sertraline No 1{table QD Sertraline HCl 50 MG HCl 50 MG t} HCl 50 MG Sertraline Sertraline No Sertraline HCl 50 MG HCl 50 MG HCl 50 MG Meloxicam Meloxicam No 1{table QD Meloxicam 7.5 MG 7.5 MG t} 7.5 MG Pantoprazol Pantoprazol No Pantoprazo e Sodium e Sodium le Sodium Magnesium Magnesium No 1{capsu QD Magnesium Oxide -Mg Oxide -Mg le_as_n Oxide -Mg Supplement Supplement eeded} Supplement 400 MG 400 MG 400 MG Vitamin C Vitamin C No 1{table QD Vitamin C 100 MG 100 MG t} 100 MG Gabapentin Gabapentin No 2{table TID Gabapentin 300 MG 300 MG t} 300 MG Tamsulosin Tamsulosin No 1{capsu BID Tamsulosin HCl 0.4 MG HCl 0.4 MG le} HCl 0.4 MG Sertraline Sertraline No 1{table QD Sertraline HCl 50 MG HCl 50 MG t} HCl 50 MG Sertraline Sertraline No Sertraline HCl 50 MG HCl 50 MG HCl 50 MG Meloxicam Meloxicam No 1{table QD Meloxicam 7.5 MG 7.5 MG t} 7.5 MG Pantoprazol Pantoprazol No Pantoprazo e Sodium e Sodium le Sodium Magnesium Magnesium No 1{capsu QD Magnesium Oxide -Mg Oxide -Mg le_as_n Oxide -Mg Supplement Supplement eeded} Supplement 400 MG 400 MG 400 MG Vitamin C Vitamin C No 1{table QD Vitamin C 100 MG 100 MG t} 100 MG Gabapentin Gabapentin No 2{table TID Gabapentin 300 MG 300 MG t} 300 MG Tamsulosin Tamsulosin No 1{capsu BID Tamsulosin HCl 0.4 MG HCl 0.4 MG le} HCl 0.4 MG Sertraline Sertraline No 1{table QD Sertraline HCl 50 MG HCl 50 MG t} HCl 50 MG Sertraline Sertraline No Sertraline HCl 50 MG HCl 50 MG HCl 50 MG Meloxicam Meloxicam No 1{table QD Meloxicam 7.5 MG 7.5 MG t} 7.5 MG Pantoprazol Pantoprazol No Pantoprazo e Sodium e Sodium le Sodium Magnesium Magnesium No 1{capsu QD Magnesium Oxide -Mg Oxide -Mg le_as_n Oxide -Mg Supplement Supplement eeded} Supplement 400 MG 400 MG 400 MG Vitamin C Vitamin C No 1{table QD Vitamin C 100 MG 100 MG t} 100 MG Gabapentin Gabapentin No 2{table TID Gabapentin 300 MG 300 MG t} 300 MG Tamsulosin Tamsulosin No 1{capsu BID Tamsulosin HCl 0.4 MG HCl 0.4 MG le} HCl 0.4 MG Sertraline Sertraline No 1{table QD Sertraline HCl 50 MG HCl 50 MG t} HCl 50 MG Sertraline Sertraline No Sertraline HCl 50 MG HCl 50 MG HCl 50 MG Meloxicam Meloxicam No 1{table QD Meloxicam 7.5 MG 7.5 MG t} 7.5 MG Pantoprazol Pantoprazol No Pantoprazo e Sodium e Sodium le Sodium Magnesium Magnesium No 1{capsu QD Magnesium Oxide -Mg Oxide -Mg le_as_n Oxide -Mg Supplement Supplement eeded} Supplement 400 MG 400 MG 400 MG Vitamin C Vitamin C No 1{table QD Vitamin C 100 MG 100 MG t} 100 MG Gabapentin Gabapentin No 2{table TID Gabapentin 300 MG 300 MG t} 300 MG Tamsulosin Tamsulosin No 1{capsu BID Tamsulosin HCl 0.4 MG HCl 0.4 MG le} HCl 0.4 MG Sertraline Sertraline No 1{table QD Sertraline HCl 50 MG HCl 50 MG t} HCl 50 MG Sertraline Sertraline No Sertraline HCl 50 MG HCl 50 MG HCl 50 MG Meloxicam Meloxicam No 1{table QD Meloxicam 7.5 MG 7.5 MG t} 7.5 MG Pantoprazol Pantoprazol No Pantoprazo e Sodium e Sodium le Sodium Magnesium Magnesium No 1{capsu QD Magnesium Oxide -Mg Oxide -Mg le_as_n Oxide -Mg Supplement Supplement eeded} Supplement 400 MG 400 MG 400 MG Vitamin C Vitamin C No 1{table QD Vitamin C 100 MG 100 MG t} 100 MG Gabapentin Gabapentin No 2{table TID Gabapentin 300 MG 300 MG t} 300 MG Tamsulosin Tamsulosin No 1{capsu BID Tamsulosin HCl 0.4 MG HCl 0.4 MG le} HCl 0.4 MG Sertraline Sertraline No 1{table QD Sertraline HCl 50 MG HCl 50 MG t} HCl 50 MG Sertraline Sertraline No Sertraline HCl 50 MG HCl 50 MG HCl 50 MG Meloxicam Meloxicam No 1{table QD Meloxicam 7.5 MG 7.5 MG t} 7.5 MG Pantoprazol Pantoprazol No Pantoprazo e Sodium e Sodium le Sodium Sertraline Sertraline No 1{table QD Sertraline HCl 50 MG HCl 50 MG t} HCl 50 MG Gabapentin Gabapentin No 2{table TID Gabapentin 300 MG 300 MG t} 300 MG Magnesium Magnesium No 1{capsu QD Magnesium Oxide -Mg Oxide -Mg le_as_n Oxide -Mg Supplement Supplement eeded} Supplement 400 MG 400 MG 400 MG Tamsulosin Tamsulosin No 1{capsu BID Tamsulosin HCl 0.4 MG HCl 0.4 MG le} HCl 0.4 MG Vitamin C Vitamin C No 1{table QD Vitamin C 100 MG 100 MG t} 100 MG Pantoprazol Pantoprazol No Pantoprazo e Sodium e Sodium le Sodium Meloxicam Meloxicam No 1{table QD Meloxicam 7.5 MG 7.5 MG t} 7.5 MG Sertraline Sertraline No Sertraline HCl 50 MG HCl 50 MG HCl 50 MG Magnesium Magnesium No 1{capsu QD Oxide -Mg Oxide -Mg le_as_n Supplement Supplement eeded} 400 MG 400 MG Vitamin C Vitamin C No 1{table QD 100 MG 100 MG t} Sertraline Sertraline No 1{table QD HCl 50 MG HCl 50 MG t} Pantoprazol Pantoprazol No e Sodium e Sodium Sertraline Sertraline No HCl 50 MG HCl 50 MG Meloxicam Meloxicam No 1{table QD 7.5 MG 7.5 MG t} Tamsulosin Tamsulosin No 1{capsu BID HCl 0.4 MG HCl 0.4 MG le} Gabapentin Gabapentin No 2{table TID 300 MG 300 MG t} Magnesium Magnesium No 1{capsu QD Magnesium Oxide -Mg Oxide -Mg le_as_n Oxide -Mg Supplement Supplement eeded} Supplement 400 MG 400 MG 400 MG Vitamin C Vitamin C No 1{table QD Vitamin C 100 MG 100 MG t} 100 MG Sertraline Sertraline No 1{table QD Sertraline HCl 50 MG HCl 50 MG t} HCl 50 MG Pantoprazol Pantoprazol No Pantoprazo e Sodium e Sodium le Sodium Sertraline Sertraline No Sertraline HCl 50 MG HCl 50 MG HCl 50 MG Meloxicam Meloxicam No 1{table QD Meloxicam 7.5 MG 7.5 MG t} 7.5 MG Tamsulosin Tamsulosin No 1{capsu BID Tamsulosin HCl 0.4 MG HCl 0.4 MG le} HCl 0.4 MG Gabapentin Gabapentin No 2{table TID Gabapentin 300 MG 300 MG t} 300 MG Magnesium Magnesium No 1{capsu QD Magnesium Oxide -Mg Oxide -Mg le_as_n Oxide -Mg Supplement Supplement eeded} Supplement 400 MG 400 MG 400 MG Vitamin C Vitamin C No 1{table QD Vitamin C 100 MG 100 MG t} 100 MG Gabapentin Gabapentin No 2{table TID Gabapentin 300 MG 300 MG t} 300 MG Sertraline Sertraline No 1{table QD Sertraline HCl 50 MG HCl 50 MG t} HCl 50 MG Pantoprazol Pantoprazol No Pantoprazo e Sodium e Sodium le Sodium Sertraline Sertraline No Sertraline HCl 50 MG HCl 50 MG HCl 50 MG Meloxicam Meloxicam No 1{table QD Meloxicam 7.5 MG 7.5 MG t} 7.5 MG Tamsulosin Tamsulosin No Tamsulosin HCl 0.4 MG HCl 0.4 MG HCl 0.4 MG Pantoprazol Pantoprazol No e Sodium e Sodium Vitamin C Vitamin C No 1{table QD 100 MG 100 MG t} Sertraline Sertraline No 1{table QD HCl 50 MG HCl 50 MG t} Tamsulosin Tamsulosin No HCl 0.4 MG HCl 0.4 MG Magnesium Magnesium No 1{capsu QD Oxide -Mg Oxide -Mg le_as_n Supplement Supplement eeded} 400 MG 400 MG Meloxicam Meloxicam No 1{table QD 7.5 MG 7.5 MG t} Sertraline Sertraline No HCl 50 MG HCl 50 MG Gabapentin Gabapentin No 2{table TID 300 MG 300 MG t} Vitamin C Vitamin C No 1{table QD Vitamin C 100 MG 100 MG t} 100 MG Sertraline Sertraline No 1{table QD Sertraline HCl 50 MG HCl 50 MG t} HCl 50 MG Meloxicam Meloxicam No 1{table QD Meloxicam 7.5 MG 7.5 MG t} 7.5 MG Gabapentin Gabapentin No 2{table TID Gabapentin 300 MG 300 MG t} 300 MG HYDROcodone HYDROcodone No 1{table QID HYDROcodon -Acetaminop -Acetaminop t_as_ne e-Acetamin hen 5-325 hen 5-325 eded} ophen MG MG 5-325 MG Pantoprazol Pantoprazol No Pantoprazo e Sodium e Sodium le Sodium Magnesium Magnesium No 1{capsu QD Magnesium Oxide -Mg Oxide -Mg le_as_n Oxide -Mg Supplement Supplement eeded} Supplement 400 MG 400 MG 400 MG Tamsulosin Tamsulosin No Tamsulosin HCl 0.4 MG HCl 0.4 MG HCl 0.4 MG Sertraline Sertraline No Sertraline HCl 50 MG HCl 50 MG HCl 50 MG Vitamin C Vitamin C No 1{table QD 100 MG 100 MG t} Magnesium Magnesium No 1{capsu QD Oxide -Mg Oxide -Mg le_as_n Supplement Supplement eeded} 400 MG 400 MG Meloxicam Meloxicam No 1{table QD 7.5 MG 7.5 MG t} Sertraline Sertraline No 1{table QD HCl 50 MG HCl 50 MG t} Pantoprazol Pantoprazol No e Sodium e Sodium Sertraline Sertraline No HCl 50 MG HCl 50 MG HYDROcodone HYDROcodone No 1{table QID -Acetaminop -Acetaminop t_as_ne hen 5-325 hen 5-325 eded} MG MG Gabapentin Gabapentin No 2{table TID 300 MG 300 MG t} Tamsulosin Tamsulosin No HCl 0.4 MG HCl 0.4 MG Vitamin C Vitamin C No 1{table QD 100 MG 100 MG t} Magnesium Magnesium No 1{capsu QD Oxide -Mg Oxide -Mg le_as_n Supplement Supplement eeded} 400 MG 400 MG Meloxicam Meloxicam No 1{table QD 7.5 MG 7.5 MG t} Sertraline Sertraline No 1{table QD HCl 50 MG HCl 50 MG t} Pantoprazol Pantoprazol No e Sodium e Sodium Sertraline Sertraline No HCl 50 MG HCl 50 MG HYDROcodone HYDROcodone No 1{table QID -Acetaminop -Acetaminop t_as_ne hen 5-325 hen 5-325 eded} MG MG Gabapentin Gabapentin No 2{table TID 300 MG 300 MG t} Tamsulosin Tamsulosin No HCl 0.4 MG HCl 0.4 MG Meloxicam Meloxicam No 1{table QD Meloxicam 7.5 MG 7.5 MG t} 7.5 MG Sertraline Sertraline No 1{table QD Sertraline HCl 50 MG HCl 50 MG t} HCl 50 MG Gabapentin Gabapentin No 2{table TID Gabapentin 300 MG 300 MG t} 300 MG Vitamin C Vitamin C No 1{table QD Vitamin C 100 MG 100 MG t} 100 MG Tamsulosin Tamsulosin No Tamsulosin HCl 0.4 MG HCl 0.4 MG HCl 0.4 MG HYDROcodone HYDROcodone No 1{table QID HYDROcodon -Acetaminop -Acetaminop t_as_ne e-Acetamin hen 5-325 hen 5-325 eded} ophen MG MG 5-325 MG Sertraline Sertraline No Sertraline HCl 50 MG HCl 50 MG HCl 50 MG Pantoprazol Pantoprazol No Pantoprazo e Sodium e Sodium le Sodium Magnesium Magnesium No 1{capsu QD Magnesium Oxide -Mg Oxide -Mg le_as_n Oxide -Mg Supplement Supplement eeded} Supplement 400 MG 400 MG 400 MG Meloxicam Meloxicam No 1{table QD Meloxicam 7.5 MG 7.5 MG t} 7.5 MG Sertraline Sertraline No 1{table QD Sertraline HCl 50 MG HCl 50 MG t} HCl 50 MG Gabapentin Gabapentin No 2{table TID Gabapentin 300 MG 300 MG t} 300 MG Vitamin C Vitamin C No 1{table QD Vitamin C 100 MG 100 MG t} 100 MG Tamsulosin Tamsulosin No Tamsulosin HCl 0.4 MG HCl 0.4 MG HCl 0.4 MG HYDROcodone HYDROcodone No 1{table QID HYDROcodon -Acetaminop -Acetaminop t_as_ne e-Acetamin hen 5-325 hen 5-325 eded} ophen MG MG 5-325 MG Sertraline Sertraline No Sertraline HCl 50 MG HCl 50 MG HCl 50 MG Pantoprazol Pantoprazol No Pantoprazo e Sodium e Sodium le Sodium Magnesium Magnesium No 1{capsu QD Magnesium Oxide -Mg Oxide -Mg le_as_n Oxide -Mg Supplement Supplement eeded} Supplement 400 MG 400 MG 400 MG Meloxicam Meloxicam No 1{table QD Meloxicam 7.5 MG 7.5 MG t} 7.5 MG Sertraline Sertraline No 1{table QD Sertraline HCl 50 MG HCl 50 MG t} HCl 50 MG Gabapentin Gabapentin No 2{table TID Gabapentin 300 MG 300 MG t} 300 MG Vitamin C Vitamin C No 1{table QD Vitamin C 100 MG 100 MG t} 100 MG Tamsulosin Tamsulosin No Tamsulosin HCl 0.4 MG HCl 0.4 MG HCl 0.4 MG HYDROcodone HYDROcodone No 1{table QID HYDROcodon -Acetaminop -Acetaminop t_as_ne e-Acetamin hen 5-325 hen 5-325 eded} ophen MG MG 5-325 MG Sertraline Sertraline No Sertraline HCl 50 MG HCl 50 MG HCl 50 MG Pantoprazol Pantoprazol No Pantoprazo e Sodium e Sodium le Sodium Magnesium Magnesium No 1{capsu QD Magnesium Oxide -Mg Oxide -Mg le_as_n Oxide -Mg Supplement Supplement eeded} Supplement 400 MG 400 MG 400 MG Meloxicam Meloxicam No 1{table QD Meloxicam 7.5 MG 7.5 MG t} 7.5 MG Sertraline Sertraline No 1{table QD Sertraline HCl 50 MG HCl 50 MG t} HCl 50 MG Gabapentin Gabapentin No 2{table TID Gabapentin 300 MG 300 MG t} 300 MG Vitamin C Vitamin C No 1{table QD Vitamin C 100 MG 100 MG t} 100 MG Tamsulosin Tamsulosin No Tamsulosin HCl 0.4 MG HCl 0.4 MG HCl 0.4 MG HYDROcodone HYDROcodone No 1{table QID HYDROcodon -Acetaminop -Acetaminop t_as_ne e-Acetamin hen 5-325 hen 5-325 eded} ophen MG MG 5-325 MG Sertraline Sertraline No Sertraline HCl 50 MG HCl 50 MG HCl 50 MG Pantoprazol Pantoprazol No Pantoprazo e Sodium e Sodium le Sodium Magnesium Magnesium No 1{capsu QD Magnesium Oxide -Mg Oxide -Mg le_as_n Oxide -Mg Supplement Supplement eeded} Supplement 400 MG 400 MG 400 MG Meloxicam Meloxicam No 1{table QD Meloxicam 7.5 MG 7.5 MG t} 7.5 MG Sertraline Sertraline No 1{table QD Sertraline HCl 50 MG HCl 50 MG t} HCl 50 MG Gabapentin Gabapentin No 2{table TID Gabapentin 300 MG 300 MG t} 300 MG Vitamin C Vitamin C No 1{table QD Vitamin C 100 MG 100 MG t} 100 MG Tamsulosin Tamsulosin No Tamsulosin HCl 0.4 MG HCl 0.4 MG HCl 0.4 MG HYDROcodone HYDROcodone No 1{table QID HYDROcodon -Acetaminop -Acetaminop t_as_ne e-Acetamin hen 5-325 hen 5-325 eded} ophen MG MG 5-325 MG Sertraline Sertraline No Sertraline HCl 50 MG HCl 50 MG HCl 50 MG Pantoprazol Pantoprazol No Pantoprazo e Sodium e Sodium le Sodium Magnesium Magnesium No 1{capsu QD Magnesium Oxide -Mg Oxide -Mg le_as_n Oxide -Mg Supplement Supplement eeded} Supplement 400 MG 400 MG 400 MG Meloxicam Meloxicam No 1{table QD Meloxicam 7.5 MG 7.5 MG t} 7.5 MG Sertraline Sertraline No 1{table QD Sertraline HCl 50 MG HCl 50 MG t} HCl 50 MG Gabapentin Gabapentin No 2{table TID Gabapentin 300 MG 300 MG t} 300 MG Vitamin C Vitamin C No 1{table QD Vitamin C 100 MG 100 MG t} 100 MG Tamsulosin Tamsulosin No Tamsulosin HCl 0.4 MG HCl 0.4 MG HCl 0.4 MG HYDROcodone HYDROcodone No 1{table QID HYDROcodon -Acetaminop -Acetaminop t_as_ne e-Acetamin hen 5-325 hen 5-325 eded} ophen MG MG 5-325 MG Sertraline Sertraline No Sertraline HCl 50 MG HCl 50 MG HCl 50 MG Pantoprazol Pantoprazol No Pantoprazo e Sodium e Sodium le Sodium Magnesium Magnesium No 1{capsu QD Magnesium Oxide -Mg Oxide -Mg le_as_n Oxide -Mg Supplement Supplement eeded} Supplement 400 MG 400 MG 400 MG Meloxicam Meloxicam No 1{table QD Meloxicam 7.5 MG 7.5 MG t} 7.5 MG Sertraline Sertraline No 1{table QD Sertraline HCl 50 MG HCl 50 MG t} HCl 50 MG Gabapentin Gabapentin No 2{table TID Gabapentin 300 MG 300 MG t} 300 MG Vitamin C Vitamin C No 1{table QD Vitamin C 100 MG 100 MG t} 100 MG Tamsulosin Tamsulosin No Tamsulosin HCl 0.4 MG HCl 0.4 MG HCl 0.4 MG HYDROcodone HYDROcodone No 1{table QID HYDROcodon -Acetaminop -Acetaminop t_as_ne e-Acetamin hen 5-325 hen 5-325 eded} ophen MG MG 5-325 MG Sertraline Sertraline No Sertraline HCl 50 MG HCl 50 MG HCl 50 MG Pantoprazol Pantoprazol No Pantoprazo e Sodium e Sodium le Sodium Magnesium Magnesium No 1{capsu QD Magnesium Oxide -Mg Oxide -Mg le_as_n Oxide -Mg Supplement Supplement eeded} Supplement 400 MG 400 MG 400 MG Meloxicam Meloxicam No 1{table QD Meloxicam 7.5 MG 7.5 MG t} 7.5 MG Sertraline Sertraline No 1{table QD Sertraline HCl 50 MG HCl 50 MG t} HCl 50 MG Gabapentin Gabapentin No 2{table TID Gabapentin 300 MG 300 MG t} 300 MG Vitamin C Vitamin C No 1{table QD Vitamin C 100 MG 100 MG t} 100 MG Tamsulosin Tamsulosin No Tamsulosin HCl 0.4 MG HCl 0.4 MG HCl 0.4 MG HYDROcodone HYDROcodone No 1{table QID HYDROcodon -Acetaminop -Acetaminop t_as_ne e-Acetamin hen 5-325 hen 5-325 eded} ophen MG MG 5-325 MG Sertraline Sertraline No Sertraline HCl 50 MG HCl 50 MG HCl 50 MG Pantoprazol Pantoprazol No Pantoprazo e Sodium e Sodium le Sodium Magnesium Magnesium No 1{capsu QD Magnesium Oxide -Mg Oxide -Mg le_as_n Oxide -Mg Supplement Supplement eeded} Supplement 400 MG 400 MG 400 MG Gabapentin Gabapentin No 2{table TID Gabapentin 300 MG 300 MG t} 300 MG Pantoprazol Pantoprazol No 1{table QD Pantoprazo e Sodium 40 e Sodium 40 t} le Sodium MG MG 40 MG Meloxicam Meloxicam No 1{table QD Meloxicam 7.5 MG 7.5 MG t} 7.5 MG Sertraline Sertraline No 1{table QD Sertraline HCl 50 MG HCl 50 MG t} HCl 50 MG HYDROcodone HYDROcodone No 1{table QID HYDROcodon -Acetaminop -Acetaminop t_as_ne e-Acetamin hen 5-325 hen 5-325 eded} ophen MG MG 5-325 MG Sertraline Sertraline No Sertraline HCl 50 MG HCl 50 MG HCl 50 MG Vitamin C Vitamin C No 1{table QD Vitamin C 100 MG 100 MG t} 100 MG Gabapentin Gabapentin No 2{table TID Gabapentin 300 MG 300 MG t} 300 MG Pantoprazol Pantoprazol No 1{table QD Pantoprazo e Sodium 40 e Sodium 40 t} le Sodium MG MG 40 MG Meloxicam Meloxicam No 1{table QD Meloxicam 7.5 MG 7.5 MG t} 7.5 MG Sertraline Sertraline No 1{table QD Sertraline HCl 50 MG HCl 50 MG t} HCl 50 MG HYDROcodone HYDROcodone No 1{table QID HYDROcodon -Acetaminop -Acetaminop t_as_ne e-Acetamin hen 5-325 hen 5-325 eded} ophen MG MG 5-325 MG Sertraline Sertraline No Sertraline HCl 50 MG HCl 50 MG HCl 50 MG meloxicam meloxicam No 1 Q1D meloxicam [...] by oral by oral route. route. route. Tamsulosin Tamsulosin 2021- No Tamsulosin HCl 0.4 MG HCl 0.4 MG 10-17 HCl 0.4 MG 00:00 :00 Magnesium Magnesium 2022- No 1{capsu QD Magnesium Oxide -Mg Oxide -Mg 10-17 le_as_n Oxide -Mg Supplement Supplement 00:00 eeded} Supplement 400 MG 400 MG :00 400 MG Tamsulosin Tamsulosin 2- No Tamsulosin HCl 0.4 MG HCl 0.4 MG 10-17 HCl 0.4 MG 00:00 :00 Magnesium Magnesium 2022- No 1{capsu QD Magnesium Oxide -Mg Oxide -Mg 10-17 le_as_n Oxide -Mg Supplement Supplement 00:00 eeded} Supplement 400 MG 400 MG :00 400 MG Tamsulosin Tamsulosin 2- No Tamsulosin HCl 0.4 MG HCl 0.4 MG 10-17 HCl 0.4 MG 00:00 :00 Magnesium Magnesium 2022- No 1{capsu QD Magnesium Oxide -Mg Oxide -Mg 10-17 le_as_n Oxide -Mg Supplement Supplement 00:00 eeded} Supplement 400 MG 400 MG :00 400 MG Tamsulosin Tamsulosin 2- No Tamsulosin HCl 0.4 MG HCl 0.4 MG 10-17 HCl 0.4 MG 00:00 :00 Magnesium Magnesium 2022- No 1{capsu QD Magnesium Oxide -Mg Oxide -Mg -17 le_as_n Oxide -Mg Supplement Supplement 00:00 eeded} Supplement 400 MG 400 MG :00 400 MG Tamsulosin Tamsulosin 2- No Tamsulosin HCl 0.4 MG HCl 0.4 MG 10-17 HCl 0.4 MG 00:00 :00 Tamsulosin Tamsulosin 2- No Tamsulosin HCl 0.4 MG HCl 0.4 MG 10-17 HCl 0.4 MG 00:00 :00 Magnesium Magnesium 2022- No 1{capsu QD Magnesium Oxide -Mg Oxide -Mg 10-17 le_as_n Oxide -Mg Supplement Supplement 00:00 eeded} Supplement 400 MG 400 MG :00 400 MG Tamsulosin Tamsulosin 2- No Tamsulosin HCl 0.4 MG HCl 0.4 MG 10-17 HCl 0.4 MG 00:00 :00 Magnesium Magnesium 2022- No 1{capsu QD Magnesium Oxide -Mg Oxide -Mg 10-17 le_as_n Oxide -Mg Supplement Supplement 00:00 eeded} Supplement 400 MG 400 MG :00 400 MG Tamsulosin Tamsulosin 2022- No Tamsulosin HCl 0.4 MG HCl 0.4 MG 10-17 HCl 0.4 MG 00:00 :00 Magnesium Magnesium 2022- No 1{capsu QD Magnesium Oxide -Mg Oxide -Mg -17 le_as_n Oxide -Mg Supplement Supplement 00:00 eeded} Supplement 400 MG 400 MG :00 400 MG Tamsulosin Tamsulosin 2- No Tamsulosin HCl 0.4 MG HCl 0.4 MG 10-17 HCl 0.4 MG 00:00 :00 Magnesium Magnesium 2022- No 1{capsu QD Magnesium Oxide -Mg Oxide -Mg -17 le_as_n Oxide -Mg Supplement Supplement 00:00 eeded} Supplement 400 MG 400 MG :00 400 MG Tamsulosin Tamsulosin 2- No Tamsulosin HCl 0.4 MG HCl 0.4 MG 10-17 HCl 0.4 MG 00:00 :00 Magnesium Magnesium 2022- No 1{capsu QD Magnesium Oxide -Mg Oxide -Mg 17 le_as_n Oxide -Mg Supplement Supplement 00:00 eeded} Supplement 400 MG 400 MG :00 400 MG Magnesium Magnesium 2022- No 1{capsu QD Magnesium Oxide -Mg Oxide -Mg -17 le_as_n Oxide -Mg Supplement Supplement 00:00 eeded} Supplement 400 MG 400 MG :00 400 MG Tamsulosin Tamsulosin 2- No Tamsulosin HCl 0.4 MG HCl 0.4 MG 10-17 HCl 0.4 MG 00:00 :00 Magnesium Magnesium 2022- No 1{capsu QD Magnesium Oxide -Mg Oxide -Mg 17 le_as_n Oxide -Mg Supplement Supplement 00:00 eeded} Supplement 400 MG 400 MG :00 400 MG Tamsulosin Tamsulosin 2- No Tamsulosin HCl 0.4 MG HCl 0.4 MG 10-17 HCl 0.4 MG 00:00 :00 Magnesium Magnesium 2022- No 1{capsu QD Magnesium Oxide -Mg Oxide -Mg -17 le_as_n Oxide -Mg Supplement Supplement 00:00 eeded} Supplement 400 MG 400 MG :00 400 MG Tamsulosin Tamsulosin 2- No Tamsulosin HCl 0.4 MG HCl 0.4 MG 10-17 HCl 0.4 MG 00:00 :00 Tamsulosin Tamsulosin Tamsulosin HCl 0.4 MG HCl 0.4 MG 10-17 HCl 0.4 MG 00:00 :00 Magnesium Magnesium No 1{capsu QD Magnesium Oxide -Mg Oxide -Mg 10-17 le_as_n Oxide -Mg Supplement Supplement 00:00 eeded} Supplement 400 MG 400 MG :00 400 MG Magnesium Magnesium No 1{capsu QD Magnesium Oxide -Mg Oxide -Mg 10-17 le_as_n Oxide -Mg Supplement Supplement 00:00 eeded} Supplement 400 MG 400 MG :00 400 MG Tamsulosin Tamsulosin Tamsulosin HCl 0.4 MG HCl 0.4 MG 10-17 HCl 0.4 MG 00:00 :00 Magnesium Magnesium No 1{capsu QD Magnesium Oxide -Mg Oxide -Mg 10-17 le_as_n Oxide -Mg Supplement Supplement 00:00 eeded} Supplement 400 MG 400 MG :00 400 MG Immunizations Ordered Immunization Filled Immunization Date Status Commen ts Source Name Name Prevnar 20 (PCV20) Prevnar 20 (PCV20) 2022-08-14 Completed [facility] - 15:32:[address] [facility] FLUZONE HIGH DOSE FLUZONE HIGH DOSE 2022-08-14 Completed [facility] - OVER 65 OVER 65 15:32:[address] [facility] Prevnar 20 (PCV20) Prevnar 20 (PCV20) 2022-08-14 Completed [facility] - 15:32:[address] [facility] FLUZONE HIGH DOSE FLUZONE HIGH DOSE 2022-08-14 Completed [facility] - OVER 65 OVER 65 15:32:[address] [facility] Prevnar 20 (PCV20) Prevnar 20 (PCV20) 2022-08-14 Completed [facility] - 15:32:[address] [facility] FLUZONE HIGH DOSE FLUZONE HIGH DOSE 2022-08-14 Completed [facility] - OVER 65 OVER 65 15:32:[address] [facility] Prevnar 20 (PCV20) Prevnar 20 (PCV20) 2022-08-14 Completed [facility] - 15:32:[address] [facility] FLUZONE HIGH DOSE FLUZONE HIGH DOSE 2022-08-14 Completed [facility] - OVER 65 OVER 65 15:32:[address] [facility] Prevnar 20 (PCV20) Prevnar 20 (PCV20) 2022-08-14 Completed [facility] - 15:32:[address] [facility] FLUZONE HIGH DOSE FLUZONE HIGH DOSE 2022-08-14 Completed [facility] - OVER 65 OVER 65 15:32:[address] [facility] Prevnar 20 (PCV20) Prevnar 20 (PCV20) 2022-08-14 Completed [facility] - 15:32:[address] [facility] FLUZONE HIGH DOSE FLUZONE HIGH DOSE 2022-08-14 Completed [facility] - OVER 65 OVER 65 15:32:[address] [facility] Prevnar 20 (PCV20) Prevnar 20 (PCV20) 2022-08-14 Completed [facility] - 15:32:[address] [facility] FLUZONE HIGH DOSE FLUZONE HIGH DOSE 2022-08-14 Completed [facility] - OVER 65 OVER 65 15:32:[address] [facility] Prevnar 20 (PCV20) Prevnar 20 (PCV20) 2022-08-14 Completed [facility] - 15:32:[address] [facility] FLUZONE HIGH DOSE FLUZONE HIGH DOSE 2022-08-14 Completed [facility] - OVER 65 OVER 65 15:32:[address] [facility] Prevnar 20 (PCV20) Prevnar 20 (PCV20) 2022-08-14 Completed [facility] - 15:32:[address] [facility] FLUZONE HIGH DOSE FLUZONE HIGH DOSE 2022-08-14 Completed [facility] - OVER 65 OVER 65 15:32:[address] [facility] Prevnar 20 (PCV20) Prevnar 20 (PCV20) 2022-08-14 Completed [facility] - 15:32:[address] [facility] FLUZONE HIGH DOSE FLUZONE HIGH DOSE 2022-08-14 Completed [facility] - OVER 65 OVER 65 15:32:[address] [facility] Prevnar 20 (PCV20) Prevnar 20 (PCV20) 2022-08-14 Completed [facility] - 15:32:[address] [facility] FLUZONE HIGH DOSE FLUZONE HIGH DOSE 2022-08-14 Completed [facility] - OVER 65 OVER 65 15:32:[address] [facility] Prevnar 20 (PCV20) Prevnar 20 (PCV20) 2022-08-14 Completed [facility] - 15:32:[address] [facility] FLUZONE HIGH DOSE FLUZONE HIGH DOSE 2022-08-14 Completed [facility] - OVER 65 OVER 65 15:32:[address] [facility] Prevnar 20 (PCV20) Prevnar 20 (PCV20) 2022-08-14 Completed [facility] - 15:32:[address] [facility] FLUZONE HIGH DOSE FLUZONE HIGH DOSE 2022-08-14 Completed [facility] - OVER 65 OVER 65 15:32:[address] [facility] Prevnar 20 (PCV20) Prevnar 20 (PCV20) 2022-08-14 Completed [facility] - 15:32:[address] [facility] FLUZONE HIGH DOSE FLUZONE HIGH DOSE 2022-08-14 Completed [facility] - OVER 65 OVER 65 15:32:[address] [facility] Prevnar 20 (PCV20) Prevnar 20 (PCV20) 2022-08-14 Completed [facility] - 15:32:[address] [facility] FLUZONE HIGH DOSE FLUZONE HIGH DOSE 2022-08-14 Completed [facility] - OVER 65 OVER 65 15:32:[address] [facility] FluAD FluAD 2021-09-12 Completed [facility] - 16:26:[address] [facility] FluAD FluAD 2021-09-12 Completed [facility] - 16:26:[address] [facility] FluAD FluAD 2021-09-12 Completed [facility] - 16:26:[address] [facility] FluAD FluAD 2021-09-12 Completed [facility] - 16:26:[address] [facility] FluAD FluAD 2021-09-12 Completed [facility] - 16:26:[address] [facility] FluAD FluAD 2021-09-12 Completed [facility] - 16:26:[address] [facility] FluAD FluAD 2021-09-12 Completed [facility] - 16:26:[address] [facility] FluAD FluAD 2021-09-12 Completed [facility] - 16:26:[address] [facility] FluAD FluAD 2021-09-12 Completed [facility] - 16:26:[address] [facility] FluAD FluAD 2021-09-12 Completed [facility] - 16:26:[address] [facility] FluAD FluAD 2021-09-12 Completed [facility] - 16:26:[address] [facility] FluAD FluAD 2021-09-12 Completed [facility] - 16::[address] [facility] FluAD FluAD 2021-09-12 Completed [facility] - 16::[address] [facility] FluAD FluAD 2021-09-12 Completed [facility] - 16::[address] [facility] FluAD FluAD 2021-09-12 Completed [facility] - 16::[address] [facility] FluAD FluAD 2021-09-12 Completed [facility] - 16::[address] [facility] FluAD FluAD 2021-09-12 Completed [facility] - 16::[address] [facility] FluAD FluAD 2021-09-12 Completed [facility] - 16::[address] [facility] FluAD FluAD 2021-09-12 Completed [facility] - 16::[address] [facility] FluAD FluAD 2021-09-12 Completed [facility] - 16::[address] [facility] FluAD FluAD 2021-09-12 Completed [facility] - 16::[address] [facility] FluAD FluAD 2021-09-12 Completed [facility] - 16::[address] [facility] FluAD FluAD 2021-09-12 Completed [facility] - 16::[address] [facility] FluAD FluAD 2021-09-12 Completed [facility] - 16::[address] [facility] FluAD FluAD 2021-09-12 Completed [facility] - 16::[address] [facility] FluAD FluAD 2021-09-12 Completed [facility] - 16::[address] [facility] FluAD FluAD 2021-09-12 Completed [facility] - 16::[address] [facility] FluAD FluAD 2021-09-12 Completed [facility] - 16::[address] [facility] FluAD FluAD 2021-09-12 Completed [facility] - 16:26:[address] [facility] FluAD FluAD 2021-09-12 Completed [facility] - 16:26:[address] [facility] FluAD FluAD 2021-09-12 Completed [facility] - 16:26:[address] [facility] FluAD FluAD 2021-09-12 Completed [facility] - 16::[address] [facility] FluAD FluAD 2021-09-12 Completed [facility] - 16::[address] [facility] FluAD FluAD 2021-09-12 Completed [facility] - 16::[address] [facility] FluAD FluAD 2021-09-12 Completed [facility] - 16::[address] [facility] FluAD FluAD 2021-09-12 Completed [facility] - 16::[address] [facility] FluAD FluAD 2021-09-12 Completed [facility] - 16::[address] [facility] FluAD FluAD 2021-09-12 Completed [facility] - 16::[address] [facility] FluAD FluAD 2021-09-12 Completed [facility] - 16::[address] [facility] FluAD FluAD 2021-09-12 Completed [facility] - 16::[address] [facility] FluAD FluAD 2021-09-12 Completed [facility] - 16::[address] [facility] FluAD FluAD 2021-09-12 Completed [facility] - 16::[address] [facility] FluAD FluAD 2021-09-12 Completed [facility] - 16::[address] [facility] FluAD FluAD 2021-09-12 Completed [facility] - 16::[address] [facility] FluAD FluAD 2021-09-12 Completed [facility] - 16::[address] [facility] FluAD FluAD 2021-09-12 Completed [facility] - 16::[address] [facility] FluAD FluAD 2021-09-12 Completed [facility] - 16::[address] [facility] FluAD FluAD 2021-09-12 Completed [facility] - 16::[address] [facility] FluAD FluAD 2021-09-12 Completed [facility] - 16:26:[address] [facility] FluAD FluAD 2021-09-12 Completed [facility] - 16:26:[address] [facility] FluAD FluAD 2021-09-12 Completed [facility] - 16:26:[address] [facility] FluAD FluAD 2021-09-12 Completed [facility] - 16:26:[address] [facility] Vitamin B12 Vitamin B12 2021-06-08 [facility] (Cyanocobalamin[facility] (Cyanocobalamin) 16:53:00 [facility] Vitamin B12 Vitamin B12 2021-06-08 [facility] (Cyanocobalamin) (Cyanocobalamin) 16:53:00 [facility] Vitamin B12 Vitamin B12 2021-06-08 [facility] (Cyanocobalamin) (Cyanocobalamin) 16:53:00 [facility] Vitamin B12 Vitamin B12 2021-06-08 [facility] (Cyanocobalamin) (Cyanocobalamin) 16:53:00 [facility] Hyalgan 20 mg Hyalgan 20 mg 2021-01-17 [facility] [facility] Hyalgan 20 mg Hyalgan 20 mg 2021-01-17 [facility] [facility] Hyalgan 20 mg Hyalgan 20 mg 2021-01-17 [facility] 09:[facility] [facility] Hyalgan 20 mg Hyalgan 20 mg 2021-01-17 [facility] - 09:[facility] [facility] Hyalgan 20 mg Hyalgan 20 mg 2021-01-17 [facility] - 09:[facility] [facility] Hyalgan 20 mg Hyalgan 20 mg 2021-01-17 [facility] 09:[facility] [facility] Hyalgan 20 mg Hyalgan 20 mg 2021-01-17 [facility] 09:[facility] [facility] Hyalgan 20 mg Hyalgan 20 mg 2021-01-17 [facility] 09:[facility] [facility] Hyalgan 20 mg Hyalgan 20 mg 2021-01-05 [facility] - 09:[facility] [facility] Hyalgan 20 mg Hyalgan 20 mg 2021-01-05 [facility] 09:[facility] [facility] Hyalgan 20 mg Hyalgan 20 mg 2021-01-05 [facility] 09:[facility] [facility] Hyalgan 20 mg Hyalgan 20 mg 2021-01-05 [facility] 09:[facility] [facility] Hyalgan 20 mg Hyalgan 20 mg 2021-01-05 [facility] 09:29:[address] [facility] Hyalgan 20 mg Hyalgan 20 mg 2021-01-05 Completed [facility] - 09:[facility]:[address] [facility] Hyalgan 20 mg Hyalgan 20 mg 2021-01-05 Completed [facility] - 09:29:[address] [facility] Hyalgan 20 mg Hyalgan 20 mg 2021-01-05 Completed [facility] - 09:29:[address] [facility] Hyalgan 20 mg Hyalgan 20 mg 2020-10-28 Completed [facility] - 10:27:[address] [facility] Hyalgan 20 mg Hyalgan 20 mg 2020-10-28 Completed [facility] - 10:27:[address] [facility] Hyalgan 20 mg Hyalgan 20 mg 2020-10-28 Completed [facility] - 10:27:[address] [facility] Hyalgan 20 mg Hyalgan 20 mg 2020-10-28 Completed [facility] - 10:27:[address] [facility] Hyalgan 20 mg Hyalgan 20 mg 2020-10-28 Completed [facility] - 10:27:[address] [facility] Hyalgan 20 mg Hyalgan 20 mg 2020-10-28 Completed [facility] - 10:27:[address] [facility] Hyalgan 20 mg Hyalgan 20 mg 2020-10-28 Completed [facility] - 10:27:[address] [facility] Hyalgan 20 mg Hyalgan 20 mg 2020-10-28 Completed [facility] - 10:27:[address] [facility] Bupiv[place]aine [place] Bupiv[place] 2020-10-28 [facility]pleted [facility] 10:26:[address] [facility] Bupiv[place]aine [place] Bupiv[place]aine [place] 2020-10-28 [facility]pleted [facility] 10::[address] [facility] Kenalog Kenalog 2020-10-28 Completed [facility] - (Triamcinolone) (Triamcinolone) 10::[address] [facility] Bupivicaine [place] Bupivicaine [place] 2020-10-28 Completed [facility] 10::[address] [facility] Bupiv[place]aine [place] Bupivicaine [place] 2020-10-28 [facility] 10::[address] [facility] Kenalog Kenalog 2020-10-28 Completed [facility] (Triamcinolone) (Triamcinolone) 10::[address] [facility] Bupivicaine [place] Bupivicaine [place] 2020-10-28 [facility]pleted [facility] 10::[address] [facility] Bupiv[place]aine [place] Bupivicaine [place] 2020-10-28 [facility] 10:: [facility] Kenalog Kenalog 2020-10-28 Completed [facility] (Triamcinolone) (Triamcinolone) 10::[address] [facility] Bupivicaine [place] Bupivicaine [place] 2020-10-28 [facility] 10:: [facility] Bupiv[place]aine [place] Bupiv[place]aine [place] 2020-10-28 [facility] 10:: [facility] Kenalog Kenalog 2020-10-28 Completed [facility] (Triamcinolone) (Triamcinolone) 10:: [facility] Kenalog Kenalog 2020-10-28 Completed [facility] (Triamcinolone) (Triamcinolone) 10::[address] [facility] Kenalog Kenalog 2020-10-28 Completed [facility] (Triamcinolone) (Triamcinolone) 10::[address] [facility] Kenalog Kenalog 2020-10-28 Completed [facility] (Triamcinolone) (Triamcinolone) 10:: [facility] Kenalog Kenalog 2020-10-28 Completed [facility] (Triamcinolone) (Triamcinolone) 10::[address] [facility] FluAD FluAD 2019-12-15 Completed [facility] - 16:17:[address] [facility] FluAD FluAD 2019-12-15 Completed [facility] - 16:17:[address] [facility] FluAD FluAD 2019-12-15 Completed [facility] - 16:17:[address] [facility] FluAD FluAD 2019-12-15 Completed [facility] - 16:17:[address] [facility] FluAD FluAD 2019-12-15 Completed [facility] 16:17:[address] [facility] FluAD FluAD 2019-12-15 Completed [facility] - 16:17:[address] [facility] FluAD FluAD 2019-12-15 Completed [facility] - 16:17:[address] [facility] FluAD FluAD 2019-12-15 Completed [facility] - 16:17:[address] [facility] FluAD FluAD 2019-12-15 Completed [facility] 16:17:[address] [facility] FluAD FluAD 2019-12-15 Completed [facility] 16:17:[address] [facility] FluAD FluAD 2019-12-15 Completed [facility] 16:17:[address] [facility] FluAD FluAD 2019-12-15 Completed [facility] 16:17:[address] [facility] FluAD FluAD 2019-12-15 Completed [facility] 16:17:[address] [facility] FluAD FluAD 2019-12-15 Completed [facility] 16:17:[address] [facility] FluAD FluAD 2019-12-15 Completed [facility] 16:17:[address] [facility] FluAD FluAD 2019-12-15 Completed [facility] 16:17:[address] [facility] FluAD FluAD 2019-12-15 Completed [facility] - 16:17:[address] [facility] FluAD FluAD 2019-12-15 Completed [facility] - 16:17:[address] [facility] FluAD FluAD 2019-12-15 Completed [facility] - 16:17:[address] [facility] FluAD FluAD 2019-12-15 Completed [facility] - 16:17:[address] [facility] FluAD FluAD 2019-12-15 Completed [facility] - 16:17:[address] [facility] FluAD FluAD 2019-12-15 Completed [facility] - 16:17:[address] [facility] FluAD FluAD 2019-12-15 Completed [facility] - 16:17:[address] [facility] FluAD FluAD 2019-12-15 Completed [facility] - 16:17:[address] [facility] FluAD FluAD 2019-12-15 Completed [facility] 16:17:[address] [facility] FluAD FluAD 2019-12-15 Completed [facility] 16:17:[address] [facility] FluAD FluAD 2019-12-15 Completed [facility] - 16:17:[address] [facility] FluAD FluAD 2019-12-15 Completed [facility] - 16:17:[address] [facility] FluAD FluAD 2019-12-15 Completed [facility] - 16:17:[address] [facility] FluAD FluAD 2019-12-15 Completed [facility] 16:17:[address] [facility] FluAD FluAD 2019-12-15 Completed [facility] - 16:17:[address] [facility] FluAD FluAD 2019-12-15 Completed [facility] - 16:17:[address] [facility] FluAD FluAD 2019-12-15 Completed [facility] 16:17:[address] [facility] FluAD FluAD 2019-12-15 Completed [facility] - 16:17:[address] [facility] FluAD FluAD 2019-12-15 Completed [facility] 16:17:[address] [facility] FluAD FluAD 2019-12-15 Completed [facility] - 16:17:[address] [facility] FluAD FluAD 2019-12-15 Completed [facility] - 16:17:[address] [facility] FluAD FluAD 2019-12-15 Completed [facility] 16:17:[address] [facility] FluAD FluAD 2019-12-15 Completed [facility] 16:17:[address] [facility] FluAD FluAD 2019-12-15 Completed [facility] 16:17:[address] [facility] FluAD FluAD 2019-12-15 Completed [facility] 16:17:[address] [facility] FluAD FluAD 2019-12-15 Completed [facility] 16:17:[address] [facility] FluAD FluAD 2019-12-15 Completed [facility] 16:17:[address] [facility] FluAD FluAD 2019-12-15 Completed [facility] - 16:17:[address] [facility] FluAD FluAD 2019-12-15 Completed [facility] 16:17:[address] [facility] FluAD FluAD 2019-12-15 Completed [facility] 16:17:[address] [facility] FluAD FluAD 2019-12-15 Completed [facility] 16:17:[address] [facility] FluAD FluAD 2019-12-15 Completed [facility] 16:17:[address] [facility] FluAD FluAD 2019-12-15 Completed [facility] 16:17:[address] [facility] FluAD FluAD 2019-12-15 Completed [facility] 16:17:[address] [facility] FluAD FluAD 2019-12-15 Completed [facility] 16:17:[address] [facility] FluAD FluAD 2019-12-15 Completed [facility] 16:17:[address] [facility] Influenza A Influenza A 2019-08-25 Completed [facility] Fami ly monovalent (H5N1), monovalent (H5N1), 00:00:00 Practice ADJUVANTED-2012 ADJUVANTED-2012 PNEUMAVAX 23 PNEUMAVAX 2018-12-24 Completed [facility] - 16:[facility]:[address] [facility] PNEUMAVAX 23 PNEUMAVAX 2018-12-24 Completed [facility] - 16:17:[address] [facility] PNEUMAVAX 23 PNEUMAVAX 2018-12-24 Completed [facility] - 16:17:[address] [facility] PNEUMAVAX 23 PNEUMAVAX 2018-12-24 Completed [facility] - 16:17:[address] [facility] PNEUMAVAX 23 PNEUMAVAX 2018-12-24 Completed [facility] - 16:17:[address] [facility] PNEUMAVAX 23 PNEUMAVAX 2018-12-24 Completed [facility] - 16:17:[address] [facility] PNEUMAVAX 23 PNEUMAVAX 2018-12-24 Completed [facility] - 16:17:[address] [facility] PNEUMAVAX 23 PNEUMAVAX 23 2018-12-24 Completed [facility] - 16:17:[address] [facility] PNEUMAVAX 23 PNEUMAVAX 23 2018-12-24 Completed [facility] - 16:17:[address] [facility] PNEUMAVAX 23 PNEUMAVAX 23 2018-12-24 Completed [facility] - 16:17:[address] [facility] PNEUMAVAX 23 PNEUMAVAX 23 2018-12-24 Completed [facility] - 16:17:[address] [facility] PNEUMAVAX 23 PNEUMAVAX 23 2018-12-24 Completed [facility] - 16:17:[address] [facility] PNEUMAVAX 23 PNEUMAVAX 23 2018-12-24 Completed [facility] - 16:17:[address] [facility] PNEUMAVAX 23 PNEUMAVAX 23 2018-12-24 Completed [facility] - 16:17:[address] [facility] PNEUMAVAX 23 PNEUMAVAX 23 2018-12-24 Completed [facility] - 16:17:[address] [facility] PNEUMAVAX 23 PNEUMAVAX 23 2018-12-24 Completed [facility] - 16:17:[address] [facility] PNEUMAVAX 23 PNEUMAVAX 23 2018-12-24 Completed [facility] - 16:17:[address] [facility] PNEUMAVAX 23 PNEUMAVAX 23 2018-12-24 Completed [facility] - 16:17:[address] [facility] PNEUMAVAX 23 PNEUMAVAX 23 2018-12-24 Completed [facility] - 16:17:[address] [facility] PNEUMAVAX 23 PNEUMAVAX 23 2018-12-24 Completed [facility] - 16:17:[address] [facility] PNEUMAVAX 23 PNEUMAVAX 23 2018-12-24 Completed [facility] - 16:17:[address] [facility] PNEUMAVAX 23 PNEUMAVAX 23 2018-12-24 Completed [facility] - 16:17:[address] [facility] PNEUMAVAX 23 PNEUMAVAX 2018-12-24 Completed [facility] - 16:17:[address] [facility] PNEUMAVAX 23 PNEUMAVAX 2018-12-24 Completed [facility] - 16:17:[address] [facility] PNEUMAVAX 23 PNEUMAVAX 2018-12-24 Completed [facility] - 16:17:[address] [facility] PNEUMAVAX 23 PNEUMAVAX 23 2018-12-24 Completed [facility] - 16:17:[address] [facility] PNEUMAVAX 23 PNEUMAVAX 2018-12-24 Completed [facility] - 16:17:[address] [facility] PNEUMAVAX 23 PNEUMAVAX 2018-12-24 Completed [facility] - 16:17:[address] [facility] PNEUMAVAX 23 PNEUMAVAX 2018-12-24 Completed [facility] - 16:17:[address] [facility] PNEUMAVAX 23 PNEUMAVAX 2018-12-24 Completed [facility] - 16:17:[address] [facility] PNEUMAVAX 23 PNEUMAVAX 2018-12-24 Completed [facility] - 16:17:[address] [facility] PNEUMAVAX 23 PNEUMAVAX 2018-12-24 Completed [facility] - 16:17:[address] [facility] PNEUMAVAX 23 PNEUMAVAX 23 2018-12-24 Completed [facility] - 16:17:[address] [facility] PNEUMAVAX 23 PNEUMAVAX 2018-12-24 Completed [facility] - 16:17:[address] [facility] PNEUMAVAX 23 PNEUMAVAX 23 2018-12-24 Completed [facility] - 16:17:[address] [facility] PNEUMAVAX 23 PNEUMAVAX 2018-12-24 Completed [facility] - 16:17:[address] [facility] PNEUMAVAX 23 PNEUMAVAX 23 2018-12-24 Completed [facility] - 16:17:[address] [facility] PNEUMAVAX 23 PNEUMAVAX 2018-12-24 Completed [facility] - 16:17:[address] [facility] PNEUMAVAX 23 PNEUMAVAX 2018-12-24 Completed [facility] - 16:17:[address] [facility] PNEUMAVAX 23 PNEUMAVAX 2018-12-24 Completed [facility] - 16:17:[address] [facility] PNEUMAVAX 23 PNEUMAVAX 2018-12-24 Completed [facility] - 16:17:[address] [facility] PNEUMAVAX 23 PNEUMAVAX 2018-12-24 Completed [facility] - 16:17:[address] [facility] PNEUMAVAX 23 PNEUMAVAX 2018-12-24 Completed [facility] - 16:17:[address] [facility] PNEUMAVAX 23 PNEUMAVAX 2018-12-24 Completed [facility] - 16:17:[address] [facility] PNEUMAVAX 23 PNEUMAVAX 2018-12-24 Completed [facility] - 16:17:[address] [facility] PNEUMAVAX 23 PNEUMAVAX 2018-12-24 Completed [facility] - 16:17:[address] [facility] PNEUMAVAX 23 PNEUMAVAX 2018-12-24 Completed [facility] - 16:17:[address] [facility] PNEUMAVAX 23 PNEUMAVAX 2018-12-24 Completed [facility] - 16:17:[address] [facility] PNEUMAVAX 23 PNEUMAVAX 2018-12-24 Completed [facility] - 16:17:[address] [facility] PNEUMAVAX 23 PNEUMAVAX 2018-12-24 Completed [facility] - 16:17:[address] [facility] PNEUMAVAX 23 PNEUMAVAX 2018-12-24 Completed [facility] - 16:17:[address] [facility] PNEUMAVAX 23 PNEUMAVAX 2018-12-24 Completed [facility] - 16:17:[address] [facility] Vital Signs Vital Name Observation Time Observation Value Comments Source height 2022-08-28 15:00:00 69.00 [in_i] [facility] weight 2022-08-28 15:00:00 208 [lb_av] [facility] temperature 2022-08-28 15:00:00 97.5 [degF] [facility] bmi 2022-08-28 15:00:00 30.71 kg/m2 [facility] blood pressure 2022-08-28 15:00:00 134 mm[Hg] [facility] blood pressure 2022-08-28 15:00:00 78 mm[Hg] [facility] diastolic [facility] height 2022-08-16 13:00:00 69.00 [in_i] [facility] weight 2022-08-16 13:00:00 208 [lb_av] [facility] temperature 2022-08-16 13:00:00 98.2 [degF] [facility] bmi 2022-08-16 13:00:00 30.71 kg/m2 [facility] blood pressure 2022-08-16 13:00:00 132 mm[Hg] [facility] systolic [facility] blood pressure 2022-08-16 13:00:00 74 mm[Hg] [facility] diastolic [facility] height 2022-08-14 14:00:00 69.00 [in_i] [facility] weight 2022-08-14 14:00:00 210.6 [lb_av] [facility] temperature 2022-08-14 14:00:00 98.0 [degF] [facility] bmi 2022-08-14 14:00:00 31.1 kg/m2 [facility] oximetry 2022-08-14 14:00:00 97 % [facility] respiratory rate 2022-08-14 14:00:00 18 /min [facility] on [facility] blood pressure 2022-08-14 14:00:00 136 mm[Hg] [facility] blood pressure 2022-08-14 14:00:00 71 mm[Hg] [facility] diastolic [facility] height 2022-08-14 14:40:00 69.00 [in_i] [facility] weight 2022-08-14 14:40:00 210.6 [lb_av] [facility] temperature 2022-08-14 14:40:00 98.0 [degF] [facility] bmi 2022-08-14 14:40:00 31.10 kg/m2 [facility] oximetry 2022-08-14 14:40:00 97 % [facility] respiratory rate 2022-08-14 14:40:00 18 /min Comm on [facility] blood pressure 2022-08-14 14:40:00 136 mm[Hg] [facility] - systolic [facility] blood pressure 2022-08-14 14:40:00 71 mm[Hg] [facility] diastolic [facility] height 2022-07-11 14:00:00 69.00 [in_i] [facility] weight 2022-07-11 14:00:00 205 [lb_av] [facility] temperature 2022-07-11 14:00:00 99.8 [degF] [facility] bmi 2022-07-11 14:00:00 30.27 kg/m2 [facility] oximetry 2022-07-11 14:00:00 98 % [facility] respiratory rate 2022-07-11 14:00:00 18 /min Comm on [facility] blood pressure 2022-07-11 14:00:00 180 mm[Hg] [facility] - systolic [facility] blood pressure 2022-07-11 14:00:00 86 mm[Hg] [facility] - diastolic [facility] height 2022-06-05 10:30:00 69.00 [in_i] [facility] weight 2022-06-05 10:30:00 208.7 [lb_av] Common [facility] bmi 2022-06-05 10:30:00 30.82 kg/m2 [facility] blood pressure 2022-06-05 10:30:00 119 mm[Hg] [facility] - systolic [facility] blood pressure 2022-06-05 10:30:00 72 mm[Hg] [facility] diastolic [facility] height 2022-01-08 09:00:00 69.00 [in_i] [facility] weight 2022-01-08 09:00:00 203 [lb_av] [facility] temperature 2022-01-08 09:00:00 97.5 [degF] [facility] bmi 2022-01-08 09:00:00 29.97 kg/m2 [facility] blood pressure 2022-01-08 09:00:00 124 mm[Hg] [facility] - systolic [facility] blood pressure 2022-01-08 09:00:00 72 mm[Hg] [facility] - diastolic [facility] height 2021-12-14 13:40:00 69.00 [in_i] [facility] weight 2021-12-14 13:40:00 207.4 [lb_av] [facility] temperature 2021-12-14 13:40:00 97.8 [degF] [facility] bmi 2021-12-14 13:40:00 30.62 kg/m2 [facility] oximetry 2021-12-14 13:40:00 98 % [facility] respiratory rate 2021-12-14 13:40:00 16 /min [facility] blood pressure 2021-12-14 13:40:00 136 mm[Hg] [facility] systolic [facility] blood pressure 2021-12-14 13:40:00 71 mm[Hg] [facility] diastolic [facility] height 2021-12-07 15:15:00 69.00 [in_i] [facility] weight 2021-12-07 15:15:00 203 [lb_av] [facility] temperature 2021-12-07 15:15:00 97.6 [degF] [facility] bmi 2021-12-07 15:15:00 29.97 kg/m2 [facility] blood pressure 2021-12-07 15:15:00 124 mm[Hg] [facility] - systolic [facility] blood pressure 2021-12-07 15:15:00 76 mm[Hg] [facility] - diastolic [facility] height 2021-11-14 15:45:00 69.00 [in_i] [facility] weight 2021-11-14 15:45:00 201 [lb_av] [facility] temperature 2021-11-14 15:45:00 97.3 [degF] [facility] bmi 2021-11-14 15:45:00 29.68 kg/m2 [facility] blood pressure 2021-11-14 15:45:00 136 mm[Hg] [facility] systolic [facility] blood pressure 2021-11-14 15:45:00 82 mm[Hg] [facility] - diastolic [facility] height 2021-10-31 09:15:00 69.00 [in_i] [facility] weight 2021-10-31 09:15:00 201 [lb_av] [facility] temperature 2021-10-31 09:15:00 97.3 [degF] [facility] bmi 2021-10-31 09:15:00 29.68 kg/m2 [facility] blood pressure 2021-10-31 09:15:00 136 mm[Hg] [facility] - systolic [facility] blood pressure 2021-10-31 09:15:00 78 mm[Hg] [facility] - diastolic [facility] height 2021-09-14 13:30:00 69.00 [in_i] [facility] weight 2021-09-14 13:30:00 201.7 [lb_av] [facility] bmi 2021-09-14 13:30:00 29.78 kg/m2 [facility] blood pressure 2021-09-14 13:30:00 114 mm[Hg] [facility] systolic [facility] blood pressure 2021-09-14 13:30:00 72 mm[Hg] [facility] - diastolic [facility] height 2021-09-12 15:00:00 69.00 [in_i] [facility] weight 2021-09-12 15:00:00 199 [lb_av] [facility] temperature 2021-09-12 15:00:00 97.7 [degF] [facility] bmi 2021-09-12 15:00:00 29.38 kg/m2 [facility] oximetry 2021-09-12 15:00:00 98 % [facility] respiratory rate 2021-09-12 15:00:00 19 /min [facility] on [facility] blood pressure 2021-09-12 15:00:00 119 mm[Hg] [facility] - systolic [facility] blood pressure 2021-09-12 15:00:00 62 mm[Hg] [facility] - diastolic [facility] Procedures Procedure Date / Time Performed Performing Clinician [facility] EXTERNAL PROVIDER 2022-05-04 05:01:00 [facility] EXTERNAL PROVIDER 2022-04-09 05:01:00 [facility] Encounters Start End Encounter Admission Attending Care Care Encounter Source Date/Time Date/Time Type Type Clinicians Facility Department ID 2022-08-22 Outpatient 3 [id number] ENCPL FERNANDO [id number] [facility] 08:33:22 [facility] [place] [facility] 2022-08-21 Outpatient 3 [id number] ENCPL REF [id number] [facility] 13:22:02 0927 [facility] [place] 2022-08-16 Outpatient Ranjan Van [facility] [id number] 2 [facility] 11:29:01 [facility] 2022-08-14 Outpatient Van, Na STLMLC STLMLC [id number] 2 [facility] 14:01:00 [facility] 2022-08-10 Outpatient Van, Na STLMLC STLMLC [id number] 2 Common 10:27:01 [facility] 2022-08-01 Outpatient Van, Na STLMLC STLMLC [id number] 2 Common 16:21:00 [facility] 2022-07-18 Outpatient Van, Na STLMLC STLMLC [id number] 2 Common 10:20:01 [facility] 2022-06-05 Outpatient Van, Na STLMLC STLMLC [id number] 2 Common 16:32:01 [facility] 2022-04-24 Outpatient Van, Na STLMLC STLMLC [id number] 2 [facility] 10:48:00 [facility] 2022-04-10 [id number] 10[facility]12:09 [facility] 2022-04-05 [facility] [id number] Univers 14:55:52 [facility] 2022-03-14 Outpatient Van, Na STLMLC STLMLC [id number] 2 [facility] 08:54:02 [facility] 2022-02-13 Outpatient Van, Na STLMLC STLMLC [id number] 2 Common 14:43:01 [facility] 2022-02-07 Outpatient Van, Na STLMLC STLMLC [id number] 2 Common 13:52:00 [facility] 2021-12-20 Outpatient Van, Na STLMLC STLMLC [id number] Common 14:31:59 [facility] 2021-12-20 Outpatient Van, Na STLMLC STLMLC [id number] Common 14:21:08 [facility] 2021-12-20 Outpatient Van, Na STLMLC STLMLC [id number] Common 14:08:38 [id number] [facility] 2021-12-20 Outpatient Van, Na STLMLC STLMLC [id number] 2 Common 14:03:42 83963 [facility] 2021-12-20 Outpatient Van, Na STLMLC STLMLC [id number] Common 14:02:52 [id number] [facility] 2021-12-20 Outpatient Van, Na STLMLC STLMLC [id number] Common 13:57:01 [id number] [facility] 2021-12-20 Outpatient Van, Na STLMLC STLMLC [id number] Common 13:26:06 83846 [facility] 2021-12-20 Outpatient Van, Na STLMLC STLMLC [id number] 2 Common 12:31:46 09116 [facility] 2021-12-20 Outpatient Van, Na STLMLC STLMLC [id number] 2 Common 12:17:55 21374 [facility] 2021-12-20 Outpatient Van, Na STLMLC STLMLC [id number] 2 Common 12:17:21 97092 [facility] 2021-12-20 Outpatient Van, Na STLMLC STLMLC [id number] 2 Common 12:11:20 [id number] [facility] 2021-12-20 Outpatient Van, Na STLMLC STLMLC [id number] 2 Common 12:08:44 [id number] [facility] 2021-12-20 Outpatient Van, Na STLMLC STLMLC [id number] 2 Common 12:06:23 79700 [facility] 2021-12-20 Outpatient Van, Na STLMLC STLMLC [id number] 2 Common 12:00:42 00766 [facility] 2021-12-20 Outpatient Van, Na STLMLC STLMLC [id number] 2 Common 12:00:23 [id number] [facility] 2021-12-20 Outpatient Van, Na STLMLC STLMLC [id number] 2 Common 11:59:14 [id number] [facility] 2021-12-20 Outpatient Connie, Na STLMLC STLMLC [id number] 2 Common 11:17:32 72846 [facility] 2021-09-21 Outpatient Juani SALTER, [facility] LITA [id number] Univers 10:57:57 LEVAR jimenez [facility] 2022-08-28 2022-08-28 NON-BILLAB STLMLC STLMLC [id number] Common 00:00:00 00:00:00 LE VISIT Spiri t [facility] 2022-08-24 2022-08-24 (TEL) STLMLC STLMLC [id number] Co mmon 00:00:00 00:00:00 [facility] 2022-08-23 2022-08-23 (TEL) STLMLC STLMLC [id number] Co mmon 00:00:00 00:00:00 [facility] 2022-08-23 2022-08-23 (TEL) STLMLC STLMLC [id number] Co mmon 00:00:00 00:00:00 [facility] 2022-08-20 2022-08-20 (TEL) STLMLC STLMLC [id number] Co mmon 00:00:00 00:00:00 [facility] 2022-08-16 2022-08-16 Outpatient Delbridge_T DMG [facility] [id number] Devoted 00:00:00 00:00:00 0922 [facility] 2022-08-16 2022-08-16 OFFICE STLMLC STLMLC [id number] Co mmon 00:00:00 00:00:00 VISIT Spirit ESTAB PT - CHI LEVEL 4 [facility] 2022-08-14 2022-08-14 SUB ANNUAL STLMLC STLMLC [id number] Common 00:00:00 00:00:00 MCR Spirit WELLNESS - CHI VISIT [facility] 2022-08-14 2022-08-14 OFFICE STLMLC STLMLC [id number] Co mmon 00:00:00 00:00:00 VISIT EST Spir it PT LEVEL 3 [facility] 2022-07-27 2022-07-27 ([place]) Nurse STLMLC STLMLC [id number] Common 00:00:00 00:00:00 Visit [facility] 2022-07-26 2022-07-26 (TEL) STLMLC STLMLC [id number] Co mmon 00:00:00 00:00:00 [facility] 2022-07-11 2022-07-11 OFFICE STLMLC STLMLC [id number] Co mmon 00:00:00 00:00:00 VISIT NEW Spir it PT LEVEL 3 [facility] 2022-07-10 2022-07-10 (TEL) STLMLC STLMLC [id number] Co mmon 00:00:00 00:00:00 [facility] 2022-06-20 2022-06-20 (TEL) STLMLC STLMLC [id number] Co mmon 00:00:00 00:00:00 [facility] 2022-06-08 2022-06-08 Outpatient OWENS_T DMG DMG [id number] Devoted 03:28:00 03:28:00 0715 Medica l Group 2022-06-05 2022-06-05 (TEL) STLMLC STLMLC [id number] Co mmon 00:00:00 00:00:00 [facility] 2022-06-05 2022-06-05 (TEL) STLMLC STLMLC [id number] Co mmon 00:00:00 00:00:00 [facility] 2022-06-05 2022-06-05 OFFICE STLMLC STLMLC [id number] Co mmon 00:00:00 00:00:00 VISIT [facility] PT [facility] LEVEL 4 [facility] 2022-06-05 2022-06-05 (TEL) STLMLC STLMLC [id number] Co mmon 00:00:00 00:00:00 [facility] 2022-05-11 2022-05-11 (TEL) STLMLC STLMLC [id number] Co mmon 00:00:00 00:00:00 [facility] 2022-05-04 2022-05-04 (TEL) STLC STLC [id number] Co mmon 00:00:00 00:00:00 [facility] 2022-05-04 2022-05-04 Orders Doctor DAVIS 1.2.840.114 [id number] Univers 00:00:00 00:00:00 Only Unassigned, JUAN MANUEL 350.1.13.10 ity of [facility] 4.2.7.2.686 Sander as [phone] [address] 2022-04-30 2022-04-30 [facility] [id number] Univers 13:45:00 13:45:00 [facility] 2022-04-30 2022-04-30 (TEL) STLC STLC [id number] Co mmon 00:00:00 00:00:00 [facility] 2022-04-27 2022-04-27 Outpatient OWENS_T DMG [facility] [id number] Devoted 07:01:00 07:01:00 0603 Medica l Group 2022-04-24 2022-04-24 Outpatient OWENS_T DMG [facility] [id number] Devoted 09:01:00 09:01:00 0531 [facility] l Group 2022-04-13 2022-04-13 [facility] [id number] Univers 10:15:00 10:15:00 [facility] 2022-04-13 2022-04-13 [facility] [id number] Univers 10:15:00 10:15:00 [facility] 2022-04-13 2022-04-13 Outpatient OWENS_T DMG [facility] [id number] Devoted 09:00:00 09:00:00 0520 Medica l Group 2022-04-11 2022-04-11 [facility] [id number] Univers 12:32:49 23:59:00 [facility] 2022-04-11 2022-04-11 Hospital Eduardo [facility] 1.2.840.114 [id number] Univers 12:32:49 23:59:00 Encounter Lou SIMPSON 350.1.13.10 [place] [id number] [facility] [address] 2022-04-11 2022-04-11 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 Breaker 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 Renan, Devon Lab Main [facility] 1.2.8 40.114 [id number] Univers 12:30:00 12:45:00 Visit Lou Clark 350.1.13.10 [place] [id number] Md dical NAL 353 [facility] 2022-04-09 2022-04-09 Orders Doctor DAVIS 1.2.840.114 [id number] Univers 00:00:00 00:00:00 Only Unassigned, JUAN MANUEL 350.1.13.10 ity of [place] [facility] 4.2.7.2.686 [place] as [phone] [facility] [address] 2022-04-05 2022-04-07 [facility] [id number] Univers 13:00:00 11:47:07 LOUANIBAL jimenez [facility] 2022-04-05 2022-04-05 Ancillary Manolo Efren Stephanie [facility] 1 .2.840.114 [id number] Univers 13:00:00 13:45:00 Visit Lou Clark 350.1.13.10 [place] [id number] Md dical NAL 179 [facility] 2022-04-05 2022-04-05 Outpatient R EDUARDO [facility] [id number] Univers 13:00:00 13:00:00 LOU jimenez [facility] 2022-03-30 2022-03-30 Outpatient R EDUARDO [facility] [id number] Univers 09:48:27 23:59:00 LOU jimenez [facility] 2022-03-30 2022-03-30 Outpatient Juani GONZALEZ [facility] [id number] Univers 09:00:00 10:16:49 YESSI itselam [facility] 2022-03-30 2022-03-30 [facility] 1.2.840.114 [id number] Univers 09:00:00 09:30:00 Visit Yessi Lee [facility] 350.1.13.10 it y of [place] 4.2.7.2.686 Sander as ANNELISE?BLEA [phone] Md stacie CONTRERAS 198 [facility] OFFICE [facility] 2022-03-30 2022-03-30 Outpatient [facility] [id number] Univers 09:00:00 09:00:00 YESSI jimenez [facility] 2022-03-30 2022-03-30 [facility]phone [facility] [id number] [id number] Univers 00:00:00 00:00:00 Yessi Lee [facility] 350.1.13.10 it y of [place] 4.2.7.2.686 [place]ander as ANNELISE?BLEA [phone] Md stacie CONTRERAS [address] [place] [address] 2022-03-30 2022-03-30 [facility] 1.2.840.114 [id number] Univers 00:00:00 00:00:00 [facility] 350.1.13.10 it y of [place] 4.2.7.2.686 [place]ander as ANNELISE?BLEA [phone] Md stacie CONTRERAS 198 [facility] 2022-03-20 2022-03-20 (TEL) [facility] [id number] Co mmon 00:00:00 00:00:00 [facility] 2022-03-19 2022-03-19 Orders Doctor CANNON 1.2.840.114 [id number] Univers 00:00:00 00:00:00 Only Unassigned, JUAN MANUEL 350.1.13.10 ity of [place] [facility] 4.2.7.2.686 [place] [phone] [address] 2022-03-15 2022-03-15 (TEL) [facility] [id number] Co mmon 00:00:00 00:00:00 [facility] 2022-03-14 2022-03-14 OFFICE STLMLC STLMLC [id number] Co mmon 00:00:00 00:00:00 VISIT EST Spir it PT LEVEL [address] [facility] 2022-02-28 2022-02-28 (TEL) STLMLC STLMLC [id number] Co mmon 00:00:00 00:00:00 [facility] 2022-02-26 2022-02-26 (TEL) STLMLC STLMLC [id number] Co mmon 00:00:00 00:00:00 [facility] 2022-02-26 2022-02-26 (TEL) STLMLC STLMLC [id number] Co mmon 00:00:00 00:00:00 [facility] 2022-02-26 2022-02-26 (TEL) STLMLC STLMLC [id number] Co mmon 00:00:00 00:00:00 [facility] 2022-01-30 2022-01-30 (TEL) STLMLC STLMLC [id number] Co mmon 00:00:00 00:00:00 [facility] 2022-01-08 2022-01-08 OFFICE STLMLC STLMLC [id number] Co mmon 00:00:00 00:00:00 VISIT [facility] ESTAB PT - [facility] LEVEL 4 [facility] 2022-01-03 2022-01-03 (TEL) STLMLC STLMLC [id number] Co mmon 00:00:00 00:00:00 [facility] 2021-12-14 2021-12-14 OFFICE STLMLC STLMLC [id number] Co mmon 00:00:00 00:00:00 VISIT EST Spir it PT LEVEL 3 [facility] 2021-12-07 2021-12-07 (TEL) STLMLC STLMLC [id number] Co mmon 00:00:00 00:00:00 [facility] 2021-12-07 2021-12-07 NON-BILLAB STLMLC STLMLC [id number] Common 00:00:00 00:00:00 LE VISIT Spiri t [facility] 2021-11-30 2021-11-30 (TEL) STLMLC STLMLC [id number] Co mmon 00:00:00 00:00:00 [facility] 2021-11-28 2021-11-28 (TEL) STLMLC STLMLC [id number] Co mmon 00:00:00 00:00:00 [facility] 2021-11-15 2021-11-15 (TEL) STLMLC STLMLC [id number] Co mmon 00:00:00 00:00:00 [facility] 2021-11-14 2021-11-14 NON-BILLAB STLMLC STLMLC [id number] Common 00:00:00 00:00:00 LE VISIT [facility] 2021-10-31 2021-10-31 OFFICE STLMLC STLMLC [id number] Co mmon 00:00:00 00:00:00 VISIT [facility] PT - [address] 2021-09-27 2021-09-27 (TEL) STLMLC STLMLC [id number] Co mmon 00:00:00 00:00:00 [facility] 2021-09-27 2021-09-27 (TEL) STLMLC STLMLC [id number] Co mmon 00:00:00 00:00:00 [facility] 2021-09-25 2021-09-25 (TEL) STLMLC STLMLC [id number] Co mmon 00:00:00 00:00:00 [facility] 2021-09-25 2021-09-25 (TEL) STLMLC STLMLC [id number] Co mmon 00:00:00 00:00:00 [facility] 2021-09-20 2021-09-20 (TEL) STLMLC STLMLC [id number] Co mmon 00:00:00 00:00:00 [facility] 2021-09-14 2021-09-14 OFFICE STLMLC STLMLC [id number] Co mmon 00:00:00 00:00:[address] 2021-09-12 2021-09-12 OFFICE STLMLC STLMLC [id number] Co mmon 00:00:00 00:00:00 VISIT Octaviano OROZCO PT - [facility] LEVEL 4 [facility] 2021-08-15 2021-08-15 Outpatient STLMLC STLMLC [id number] Common 00:00:00 00:00:00 [facility] 2021-06-16 2021-06-16 Outpatient STLMLC STLMLC [id number] Common 00:00:00 00:00:00 [facility] 2021-06-08 2021-06-08 Outpatient STLMLC STLMLC [id number] Common 00:00:00 00:00:00 [facility] 2021-06-06 2021-06-06 Outpatient OWENS_T DMG DMG [id number] Devoted 12:57:00 12:57:00 0713 [facility] 2021-03-27 2021-03-27 Outpatient DMG DMG [id number] Devoted 06:02:00 06:02:00 0503 [facility] 2021-03-14 2021-03-14 Outpatient DMG DMG [id number] Devoted 12:00:00 12:00:00 0420 [facility] 2021-03-12 2021-03-12 Outpatient STLMLC STLMLC [id number] Common 00:00:00 00:00:00 [facility] 2021-03-09 2021-03-09 Outpatient STLMLC STLMLC [id number] Common 00:00:00 00:00:00 [facility] 2021-03-06 2021-03-06 Outpatient STLMLC STLMLC [id number] Common 00:00:00 00:00:00 [facility] 2021-01-17 2021-01-17 Outpatient STLMLC STLMLC [id number] Common 00:00:00 00:00:00 [facility] 2021-01-05 2021-01-05 Outpatient STLMLC STLMLC [id number] Common 00:00:00 00:00:00 [facility] 2020-12-21 2020-12-21 Laboratory Lab, [facility] 1.2.840.114 [id number] 10:53:43 11:13:43 Only Fam [facility] 350.1.13.10 [place] 4.2.7.2.686 Professio [phone] nal [address] 2020-12-21 2020-12-21 Outpatient [facility] [id number] Univers 10:40:00 10:40:00 TAYLER jimenez [facility] 2020-12-05 2020-12-05 Telephone Nurse, [facility] 1.2.840.114 [id number] 00:00:00 00:00:00 Fam Pob I Health 350.1.13.10 [place] 4.2.7.2.686 Professio [phone] nal 044 [address] 2020-12-02 2020-12-02 Laboratory Lab, [facility] 1.2.840.114 [id number] 18:20:33 18:40:33 Only Fam Pob I Health 350.1.13.10 [place] 4.2.7.2.686 Professio [phone] nal [facility] Office [address] 2020-12-02 2020-12-02 Outpatient Juani GARRETT [facility] [id number] Univers 18:35:00 18:35:00 DAVIS jimenez [facility] 2020-11-30 2020-11-30 Outpatient STLMLC STLMLC [id number] Common 00:00:00 00:00:00 [facility] 2020-11-18 2020-11-18 Outpatient Gay-Mbayo VFP VFP [id number] 12:04:00 12:04:00 _A_AH 69164 Family Practic e 2020-11-18 2020-11-18 Outpatient Gay-Mbayo VFP VFP [id number] [facility] 12:04:00 12:04:00 _A_AH 67651 Family Practic e 2020-11-15 2020-11-15 Outpatient [facility] [id number] Univers 09:20:00 09:20:00 TAYLER jimenez [facility] 2020-11-15 2020-11-15 Letter Doctor DAVIS 1.2.840.114 [id number] 00:00:00 00:00:00 (Out) Unassigned, JUAN MANUEL 350.1.13.10 [place] [facility] 4.2.7.2.686 [id number] 2020-10-28 2020-10-28 Outpatient STLMLC STLMLC [id number] Common 00:00:00 00:00:00 [facility] 2020-10-11 2020-10-11 Outpatient STLMLC STLMLC [id number] Common 00:00:00 00:00:00 [facility] 2020-09-22 2020-09-22 Outpatient STLMLC STLMLC [id number] Common 00:00:00 00:00:00 [facility] 2020-09-14 2020-09-14 Laboratory Lab, [facility] 1.2.840.114 [id number] 14:51:48 15:11:48 Only Fam [facility] 350.1.13.10 [place] 4.2.7.2.686 Kristy [phone] nal 044 [address] 2020-09-14 2020-09-14 Outpatient Juani FRANCO, [facility] [id number] Univers 15:00:00 15:00:00 TRENA jimenez [facility] 2020-07-25 2020-07-25 Out[facility] [id number] Common 10:16:00 10:16:[address] [place] [facility] Medicine [facility] 2020-07-04 2020-07-04 Outpatient [facility] [id number] Common 15:00:00 15:00:[address] [place] [address] Sp[address] Family [facility] Medicine [facility] 2020-07-04 2020-07-[address] [facility] St. [id number] Common 09:52:00 09:52:00 [facility] Medical [facility] Medical Group [facility] 2020-06-23 2020-06-23 Outpatient [facility] [id number] Common 10:40:00 10:40:[address] [place] [address] Sp[address] [facility] 2020-06-08 2020-06-08 Outpatient Gay-Mbayo VFP VFP [id number] [place] 09:39:00 09:39:00 _A_AH 97846 Family Practic e 2020-06-02 2020-06-02 Outpatient Gay-Mbayo VFP VFP [id number] [place] 12:40:00 12:40:00 _A_AH 52347 Family Practic e 2020-04-28 2020-04-28 Outpatient Gay-Mbayo VFP VFP [id number] [facility] 01:10:00 01:10:00 _A_AH 74446 Family Practic e 2020-04-13 2020-04-13 Outpatient [facility] [id number] Common 09:40:00 09:40:[address] [place] [address] [facility] 2020-03-24 2020-03-24 Outpatient Gay-Mbayo VFP VFP [id number] [facility] 12:45:00 12:45:00 _A_AH 27620 Family Practic e 2020-03-24 2020-03-24 Outpatient Gay-Mbayo VFP VFP [id number] [place] 12:45:00 12:45:00 _A_AH 68745 Family Practic e 2020-03-23 2020-03-23 Outpatient Gay-Mbayo VFP VFP [id number] [facility] 08:31:00 08:31:00 _A_AH 79323 Family Practic e 2020-03-17 2020-03-17 Outpatient [facility] [id number] Common 09:20:00 09:20:[address] [place] [address] [facility] 2020-03-03 2020-03-03 Outpatient [facility] [id number] Common 10:34:00 10:34:[address] [place] [address] Sp[address] [facility] 2020-03-03 2020-03-03 Outpatient [facility] [id number] Common 09:00:00 09:00:00 t [place] [facility] Spir it [address] [facility] 2020-02-24 2020-02-24 [place] VFP [place] - [id number] V illage 00:00:00 00:00:00 Eduarda [facility] Fam kirsten stewart, SNOW FENCE ERECTOR: Medical - Practi c [email or web address] [email or web address], [address], [place] [address] , Ph. 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
[2022-09-15] MEDS ORDERED: LORAZEPAM 1 MG TABLET ONE (10:52)
[2022-09-15 10:57] LABS: Urine Blood Trace-intact (Negative); Urine Glucose Negative (Negative); Urine Protein Negative (Negative)
--- NOTE | 2022-09-15 12:35 | ER ---
Nurse's Notes [facility] Name: Shahid Milton Age: 72 yrs Sex: Male : 1950 Arrival Date: 09/15/2022 Time: 10:07 Bed 18 Private MD: Chelsea Rosales Diagnosis: Generalized anxiety disorder Presentation: 09/15 11:00 Chief complaint: Patient states: feelings of anxiety/panic with racing heart and SOB. eh3 Coronavirus screen: Vaccine status: Patient reports receiving the 2nd dose of the covid vaccine. Ebola Screen: No symptoms or risks identified at this time. Initial Sepsis Screen: Does the patient meet any 2 criteria? No. Patient's initial sepsis screen is negative. Does the patient have a suspected source of infection? No. Patient's initial sepsis screen is negative. Risk Assessment: Do you want to hurt yourself or someone else? Patient reports no desire to harm self or others. Onset of symptoms was September 15, 2022. 11:00 Acuity: FAITH 3 eh3 11:00 Method Of Arrival: Ambulatory 3 Triage Assessment: 11:00 General: Appears distressed, uncomfortable, Behavior is cooperative, appropriate for 3 age, anxious. Pain: Denies pain. Neuro: Level of Consciousness is awake, alert, obeys commands, Oriented to person, place, time, situation. Cardiovascular: Reports palpitations, shortness of breath, Capillary refill < 3 seconds Patient's skin is warm and dry. Rhythm is sinus rhythm. Respiratory: Airway is patent Respiratory effort is even, unlabored. GI: Abdomen is round non-distended. Musculoskeletal: Circulation, motion, and sensation intact. Range of motion: intact in all extremities. Historical: - Allergies: 12:32 No Known Allergies; iw - Home Meds: 12:32 "medicine to help me urinate" [Active]; "mood swings medication" [Active]; iw - PMHx: 12:32 "Anger problems"; iw - Immunization history:: Adult Immunizations up to date. - Social history:: Smoking status: unknown. Screenin:00 Abuse screen: Denies threats or abuse. Denies injuries from another. Nutritional eh3 screening: No deficits noted. Tuberculosis screening: No symptoms or risk factors identified. Fall Risk None identified. Assessment: 11:00 Reassessment: No changes from previously documented assessment. See triage assessment. eh3 12:00 Reassessment: Patient and/or family updated on plan of care and expected duration. Pain eh3 level reassessed. Patient is alert, oriented x 3, equal unlabored respirations, skin warm/dry/pink. Patient states feeling better. Patient states symptoms have improved. 12:32 Reassessment: Patient appears in no apparent distress at this time. Patient and/or iw family updated on plan of care and expected duration. Pain level reassessed. Patient is alert, oriented x 3, equal unlabored respirations, skin warm/dry/pink. Patient states feeling better. Patient states symptoms have improved. Vital Signs: 11:00 BP 155 / 84; Pulse 59; Resp 18; Pulse Ox 100% on R/A; eh3 12:00 BP 137 / 60; Pulse 61; Resp 16; Temp 97.1; Pulse Ox 98% on R/A; iw 12:48 BP 131 / 76; Pulse 55; Resp 16; Pulse Ox 97% on R/A; eh3 ED Course: 10:07 Patient arrived in ED. mr 10:07 Chelsea Rosales MD is Private Physician. mr 10:22 Josef Pickens PA is PHCP. jmm 10:22 Suresh Holder MD is Attending Physician. [facility] 10:48 Adelaida Perez, JOEL is Primary Nurse. eh3 11:00 Patient has correct armband on for positive identification. Bed in low position. Call eh3 light in reach. Side rails up X2. Adult w/ patient. Client placed on continuous cardiac and pulse oximetry monitoring. NIBP monitoring applied. Door closed. Noise minimized. Lights dimmed. Warm blanket given. 12:30 Arm band placed on left wrist. eh3 12:32 Triage completed. iw 12:48 No provider procedures requiring assistance completed. Patient did not have IV access eh3 during this emergency room visit. Administered Medications: 11:38 Not Given (Duplicate Order): Ativan (LORazepam) 1 mg IM once eh3 11:38 Drug: Ativan (LORazepam) 1 mg Route: PO; eh3 Medication: 12:48 VIS not applicable for this client. eh3 Outcome: 12:34 Discharge ordered by MD. temi 13:08 Discharged to home with family. iw 13:08 Condition: good 13:08 Discharge instructions given to patient, Instructed on discharge instructions, follow up and referral plans. medication usage, Demonstrated understanding of instructions, follow-up care, medications, Prescriptions given X 1. 13:08 Patient left the ED. Signatures: Josef Pickens PA PA jmm Rivera, Susi Dolores Olivera, RN RN Adelaida Perez RN RN [facility] Corrections: (The following items were deleted from the chart) 13:02 12:32 Acuity: FAITH 3 [facility] 13: 12:30 Chief complaint: Patient states: feelings of anxiety/panic with racing heart and eh3 SOB [facility] 13: 12:30 Coronavirus screen: Vaccine status: Patient reports receiving the 2nd dose of the [facility] covid vaccine. [facility] : 12:30 Ebola Screen: No symptoms or risks identified at this time. [place] [id number] 13: 12:30 Initial Sepsis Screen: Does the patient meet any 2 criteria? No. Patient's [facility] initial sepsis screen is negative. Does the patient have a suspected source of infection? No. Patient's initial sepsis screen is negative. [facility] 13: 12:30 Risk Assessment: Do you want to hurt yourself or someone else? Patient reports no [facility] desire to harm self or others. [facility] 13: 12:30 Onset of symptoms was September 15, 2022 [place] [id number] 13: 12:30 Method Of Arrival: Ambulatory [place] [id number] 13: 12:30 General: Appears distressed, uncomfortable, Behavior is cooperative, appropriate [facility] for age, anxious, [facility] 13: 12:30 Pain: Denies pain. [place] [id number] 13: 12:30 Neuro: Level of Consciousness is awake, alert, obeys commands, Oriented to [facility] person, place, time, situation, [facility] 13: 12:30 Cardiovascular: Capillary refill < 3 seconds Patient's skin is warm and dry. [place] [id number] 13: 12:30 Respiratory: Airway is patent Respiratory effort is even, unlabored, [place] [id number] 13: 12:30 GI: No signs and/or symptoms were reported involving the gastrointestinal system. [place] [id number] 13: 12:30 Musculoskeletal: Circulation, motion, and sensation intact. Range of motion: [facility] intact in all extremities, [facility] 13:16 12:30 Reassessment: No changes from previously documented assessment. See triage eh3 assessment eh3
--- NOTE | 2022-09-15 12:35 | EDPHYS ---
Physician Documentation [facility] Name: Shahid Milton Age: 72 yrs Sex: Male : 1950 Arrival Date: 09/15/2022 Time: 10:07 Bed 18 Private MD: Chelsea Rosales ED Physician Suresh Holder HPI: 09/15 10:33 This 72 yrs old Male presents to ER via Ambulatory with complaints of Anxiety. jmm 10:33 The patient presents to the emergency department with anxiety. Onset: The jmm symptoms/episode began/occurred last night. Associated signs and symptoms: Pertinent positives; anxiety, Pertinent negatives: abdominal pain, shortness of breath. 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 States symptoms worsened last night, patient had difficulty sleeping. Patient also states after recent knee surgery he feels as if he is not obligating his responsibilities in the household.. Historical: - Allergies: 12:32 No Known Allergies; iw - Home Meds: 12:32 "medicine to help me urinate" [Active]; "mood swings medication" [Active]; iw - PMHx: 12:32 "Anger problems"; iw - Immunization history:: Adult Immunizations up to date. - Social history:: Smoking status: unknown. ROS: 10:33 Constitutional: Negative for fever, chills, and weight loss, Cardiovascular: Negative jmm for chest pain, palpitations, and edema, Respiratory: Negative for shortness of breath, cough, wheezing, and pleuritic chest pain. 10:33 Psych: Positive for anxiety. 10:33 All other systems are negative. Exam: 10:33 Constitutional: This is a well developed, well nourished patient who is awake, alert, jmm and in no acute distress. Head/Face: atraumatic. Eyes: EOMI, no conjunctival erythema appreciated ENT: Moist Mucus Membranes Neck: Trachea midline, Supple Chest/axilla: Normal chest wall appearance and motion. Cardiovascular: Regular rate and rhythm. No edema appreciated Respiratory: Normal respirations, no respiratory distress appreciated Abdomen/GI: Non distended Back: Normal ROM Skin: General appearance color normal MS/ Extremity: Moves all extremities, no obvious deformities appreciated, no edema noted to the lower extremities 10:33 Neuro: Orientation: is normal, Mentation: is normal, Memory: is normal. 10:33 Psych: Behavior/mood is aggressive, Patient has no thoughts/intents to harm self or others. Judgement / Insight is normal. Memory is normal. Delusions/hallucinations are not present. Vital Signs: 11:00 BP 155 / 84; Pulse 59; Resp 18; Pulse Ox 100% on R/A; eh3 12:00 BP 137 / 60; Pulse 61; Resp 16; Temp 97.1; Pulse Ox 98% on R/A; iw 12:48 BP 131 / 76; Pulse 55; Resp 16; Pulse Ox 97% on R/A; eh3 MDM: 10:33 Patient medically screened. [facility] 12:33 Data reviewed: vital signs, nurses notes. Counseling: I had a detailed discussion with [facility] the patient and/or guardian regarding: the historical points, exam findings, and any diagnostic results supporting the discharge/admit diagnosis, the need for outpatient follow up, to return to the emergency department if symptoms worsen or persist or if there are any questions or concerns that arise at home. 09/15 10:58 Order name: Urine Dipstick-Ancillary; Complete Time: 10:59 EDMS Administered Medications: 11:38 Not Given (Duplicate Order): Ativan (LORazepam) 1 mg IM once eh3 11:38 Drug: Ativan (LORazepam) 1 mg Route: PO; eh3 Disposition: 15:10 Co-signature as Attending Physician, Suresh Holder MD. rn Disposition Summary: 09/15/22 12:34 Discharge Ordered Location: Home [facility] Condition: Stable [facility] Diagnosis - Generalized anxiety disorder [facility] Followup: [facility] - With: Private Physician - When: 2 - 3 days - Reason: Recheck today's complaints, Continuance of care, Re-evaluation by your physician Discharge Instructions: - Discharge Summary Sheet [facility] - Panic Attack [facility] Forms: - Medication Reconciliation Form [facility] - Thank You Letter [facility] - Antibiotic Education [facility] - Prescription Opioid Use [facility] Prescriptions: - Hydroxyzine HCl 25 mg Oral Tablet - take 1 tablet by ORAL route every 6 hours As needed; 30 tablet; Refills: 0, [facility] Product Selection Permitted Signatures: Josef Pickens PA PA jmm Williams, Irene RN JOEL Suresh Holder MD MD rn Hall, Erin, RN RN 3
[2022-09-15 13:14] VITALS: BP 137/60; TEMP 97.1; O2SAT 98
== END 2022-09-15 13:08 | disposition home or self-care (01) ==
LOC: ER 10:05
DX: F41.1 Generalized anxiety disorder (principal)
CPT/HCPCS: 81003; 99284

== ENCOUNTER 2022-12-11 09:27 | Day surgery (SDC) | payer MEDICARE ==
[2022-12-05 11:41] LABS: Hematocrit 37.6 % (39.6-49.0); Lymphocytes % 14.6 % (15.3-44.8); MPV 8.5 fL (7.6-11.3); RBC Red Blood Cell Count 4.43 M/uL (4.33-5.43)
[2022-12-05 11:43] LABS: Protime INR 1.07
[2022-12-05 11:52] LABS: Potassium 3.9 mmol/L (3.5-5.1)
--- NOTE | 2022-12-05 13:05 | RAD REPORT ---
EXAM DESCRIPTION: RAD - Abdomen 1 View (KUB) - 12/05/2022 11:11 am CLINICAL HISTORY: Pre op pending ESWL Pain COMPARISON: Abdomen 1 View (KUB) dated 07/20/2022 FINDINGS: The bowel gas pattern is non-obstructive. No evidence of free air or pneumatosis. Small ca lcification seen inferior shadow of the right kidney likely renal calculus. Small rounded calculus ma y be present distal left ureter region or may represent a phlebolith. Moderate stool is retained thro ughout the colon. Mild dextroscoliosis of the lumbar spine.
[2022-12-11] MEDS ORDERED: CEFAZOLIN SODIUM 2 GM/VIAL ONE (09:52)
[2022-12-11] MEDS ORDERED: Ringers Lactate 1,000 ML IV ONE (09:52)
[2022-12-11] MEDS ORDERED: propofoL 200 MG/20 ML VIAL IV ONE (10:28)
[2022-12-11] MEDS ORDERED: FENTANYL CITR 100 MCG/2 ML ONE (10:28)
[2022-12-11] MEDS ORDERED: ONDANSETRON 4 MG/2 ML VIAL ONE ×2 (10:29→12:07)
[2022-12-11] MEDS ORDERED: LIDOCAINE 2% MPF 5 ML VIAL ONE (10:29)
[2022-12-11] MEDS ORDERED: MIDAZOLAM HCL 2 MG/2 ML INJ ONE (10:29)
[2022-12-11] MEDS ORDERED: EPHEDRINE SULF 50 MG/ML VIAL ONE (12:04)
[2022-12-11] MEDS ORDERED: dexAMETHasone 4 MG/ML VIAL ONE (12:07)
[2022-12-11] MEDS ORDERED: KETOROLAC 30 MG/ML INJ ONE (12:07)
[2022-12-11 14:02] VITALS: BP 130/83; TEMP 96.7; O2SAT 95
--- NOTE | 2022-12-12 08:00 | OP ---
Surgeon: ANDIE ESPINOZA Preoperative Diagnosis: Right nephrolithiasis, 5.4 mm. Postoperative Diagnosis: Right nephrolithiasis, 5.4 mm. Principal Procedure: Right extracorporeal shock wave lithotripsy/ESWL. Indication For Procedure: Mr. Milton was previously treated for an obstructing left ureteral calcu alfredo and nephrolithiasis with radio-opaque right nephrolithiasis observed. He was counseled on option s for observation versus management and elected to undergo shockwave lithotripsy management of the ri ght-sided stone. Procedure In Detail: The patient was consented in the preoperative holding area before being transfe rred to the operative suite where general anesthesia was induced. He was given Ancef 2 g IV antimicr obial prophylaxis and pneumo boots were provided for DVT prophylaxis. He was placed supine on the pr ocedure table, and a water bath was placed beneath his flank. Targeting was then performed in the AP and dorsal ventral positions to adequately visualize the stone. The stone was somewhat difficult to visualize due to overlying bowel gas. However, we were able to adequately target it for the initiat ion of shockwave lithotripsy. The power was increased over the course of 500 shocks into 6.5 power, and a 2-minute pause was performed at around 200 shocks. We then continued to about 1000 shocks and performed spot fluoroscopic imagery along the way to confirm targeting positioning. At a 1000 shocks , the therapy head was backed out, and the stone was re-imaged and retargeted. An additional 500 madisyn cks was then delivered before repeat reimaging and retargeting was then undertaken. After a total of 2000 shocks had been delivered, the stone was no longer distinctly visible and was nearly impossible to visualize in the dorsal ventral position and shock wave lithotripsy was discontinued. The patien t was then awakened from general anesthesia, transferred to a stretcher, and then transferred to the recovery room in good condition. Complications: None. Discharge Disposition: He should follow up in the [facility]rology Clinic for interval assessment in 1 to 2 m onths' time and should strain his urine in the meantime, in case, he passes any stone dust, so that michael loredo might send it for chemical analysis. A KUB obtained prior to his followup after about a month woul d be of value. NAREN/ADRIANE Voice ID: [id number] Report ID: [id number]
== END 2022-12-11 14:05 | disposition home or self-care (01) ==
LOC: OR 09:27
PROVIDERS: ATTEND Urology
PROC: 0TF3XZZ Fragmentation in Right Kidney Pelvis, External Approach (ICD-10-PCS; principal; 2022-12-11 12:00)
DX: N20.0 Calculus of kidney (principal)
CPT/HCPCS: 87088; 85025; 87086; 80048; 36415; 85610; 74018; 50590 ×2; J2704; J1100; J2001; J2250; J3010; J7120; J2405 ×2

== ENCOUNTER 2022-12-16 15:43 | Emergency (ER) | payer MEDICARE ==
--- OUTSIDE RECORDS SUMMARY | 2022-12-16 15:57 | XMS REPORT | Continuity of Care Document ---
:1950 Author Organization [facility] t Address [address] [place] [address] [address] [place] [address] Care Team Providers Name Role Phone RANJAN VAN Primary Care Physician Unavailable Jennifer Gauthier Attending Clinician Unavailable Ranjan Van Attending Clinician Unavailable [id number] Attending Clinician Unavailable LOU CLARK Attending Clinician Unavailable LEVAR SALTER Attending Clinician Unavailable Nikki Iqbal Attending Clinician Rasheed_Matthew Attending Clinician Unavailable LEXIE_Matthew Attending Clinician Unavailable Doctor Unassigned, [place] Attending Clinician Unavailable Lou Clark MD Attending Clinician Pob, [facility] Lab Main Attending Clinician Unavailable Stephanie Munroe PT Attending Clinician Unavailable YESSI GONZALEZ Attending Clinician Unavailable Yessi Walter Attending Clinician Lab, Adc Fam Pob I Attending Clinician Unavailable TAYLER COREAS Attending Clinician Unavailable Nurse, Devon Fam Pob I Attending Clinician Unavailable DAVIS GARRETT Attending Clinician Unavailable Zafar_Rubin_JASON Attending Clinician Unavailable JOAN, TRENA A Attending Clinician Unavailable Levar Salter MD Attending Clinician [phone] Admitting Clinician Unavailable LOU CLARK Admitting Clinician Unavailable LEVAR SALTER Admitting Clinician Unavailable Rasheed_Matthew Admitting Clinician Unavailable LEXIE_T Admitting Clinician Unavailable Gay-Mbayo_A_AH Admitting Clinician Unavailable Levar Salter MD Admitting Clinician [phone] Payers Payer Name Policy Type Policy Number Effective Date Expiration Date S sofi MISC MISC [id number] CIGNA GENERIC [id number] 2021 00:00:00 [employer] [place] [id number] 2020 PLUS 00:00:00 CLASSIC/VALUE DEVOTED HEALTH [id number] 2021 (MEDICARE 00:00:00 REPLACEMENT HMO) [employer] C1 DW2E [facility] [employer] C1 DW2E [facility] C1 DW2E [facility] C1 DW2E [facility] [facility] C1 DW2E [facility] [employer] DW2E [facility] [place]ARE OF [place] - [id number] [place] 00:00:00 (MEDICARE REPLACEMENT/ADVAN TAGE - HMO) [...] itis 02-22 Family 00:00: Practic 00 e [id number] Anxiety Problem [facility] [id number] Erectile Problem Comm on dysfunctio Spirit n, - CHI unspecifie [facility] erectile [facility] dysfunctio Medica n type Center [id number] Osteoarthr Problem C ommon itis of Spirit left hip, - CHI [facility] osteoarthr Medica l itis type Center [id number] Localized Problem Com mon osteoarthr Spirit itis of - CHI right knee [facility] [id number] Osteoarthr Problem C ommon itis of Spirit right hip - CHI joint due [facility] [id number] MEGHAN (acute Problem C ommon [id number] kidney Spirit injury) [facility] Kidney Calculus Problem Common stone of kidney [facility] [id number] Ureterolit Problem Com mon hiasis [facility] [id number] 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[facility] myelopathy Medica l or Center radiculopa thy [id number] Gastroesop Problem Co mmon hageal Spirit reflux - CHI disease, [facility] Medical esophagiti Center s present Chronic Chronic Problem Common fatigue fatigue [facility] syndrome - [facility] [id number] Pain in Problem Comm on right [facility] thigh [facility] [id number] Benign Problem Commo n 101 prostatic [facility] hyperplasi - [facility] a with [facility] urinary Medical tract Center symptoms [id number] Abnormal Problem Comm on barium [facility] swallow [facility] [id number] History of Problem Co mmon colon [facility] polyps [facility] [id number] Localized Problem Co mmon [address]952 osteoarthr Spirit itis of - CHI left knee [facility] [id number] Primary Problem Comm on osteoarthr Spirit itis of - CHI right knee [facility] Memory Memory Problem Common deficit deficit [facility] Vitamin D Vitamin D Problem Com mon deficiency deficiency Sp rick [facility] [id number] Chronic Problem Common gastritis [facility] without - CHI bleeding, [facility] gastritis Center type [id number] Acute pain Problem Com mon of left [facility] knee - [facility] [id number] Pharyngoes Problem Com mon ophageal Spirit dysphagia [facility] [id number] 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 [facility] Somnolence Somnolence Problem C ommon , daytime Spirit [facility] [id number] 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 [facility] History of History of Problem C ommon arthroplas arthroplas Sp rick ty of ty of - CHI right knee right knee [facility] Allergies, Adverse Reactions, Alerts Allergy Allergy Status Severity Reaction(s) Onset Inactive Treating Comm ents Source Name Type Date Date Clinician NO KNOWN Drug Active Univers ALLERGIE Class ity of S [facility] Social History Social Habit Start Date Stop Date Quantity Comments Source History of Tobacco Common [facility] - [facility] Use [facility] Sex Assigned At Common Sp rick - CHI [facility] Exposure to 2022-03-27 2022-04-06 Not sure [facility] SARS-CoV-2 (event) 00:00:00 14:14:00 [facility] Tobacco use and 2022-04-06 2022-04-06 Never used [facility] exposure 00:00:00 00:00:00 [facility] Smoking Status Start Date Stop Date Source Unknown if ever smoked [facility] Never Smoker [facility] - [facility]I [facility] Medications Ordered Filled Start Stop Current Ordering Indication Dosage Frequency Signature Comments Components Source Medication Medication Date Date Medication? Clinician (SIG) Name Name traMADol traMADol 2021-11 No 1{table traMADol HCl 50 MG HCl 50 MG 1-03 t_as_ne HCl 50 MG 00:00: eded} 00 traMADol traMADol 2021-11 No 1{table traMADol HCl 50 MG HCl 50 MG 1-03 t_as_ne HCl 50 MG 00:00: eded} 00 traMADol traMADol 2021-11 No 1{table traMADol HCl 50 MG HCl 50 MG 1-03 t_as_ne HCl 50 MG 00:00: eded} 00 traMADol traMADol 2021-11 No 1{table traMADol HCl 50 MG HCl 50 MG 1-03 t_as_ne HCl 50 MG 00:00: eded} 00 traMADol traMADol 2021-11 No 1{table traMADol HCl 50 MG HCl 50 MG 1-03 t_as_ne HCl 50 MG 00:00: eded} 00 traMADol traMADol 2021-11 No 1{table traMADol HCl 50 MG HCl 50 MG 1-03 t_as_ne HCl 50 MG 00:00: eded} 00 traMADol traMADol 2021-11 No 1{table traMADol HCl 50 MG HCl 50 MG 1-03 t_as_ne HCl 50 MG 00:00: eded} 00 traMADol traMADol 2021-11 No 1{table traMADol HCl 50 MG HCl 50 MG 1-03 t_as_ne HCl 50 MG 00:00: eded} 00 traMADol traMADol 2021-11 No 1{table traMADol HCl 50 MG HCl 50 MG 1-03 t_as_ne HCl 50 MG 00:00: eded} 00 traMADol traMADol 2021-11 No 1{table traMADol HCl 50 MG HCl 50 MG 1-03 t_as_ne HCl 50 MG 00:00: eded} 00 HYDROcodone HYDROcodone 2021-11 No 1{table QID HYDROcodon -Acetaminop -Acetaminop 0-17 t_as_ne e-Acetamin hen 5-325 hen 5-325 00:00: eded} ophen MG MG 00 5-325 MG HYDROcodone HYDROcodone 2021-11 No 1{table QID HYDROcodon -Acetaminop -Acetaminop 0-17 t_as_ne e-Acetamin hen 5-325 hen 5-325 00:00: eded} ophen MG MG 00 5-325 MG HYDROcodone HYDROcodone 2021-11 No 1{table QID HYDROcodon -Acetaminop -Acetaminop 0-17 t_as_ne e-Acetamin hen 5-325 hen 5-325 00:00: eded} ophen MG MG 00 5-325 MG HYDROcodone HYDROcodone 2021-11 No 1{table QID HYDROcodon -Acetaminop -Acetaminop 0-17 t_as_ne e-Acetamin hen 5-325 hen 5-325 00:00: eded} ophen MG MG 00 5-325 MG HYDROcodone HYDROcodone 2021-11 No 1{table QID HYDROcodon -Acetaminop -Acetaminop 0-17 t_as_ne e-Acetamin hen 5-325 hen 5-325 00:00: eded} ophen MG MG 00 5-325 MG HYDROcodone HYDROcodone 2021-11 No 1{table QID HYDROcodon -Acetaminop -Acetaminop 0-17 t_as_ne e-Acetamin hen 5-325 hen 5-325 00:00: eded} ophen MG MG 00 5-325 MG HYDROcodone HYDROcodone 2021-11 No 1{table QID HYDROcodon -Acetaminop -Acetaminop 0-17 t_as_ne e-Acetamin hen 5-325 hen 5-325 00:00: eded} ophen MG MG 00 5-325 MG HYDROcodone HYDROcodone 2021-11 No 1{table QID HYDROcodon -Acetaminop -Acetaminop 0-17 t_as_ne e-Acetamin hen 5-325 hen 5-325 00:00: eded} ophen MG MG 00 5-325 MG HYDROcodone HYDROcodone 2021-11 No 1{table QID HYDROcodon -Acetaminop -Acetaminop 0-17 t_as_ne e-Acetamin hen 5-325 hen 5-325 00:00: eded} ophen MG MG 00 5-325 MG HYDROcodone HYDROcodone 2021-11 No 1{table QID HYDROcodon -Acetaminop -Acetaminop 0-17 t_as_ne e-Acetamin hen 5-325 hen 5-325 00:00: eded} ophen MG MG 00 5-325 MG HYDROcodone HYDROcodone 2021-11 No 1{table QID HYDROcodon -Acetaminop -Acetaminop 0-17 t_as_ne e-Acetamin hen 5-325 hen 5-325 00:00: eded} ophen MG MG 00 5-325 MG HYDROcodone HYDROcodone 2021-11 No 1{table QID HYDROcodon -Acetaminop -Acetaminop 0-04 t_as_ne e-Acetamin hen 7.5-325 hen 7.5-325 00:00: eded} ophen MG MG 00 7.5-325 MG HYDROcodone HYDROcodone 2021-11 No 1{table QID HYDROcodon -Acetaminop -Acetaminop 0-04 t_as_ne e-Acetamin hen 7.5-325 hen 7.5-325 00:00: eded} ophen MG MG 00 7.5-325 MG HYDROcodone HYDROcodone 2021-11 No 1{table QID HYDROcodon -Acetaminop -Acetaminop 0-04 t_as_ne e-Acetamin hen 7.5-325 hen 7.5-325 00:00: eded} ophen MG MG 00 7.5-325 MG HYDROcodone HYDROcodone 2021-11 No 1{table QID HYDROcodon -Acetaminop -Acetaminop 0-04 t_as_ne e-Acetamin hen 7.5-325 hen 7.5-325 00:00: eded} ophen MG MG 00 7.5-325 MG HYDROcodone HYDROcodone 2021-11 No 1{table QID HYDROcodon -Acetaminop -Acetaminop 0-04 t_as_ne e-Acetamin hen 7.5-325 hen 7.5-325 00:00: eded} ophen MG MG 00 7.5-325 MG HYDROcodone HYDROcodone 2021-11 No 1{table QID HYDROcodon -Acetaminop -Acetaminop 0-04 t_as_ne e-Acetamin hen 7.5-325 hen 7.5-325 00:00: eded} ophen MG MG 00 7.5-325 MG HYDROcodone HYDROcodone 2021-11 No 1{table QID HYDROcodon -Acetaminop -Acetaminop 0-04 t_as_ne e-Acetamin hen 7.5-325 hen 7.5-325 00:00: eded} ophen MG MG 00 7.5-325 MG HYDROcodone HYDROcodone 2021-11 No 1{table QID HYDROcodon -Acetaminop -Acetaminop 0-04 t_as_ne e-Acetamin hen 7.5-325 hen 7.5-325 00:00: eded} ophen MG MG 00 7.5-325 MG HYDROcodone HYDROcodone 2021-11 No 1{table QID HYDROcodon -Acetaminop -Acetaminop 0-04 t_as_ne e-Acetamin hen 7.5-325 hen 7.5-325 00:00: eded} ophen MG MG 00 7.5-325 MG HYDROcodone HYDROcodone 2021-11 No 1{table QID HYDROcodon -Acetaminop -Acetaminop 0-04 t_as_ne e-Acetamin hen 7.5-325 hen 7.5-325 00:00: eded} ophen MG MG 00 7.5-325 MG HYDROcodone HYDROcodone 2021-11 No 1{table QID HYDROcodon -Acetaminop -Acetaminop 0-04 t_as_ne e-Acetamin hen 7.5-325 hen 7.5-325 00:00: eded} ophen MG MG 00 7.5-325 MG HYDROcodone HYDROcodone 2021-11 No 1{table QID HYDROcodon [...] MG MG 00 7.5-325 MG HYDROcodone HYDROcodone 2021- No 1{table HYDROcodon -Acetaminop -Acetaminop - t_as_ne e-Acetamin hen 7.5-325 hen 7.5-325 00:00: eded} ophen MG MG 00 7.5-325 MG HYDROcodone HYDROcodone 2021- No 1{table HYDROcodon -Acetaminop -Acetaminop -27 t_as_ne e-Acetamin hen 7.5-325 hen 7.5-325 00:00: eded} ophen MG MG 00 7.5-325 MG HYDROcodone HYDROcodone 2021- No 1{table HYDROcodon -Acetaminop -Acetaminop 9-27 t_as_ne e-Acetamin hen 7.5-325 hen 7.5-325 00:00: eded} ophen MG MG 00 7.5-325 MG HYDROcodone HYDROcodone 2021- No 1{table HYDROcodon -Acetaminop -Acetaminop 9-27 t_as_ne e-Acetamin hen 7.5-325 hen 7.5-325 00:00: eded} ophen MG MG 00 7.5-325 MG HYDROcodone HYDROcodone 2021-0 No 1{table HYDROcodon -Acetaminop -Acetaminop 9-27 t_as_ne e-Acetamin hen 7.5-325 hen 7.5-325 00:00: eded} ophen MG MG 00 7.5-325 MG HYDROcodone HYDROcodone 2021-0 No 1{table HYDROcodon -Acetaminop -Acetaminop 9-27 t_as_ne e-Acetamin hen 7.5-325 hen 7.5-325 00:00: eded} ophen MG MG 00 7.5-325 MG HYDROcodone HYDROcodone 2021-0 No 1{table HYDROcodon -Acetaminop -Acetaminop -27 t_as_ne e-Acetamin hen 7.5-325 hen 7.5-325 00:00: eded} ophen MG MG 00 7.5-325 MG HYDROcodone HYDROcodone 2021-0 No 1{table HYDROcodon -Acetaminop -Acetaminop -27 t_as_ne e-Acetamin hen 7.5-325 hen 7.5-325 00:00: eded} ophen MG MG 00 7.5-325 MG HYDROcodone HYDROcodone 2021-0 No 1{table HYDROcodon -Acetaminop -Acetaminop -27 t_as_ne e-Acetamin hen 7.5-325 hen 7.5-325 00:00: eded} ophen MG MG 00 7.5-325 MG HYDROcodone HYDROcodone 2021-0 No 1{table HYDROcodon -Acetaminop -Acetaminop 9-27 t_as_ne e-Acetamin hen 7.5-325 hen 7.5-325 00:00: eded} ophen MG MG 00 7.5-325 MG HYDROcodone HYDROcodone 2021-0 No 1{table HYDROcodon -Acetaminop -Acetaminop 9-27 t_as_ne e-Acetamin hen 7.5-325 hen 7.5-325 00:00: eded} ophen MG MG 00 7.5-325 MG HYDROcodone HYDROcodone 2021-0 No 1{table HYDROcodon -Acetaminop -Acetaminop 9-27 t_as_ne e-Acetamin hen 7.5-325 hen 7.5-325 00:00: eded} ophen MG MG 00 7.5-325 MG HYDROcodone HYDROcodone 2021-0 No 1{table HYDROcodon -Acetaminop -Acetaminop 9-27 t_as_ne e-Acetamin hen 7.5-325 hen 7.5-325 00:00: eded} ophen MG MG 00 7.5-325 MG HYDROcodone HYDROcodone 2021-0 No 1{table HYDROcodon -Acetaminop -Acetaminop 9-27 t_as_ne e-Acetamin hen 7.5-325 hen 7.5-325 00:00: eded} ophen MG MG 00 7.5-325 MG HYDROcodone HYDROcodone 2021-0 No 1{table HYDROcodon -Acetaminop -Acetaminop 9-27 t_as_ne e-Acetamin hen 7.5-325 hen 7.5-325 00:00: eded} ophen MG MG 00 7.5-325 MG HYDROcodone HYDROcodone 2021-0 No 1{table HYDROcodon -Acetaminop -Acetaminop 9-27 t_as_ne e-Acetamin hen 7.5-325 hen 7.5-325 00:00: eded} ophen MG MG 00 7.5-325 MG HYDROcodone HYDROcodone 2021-0 No 1{table HYDROcodon -Acetaminop -Acetaminop 9-27 t_as_ne e-Acetamin hen 7.5-325 hen 7.5-325 00:00: eded} ophen MG MG 00 7.5-325 MG HYDROcodone HYDROcodone 2021-0 No 1{table HYDROcodon -Acetaminop -Acetaminop 9-27 t_as_ne e-Acetamin hen 7.5-325 hen 7.5-325 00:00: eded} ophen MG MG 00 7.5-325 MG HYDROcodone HYDROcodone 2021-0 No 1{table HYDROcodon -Acetaminop -Acetaminop 9-27 t_as_ne [...] 9-26 t} MG 00:00: 00 HYDROcodone HYDROcodone 2021-0 No 1{table HYDROcodon -Acetaminop -Acetaminop - t_as_ne e-Acetamin hen 7.5-325 hen 7.5-325 00:00: eded} ophen MG MG 00 7.5-325 MG Xarelto 10 Xarelto 10 2021-0 No 1{table QD Xarelto 10 MG MG [...] 50 MG 00:00: eded} 00 Diclofenac Diclofenac 2-0 No 1{table BID [...] MG 00:00: eded} MG 00 Diclofenac Diclofenac 2022-0 No 1{table BID Diclofenac Sodium 75 Sodium [...] MG 00:00: eded} MG 00 Diclofenac Diclofenac 2022-0 No 1{table BID Diclofenac Sodium 75 Sodium 75 7-12 t_as_ne Sodium 75 MG MG 00:00: eded} MG 00 Diclofenac Diclofenac No 1{table BID Diclofenac Sodium 75 Sodium 75 7-12 t_as_ne Sodium 75 MG MG 00:00: eded} MG 00 Diclofenac Diclofenac 0 No 1{table BID Diclofenac Sodium 75 Sodium 75 7-12 t_as_ne Sodium 75 MG MG 00:00: eded} MG 00 Diclofenac Diclofenac No 1{table BID Diclofenac Sodium 75 Sodium 75 7-12 t_as_ne Sodium 75 MG MG 00:00: eded} MG 00 Diclofenac Diclofenac 0 No 1{table BID Diclofenac Sodium 75 Sodium 75 7-12 t_as_ne Sodium 75 MG MG 00:00: eded} MG 00 gabapentin 0 Yes 300mg Take 300 Un denise 300 mg 5-13 mg by ity of capsule 14:11: mouth 2 [place] 56 (two) Medical times Branch daily. mecobalamin 2021-0 Yes 1000mg Take 1,000 Univers (B12 ACTIVE 5-13 mg by ity of ORAL) 14:11: mouth [place] 56 daily. Medical Branch ascorbic 2021-0 Yes 500mg Take 500 Univ ers acid, 5-13 mg by ity of vitamin C, 14:11: mouth [place] (VITAMIN C) 56 daily. Medica l 500 mg Branch tablet Cholecalcif 2021-0 Yes 1{capsu Take 1 U nivers jian, [...] Medica l 500 mg Branch tablet Cholecalcif 202-0 Yes 1{capsu Take 1 U nivers jian, 5-13 le} capsule by ity of Vitamin D3, 14:11: mouth [place] (VITAMIN 56 daily. Medical D3) 25 mcg Branch (1,000 unit) capsule gabapentin 2021-0 Yes 300mg Take 300 Un [...] Medica l 500 mg Branch tablet Cholecalcif 2021-0 Yes 1{capsu Take 1 U nivers jian, 5-13 le} capsule by ity of Vitamin D3, 14:11: mouth [place] (VITAMIN 56 daily. Medical D3) 25 mcg Branch (1,000 unit) capsule gabapentin 2021-0 Yes 300mg Take 300 Un denise 300 mg 5-13 mg by ity of capsule 14:11: mouth 2 [place] 56 (two) Medical times Branch daily. mecobalamin 2021-0 Yes 1000mg Take 1,000 Univers (B12 ACTIVE 5-13 mg by ity of ORAL) 14:11: mouth [place] 56 daily. Medical Branch ascorbic 2021-0 Yes 500mg Take 500 Univ ers acid, 5-13 mg by ity of vitamin C, 14:11: mouth [place] (VITAMIN C) 56 daily. Medica l 500 mg Branch tablet Cholecalcif 2021-0 Yes 1{capsu Take 1 U nivers jian, 5-13 le} capsule by ity of Vitamin D3, 14:11: mouth [place] (VITAMIN 56 daily. Medical D3) 25 mcg Branch (1,000 unit) capsule tamsulosin 2021-0 Yes Take by Univ ers [...] by mouth ity of tablet 14:07: daily. [place] [address] Medical Branch meloxicam 2021-0 Yes 7.5mg Take [...] by mouth ity of tablet 14:07: daily. [place] [address] Medical Branch meloxicam 2021-0 Yes 7.5mg Take [...] by mouth ity of tablet 14:07: daily. [place] [address] Medical Branch meloxicam 2021-0 Yes 7.5mg Take [...] by mouth ity of tablet 14:07: daily. [address] meloxicam Yes 7.5mg Take 7.5 Uni vers 7.5 mg 5-13 mg by ity of tablet 14:07: mouth [place] [address] daily. Medical Branch tamsulosin Yes Take by Univ ers 0.4 mg 24 5-13 mouth 2 ity of hr capsule 14:07: (two) [place] 41 times Medical daily. Branch baclofen 10 Yes 10mg Take 10 mg Univers mg tablet 5-13 by mouth 3 ity of 14:07: (three) [place] 41 times Medical daily. Branch SERTraline Yes 50mg Take 50 mg U nivers 50 mg 5-13 by mouth ity of tablet 14:07: daily. [address] meloxicam Yes 7.5mg Take 7.5 Uni vers 7.5 mg 5-13 mg by ity of tablet 14:07: mouth [place] 41 daily. Medical Branch diclofenac 2021- No [id number] 75mg Take 1 Univers 75 mg EC 03-30 9109 tablet by ity o f tablet 00:00: 04:59 mouth 2 [place] 00 :00 (two) Medical [facility] daily with meals for 30 days. diclofenac 2021-2021- No [id number] 75mg Take 1 Univers 75 mg EC 03-30 9109 tablet by ity o f tablet 00:00: 04:59 mouth 2 [place] 00 :00 (two) Medical [facility] daily with meals for 30 days. diclofenac 2021- No [id number] 75mg Take 1 Univers 75 mg EC 03-30 9109 tablet by ity o f tablet 00:00: 04:59 mouth 2 [place] 00 :00 (two) Medical times [place] daily with meals for 30 days. diclofenac 2021- No [id number] 75mg Take 1 Univers 75 mg EC 03-30 9109 tablet by ity o f tablet 00:00: 04:59 mouth 2 [place] 00 :00 (two) Medical times [place] daily with meals for 30 days. pantoprazol Yes 40mg Take 40 mg Univers e 40 mg EC 4-20 by mouth ity o f tablet 00:00: daily. [address] pantoprazol 2022-0 Yes 40mg Take 40 mg Univers e 40 mg EC 4-20 by mouth ity o f tablet 00:00: daily. [address] pantoprazol 2-0 Yes 40mg Take 40 mg Univers e 40 mg EC 4-20 by mouth ity o f tablet 00:00: daily. [address] pantoprazol 2021-0 Yes 40mg Take 40 mg Univers e 40 mg EC 4-20 by mouth ity o f tablet 00:00: daily. [address] traMADol traMADol 2021-0 No 1{table traMADol HCl 50 MG HCl 50 MG 1-13 t_as_ne HCl 50 MG 00:00: eded} 00 traMADol traMADol 2021-0 No 1{table traMADol HCl 50 MG HCl 50 MG 1-13 t_as_ne HCl 50 MG 00:00: eded} traMADol traMADol 2021-0 No 1{table traMADol HCl [...] 50 MG 00:00: eded} 00 HYDROcodone HYDROcodone 2021-0 No 1{table QID [...] 00 7.5-325 MG Vitamin B12 Vitamin B12 No 1000ug Common (Cyanocobal (Cyanocobal 7-15 S pirit ivory) ivory) 00:00: - CHI 00 [facility] Vitamin B12 Vitamin B12 2021-0 No 1000ug Common (Cyanocobal (Cyanocobal 7-15 S pirit ivory) ivory) 00:00: - CHI 00 [facility] Vitamin B12 Vitamin B12 2021-0 No 1000ug Common (Cyanocobal (Cyanocobal 7-15 S pirit ivory) ivory) 00:00: - CHI 00 [facility] Vitamin B12 Vitamin B12 2021-0 No 1000ug Common (Cyanocobal (Cyanocobal 7-15 S pirit ivory) ivory) 00:00: - CHI 00 [facility] Vitamin B12 Vitamin B12 1-0 No 1000ug Common (Cyanocobal (Cyanocobal 7-15 S pirit ivory) ivory) 00:00: - CHI 00 [facility] Vitamin B12 Vitamin B12 1-0 No 1000ug Common (Cyanocobal (Cyanocobal 7-15 S pirit ivory) ivory) 00:00: - CHI 00 [facility] Vitamin B12 Vitamin B12 1-0 No 1000ug Common (Cyanocobal (Cyanocobal 7-15 S pirit ivory) ivory) 00:00: - CHI 00 [facility] Vitamin B12 Vitamin B12 1-0 No 1000ug Common (Cyanocobal (Cyanocobal 7-15 S pirit ivory) ivory) 00:00: - CHI 00 [facility] Vitamin B12 Vitamin B12 1-0 No 1000ug Common (Cyanocobal (Cyanocobal 7-15 S pirit ivory) ivory) 00:00: - CHI 00 [facility] Vitamin B12 Vitamin B12 2021-0 No 1000ug Common (Cyanocobal (Cyanocobal 7-15 S pirit ivory) ivory) 00:00: - CHI 00 [facility] Vitamin B12 Vitamin B12 2021-0 No 1000ug Common (Cyanocobal (Cyanocobal 7-15 S pirit ivory) ivory) 00:00: - CHI 00 [facility] Vitamin B12 Vitamin B12 2021-0 No 1000ug Common (Cyanocobal (Cyanocobal 7-15 S pirit ivory) ivory) 00:00: - CHI 00 [facility] Vitamin B12 Vitamin B12 2021-0 No 1000ug Common (Cyanocobal (Cyanocobal 7-15 S pirit ivory) ivory) 00:00: - CHI 00 [facility] Vitamin B12 Vitamin B12 1-0 No 1000ug Common (Cyanocobal (Cyanocobal 7-15 S pirit ivory) ivory) 00:00: - CHI 00 [facility] Vitamin B12 Vitamin B12 1-0 No 1000ug Common (Cyanocobal (Cyanocobal 7-15 S pirit ivory) ivory) 00:00: - CHI 00 [facility] Vitamin B12 Vitamin B12 1-0 No 1000ug Common (Cyanocobal (Cyanocobal 7-15 S pirit ivory) ivory) 00:00: - CHI 00 [facility] Vitamin B12 Vitamin B12 2020-0 No 1000ug Common (Cyanocobal (Cyanocobal 7-15 S pirit ivory) ivory) 00:00: - CHI 00 [facility] Vitamin B12 Vitamin B12 2020-0 No 1000ug Common (Cyanocobal (Cyanocobal 7-15 S pirit ivory) ivory) 00:00: - CHI 00 [facility] Vitamin B12 Vitamin B12 1-0 No 1000ug Common (Cyanocobal (Cyanocobal 7-15 S pirit ivory) ivory) 00:00: - CHI 00 [facility] Vitamin B12 Vitamin B12 1-0 No 1000ug Common (Cyanocobal (Cyanocobal 7-15 S pirit ivory) ivory) 00:00: - CHI 00 [facility] Vitamin B12 Vitamin B12 1-0 No 1000ug Common (Cyanocobal (Cyanocobal 7-15 S pirit ivory) ivory) 00:00: - CHI 00 [facility] Vitamin B12 Vitamin B12 2021-0 No 1000ug Common (Cyanocobal (Cyanocobal 7-15 S pirit ivory) ivory) 00:00: - CHI 00 [facility] Vitamin B12 Vitamin B12 2021-0 No 1000ug Common (Cyanocobal (Cyanocobal 7-15 S pirit ivory) ivory) 00:00: - CHI 00 [facility] Vitamin B12 Vitamin B12 2021-0 No 1000ug Common (Cyanocobal (Cyanocobal 7-15 S pirit ivory) ivory) 00:00: - CHI 00 [facility] Vitamin B12 Vitamin B12 2021-0 No 1000ug Common (Cyanocobal (Cyanocobal 7-15 S pirit ivory) ivory) 00:00: - [facility] Vitamin B12 Vitamin B12 2020-0 No 1000ug Common (Cyanocobal (Cyanocobal 7-15 S pirit ivory) ivory) 00:00: - [facility] Vitamin B12 Vitamin B12 2020-0 No 1000ug Common (Cyanocobal (Cyanocobal 7-15 S pirit ivory) ivory) 00:00: - [facility] Vitamin B12 Vitamin B12 2020-0 No 1000ug Common (Cyanocobal (Cyanocobal 7-15 S pirit ivory) ivory) 00:00: - [facility] Vitamin B12 Vitamin B12 2020-0 No 1000ug Common (Cyanocobal (Cyanocobal 7-15 S pirit ivory) ivory) 00:00: - [facility] Vitamin B12 Vitamin B12 2020-0 No 1000ug Common (Cyanocobal (Cyanocobal 7-15 S pirit ivory) ivory) 00:00: - [facility] Vitamin B12 Vitamin B12 2020-0 No 1000ug Common (Cyanocobal (Cyanocobal 7-15 S pirit ivory) ivory) 00:00: - [facility] Vitamin B12 Vitamin B12 2020-0 No 1000ug Common (Cyanocobal (Cyanocobal 7-15 S pirit ivory) ivory) 00:00: - [facility] 00 [facility] Vitamin B12 Vitamin B12 2020-0 No 1000ug Common (Cyanocobal (Cyanocobal 7-15 S pirit ivory) ivory) 00:00: - [facility] 00 [facility] Vitamin B12 Vitamin B12 1-0 No 1000ug Common (Cyanocobal (Cyanocobal 7-15 S pirit ivory) ivory) 00:00: - [facility] 00 [facility] Vitamin B12 Vitamin B12 2021-0 No 1000ug Common (Cyanocobal (Cyanocobal 7-15 S pirit ivory) ivory) 00:00: - [facility] 00 [facility] Vitamin B12 Vitamin B12 2021-0 No 1000ug Common (Cyanocobal (Cyanocobal 7-15 S pirit ivory) ivory) 00:00: - [facility] 00 [facility] Vitamin B12 Vitamin B12 2020-0 No 1000ug Common (Cyanocobal (Cyanocobal 7-15 S pirit ivory) ivory) 00:00: - [facility] 00 [facility] Vitamin B12 Vitamin B12 2020-0 No 1000ug Common (Cyanocobal (Cyanocobal 7-15 S pirit ivory) ivory) 00:00: - [facility] 00 [facility] Vitamin B12 Vitamin B12 2020-0 No 1000ug Common (Cyanocobal (Cyanocobal 7-15 S pirit ivory) ivory) 00:00: - [facility] 00 [facility] Vitamin B12 Vitamin B12 2020-0 No 1000ug Common (Cyanocobal (Cyanocobal 7-15 S pirit ivory) ivory) 00:00: - [facility] 00 [facility] Vitamin B12 Vitamin B12 2020-0 No 1000ug Common (Cyanocobal (Cyanocobal 7-15 S pirit ivory) ivory) 00:00: - [facility] 00 [facility] Vitamin B12 Vitamin B12 2020-0 No 1000ug Common (Cyanocobal (Cyanocobal 7-15 S pirit ivory) ivory) 00:00: - [facility] 00 [facility] Vitamin B12 Vitamin B12 2020-0 No 1000ug Common (Cyanocobal (Cyanocobal 7-15 S pirit ivory) ivory) 00:00: - [facility] 00 [facility] Vitamin B12 Vitamin B12 2020-0 No 1000ug Common (Cyanocobal (Cyanocobal 7-15 S pirit ivory) ivory) 00:00: - [facility] 00 [facility] Vitamin B12 Vitamin B12 2020-0 No 1000ug Common (Cyanocobal (Cyanocobal 7-15 S pirit ivory) ivory) 00:00: - [facility] 00 [facility] Vitamin B12 Vitamin B12 1-0 No 1000ug Common (Cyanocobal (Cyanocobal 7-15 S pirit ivory) ivory) 00:00: - [facility] 00 [facility] Vitamin B12 Vitamin B12 2021-0 No 1000ug Common (Cyanocobal (Cyanocobal 7-15 S pirit ivory) ivory) 00:00: - [facility] 00 [facility] Vitamin B12 Vitamin B12 2021-0 No 1000ug Common (Cyanocobal (Cyanocobal 7-15 S pirit ivory) ivory) 00:00: - [facility] 00 [facility] Hyalgan 20 Hyalgan 20 1-0 No 20mg C ommon mg mg 01-17 Spirit 00:00: - [facility] 00 [facility] Hyalgan 20 Hyalgan 20 2020-0 No 20mg C ommon mg mg 01-17 Spirit 00:00: - [facility] 00 [facility] Hyalgan 20 Hyalgan 20 2020-0 No 20mg C ommon mg mg 01-17 Spirit 00:00: - [facility] 00 [facility] Hyalgan 20 Hyalgan 20 2020-0 No 20mg C ommon mg mg 01-17 Spirit 00:00: - [facility] 00 [facility] Hyalgan 20 Hyalgan 20 2020-0 No 20mg C ommon mg mg 01-17 Spirit 00:00: - [facility] 00 [facility] Hyalgan 20 Hyalgan 20 2020-0 No 20mg C ommon mg mg 01-17 Spirit 00:00: - [facility] 00 [facility] Hyalgan 20 Hyalgan 20 2020-0 No 20mg C ommon mg mg 01-17 Spirit 00:00: - [facility] 00 [facility] Hyalgan 20 Hyalgan 20 2020-0 No 20mg C ommon mg mg 01-17 Spirit 00:00: - [facility] 00 [facility] Hyalgan 20 Hyalgan 20 2020-0 No 20mg C ommon mg mg 01-17 Spirit 00:00: - [facility] 00 [facility] Hyalgan 20 Hyalgan 20 2020-0 No 20mg C ommon mg mg 01-17 Spirit 00:00: - [facility] 00 [facility] Hyalgan 20 Hyalgan 20 2020-0 No 20mg C ommon mg mg 01-17 Spirit 00:00: - [facility] 00 [facility] Hyalgan 20 Hyalgan 20 1-0 No 20mg C ommon mg mg 01-17 Spirit 00:00: - [facility] 00 [facility] Hyalgan 20 Hyalgan 20 1-0 No 20mg C ommon mg mg - Spirit 00:00: - [facility] 00 [facility] Hyalgan 20 Hyalgan 20 1-0 No 20mg C ommon mg mg 2- Spirit 00:00: - [facility] 00 [facility] Hyalgan 20 Hyalgan 20 2020-0 No 20mg C ommon mg mg 2- Spirit 00:00: - [facility] 00 [facility] Hyalgan 20 Hyalgan 20 2020-0 No 20mg C ommon mg mg 01-17 Spirit 00:00: - [facility] 00 [facility] Hyalgan 20 Hyalgan 20 2020-0 No 20mg C ommon mg mg 01-17 Spirit 00:00: - [facility] 00 [facility] Hyalgan 20 Hyalgan 20 2020-0 No 20mg C ommon mg mg 01-17 Spirit 00:00: - [facility] 00 [facility] Hyalgan 20 Hyalgan 20 2020-0 No 20mg C ommon mg mg 01-17 Spirit 00:00: - [facility] 00 [facility] Hyalgan 20 Hyalgan 20 2020-0 No 20mg C ommon mg mg 01-17 Spirit 00:00: - [facility] 00 [facility] Hyalgan 20 Hyalgan 20 2020-0 No 20mg C ommon mg mg 01-17 Spirit 00:00: - [facility] 00 [facility] Hyalgan 20 Hyalgan 20 2020-0 No 20mg C ommon mg mg 01-17 Spirit 00:00: - [facility] 00 [facility] Hyalgan 20 Hyalgan 20 2020-0 No 20mg C ommon mg mg 01-17 Spirit 00:00: - [facility] 00 [facility] Hyalgan 20 Hyalgan 20 2020-0 No 20mg C ommon mg mg 01-17 Spirit 00:00: - [facility] 00 [facility] Hyalgan 20 Hyalgan 20 2020-0 No 20mg C ommon mg mg 01-17 Spirit 00:00: - [facility] 00 [facility] Hyalgan 20 Hyalgan 20 2020-0 No 20mg C ommon mg mg 01-17 Spirit 00:00: - [facility] 00 [facility] Hyalgan 20 Hyalgan 20 2020-0 No 20mg C ommon mg mg 01-17 Spirit 00:00: - [facility] 00 [facility] Hyalgan 20 Hyalgan 20 2020-0 No 20mg C ommon mg mg 2- Spirit 00:00: - [facility] 00 [facility] Hyalgan 20 Hyalgan 20 2020-0 No 20mg C ommon mg mg 2- Spirit 00:00: - [facility] 00 [facility] Hyalgan 20 Hyalgan 20 2020-0 No 20mg C ommon mg mg - Spirit 00:00: - [facility] 00 [facility] Hyalgan 20 Hyalgan 20 2020-0 No 20mg C ommon mg mg 01-17 Spirit 00:00: - [facility] 00 [facility] Hyalgan 20 Hyalgan 20 2020-0 No 20mg C ommon mg mg 01-17 Spirit 00:00: - [facility] 00 [facility] Hyalgan 20 Hyalgan 20 2020-0 No 20mg C ommon mg mg 01-17 Spirit 00:00: - [facility] 00 [facility] Hyalgan 20 Hyalgan 20 2020-0 No 20mg C ommon mg mg 01-17 Spirit 00:00: - [facility] 00 [facility] Hyalgan 20 Hyalgan 20 2020-0 No 20mg C ommon mg mg 01-17 Spirit 00:00: - [facility] 00 [facility] Hyalgan 20 Hyalgan 20 2020-0 No 20mg C ommon mg mg 01-17 Spirit 00:00: - [facility] 00 [facility] Hyalgan 20 Hyalgan 20 2020-0 No 20mg C ommon mg mg 01-17 Spirit 00:00: - [facility] 00 [facility] Hyalgan 20 Hyalgan 20 2020-0 No 20mg C ommon mg mg 01-17 Spirit 00:00: - [facility] 00 [facility] Hyalgan 20 Hyalgan 20 2020-0 No 20mg C ommon mg mg 01-17 Spirit 00:00: - [facility] 00 [facility] Hyalgan 20 Hyalgan 20 2020-0 No 20mg C ommon mg mg 01-17 Spirit 00:00: - [facility] 00 [facility] Hyalgan 20 Hyalgan 20 2020-0 No 20mg C ommon mg mg 01-17 Spirit 00:00: - [facility] 00 [facility] Hyalgan 20 Hyalgan 20 2020-0 No 20mg C ommon mg mg 01-17 Spirit 00:00: - [facility] 00 [facility] Hyalgan 20 Hyalgan 20 2020-0 No 20mg C ommon mg mg 2- Spirit 00:00: - [facility] 00 [facility] Hyalgan 20 Hyalgan 20 2020-0 No 20mg C ommon mg mg 2- Spirit 00:00: - [facility] 00 [facility] Hyalgan 20 Hyalgan 20 2020-0 No 20mg C ommon mg mg 01-17 Spirit 00:00: - [facility] 00 [facility] Hyalgan 20 Hyalgan 20 2020-0 No 20mg C ommon mg mg 01-17 Spirit 00:00: - [facility] 00 [facility] Hyalgan 20 Hyalgan 20 2020-0 No 20mg C ommon mg mg 01-17 Spirit 00:00: - [facility] 00 [facility] Hyalgan 20 Hyalgan 20 2020-0 No 20mg C ommon mg mg 01-17 Spirit 00:00: - [facility] 00 [facility] Hyalgan 20 Hyalgan 20 2020-0 No 20mg C ommon mg mg 01-17 Spirit 00:00: - [facility] 00 [facility] Hyalgan 20 Hyalgan 20 2020-0 No 20mg C ommon mg mg 01-17 Spirit 00:00: - [facility] 00 [facility] Hyalgan 20 Hyalgan 20 2020-0 No 20mg C ommon mg mg 01-17 Spirit 00:00: - [facility] 00 [facility] Hyalgan 20 Hyalgan 20 2020-0 No 20mg C ommon mg mg 01-17 Spirit 00:00: - [facility] 00 [facility] Hyalgan 20 Hyalgan 20 2020-0 No 20mg C ommon mg mg 01-17 Spirit 00:00: - [facility] 00 [facility] Hyalgan 20 Hyalgan 20 2020-0 No 20mg C ommon mg mg 01-17 Spirit 00:00: - [facility] 00 [facility] Hyalgan 20 Hyalgan 20 2020-0 No 20mg C ommon mg mg 01-17 Spirit 00:00: - [facility] 00 [facility] Hyalgan 20 Hyalgan 20 2020-0 No 20mg C ommon mg mg 01-17 Spirit 00:00: - [facility] 00 [facility] Hyalgan 20 Hyalgan 20 2020-0 No 20mg C ommon mg mg 01-17 Spirit 00:00: - [facility] 00 [facility] Hyalgan 20 Hyalgan 20 2020-0 No 20mg C ommon mg mg 2 Spirit 00:00: - [facility] 00 [facility] Hyalgan 20 Hyalgan 20 2020-0 No 20mg C ommon mg mg 2- Spirit 00:00: - [facility] 00 [facility] Hyalgan 20 Hyalgan 20 2020-0 No 20mg C ommon mg mg 01-17 Spirit 00:00: - [facility] 00 [facility] Hyalgan 20 Hyalgan 20 2020-0 No 20mg C ommon mg mg 2- Spirit 00:00: - [facility] 00 [facility] Hyalgan 20 Hyalgan 20 2020-0 No 20mg C ommon mg mg 2 Spirit 00:00: - [facility] 00 [facility] Hyalgan 20 Hyalgan 20 2020-0 No 20mg C ommon mg mg 01-17 Spirit 00:00: - [facility] 00 [facility] Hyalgan 20 Hyalgan 20 2020-0 No 20mg C ommon mg mg 01-17 Spirit 00:00: - [facility] 00 [facility] Hyalgan 20 Hyalgan 20 2020-0 No 20mg C ommon mg mg 01-17 Spirit 00:00: - [facility] 00 [facility] Hyalgan 20 Hyalgan 20 2020-0 No 20mg C ommon mg mg 01-17 Spirit 00:00: - [facility] 00 [facility] Hyalgan 20 Hyalgan 20 2020-0 No 20mg C ommon mg mg 01-17 Spirit 00:00: - [facility] 00 [facility] Hyalgan 20 Hyalgan 20 2020-0 No 20mg C ommon mg mg 01-17 Spirit 00:00: - [facility] 00 [facility] Hyalgan 20 Hyalgan 20 2020-0 No 20mg C ommon mg mg 01-17 Spirit 00:00: - [facility] 00 [facility] Hyalgan 20 Hyalgan 20 2020-0 No 20mg C ommon mg mg 01-17 Spirit 00:00: - [facility] 00 [facility] Hyalgan 20 Hyalgan 20 2020-0 No 20mg C ommon mg mg 2 Spirit 00:00: - [facility] 00 [facility] Hyalgan 20 Hyalgan 20 2020-0 No 20mg C ommon mg mg 2 Spirit 00:00: - [facility] 00 [facility] Hyalgan 20 Hyalgan 20 2020-0 No 20mg C ommon mg mg 2- Spirit 00:00: - [facility] 00 [facility] Hyalgan 20 Hyalgan 20 2020-0 No 20mg C ommon mg mg 2- Spirit 00:00: - [facility] 00 [facility] Hyalgan 20 Hyalgan 20 2020-0 No 20mg C ommon mg mg 01-17 Spirit 00:00: - [facility] 00 [facility] Hyalgan 20 Hyalgan 20 2020-0 No 20mg C ommon mg mg 01-17 Spirit 00:00: - [facility] 00 [facility] Hyalgan 20 Hyalgan 20 2020-0 No 20mg C ommon mg mg 01-17 Spirit 00:00: - [facility] 00 [facility] Hyalgan 20 Hyalgan 20 2020-0 No 20mg C ommon mg mg 01-17 Spirit 00:00: - [facility] 00 [facility] Hyalgan 20 Hyalgan 20 2020-0 No 20mg C ommon mg mg 01-17 Spirit 00:00: - [facility] 00 [facility] Hyalgan 20 Hyalgan 20 2020-0 No 20mg C ommon mg mg 01-17 Spirit 00:00: - [facility] 00 [facility] Hyalgan 20 Hyalgan 20 2020-0 No 20mg C ommon mg mg 01-17 Spirit 00:00: - [facility] 00 [facility] Hyalgan 20 Hyalgan 20 2020-0 No 20mg C ommon mg mg 01-17 Spirit 00:00: - [facility] 00 [facility] Hyalgan 20 Hyalgan 20 2020-0 No 20mg C ommon mg mg 01-17 Spirit 00:00: - [facility] 00 [facility] Hyalgan 20 Hyalgan 20 2020-0 No 20mg C ommon mg mg 01-17 Spirit 00:00: - [facility] 00 [facility] Hyalgan 20 Hyalgan 20 2020-0 No 20mg C ommon mg mg 01-17 Spirit 00:00: - [facility] 00 [facility] Hyalgan 20 Hyalgan 20 2020-0 No 20mg C ommon mg mg 01-17 Spirit 00:00: - [facility] 00 [facility] Hyalgan 20 Hyalgan 20 2020-0 No 20mg C ommon mg mg 2 Spirit 00:00: - [facility] 00 [facility] Hyalgan 20 Hyalgan 20 2020-0 No 20mg C ommon mg mg 2- Spirit 00:00: - [facility] 00 [facility] Hyalgan 20 Hyalgan 20 2020-0 No 20mg C ommon mg mg 01-17 Spirit 00:00: - [facility] Hyalgan 20 Hyalgan 20 2020-0 No 20mg C ommon mg mg 01-17 Spirit 00:00: - [facility] 00 [facility] Hyalgan 20 Hyalgan 20 2020-0 No 20mg C ommon mg mg 01-17 [facility] 00:00: - [facility] Hyalgan 20 Hyalgan 20 2020-0 No 20mg C ommon mg mg 01-17 [facility] 00:00: - [facility] 00 [facility] Hyalgan 20 Hyalgan 20 2020-0 No 20mg C ommon mg mg 01-17 [facility] 00:00: - [facility] 00 [facility] Hyalgan 20 Hyalgan 20 2020-0 No 20mg C ommon mg mg 01-17 Spirit 00:00: - [facility] Hyalgan 20 Hyalgan 20 2020-0 No 20mg C ommon mg mg 01-17 Spirit 00:00: - [facility] Hyalgan 20 Hyalgan 20 2020-0 No 20mg C ommon mg mg 01-17 Spirit 00:00: - [facility] Hyalgan 20 Hyalgan 20 2020-0 No 20mg C ommon mg mg 01-05 Spirit 00:00: - [facility] Hyalgan 20 Hyalgan 20 2020-0 No 20mg C ommon mg mg 01-05 [facility] 00:00: - [facility] Hyalgan 20 Hyalgan 20 2020-0 No 20mg C ommon mg mg 01-05 [facility] 00:00: - [facility] 00 [facility] Hyalgan 20 Hyalgan 20 2020-0 No 20mg C ommon mg mg 01-05 [facility] 00:00: - [facility] Hyalgan 20 Hyalgan 20 1-0 No 20mg C ommon mg mg 01-05 [facility] 00:00: - [facility] Hyalgan 20 Hyalgan 20 1-0 No 20mg C ommon mg mg 01-05 [facility] 00:00: - [facility] Hyalgan 20 Hyalgan 20 2020-0 No 20mg C ommon mg mg 01-05 [facility] 00:00: - [facility] 00 [facility] Hyalgan 20 Hyalgan 20 2020-0 No 20mg C ommon mg mg 01-05 [facility] 00:00: - [facility] Hyalgan 20 Hyalgan 20 2020-0 No 20mg C ommon mg mg 01-05 [facility] 00:00: - [facility] Hyalgan 20 Hyalgan 20 2020-0 No 20mg C ommon mg mg 01-05 [facility] 00:00: - [facility] Hyalgan 20 Hyalgan 20 2020-0 No 20mg C ommon mg mg 01-05 [facility] 00:00: - [facility] Hyalgan 20 Hyalgan 20 2020-0 No 20mg C ommon mg mg 01-05 [facility] 00:00: - [facility] Hyalgan 20 Hyalgan 20 2020-0 No 20mg C ommon mg mg 01-05 [facility] 00:00: - [facility] Hyalgan 20 Hyalgan 20 2020-0 No 20mg C ommon mg mg 01-05 [facility] 00:00: - [facility] Hyalgan 20 Hyalgan 20 2020-0 No 20mg C ommon mg mg 01-05 [facility] 00:00: - [facility] Hyalgan 20 Hyalgan 20 2020-0 No 20mg C ommon mg mg 01-05 [facility] 00:00: - [facility] Hyalgan 20 Hyalgan 20 2020-0 No 20mg C ommon mg mg 01-05 [facility] 00:00: - [facility] Hyalgan 20 Hyalgan 20 2020-0 No 20mg C ommon mg mg 01-05 [facility] 00:00: - [facility] Hyalgan 20 Hyalgan 20 1-0 No 20mg C ommon mg mg 01-05 [facility] 00:00: - [facility] Hyalgan 20 Hyalgan 20 1-0 No 20mg C ommon mg mg 01-05 [facility] 00:00: - [facility] Hyalgan 20 Hyalgan 20 1-0 No 20mg C ommon mg mg 01-05 [facility] 00:00: - [facility] Hyalgan 20 Hyalgan 20 2020-0 No 20mg C ommon mg mg 2-11 [facility] 00:00: - [facility] Hyalgan 20 Hyalgan 20 2020-0 No 20mg C ommon mg mg 01-05 [facility] 00:00: - [facility] Hyalgan 20 Hyalgan 20 2020-0 No 20mg C ommon mg mg 01-05 [facility] 00:00: - [facility] Hyalgan 20 Hyalgan 20 2020-0 No 20mg C ommon mg mg 01-05 [facility] 00:00: - [facility] Hyalgan 20 Hyalgan 20 2020-0 No 20mg C ommon mg mg 01-05 [facility] 00:00: - [facility] Hyalgan 20 Hyalgan 20 2020-0 No 20mg C ommon mg mg 01-05 [facility] 00:00: - [facility] Hyalgan 20 Hyalgan 20 2020-0 No 20mg C ommon mg mg 01-05 [facility] 00:00: - [facility] Hyalgan 20 Hyalgan 20 2020-0 No 20mg C ommon mg mg 01-05 [facility] 00:00: - [facility] Hyalgan 20 Hyalgan 20 2020-0 No 20mg C ommon mg mg 01-05 [facility] 00:00: - [facility] Hyalgan 20 Hyalgan 20 2020-0 No 20mg C ommon mg mg 01-05 [facility] 00:00: - [facility] Hyalgan 20 Hyalgan 20 2020-0 No 20mg C ommon mg mg 01-05 [facility] 00:00: - [facility] Hyalgan 20 Hyalgan 20 2020-0 No 20mg C ommon mg mg 01-05 [facility] 00:00: - [facility] Hyalgan 20 Hyalgan 20 2020-0 No 20mg C ommon mg mg 01-05 [facility] 00:00: - [facility] Hyalgan 20 Hyalgan 20 1-0 No 20mg C ommon mg mg 01-05 [facility] 00:00: - [facility] Hyalgan 20 Hyalgan 20 2020-0 No 20mg C ommon mg mg 01-05 [facility] 00:00: - [facility] Hyalgan 20 Hyalgan 20 2020-0 No 20mg C ommon mg mg 01-05 [facility] 00:00: - [facility] Hyalgan 20 Hyalgan 20 2020-0 No 20mg C ommon mg mg 01-05 [facility] 00:00: - [facility] Hyalgan 20 Hyalgan 20 2020-0 No 20mg C ommon mg mg 01-05 [facility] 00:00: - [facility] Hyalgan 20 Hyalgan 20 2020-0 No 20mg C ommon mg mg 01-05 [facility] 00:00: - [facility] 00 [facility] Hyalgan 20 Hyalgan 20 2020-0 No 20mg C ommon mg mg 01-05 [facility] 00:00: - [facility] Hyalgan 20 Hyalgan 20 2020-0 No 20mg C ommon mg mg 01-05 [facility] 00:00: - [facility] Hyalgan 20 Hyalgan 20 2020-0 No 20mg C ommon mg mg 01-05 [facility] 00:00: - [facility] Hyalgan 20 Hyalgan 20 2020-0 No 20mg C ommon mg mg 01-05 [facility] 00:00: - [facility] Hyalgan 20 Hyalgan 20 2020-0 No 20mg C ommon mg mg 01-05 [facility] 00:00: - [facility] Hyalgan 20 Hyalgan 20 2020-0 No 20mg C ommon mg mg 01-05 [facility] 00:00: - [facility] Hyalgan 20 Hyalgan 20 2020-0 No 20mg C ommon mg mg 01-05 [facility] 00:00: - [facility] Hyalgan 20 Hyalgan 20 2020-0 No 20mg C ommon mg mg 01-05 [facility] 00:00: - [facility] Hyalgan 20 Hyalgan 20 2020-0 No 20mg C ommon mg mg 01-05 [facility] 00:00: - [facility] Hyalgan 20 Hyalgan 20 1-0 No 20mg C ommon mg mg 01-05 [facility] 00:00: - [facility] Hyalgan 20 Hyalgan 20 2020-0 No 20mg C ommon mg mg 01-05 [facility] 00:00: - [facility] Hyalgan 20 Hyalgan 20 1-0 No 20mg C ommon mg mg 01-05 [facility] 00:00: - [facility] Hyalgan 20 Hyalgan 20 1-0 No 20mg C ommon mg mg 01-05 [facility] 00:00: - [facility] Hyalgan 20 Hyalgan 20 1-0 No 20mg C ommon mg mg 01-05 [facility] 00:00: - [facility] Hyalgan 20 Hyalgan 20 1-0 No 20mg C ommon mg mg 01-05 [facility] 00:00: - [facility] Hyalgan 20 Hyalgan 20 1-0 No 20mg C ommon mg mg 01-05 [facility] 00:00: - [facility] Hyalgan 20 Hyalgan 20 1-0 No 20mg C ommon mg mg 01-05 [facility] 00:00: - [facility] Hyalgan 20 Hyalgan 20 2020-0 No 20mg C ommon mg mg 01-05 [facility] 00:00: - [facility] Hyalgan 20 Hyalgan 20 2020-0 No 20mg C ommon mg mg 01-05 [facility] 00:00: - [facility] Hyalgan 20 Hyalgan 20 2020-0 No 20mg C ommon mg mg 01-05 [facility] 00:00: - [facility] Hyalgan 20 Hyalgan 20 1-0 No 20mg C ommon mg mg 01-05 [facility] 00:00: - [facility] Hyalgan 20 Hyalgan 20 1-0 No 20mg C ommon mg mg 01-05 [facility] 00:00: - [facility] Hyalgan 20 Hyalgan 20 1-0 No 20mg C ommon mg mg 01-05 [facility] 00:00: - [facility] Hyalgan 20 Hyalgan 20 1-0 No 20mg C ommon mg mg 01-05 [facility] 00:00: - [facility] Hyalgan 20 Hyalgan 20 1-0 No 20mg C ommon mg mg 01-05 [facility] 00:00: - [facility] Hyalgan 20 Hyalgan 20 1-0 No 20mg C ommon mg mg 01-05 [facility] 00:00: - [facility] Hyalgan 20 Hyalgan 20 2020-0 No 20mg C ommon mg mg 01-05 [facility] 00:00: - [facility] Hyalgan 20 Hyalgan 20 1-0 No 20mg C ommon mg mg 01-05 [facility] 00:00: - [facility] Hyalgan 20 Hyalgan 20 2020-0 No 20mg C ommon mg mg 01-05 [facility] 00:00: - [facility] Hyalgan 20 Hyalgan 20 1-0 No 20mg C ommon mg mg 01-05 [facility] 00:00: - [facility] Hyalgan 20 Hyalgan 20 2020-0 No 20mg C ommon mg mg 01-05 [facility] 00:00: - [facility] Hyalgan 20 Hyalgan 20 2020-0 No 20mg C ommon mg mg 01-05 [facility] 00:00: - [facility] Hyalgan 20 Hyalgan 20 2020-0 No 20mg C ommon mg mg 01-05 [facility] 00:00: - [facility] Hyalgan 20 Hyalgan 20 2020-0 No 20mg C ommon mg mg 01-05 [facility] 00:00: - [facility] Hyalgan 20 Hyalgan 20 2020-0 No 20mg C ommon mg mg 01-05 [facility] 00:00: - [facility] [place] 20 Hyalgan 20 2020-0 No 20mg C ommon mg mg 01-05 [facility] 00:00: - [facility] Hy[place]gan 20 Hyalgan 20 1-0 No 20mg C ommon mg mg 01-05 [facility] 00:00: - [facility] Hyalgan 20 Hyalgan 20 1-0 No 20mg C ommon mg mg 01-05 [facility] 00:00: - [facility] Hyalgan 20 Hyalgan 20 1-0 No 20mg C ommon mg mg 01-05 [facility] 00:00: - [facility] Hyalgan 20 Hyalgan 20 1-0 No 20mg C ommon mg mg 01-05 [facility] 00:00: - [facility] Hyalgan 20 Hyalgan 20 2021-0 No 20mg C ommon mg mg 01-05 [facility] 00:00: - [facility] Hy[place] 20 Hyalgan 20 2020-0 No 20mg C ommon mg mg 01-05 [facility] 00:00: - [facility] [place] 20 Hyalgan 20 2020-0 No 20mg C ommon mg mg 01-05 [facility] 00:00: - [facility] Hyalgan 20 Hyalgan 20 2020-0 No 20mg C ommon mg mg 01-05 [facility] 00:00: - [facility] Hyalgan 20 Hyalgan 20 2020-0 No 20mg C ommon mg mg 01-05 [facility] 00:00: - [facility]gan 20 Hyalgan 20 2020-0 No 20mg C ommon mg mg 01-05 [facility] 00:00: - [facility] Hy[place]gan 20 Hyalgan 20 2020-0 No 20mg C ommon mg mg 01-05 [facility] 00:00: - [facility] Hyalgan 20 Hyalgan 20 2020-0 No 20mg C ommon mg mg 01-05 [facility] 00:00: - [facility] Hyalgan 20 Hyalgan 20 2020-0 No 20mg C ommon mg mg 01-05 [facility] 00:00: - [facility] Hyalgan 20 Hyalgan 20 2020-0 No 20mg C ommon mg mg 01-05 [facility] 00:00: - [facility] Hyalgan 20 Hyalgan 20 2020-0 No 20mg C ommon mg mg 01-05 [facility] 00:00: - [facility] Hy[place]gan 20 Hyalgan 20 2020-0 No 20mg C ommon mg mg 01-05 [facility] 00:00: - [facility] 20 Hyalgan 20 2020-0 No 20mg C ommon mg mg 01-05 [facility] 00:00: - [facility] Hy[place]gan 20 Hyalgan 20 1-0 No 20mg C ommon mg mg 01-05 [facility] 00:00: - [facility] Hyalgan 20 Hyalgan 20 2020-0 No 20mg C ommon mg mg 01-05 [facility] 00:00: - [facility] Hyalgan 20 Hyalgan 20 2020-0 No 20mg C ommon mg mg 2 [facility] 00:00: - [facility] Bupivicaine Bupivicaine 2019- No 2.5mg [place] [facility] 00:00: - [facility] 00 [facility] Bupivicaine Bupivicaine 2019- No 2.5mg [place] [facility] 00:00: - [facility] 00 [facility] Hyalgan 20 Hyalgan 20 2019-11 No 20mg C ommon mg mg 2-04 Spirit 00:00: - [facility] 00 [facility] Hyalgan 20 Hyalgan 20 2019-11 No 20mg C ommon mg mg 204 Spirit 00:00: - [facility] 00 [facility] Kenalog Kenalog 2019-11 No 40mg Common (Triamcinol (Triamcinol 2-04 S pirit one) one) 00:00: - [facility] 00 [facility] Kenalog Kenalog 2019- No 40mg Common (Triamcinol (Triamcinol 2-04 S pirit one) one) 00:00: - [facility] 00 [facility] Bupivicaine Bupivicaine 2019- No 2.5mg [facility] [place] [facility] 00:00: - [facility] 00 [facility] Bupivicaine Bupivicaine 2019- No 2.5mg [place] [facility] 00:00: - [facility] 00 [facility] Hyalgan 20 Hyalgan 20 2019-11 No 20mg C ommon mg mg 2-04 Spirit 00:00: - [facility] 00 [facility] Hyalgan 20 Hyalgan 20 2019- No 20mg C ommon mg mg 2-04 Spirit 00:00: - [facility] 00 [facility] Kenalog Kenalog 2019- No 40mg Common (Triamcinol (Triamcinol 2-04 S pirit one) one) 00:00: - [facility] 00 [facility] Kenalog Kenalog 2019- No 40mg Common (Triamcinol (Triamcinol 2-04 S pirit one) one) 00:00: - [facility] 00 [facility] Bupivicaine Bupivicaine 2019- No 2.5mg [facility] [place] [facility] 00:00: - [facility] 00 [facility] Bupivicaine Bupivicaine 2019- No 2.5mg [facility] [place] [facility] 00:00: - [facility] 00 [facility] Hyalgan 20 Hyalgan 20 2019- No 20mg C ommon mg mg 2-04 Spirit 00:00: - [facility] 00 [facility] Hyalgan 20 Hyalgan 20 2019- No 20mg C ommon mg mg 2-04 Spirit 00:00: - [facility] 00 [facility] Kenalog Kenalog 2019-11 No 40mg Common (Triamcinol (Triamcinol 2-04 S pirit one) one) 00:00: - [facility] 00 [facility] Kenalog Kenalog 2019-11 No 40mg Common (Triamcinol (Triamcinol 2-04 S pirit one) one) 00:00: - [facility] 00 [facility] Bupivicaine Bupivicaine 2019- No 2.5mg [place] [facility] 00:00: - [facility] 00 [facility] Bupivicaine Bupivicaine 2019- No 2.5mg [place] [facility] 00:00: - [facility] 00 [facility] Hyalgan 20 Hyalgan 20 2019- No 20mg C ommon mg mg 2-04 Spirit 00:00: - [facility] 00 [facility] Hyalgan 20 Hyalgan 20 2019- No 20mg C ommon mg mg 2-04 Spirit 00:00: - [facility] 00 [facility] Kenalog Kenalog 2019- No 40mg Common (Triamcinol (Triamcinol 2-04 S pirit one) one) 00:00: - [facility] 00 [facility] Kenalog Kenalog 2019-11 No 40mg Common (Triamcinol (Triamcinol 2-04 S pirit one) one) 00:00: - [facility] 00 [facility] Bupivicaine Bupivicaine 2019- No 2.5mg [place] [facility] 00:00: - [facility] 00 [facility] Bupivicaine Bupivicaine 2019- No 2.5mg [facility] [place] [facility] 00:00: - [facility] 00 [facility] Hyalgan 20 Hyalgan 20 2019- No 20mg C ommon mg mg 2-04 Spirit 00:00: - [facility] 00 [facility] Hyalgan 20 Hyalgan 20 2019- No 20mg C ommon mg mg 2-04 Spirit 00:00: - [facility] 00 [facility] Kenalog Kenalog 2019-11 No 40mg Common (Triamcinol (Triamcinol 2-04 S pirit one) one) 00:00: - [facility] 00 [facility] Kenalog Kenalog 2019-11 No 40mg Common (Triamcinol (Triamcinol 2-04 S pirit one) one) 00:00: - [facility] 00 [facility] Bupivicaine Bupivicaine 2019- No 2.5mg [place] [facility] 00:00: - [facility] 00 [facility] Bupivicaine Bupivicaine 2019-11 No 2.5mg [place] [facility] 00:00: - [facility] 00 [facility] Hyalgan 20 Hyalgan 20 2019-11 No 20mg C ommon mg mg 2-04 Spirit 00:00: - [facility] 00 [facility] Hyalgan 20 Hyalgan 20 2019-11 No 20mg C ommon mg mg 2-04 Spirit 00:00: - [facility] 00 [facility] Kenalog Kenalog 2019-11 No 40mg Common (Triamcinol (Triamcinol 2-04 S pirit one) one) 00:00: - [facility] 00 [facility] Kenalog Kenalog 2019-11 No 40mg Common (Triamcinol (Triamcinol 2-04 S pirit one) one) 00:00: - [facility] 00 [facility] Bupivicaine Bupivicaine 2019-11 No 2.5mg [place] [facility] 00:00: - [facility] 00 [facility] Bupivicaine Bupivicaine 2019- No 2.5mg [place] [facility] 00:00: - [facility] 00 [facility] Hyalgan 20 Hyalgan 20 2019-11 No 20mg C ommon mg mg 2-04 Spirit 00:00: - [facility] 00 [facility] Hyalgan 20 Hyalgan 20 2019- No 20mg C ommon mg mg 2-04 [facility] 00:00: [facility] Common (Triamcinol (Triamcinol 2-04 S pirit one) one) 00:00: - [facility] 00 [facility] Kenalog Kenalog 2019- No 40mg Common (Triamcinol (Triamcinol 2-04 S pirit one) one) 00:00: - [facility] 00 [facility] Bupivicaine Bupivicaine 2019- No 2.5mg [place] [facility] 00:00: - [facility] 00 [facility] Bupivicaine Bupivicaine 2019- No 2.5mg [place] [facility] 00:00: - [facility] 00 [facility] Hyalgan 20 Hyalgan 20 2019- No 20mg C ommon mg mg 2-04 Spirit 00:00: - [facility] 00 [facility] Hyalgan 20 Hyalgan 20 2019- No 20mg C ommon mg mg 2-04 Spirit 00:00: - [facility] 00 [facility] Kenalog Kenalog 2019-11 No 40mg Common (Triamcinol (Triamcinol 2-04 S pirit one) one) 00:00: - [facility] 00 [facility] Kenalog Kenalog 2019- No 40mg Common (Triamcinol (Triamcinol 2-04 S pirit one) one) 00:00: - [facility] 00 [facility] Bupivicaine Bupivicaine 2019- No 2.5mg [place] [facility] 00:00: - [facility] 00 [facility] Bupivicaine Bupivicaine 2019- No 2.5mg [place] [facility] 00:00: - [facility] 00 [facility] Hyalgan 20 Hyalgan 20 2019- No 20mg C ommon mg mg 2-04 Spirit 00:00: - [facility] 00 [facility] Hyalgan 20 Hyalgan 20 2019- No 20mg C ommon mg mg 2-04 Spirit 00:00: - [facility] 00 [facility] Kenalog Kenalog 2019- No 40mg Common (Triamcinol (Triamcinol 2-04 S pirit one) one) 00:00: - [facility] 00 [facility] Kenalog Kenalog 2019- No 40mg Common (Triamcinol (Triamcinol 2-04 S pirit one) one) 00:00: - [facility] 00 [facility] Bupivicaine Bupivicaine 2019- No 2.5mg [facility] [place] [facility] 00:00: - [facility] 00 [facility] Bupivicaine Bupivicaine 2019- No 2.5mg [place] [facility] 00:00: - [facility] 00 [facility] Hyalgan 20 Hyalgan 20 2019- No 20mg C ommon mg mg 2-04 Spirit 00:00: - [facility] 00 [facility] Hyalgan 20 Hyalgan 20 2019- No 20mg C ommon mg mg 2-04 Spirit 00:00: - [facility] 00 [facility] Kenalog Kenalog 2019-11 No 40mg Common (Triamcinol (Triamcinol 2-04 S pirit one) one) 00:00: - [facility] 00 [facility] Kenalog Kenalog 2019-11 No 40mg Common (Triamcinol (Triamcinol 2-04 S pirit one) one) 00:00: - [facility] 00 [facility] Bupivicaine Bupivicaine 2019- No 2.5mg [place] [facility] 00:00: - [facility] 00 [facility] Bupivicaine Bupivicaine 2019- No 2.5mg [place] [facility] 00:00: - [facility] 00 [facility] Hyalgan 20 Hyalgan 20 2019- No 20mg C ommon mg mg 2-04 Spirit 00:00: - [facility] 00 [facility] Hyalgan 20 Hyalgan 20 2019- No 20mg C ommon mg mg 2-04 Spirit 00:00: - [facility] 00 [facility] Kenalog Kenalog 2019- No 40mg Common (Triamcinol (Triamcinol 2-04 S pirit one) one) 00:00: - [facility] 00 [facility] Kenalog Kenalog 2020- No 40mg Common (Triamcinol (Triamcinol 2-04 S pirit one) one) 00:00: - [facility] 00 [facility] Bupivicaine Bupivicaine 2019- No 2.5mg [facility] [place] [facility] 00:00: - [facility] 00 [facility] Bupivicaine Bupivicaine 2019- No 2.5mg [place] [facility] 00:00: - [facility] 00 [facility] Hyalgan 20 Hyalgan 20 2019- No 20mg C ommon mg mg 2-04 Spirit 00:00: - [facility] 00 [facility] Hyalgan 20 Hyalgan 20 2019- No 20mg C ommon mg mg 2-04 Spirit 00:00: - [facility] 00 [facility] Kenalog Kenalog 2019-11 No 40mg Common (Triamcinol (Triamcinol 2-04 S pirit one) one) 00:00: - [facility] 00 [facility] Kenalog Kenalog 2019- No 40mg Common (Triamcinol (Triamcinol 2-04 S pirit one) one) 00:00: - [facility] 00 [facility] Bupivicaine Bupivicaine 2019- No 2.5mg [facility] [place] [facility] 00:00: - [facility] 00 [facility] Bupivicaine Bupivicaine 2019- No 2.5mg [facility] [place] [facility] 00:00: - [facility] 00 [facility] Hyalgan 20 Hyalgan 20 2019- No 20mg C ommon mg mg 2-04 Spirit 00:00: - [facility] 00 [facility] Hyalgan 20 Hyalgan 20 2019- No 20mg C ommon mg mg 2-04 Spirit 00:00: - [facility] 00 [facility] Kenalog Kenalog 2019- No 40mg Common (Triamcinol (Triamcinol 2-04 S pirit one) one) 00:00: - [facility] 00 [facility] Kenalog Kenalog 2019- No 40mg Common (Triamcinol (Triamcinol 2-04 S pirit one) one) 00:00: - [facility] 00 [facility] Bupivicaine Bupivicaine 2019- No 2.5mg [facility] [place] 2[facility] 00:00: - [facility] 00 [facility] Bupivicaine Bupivicaine 2019- No 2.5mg [facility] [place] 2[facility] 00:00: - [facility] 00 [facility] Hyalgan 20 Hyalgan 20 2019- No 20mg C ommon mg mg 2-04 Spirit 00:00: - [facility] 00 [facility] Hyalgan 20 Hyalgan 20 2019- No 20mg C ommon mg mg 2-04 Spirit 00:00: - [facility] 00 [facility] Kenalog Kenalog 2019-11 No 40mg Common (Triamcinol (Triamcinol 2-04 S pirit one) one) 00:00: - [facility] 00 [facility] Kenalog Kenalog 2019-11 No 40mg Common (Triamcinol (Triamcinol 2-04 S pirit one) one) 00:00: - [facility] 00 [facility] Bupivicaine Bupivicaine 2019- No 2.5mg [facility] [place] [facility] 00:00: - [facility] 00 [facility] Bupivicaine Bupivicaine 2019- No 2.5mg [place] [facility] 00:00: - [facility] 00 [facility] Hyalgan 20 Hyalgan 20 2019- No 20mg C ommon mg mg 2-04 Spirit 00:00: - [facility] 00 [facility] Hyalgan 20 Hyalgan 20 2019- No 20mg C ommon mg mg 2-04 Spirit 00:00: - [facility] 00 [facility] Kenalog Kenalog 2019-11 No 40mg Common (Triamcinol (Triamcinol 2-04 S pirit one) one) 00:00: - [facility] 00 [facility] Kenalog Kenalog 2019- No 40mg Common (Triamcinol (Triamcinol 2-04 S pirit one) one) 00:00: - [facility] 00 [facility] Bupivicaine Bupivicaine 2019- No 2.5mg [facility] [place] [facility] 00:00: - [facility] 00 [facility] Bupivicaine Bupivicaine 2019- No 2.5mg [facility] [place] [facility] 00:00: - [facility] 00 [facility] Hyalgan 20 Hyalgan 20 2019- No 20mg C ommon mg mg 2-04 Spirit 00:00: - [facility] 00 [facility] Hyalgan 20 Hyalgan 20 2019- No 20mg C ommon mg mg 2-04 Spirit 00:00: - [facility] 00 [facility] Kenalog Kenalog 2019-11 No 40mg Common (Triamcinol (Triamcinol 2-04 S pirit one) one) 00:00: - [facility]I 00 [facility] Kenalog Kenalog 2019- No 40mg Common (Triamcinol (Triamcinol 2-04 S pirit one) one) 00:00: - [facility] 00 [facility] Bupivicaine Bupivicaine 2019- No 2.5mg [facility] [place] [facility] 00:00: - [facility] 00 [facility] Bupivicaine Bupivicaine 2019- No 2.5mg [place] [facility] 00:00: - [facility] 00 [facility] Hyalgan 20 Hyalgan 20 2019- No 20mg C ommon mg mg 2-04 Spirit 00:00: - [facility] 00 [facility] Hyalgan 20 Hyalgan 20 2019- No 20mg C ommon mg mg 2-04 Spirit 00:00: - [facility] 00 [facility] Kenalog Kenalog 2019-11 No 40mg Common (Triamcinol (Triamcinol 2-04 S pirit one) one) 00:00: - [facility]I 00 [facility] Kenalog Kenalog 2019-11 No 40mg Common (Triamcinol (Triamcinol 2-04 S pirit one) one) 00:00: - [facility]I 00 [facility] Bupivicaine Bupivicaine 2019- No 2.5mg [facility] [place] [facility] 00:00: - [facility] 00 [facility] Bupivicaine Bupivicaine 2019- No 2.5mg [place] 2[facility] 00:00: - [facility] 00 [facility] Hyalgan 20 Hyalgan 20 2019- No 20mg C ommon mg mg 2-04 Spirit 00:00: - [facility] 00 [facility] Hyalgan 20 Hyalgan 20 2019- No 20mg C ommon mg mg 2-04 Spirit 00:00: - [facility] 00 [facility] Kenalog Kenalog 2019- No 40mg Common (Triamcinol (Triamcinol 2-04 S pirit one) one) 00:00: - [facility]I 00 [facility] Kenalog Kenalog 2020-1 No 40mg Common (Triamcinol (Triamcinol 2-04 S pirit one) one) 00:00: - [facility]I 00 [facility] Bupivicaine Bupivicaine 2019- No 2.5mg [facility] [place] [facility] 00:00: - [facility]I 00 [facility] Bupivicaine Bupivicaine 2019- No 2.5mg [facility] [place] 2[facility]04 [facility] 00:00: - [facility] 00 [facility] Hyalgan 20 Hyalgan 20 2019- No 20mg C ommon mg mg 2-04 Spirit 00:00: - [facility] 00 [facility] Hyalgan 20 Hyalgan 20 2019- No 20mg C ommon mg mg 2-04 Spirit 00:00: - [facility]I 00 [facility] Kenalog Kenalog 2019- No 40mg Common (Triamcinol (Triamcinol 2-04 S pirit one) one) 00:00: - [facility]I 00 [facility] Kenalog Kenalog 2019-11 No 40mg Common (Triamcinol (Triamcinol 2-04 S pirit one) one) 00:00: - [facility] 00 [facility] Bupivicaine Bupivicaine 2019- No 2.5mg [facility] [place] [facility] 00:00: - [facility]I 00 [facility] Bupivicaine Bupivicaine 2019- No 2.5mg [facility] [place] 2[facility]04 [facility] 00:00: - [facility] 00 [facility] Hyalgan 20 Hyalgan 20 2019- No 20mg C ommon mg mg 2-04 Spirit 00:00: - [facility] 00 [facility] Hyalgan 20 Hyalgan 20 2019- No 20mg C ommon mg mg 2-04 Spirit 00:00: - [facility] 00 [facility] Kenalog Kenalog 2019- No 40mg Common (Triamcinol (Triamcinol 2-04 S pirit one) one) 00:00: - [facility]I 00 [facility] Kenalog Kenalog 2019- No 40mg Common (Triamcinol (Triamcinol 2-04 S pirit one) one) 00:00: - [facility]I 00 [facility] Bupivicaine Bupivicaine 2019- No 2.5mg [facility] [place] [facility] 00:00: - [facility]I 00 [facility] Bupivicaine Bupivicaine 2019- No 2.5mg [facility] [place] 2[facility] 00:00: - [facility] 00 [facility] Hyalgan 20 Hyalgan 20 2019- No 20mg C ommon mg mg 2-04 Spirit 00:00: - [facility] 00 [facility] Hyalgan 20 Hyalgan 20 2019- No 20mg C ommon mg mg 2-04 Spirit 00:00: - [facility] 00 [facility] Kenalog Kenalog 2019-11 No 40mg Common (Triamcinol (Triamcinol 2-04 S pirit one) one) 00:00: - [facility]I 00 [facility] Kenalog Kenalog 2019-11 No 40mg Common (Triamcinol (Triamcinol 2-04 S pirit one) one) 00:00: - [facility] 00 [facility] Bupivicaine Bupivicaine 2019- No 2.5mg [facility] [place] [facility] 00:00: - [facility]I 00 [facility] Bupivicaine Bupivicaine 2019- No 2.5mg [place] 2[facility] 00:00: - [facility] 00 [facility] Bupivicaine Bupivicaine 2019- No 2.5mg [facility] [place] 2[facility] 00:00: - [facility] 00 [facility] Hyalgan 20 Hyalgan 20 2019- No 20mg C ommon mg mg 2-04 Spirit 00:00: - [facility] 00 [facility] Hyalgan 20 Hyalgan 20 2019- No 20mg C ommon mg mg 2-04 Spirit 00:00: - [facility] 00 [facility] Kenalog Kenalog 2019-11 No 40mg Common (Triamcinol (Triamcinol 2-04 S pirit one) one) 00:00: - [facility]I 00 [facility] Kenalog Kenalog 2019- No 40mg Common (Triamcinol (Triamcinol 2-04 S pirit one) one) 00:00: - [facility]I 00 [facility] Bupivicaine Bupivicaine 2019- No 2.5mg [facility] [place] [facility] 00:00: - [facility] 00 [facility] Hyalgan 20 Hyalgan 20 2019-11 No 20mg C ommon mg mg 2-04 Spirit 00:00: - [facility] 00 [facility] Hyalgan 20 Hyalgan 20 2019-11 No 20mg C ommon mg mg 2-04 Spirit 00:00: - [facility] 00 [facility] Bupivicaine Bupivicaine 2019-11 No 2.5mg [place] [facility] 00:00: - [facility] 00 [facility] Bupivicaine Bupivicaine 2019- No 2.5mg [facility] [place] 2[facility] 00:00: - [facility] 00 [facility] Hyalgan 20 Hyalgan 20 2019-11 No 20mg C ommon mg mg 2-04 Spirit 00:00: - [facility] 00 [facility] Hyalgan 20 Hyalgan 20 2019-11 No 20mg C ommon mg mg 2-04 Spirit 00:00: - [facility] 00 [facility] Ken[place]og Kenalog 2019-11 No 40mg Common (Triamcinol (Triamcinol 2-04 S pirit one) one) 00:00: - [facility] 00 [facility] Kenalog Kenalog 2019-11 No 40mg Common (Triamcinol (Triamcinol 2-04 S pirit one) one) 00:00: - [facility] 00 [facility] Bupivicaine Bupivicaine 2019- No 2.5mg [place] [facility] 00:00: - [facility] 00 [facility] Bupivicaine Bupivicaine 2019- No 2.5mg [place] 2[facility] 00:00: - [facility] 00 [facility] Hyalgan 20 Hyalgan 20 2019- No 20mg C ommon mg mg 2-04 Spirit 00:00: - [facility] 00 [facility] Kenalog Kenalog 2019-11 No 40mg Common (Triamcinol (Triamcinol 2-04 S pirit one) one) 00:00: - [facility] 00 [facility] Hyalgan 20 Hyalgan 20 2019- No 20mg C ommon mg mg 2-04 Spirit 00:00: - [facility] 00 [facility] Kenalog Kenalog 2019- No 40mg Common (Triamcinol (Triamcinol 2-04 S pirit one) one) 00:00: - [facility] 00 [facility] Kenalog Kenalog 2019-11 No 40mg Common (Triamcinol (Triamcinol 2-04 S pirit one) one) 00:00: - [facility] 00 [facility] Kenalog Kenalog 2019-11 No 40mg Common (Triamcinol (Triamcinol 2-04 S pirit one) one) 00:00: - [facility] 00 [facility] Bupivicaine Bupivicaine 2019- No 2.5mg [facility] [place] [facility] 00:00: - [facility] 00 [facility] Bupivicaine Bupivicaine 2019-11 No 2.5mg [place] 2[facility] 00:00: - [facility] 00 [facility] Hyalgan 20 Hyalgan 20 2019-11 No 20mg C ommon mg mg 204 Spirit 00:00: - [facility] 00 [facility] Hyalgan 20 Hyalgan 20 2019-11 No 20mg C ommon mg mg 2-04 Spirit 00:00: - [facility] 00 [facility] Kenalog Kenalog 2019-11 No 40mg Common (Triamcinol (Triamcinol 2-04 S pirit one) one) 00:00: - [facility] 00 [facility] Kenalog Kenalog 2019-11 No 40mg Common (Triamcinol (Triamcinol 2-04 S pirit one) one) 00:00: - [facility] 00 [facility] Bupivicaine Bupivicaine 2019-11 No 2.5mg [facility] [place] [facility] 00:00: - [facility] 00 [facility] Bupivicaine Bupivicaine 2019- No 2.5mg [facility] [place] 2[facility] 00:00: - [facility] 00 [facility] Hyalgan 20 Hyalgan 20 2019-11 No 20mg C ommon mg mg 2-04 Spirit 00:00: - [facility] 00 [facility] Hyalgan 20 Hyalgan 20 2019- No 20mg C ommon mg mg 2-04 Spirit 00:00: - [facility] 00 [facility] Kenalog Kenalog 2019-11 No 40mg Common (Triamcinol (Triamcinol 2-04 S pirit one) one) 00:00: - [facility] 00 [facility] Kenalog Kenalog 2019-11 No 40mg Common (Triamcinol (Triamcinol 2-04 S pirit one) one) 00:00: - [facility] 00 [facility] Bupivicaine Bupivicaine 2020- No 2.5mg [facility] [place] [facility] 00:00: - [facility] 00 [facility] Bupivicaine Bupivicaine 2019- No 2.5mg [facility] [place] 2[facility] 00:00: - [facility] 00 [facility] Hyalgan 20 Hyalgan 20 2019- No 20mg C ommon mg mg 2-04 Spirit 00:00: - [facility] 00 [facility] Hyalgan 20 Hyalgan 20 2019- No 20mg C ommon mg mg 2-04 [facility] 00:00: - [facility] 00 [facility] Kenalog Kenalog 2019- No 40mg Common (Triamcinol (Triamcinol 2-04 S pirit one) one) 00:00: - [facility] 00 [facility] Kenalog Kenalog 2019- No 40mg Common (Triamcinol (Triamcinol 2-04 S pirit one) one) 00:00: - [facility] 00 [facility] Bupivicaine Bupivicaine 2019- No 2.5mg [facility] [place] [facility] 00:00: - [facility] 00 [facility] Bupivicaine Bupivicaine 2019- No 2.5mg [facility] [place] 2[facility] 00:00: - [facility] 00 [facility] Hyalgan 20 Hyalgan 20 2019- No 20mg C ommon mg mg 2-04 [facility] 00:00: - [facility] 00 [facility] Hyalgan 20 Hyalgan 20 2019- No 20mg C ommon mg mg 2-04 [facility] 00:00: - [facility] 00 [facility] Kenalog Kenalog 2020- No 40mg Common (Triamcinol (Triamcinol 2-04 S pirit one) one) 00:00: - [facility] 00 [facility] Kenalog Kenalog 2020- No 40mg Common (Triamcinol (Triamcinol 2-04 S pirit one) one) 00:00: - [facility] 00 [facility] Bupivicaine Bupivicaine 2020- No 2.5mg [facility] [place] [facility] 00:00: - [facility] 00 [facility] Bupivicaine Bupivicaine 2019- No 2.5mg [facility] [place] [facility] 00:00: - [facility] 00 [facility] Hyalgan 20 Hyalgan 20 2019- No 20mg C ommon mg mg 2-04 [facility] 00:00: - [facility] 00 [facility] Hyalgan 20 Hyalgan 20 2019- No 20mg C ommon mg mg 2-04 [facility] 00:00: - [facility] 00 [facility] Kenalog Kenalog 2019- No 40mg Common (Triamcinol (Triamcinol 2-04 S pirit one) one) 00:00: - [facility] 00 [facility] Kenalog Kenalog 2019- No 40mg Common (Triamcinol (Triamcinol 2-04 S pirit one) one) 00:00: - [facility] 00 [facility] Bupivicaine Bupivicaine 2019- No 2.5mg [facility] [place] [facility] 00:00: - [facility] 00 [facility] Bupivicaine Bupivicaine 2019- No 2.5mg [facility] [place] [facility] 00:00: - [facility] 00 [facility] Hyalgan 20 Hyalgan 20 2019- No 20mg C ommon mg mg 2-04 [facility] 00:00: - [facility] 00 [facility] Hyalgan 20 Hyalgan 20 2019- No 20mg C ommon mg mg 2-04 [facility] 00:00: - [facility] 00 [facility] Kenalog Kenalog 2019- No 40mg Common (Triamcinol (Triamcinol 2-04 S pirit one) one) 00:00: - [facility] 00 [facility] Kenalog Kenalog 2019- No 40mg Common (Triamcinol (Triamcinol 2-04 S pirit one) one) 00:00: - [facility] 00 [facility] Bupivicaine Bupivicaine 2019- No 2.5mg [facility] [place] [facility] 00:00: - [facility] 00 [facility] Bupivicaine Bupivicaine 2019- No 2.5mg [facility] [place] [facility] 00:00: - [facility] 00 [facility] Hyalgan 20 Hyalgan 20 2019-1 No 20mg C ommon mg mg 2-04 [facility] 00:00: - [facility] 00 [facility] Hyalgan 20 Hyalgan 20 2019-1 No 20mg C ommon mg mg 2-04 [facility] 00:00: - [facility] 00 [facility] Kenalog Kenalog 2019- No 40mg Common (Triamcinol (Triamcinol 2-04 S pirit one) one) 00:00: - [facility] 00 [facility] Kenalog Kenalog 2019- No 40mg Common (Triamcinol (Triamcinol 2-04 S pirit one) one) 00:00: - [facility] 00 [facility] Bupivicaine Bupivicaine 2020- No 2.5mg [place] 2-04 [facility] 00:00: - [facility] 00 [facility] Bupivicaine Bupivicaine 2019- No 2.5mg Common [place] 2-04 [facility] 00:00: - [facility] 00 [facility] Hyalgan 20 Hyalgan 20 2019-1 No 20mg C ommon mg mg 2-04 [facility] 00:00: - [facility] 00 [facility] Hyalgan 20 Hyalgan 20 2019- No 20mg [facility] ommon mg mg 2-04 [facility] 00:00: - [facility] 00 [facility] Kenalog Kenalog 2019- No 40mg Common (Triamcinol (Triamcinol 2-04 S pirit one) one) 00:00: - [facility] 00 [facility] Kenalog Kenalog 2019- No 40mg Common (Triamcinol (Triamcinol 2-04 S pirit one) one) 00:00: - [facility] 00 [facility] Bupivicaine Bupivicaine 2020-1 No 2.5mg [facility] [place] 2-04 [facility] 00:00: - [facility] 00 [facility] Bupivicaine Bupivicaine 2020-1 No 2.5mg [facility] [place] 2-04 [facility] 00:00: - [facility] 00 [facility] Bupivicaine Bupivicaine 2020-1 No 2.5mg [facility] [place] 2-04 [facility] 00:00: - [facility] 00 [facility] Bupivicaine Bupivicaine 2020-1 No 2.5mg [facility] [place] 2-04 [facility] 00:00: - [facility] 00 [facility] Hyalgan 20 Hyalgan 20 2019-11 No 20mg C ommon mg mg 2-04 [facility] 00:00: - [facility] 00 [facility] Hyalgan 20 Hyalgan 20 2019- No 20mg [facility] ommon mg mg 2-04 [facility] 00:00: - [facility] 00 [facility] Hyalgan 20 Hyalgan 20 2019-11 No 20mg [facility] ommon mg mg 2-04 [facility] 00:00: - [facility] 00 [facility] Kenalog Kenalog 2019-11 No 40mg [facility] (Triamcinol (Triamcinol 2-04 S pirit one) one) 00:00: - [facility] 00 [facility] Kenalog Kenalog 2019-11 No 40mg Common (Triamcinol (Triamcinol 2-04 S pirit one) one) 00:00: - [facility] 00 [facility] Hyalgan 20 Hyalgan 20 2019-11 No 20mg [facility] om[facility] mg mg 2-04 [facility] 00:00: - [facility] Kenalog Kenalog 2019-11 No 40mg Common (Triamcinol (Triamcinol 2-04 S pirit one) one) 00:00: - [facility] 00 [facility] Kenalog Kenalog 2019-11 No 40mg [facility] (Triamcinol (Triamcinol 2-04 S pirit one) one) 00:00: - [facility] 00 [facility] Bupivicaine Bupivicaine 2019-11 No 2.5mg [facility] [place] 2-04 [facility] 00:00: - [facility] 00 [facility] Bupivicaine Bupivicaine 2019-11 No 2.5mg [facility] [place] 2-04 [facility] 00:00: - [facility] 00 [facility] Hyalgan 20 Hyalgan 20 2019-11 No 20mg C ommon mg mg 2-04 Spirit 00:00: - [facility] 00 [facility] Hyalgan 20 Hyalgan 20 2019- No 20mg [facility] ommon mg mg 2-04 [facility] 00:00: - [facility] 00 [facility] Kenalog Kenalog 2019-11 No 40mg [facility] (Triamcinol (Triamcinol 2-04 S pirit one) one) 00:00: - [facility] 00 [facility] Kenalog Kenalog 2019-11 No 40mg [facility] (Triamcinol (Triamcinol 2-04 S pirit one) one) 00:00: - [facility] 00 [facility] Bupivicaine Bupivicaine 2020- No 2.5mg [facility] [place] 2-04 [facility] 00:00: - [facility] 00 [facility] Bupivicaine Bupivicaine 2019- No 2.5mg [facility] [place] 2-04 [facility] 00:00: - [facility] 00 [facility] Hyalgan 20 Hyalgan 20 2019- No 20mg C ommon mg mg 2-04 [facility] 00:00: - [facility] 00 [facility] Hyalgan 20 Hyalgan 20 2019- No 20mg [facility] ommon mg mg 2-04 [facility] 00:00: - [facility] 00 [facility] Kenalog Kenalog 2019- No 40mg [facility] (Triamcinol (Triamcinol 2-04 S pirit one) one) 00:00: - [facility] 00 [facility] Kenalog Kenalog 2019- No 40mg [facility] (Triamcinol (Triamcinol 2-04 S pirit one) one) 00:00: - [facility] 00 [facility] Bupivicaine Bupivicaine 2019- No 2.5mg [facility] [place] 2-04 [facility] 00:00: - [facility] 00 [facility] Bupivicaine Bupivicaine 2019- No 2.5mg [facility] [place] 2-04 [facility] 00:00: - [facility] 00 [facility] Hyalgan 20 Hyalgan 20 2019- No 20mg C ommon mg mg 2-04 [facility] 00:00: - [facility] 00 [facility] Hyalgan 20 Hyalgan 20 2019- No 20mg C ommon mg mg 2-04 [facility] 00:00: - [facility] 00 [facility] Kenalog Kenalog 2020- No 40mg Common (Triamcinol (Triamcinol 2-04 S pirit one) one) 00:00: - [facility] 00 [facility] Kenalog Kenalog 2020- No 40mg [facility] (Triamcinol (Triamcinol 2-04 S pirit one) one) 00:00: - [facility] 00 [facility] Bupivicaine Bupivicaine 2020- No 2.5mg Common [place] 2-04 [facility] 00:00: - [facility] 00 [facility] Bupivicaine Bupivicaine 2020- No 2.5mg [facility] [place] 2-04 [facility] 00:00: - [facility] 00 [facility] Hyalgan 20 Hyalgan 20 2019-1 No 20mg C ommon mg mg 2-04 Spirit 00:00: - [facility] 00 [facility] Hyalgan 20 Hyalgan 20 2019-1 No 20mg C ommon mg mg 2-04 Spirit 00:00: - [facility] 00 [facility] Kenalog Kenalog 2019- No 40mg Common (Triamcinol (Triamcinol 2-04 S pirit one) one) 00:00: - [facility] 00 [facility] Kenalog Kenalog 2019- No 40mg Common (Triamcinol (Triamcinol 2-04 S pirit one) one) 00:00: - [facility] 00 [facility] Bupivicaine Bupivicaine 2019- No 2.5mg Common [place] 2-04 [facility] 00:00: - [facility] 00 [facility] Bupivicaine Bupivicaine 2019- No 2.5mg [facility] [place] 2-04 [facility] 00:00: - [facility] 00 [facility] Hyalgan 20 Hyalgan 20 2019-1 No 20mg C ommon mg mg 2-04 Spirit 00:00: - [facility] 00 [facility] Hyalgan 20 Hyalgan 20 2019- No 20mg C ommon mg mg 2-04 [facility] 00:00: - [facility] 00 [facility] Kenalog Kenalog 2019- No 40mg Common (Triamcinol (Triamcinol 2-04 S pirit one) one) 00:00: - [facility] 00 [facility] Kenalog Kenalog 2019- No 40mg Common (Triamcinol (Triamcinol 2-04 S pirit one) one) 00:00: - [facility] 00 [facility] Bupivicaine Bupivicaine 2019- No Common [place] 2-04 [facility] 00:00: - [facility] 00 [facility] Bupivicaine Bupivicaine 2019-1 No Common [place] 2-04 [facility] 00:00: - [facility] 00 [facility] Hyalgan 20 Hyalgan 20 2020-1 No 20mg C ommon mg mg 2-04 [facility] 00:00: - [facility] 00 [facility] Hyalgan 20 Hyalgan 20 2019-1 No 20mg C ommon mg mg 2-04 [facility] 00:00: - [facility] 00 [facility] Kenalog Kenalog 2019- No 40mg Common (Triamcinol (Triamcinol 2-04 S pirit one) one) 00:00: - [facility] 00 [facility] Kenalog Kenalog 2019- No 40mg Common (Triamcinol (Triamcinol 2-04 S pirit one) one) 00:00: - [facility] 00 [facility] Bupivicaine Bupivicaine 2019- No Common [place] 2-04 [facility] 00:00: - [facility] 00 [facility] Bupivicaine Bupivicaine 2019- No Common [place] 2-04 [facility] 00:00: - [facility] 00 [facility] Hyalgan 20 Hyalgan 20 2019- No 20mg C ommon mg mg 2-04 [facility] 00:00: - [facility] 00 [facility] Hyalgan 20 Hyalgan 20 2019- No 20mg C ommon mg mg 2-04 [facility] 00:00: - [facility] 00 [facility] Kenalog Kenalog 2019- No 40mg Common (Triamcinol (Triamcinol 2-04 S pirit one) one) 00:00: - [facility] 00 [facility] Kenalog Kenalog 2019- No 40mg Common (Triamcinol (Triamcinol 2-04 S pirit one) one) 00:00: - [facility] 00 [facility] Bupivicaine Bupivicaine 2019- No Common [place] 2-04 [facility] 00:00: - [facility] 00 [facility] Bupivicaine Bupivicaine 2019- No Common [place] 2-04 [facility] 00:00: - [facility] 00 [facility] Hyalgan 20 Hyalgan 20 2019- No 20mg C ommon mg mg 2-04 [facility] 00:00: - [facility] 00 [facility] Hyalgan 20 Hyalgan 20 2019- No 20mg C ommon mg mg 2-04 [facility] 00:00: - [facility] 00 [facility] Kenalog Kenalog 2019- No 40mg Common (Triamcinol (Triamcinol 2-04 S pirit one) one) 00:00: - [facility] 00 [facility] Kenalog Kenalog 2019- No 40mg Common (Triamcinol (Triamcinol 2-04 S pirit one) one) 00:00: - [facility] 00 [facility] Bupivicaine Bupivicaine 2019- No 2.5mg Common [place] 2-04 [facility] 00:00: - [facility] 00 [facility] Bupivicaine Bupivicaine 2019- No 2.5mg [facility] [place] 2-04 [facility] 00:00: - [facility] 00 [facility] Hyalgan 20 Hyalgan 20 2019- No 20mg C ommon mg mg 2-04 [facility] 00:00: - [facility] 00 [facility] Hyalgan 20 Hyalgan 20 2019- No 20mg C ommon mg mg 2-04 [facility] 00:00: - [facility] 00 [facility] Kenalog Kenalog 2019-11 No 40mg Common (Triamcinol (Triamcinol 2-04 S pirit one) one) 00:00: - [facility] 00 [facility] Kenalog Kenalog 2019-11 No 40mg Common (Triamcinol (Triamcinol 2-04 S pirit one) one) 00:00: - [facility] 00 [facility] Bupivicaine Bupivicaine 2019- No 2.5mg Common [place] 2-04 [facility] 00:00: - [facility] 00 [facility] Bupivicaine Bupivicaine 2019- No 2.5mg [facility] [place] 2-04 [facility] 00:00: - [facility] 00 [facility] Hyalgan 20 Hyalgan 20 2019- No 20mg C ommon mg mg 2-04 [facility] 00:00: - [facility] 00 [facility] Hyalgan 20 Hyalgan 20 2019- No 20mg C ommon mg mg 2-04 [facility] 00:00: - [facility] 00 [facility] Kenalog Kenalog 2019- No 40mg Common (Triamcinol (Triamcinol 2-04 S pirit one) one) 00:00: - [facility] 00 [facility] Kenalog Kenalog 2019- No 40mg Common (Triamcinol (Triamcinol 2-04 S pirit one) one) 00:00: - [facility] 00 [facility] Bupivicaine Bupivicaine 2019- No 2.5mg Common [place] 2-04 [facility] 00:00: - [facility] 00 [facility] Bupivicaine Bupivicaine 2019- No 2.5mg Common [place] 2-04 [facility] 00:00: - [facility] 00 [facility] Hyalgan 20 Hyalgan 20 2019- No 20mg C ommon mg mg 2-04 [facility] 00:00: - [facility] 00 [facility] Hyalgan 20 Hyalgan 20 2019- No 20mg C ommon mg mg 2-04 [facility] 00:00: - [facility] 00 [facility] Kenalog Kenalog 2019-11 No 40mg Common (Triamcinol (Triamcinol 2-04 S pirit one) one) 00:00: - [facility] 00 [facility] Kenalog Kenalog 2019-11 No 40mg Common (Triamcinol (Triamcinol 2-04 S pirit one) one) 00:00: - [facility] 00 [facility] Bupivicaine Bupivicaine 2019- No 2.5mg Common [place] 2-04 [facility] 00:00: - [facility] 00 [facility] Bupivicaine Bupivicaine 2019- No 2.5mg Common [place] 2-04 [facility] 00:00: - [facility] 00 [facility] Hyalgan 20 Hyalgan 20 2019- No 20mg C ommon mg mg 2-04 [facility] 00:00: - [facility] 00 [facility] Hyalgan 20 Hyalgan 20 2019- No 20mg C ommon mg mg 2-04 [facility] 00:00: - [facility] 00 [facility] Kenalog Kenalog 2019- No 40mg Common (Triamcinol (Triamcinol 2-04 S pirit one) one) 00:00: - [facility] 00 [facility] Kenalog Kenalog 2019- No 40mg Common (Triamcinol (Triamcinol 2-04 S pirit one) one) 00:00: - [facility] 00 [facility] Bupivicaine Bupivicaine 2019- No 2.5mg Common [place] 2-04 [facility] 00:00: - [facility] 00 [facility] Bupivicaine Bupivicaine 2019- No 2.5mg Common [place] 2-04 [facility] 00:00: - [facility] 00 [facility] Hyalgan 20 Hyalgan 20 2020-1 No 20mg C ommon mg mg 2-04 [facility] 00:00: - [facility] 00 [facility] Hyalgan 20 Hyalgan 20 2020-1 No 20mg C ommon mg mg 2-04 [facility] 00:00: - [facility] 00 [facility] Kenalog Kenalog 2020-1 No 40mg Common (Triamcinol (Triamcinol 2-04 S pirit one) one) 00:00: - [facility] 00 [facility] Kenalog Kenalog 2019-1 No 40mg Common (Triamcinol (Triamcinol 2-04 S pirit one) one) 00:00: - [facility] 00 [facility] Diclofenac Diclofenac 2020-0 2020- No Na Van 2 gram Common Sodium Sodium 06-23 applicatio Spir it 00:00: 00:00 n to - [facility] 00 :00 affected [facility] Gabapentin Gabapentin 2020-0 Yes Na Van 2 tablet Common 03-03 [facility] 00:00: - [facility] 00 [facility] Magnesium Magnesium 2020-0 2020- No Na Van 1 capsule Common Oxide -Mg Oxide -Mg 03-03 as needed [facility] Supplement Supplement 00:00: 00:00 - [facility] 00 :00 [facility] Sertraline Sertraline Yes Na Van 1 tablet Common HCl HCl [facility] Tamsulosin Tamsulosin Yes Na Van 1 capsule Common HCl HCl [facility] Meloxicam Meloxicam Yes Na Van 1 tablet Common [facility] Vitamin C Vitamin C No 1{table QD [...] MG HCl 0.4 MG Sertraline Sertraline No 1{table QD Sertraline HCl 50 MG HCl 50 MG t} HCl 50 MG HYDROcodone HYDROcodone No 1{table QID HYDROcodon -Acetaminop -Acetaminop t_as_ne e-Acetamin hen 5-325 hen 5-325 eded} ophen MG MG 5-325 MG Meloxicam Meloxicam No Meloxicam 7.5 MG 7.5 MG 7.5 MG Pantoprazol Pantoprazol No 1{table QD Pantoprazo e Sodium 40 e Sodium 40 t} le Sodium MG MG 40 MG Vitamin C Vitamin C No 1{table QD Vitamin C 100 MG 100 MG t} 100 MG Sertraline Sertraline No Sertraline HCl 50 MG HCl 50 MG HCl 50 MG Magnesium Magnesium No 1{capsu QD Magnesium [...] MG MG 5-325 MG Meloxicam Meloxicam No Meloxicam 7.5 MG 7.5 MG 7.5 MG Pantoprazol Pantoprazol No 1{table QD Pantoprazo e Sodium 40 e Sodium 40 t} le Sodium MG MG 40 MG Vitamin C Vitamin C No 1{table QD Vitamin C 100 MG 100 MG t} 100 MG Sertraline Sertraline No Sertraline HCl 50 MG HCl 50 MG HCl 50 MG Magnesium Magnesium No 1{capsu QD Magnesium [...] MG MG 5-325 MG Meloxicam Meloxicam No Meloxicam 7.5 MG 7.5 MG 7.5 MG Pantoprazol Pantoprazol No 1{table QD Pantoprazo e Sodium 40 e Sodium 40 t} le Sodium MG MG 40 MG Vitamin C Vitamin C No 1{table QD Vitamin C 100 MG 100 MG t} 100 MG Sertraline Sertraline No Sertraline HCl 50 MG HCl 50 MG HCl 50 MG Magnesium Magnesium No 1{capsu QD Magnesium [...] MG MG 5-325 MG Meloxicam Meloxicam No Meloxicam 7.5 MG 7.5 MG 7.5 MG Pantoprazol Pantoprazol No 1{table QD [...] MG HCl 0.4 MG Meloxicam Meloxicam No Meloxicam 7.5 MG 7.5 MG 7.5 MG Sertraline Sertraline No Sertraline HCl 50 MG HCl 50 MG HCl 50 MG Gabapentin Gabapentin No 2{table TID Gabapentin 300 MG 300 MG t} 300 MG Gabapentin Gabapentin No 2{table TID Gabapentin [...] 50 MG Magnesium Magnesium No 1{capsu QD Magnesium Oxide -Mg Oxide -Mg le_as_n Oxide -Mg Supplement Supplement eeded} Supplement 400 MG 400 MG 400 MG Pantoprazol Pantoprazol No 1{table QD Pantoprazo e Sodium 40 e Sodium 40 t} le Sodium MG MG 40 MG Meloxicam Meloxicam No Meloxicam 7.5 MG 7.5 MG 7.5 MG Tamsulosin Tamsulosin No Tamsulosin HCl 0.4 MG HCl 0.4 MG HCl 0.4 MG HYDROcodone HYDROcodone No 1{table QID HYDROcodon -Acetaminop -Acetaminop t_as_ne e-Acetamin hen 5-325 hen 5-325 eded} ophen MG MG 5-325 MG Pantoprazol Pantoprazol No 1{table QD Pantoprazo e Sodium 40 e Sodium 40 t} le Sodium MG MG 40 MG Tamsulosin Tamsulosin No Tamsulosin HCl 0.4 MG HCl 0.4 MG HCl 0.4 MG Meloxicam Meloxicam No Meloxicam 7.5 MG 7.5 MG 7.5 MG Pantoprazol Pantoprazol No 1{table QD Pantoprazo e Sodium 40 e Sodium 40 t} le Sodium MG MG 40 MG Sertraline Sertraline No Sertraline HCl 50 MG HCl 50 MG HCl 50 MG HYDROcodone [...] MG t} 300 MG Tamsulosin Tamsulosin No Tamsulosin HCl 0.4 MG HCl 0.4 MG HCl 0.4 MG Meloxicam Meloxicam No Meloxicam 7.5 MG 7.5 MG 7.5 MG Pantoprazol Pantoprazol No 1{table QD Pantoprazo e Sodium 40 e Sodium 40 t} le Sodium MG MG 40 MG Sertraline Sertraline No Sertraline HCl 50 MG HCl 50 MG HCl 50 MG HYDROcodone [...] MG HCl 0.4 MG Sertraline Sertraline No 1{table [...] 7.5 MG 7.5 MG t} 7.5 MG Magnesium Magnesium No 1{capsu QD Magnesium Oxide -Mg Oxide -Mg le_as_n Oxide -Mg Supplement Supplement eeded} Supplement 400 MG 400 MG 400 MG Meloxicam Meloxicam No Meloxicam 7.5 MG 7.5 MG 7.5 MG Sertraline Sertraline No Sertraline HCl 50 MG HCl 50 MG HCl 50 MG Pantoprazol Pantoprazol No 1{table QD Pantoprazo e Sodium 40 e Sodium 40 t} le Sodium MG MG 40 MG Gabapentin Gabapentin No 2{table TID Gabapentin 300 MG 300 MG t} 300 MG Tamsulosin Tamsulosin No Tamsulosin HCl 0.4 MG HCl 0.4 MG HCl 0.4 MG Tamsulosin Tamsulosin No Tamsulosin HCl 0.4 MG HCl 0.4 MG HCl 0.4 MG Sertraline Sertraline No 1{table QD Sertraline HCl 50 MG HCl 50 MG t} HCl 50 MG Vitamin C Vitamin C No 1{table QD Vitamin C 100 MG 100 MG t} 100 MG Meloxicam Meloxicam No 1{table QD Meloxicam 7.5 MG 7.5 MG t} 7.5 MG HYDROcodone HYDROcodone No 1{table QID HYDROcodon -Acetaminop -Acetaminop t_as_ne e-Acetamin hen 5-325 hen 5-325 eded} ophen MG MG 5-325 MG Meloxicam Meloxicam No 1{table QD Meloxicam 7.5 MG 7.5 MG t} 7.5 MG Magnesium Magnesium No 1{capsu QD Magnesium Oxide -Mg Oxide -Mg le_as_n Oxide -Mg Supplement Supplement eeded} Supplement 400 MG 400 MG 400 MG Meloxicam Meloxicam No Meloxicam 7.5 MG 7.5 MG 7.5 MG Sertraline Sertraline No Sertraline HCl 50 MG HCl 50 MG HCl 50 MG HYDROcodone HYDROcodone No 1{table QID HYDROcodon -Acetaminop -Acetaminop t_as_ne e-Acetamin hen 5-325 hen 5-325 eded} ophen MG MG 5-325 MG Pantoprazol Pantoprazol No 1{table QD Pantoprazo e Sodium 40 e Sodium 40 t} le Sodium MG MG 40 MG Gabapentin Gabapentin No 2{table TID Gabapentin 300 MG 300 MG t} 300 MG Tamsulosin Tamsulosin No Tamsulosin HCl 0.4 MG HCl 0.4 MG HCl 0.4 MG Sertraline Sertraline No 1{table QD Sertraline HCl 50 MG HCl 50 MG t} HCl 50 MG Vitamin C Vitamin C No 1{table QD Vitamin C 100 MG 100 MG t} 100 MG Meloxicam Meloxicam No 1{table QD Meloxicam 7.5 MG 7.5 MG t} 7.5 MG HYDROcodone HYDROcodone No 1{table QID HYDROcodon -Acetaminop -Acetaminop t_as_ne e-Acetamin hen 5-325 hen 5-325 eded} ophen MG MG 5-325 MG Magnesium Magnesium No 1{capsu QD Magnesium Oxide -Mg Oxide -Mg le_as_n Oxide -Mg Supplement Supplement eeded} Supplement 400 MG 400 MG 400 MG Meloxicam Meloxicam No Meloxicam 7.5 MG 7.5 MG 7.5 MG Sertraline Sertraline No Sertraline HCl 50 MG HCl 50 MG HCl 50 MG Pantoprazol Pantoprazol No 1{table QD Pantoprazo e Sodium 40 e Sodium 40 t} le Sodium MG MG 40 MG Gabapentin Gabapentin No 2{table TID Gabapentin [...] route. tamsulosin tamsulosin No 1capsul Q1D tamsulosin [facility] 0.4 mg 0.4 mg e(s) 0.4 mg Family capsule capsule capsule Practi c Take 1 Take 1 Take 1 e capsule capsule capsule every day every day every day by oral by oral by oral route. route. route. Tamsulosin Tamsulosin 2- No Tamsulosin HCl 0.4 [...] HCl 0.4 MG 00:00 :00 Magnesium Magnesium 2- No 1{capsu QD Magnesium Oxide -Mg Oxide -Mg 10-17 le_as_n Oxide -Mg Supplement Supplement 00:00 eeded} Supplement 400 MG 400 MG :00 400 MG Tamsulosin Tamsulosin 2- No Tamsulosin HCl 0.4 MG HCl 0.4 MG 10-17 HCl 0.4 MG 00:00 :00 Magnesium Magnesium 2- No 1{capsu QD Magnesium Oxide -Mg Oxide [...] 400 MG :00 400 MG Tamsulosin Tamsulosin 2021- No Tamsulosin HCl 0.4 MG HCl 0.4 MG 10-17 HCl 0.4 MG 00:00 :00 Tamsulosin Tamsulosin 2021- No Tamsulosin HCl 0.4 MG HCl 0.4 MG 10-17 HCl 0.4 MG 00:00 :00 Magnesium Magnesium 2021- No 1{capsu QD Magnesium Oxide -Mg Oxide -Mg 10-17 le_as_n Oxide -Mg Supplement Supplement 00:00 eeded} Supplement 400 MG 400 MG :00 400 MG Magnesium Magnesium 2021- No 1{capsu QD Magnesium Oxide -Mg Oxide -Mg 10-17 le_as_n Oxide -Mg Supplement Supplement 00:00 eeded} Supplement 400 MG 400 MG :00 400 MG Tamsulosin Tamsulosin 2021- No Tamsulosin HCl 0.4 MG HCl 0.4 MG 10-17 HCl 0.4 MG 00:00 :00 Magnesium Magnesium 2021- No 1{capsu QD Magnesium Oxide -Mg Oxide -Mg 10-17 le_as_n Oxide -Mg Supplement Supplement 00:00 eeded} Supplement 400 MG 400 MG :00 400 MG Immunizations Ordered Immunization Filled Immunization Date Status Commen ts Source Name Name Prevnar 20 (PCV20) Prevnar 20 (PCV20) 2022-08-14 [facility] FLUZONE HIGH DOSE FLUZONE HIGH DOSE 2022-08-14 [facility] - OVER [facility] OVER 65 15:32:00 [facility] Prevnar 20 (PCV20) Prevnar 20 (PCV20) 2022-08-14 [facility] FLUZONE HIGH DOSE FLUZONE HIGH DOSE 2022-08-14 [facility] - OVER 65 OVER 65 15:32:00 [facility] Prevnar 20 (PCV20) Prevnar 20 (PCV20) 2022-08-14 [facility]00 [facility] FLUZONE HIGH DOSE FLUZONE HIGH DOSE 2022-08-14 [facility] - OVER 65 OVER 65 15:32:00 [facility] Prevnar 20 (PCV20) Prevnar 20 (PCV20) 2022-08-14 [facility] - [facility]00 [facility] FLUZONE HIGH DOSE FLUZONE HIGH DOSE 2022-08-14 [facility] - OVER 65 OVER 65 15:32:00 [facility] Prevnar 20 (PCV20) Prevnar 20 (PCV20) 2022-08-14 [facility]00 [facility] FLUZONE HIGH DOSE FLUZONE HIGH DOSE 2022-08-14 [facility] - OVER 65 OVER 65 15:32:00 [facility] Prevnar 20 (PCV20) Prevnar 20 (PCV20) 2022-08-14 [facility]00 [facility] FLUZONE HIGH DOSE FLUZONE HIGH DOSE 2022-08-14 [facility] - OVER 65 OVER 65 15:32:00 [facility] Prevnar 20 (PCV20) Prevnar 20 (PCV20) 2022-08-14 [facility]00 [facility] FLUZONE HIGH DOSE FLUZONE HIGH DOSE 2022-08-14 [facility] - OVER 65 OVER 65 15:32:00 [facility] Prevnar 20 (PCV20) Prevnar 20 (PCV20) 2022-08-14 [facility] - [facility]00 [facility] FLUZONE HIGH DOSE FLUZONE HIGH DOSE 2022-08-14 Completed [facility] - OVER 65 OVER 65 15:32:00 [facility] Prevnar 20 (PCV20) Prevnar 20 (PCV20) 2022-08-14 [facility] - 15:32:00 [facility] FLUZONE HIGH DOSE FLUZONE HIGH DOSE 2022-08-14 Completed [facility] - OVER 65 OVER 65 15:32:00 [facility] Prevnar 20 (PCV20) Prevnar 20 (PCV20) 2022-08-14 [facility] 15:32:00 [facility] FLUZONE HIGH DOSE FLUZONE HIGH DOSE 2022-08-14 Completed [facility] - OVER 65 OVER 65 15:32:00 [facility] Prevnar 20 (PCV20) Prevnar 20 (PCV20) 2022-08-14 [facility]00 [facility] Prevnar 20 (PCV20) Prevnar 20 (PCV20) 2022-08-14 [facility] 15:32:00 [facility] FLUZONE HIGH DOSE FLUZONE HIGH DOSE 2022-08-14 Completed [facility] - OVER 65 OVER 65 15:32:00 [facility] FLUZONE HIGH DOSE FLUZONE HIGH DOSE 2022-08-14 Completed [facility] - OVER 65 OVER 65 15:32:00 [facility] Prevnar 20 (PCV20) Prevnar 20 (PCV20) 2022-08-14 [facility] 15:32:00 [facility] FLUZONE HIGH DOSE FLUZONE HIGH DOSE 2022-08-14 Completed [facility] - OVER 65 OVER 65 15:32:00 [facility] Prevnar 20 (PCV20) Prevnar 20 (PCV20) 2022-08-14 [facility] - 15:32:00 [facility] FLUZONE HIGH DOSE FLUZONE HIGH DOSE 2022-08-14 Completed [facility] - OVER 65 OVER 65 15:32:00 [facility] Prevnar 20 (PCV20) Prevnar 20 (PCV20) 2022-08-14 [facility] - 15:32:00 [facility] FLUZONE HIGH DOSE FLUZONE HIGH DOSE 2022-08-14 Completed [facility] - OVER 65 OVER 65 15:32:00 [facility] Prevnar 20 (PCV20) Prevnar 20 (PCV20) 2022-08-14 [facility] - 15:32:00 [facility] FLUZONE HIGH DOSE FLUZONE HIGH DOSE 2022-08-14 Completed [facility] - OVER 65 OVER 65 15:32:00 [facility] Prevnar 20 (PCV20) Prevnar 20 (PCV20) 2022-08-14 [facility] 15:32:00 [facility] FLUZONE HIGH DOSE FLUZONE HIGH DOSE 2022-08-14 Completed [facility] - OVER 65 OVER 65 15:32:00 [facility] Prevnar 20 (PCV20) Prevnar 20 (PCV20) 2022-08-14 [facility] 15:32:00 [facility] FLUZONE HIGH DOSE FLUZONE HIGH DOSE 2022-08-14 Completed [facility] - OVER 65 OVER 65 15:32:00 [facility] Prevnar 20 (PCV20) Prevnar 20 (PCV20) 2022-08-14 [facility]:00 [facility] FLUZONE HIGH DOSE FLUZONE HIGH DOSE 2022-08-14 Completed [facility] - OVER 65 OVER 65 15:32:00 [facility] Prevnar 20 (PCV20) Prevnar 20 (PCV20) 2022-08-14 Completed [facility] - 15:32:00 [facility] FLUZONE HIGH DOSE FLUZONE HIGH DOSE 2022-08-14 Completed [facility] - OVER 65 OVER 65 15:32:00 [facility] Prevnar 20 (PCV20) Prevnar 20 (PCV20) 2022-08-14 Completed [facility] - 15:32:00 [facility] FLUZONE HIGH DOSE FLUZONE HIGH DOSE 2022-08-14 Completed [facility] - OVER 65 OVER 65 15:32:00 [facility] Prevnar 20 (PCV20) Prevnar 20 (PCV20) 2022-08-14 Completed [facility] - 15:32:00 [facility] FLUZONE HIGH DOSE FLUZONE HIGH DOSE 2022-08-14 Completed [facility] - OVER 65 OVER 65 15:32:00 [facility] Prevnar 20 (PCV20) Prevnar 20 (PCV20) 2022-08-14 Completed [facility] - 15:32:00 [facility] FLUZONE HIGH DOSE FLUZONE HIGH DOSE 2022-08-14 Completed [facility] - OVER 65 OVER 65 15:32:00 [facility] Prevnar 20 (PCV20) Prevnar 20 (PCV20) 2022-08-14 Completed [facility] - 15:32:00 [facility] FLUZONE HIGH DOSE FLUZONE HIGH DOSE 2022-08-14 Completed [facility] - OVER 65 OVER 65 15:32:00 [facility] Prevnar 20 (PCV20) Prevnar 20 (PCV20) 2022-08-14 Completed [facility] - 15:32:00 [facility] FLUZONE HIGH DOSE FLUZONE HIGH DOSE 2022-08-14 Completed [facility] - OVER 65 OVER 65 15:32:00 [facility] Prevnar 20 (PCV20) Prevnar 20 (PCV20) 2022-08-14 Completed [facility] - 15:32:00 [facility] FLUZONE HIGH DOSE FLUZONE HIGH DOSE 2022-08-14 Completed [facility] - OVER 65 OVER 65 15:32:00 [facility] FluAD FluAD 2021-09-12 Completed [facility] - 16:26:00 [facility] FluAD FluAD 2021-09-12 Completed [facility] - 16:26:00 [facility] FluAD FluAD 2021-09-12 Completed [facility] - 16:26:00 [facility] FluAD FluAD 2021-09-12 Completed [facility] - 16:26:00 [facility] FluAD FluAD 2021-09-12 Completed [facility] - 16:26:00 [facility] FluAD FluAD 2021-09-12 Completed [facility] - 16:26:00 [facility] FluAD FluAD 2021-09-12 Completed [facility] - 16:26:00 [facility] FluAD FluAD 2021-09-12 Completed [facility] - 16:26:00 [facility] FluAD FluAD 2021-09-12 Completed [facility] - 16:26:00 [facility] FluAD FluAD 2021-09-12 Completed [facility] - 16:26:00 [facility] FluAD FluAD 2021-09-12 Completed [facility] - 16:26:00 [facility] FluAD FluAD 2021-09-12 Completed [facility] - 16:26:00 [facility] FluAD FluAD 2021-09-12 Completed [facility] - 16:26:00 [facility] FluAD FluAD 2021-09-12 Completed [facility] - 16:26:00 [facility] FluAD FluAD 2021-09-12 Completed [facility] - 16:26:00 [facility] FluAD FluAD 2021-09-12 Completed [facility] - 16:26:00 [facility] FluAD FluAD 2021-09-12 Completed [facility] - 16:26:00 [facility] FluAD FluAD 2021-09-12 Completed [facility] - 16:26:00 [facility] FluAD FluAD 2021-09-12 Completed [facility] - 16:26:00 [facility] FluAD FluAD 2021-09-12 Completed [facility] - 16::00 [facility] FluAD FluAD 2021-09-12 Completed [facility] - 16:26:00 [facility] FluAD FluAD 2021-09-12 Completed [facility] - 16::00 [facility] FluAD FluAD 2021-09-12 Com[facility] - 16::00 [facility] FluAD FluAD 2021-09-12 Completed [facility] - 16::00 [facility] FluAD FluAD 2021-09-12 Com[facility] - 16::00 [facility] FluAD FluAD 2021-09-12 Completed [facility] - 16::00 [facility] FluAD FluAD 2021-09-12 Completed [facility] - 16::00 [facility] FluAD FluAD 2021-09-12 Completed [facility] - 16::00 [facility] FluAD FluAD 2021-09-12 Completed [facility] - 16::00 [facility] FluAD FluAD 2021-09-12 Completed [facility] - 16::00 [facility] FluAD FluAD 2021-09-12 Com[facility] - 16::00 [facility] FluAD FluAD 2021-09-12 Completed [facility] - 16:26:00 [facility] FluAD FluAD 2021-09-12 Completed [facility] - 16:26:00 [facility] FluAD FluAD 2021-09-12 Completed [facility] - 16::00 [facility] FluAD FluAD 2021-09-12 Completed [facility] - 16:26:00 [facility] FluAD FluAD 2021-09-12 Completed [facility] - 16::00 [facility] FluAD FluAD 2021-09-12 Completed [facility] - 16:26:00 [facility] FluAD FluAD 2021-09-12 Completed [facility] - 16:26:00 [facility] FluAD FluAD 2021-09-12 Completed [facility] - 16:26:00 [facility] FluAD FluAD 2021-09-12 Completed [facility] - 16::00 [facility] FluAD FluAD 2021-09-12 Completed [facility] - 16:26:00 [facility] FluAD FluAD 2021-09-12 Completed [facility] - 16::00 [facility] FluAD FluAD 2021-09-12 Com[facility] - 16::00 [facility] FluAD FluAD 2021-09-12 Com[facility] - 16::00 [facility] FluAD FluAD 2021-09-12 Completed [facility] - 16::00 [facility] FluAD FluAD 2021-09-12 Completed [facility] - 16::00 [facility] FluAD FluAD 2021-09-12 Completed [facility] - 16::00 [facility] FluAD FluAD 2021-09-12 Completed [facility] - 16::00 [facility] FluAD FluAD 2021-09-12 Completed [facility] - 16::00 [facility] FluAD FluAD 2021-09-12 Completed [facility] - 16::00 [facility] FluAD FluAD 2021-09-12 Completed [facility] - 16::00 [facility] FluAD FluAD 2021-09-12 Completed [facility] - 16:26:00 [facility] FluAD FluAD 2021-09-12 Completed [facility] - 16:26:00 [facility] FluAD FluAD 2021-09-12 Completed [facility] - 16::00 [facility] FluAD FluAD 2021-09-12 Completed [facility] - 16:26:00 [facility] FluAD FluAD 2021-09-12 Completed [facility] - 16::00 [facility] FluAD FluAD 2021-09-12 Completed [facility] - 16:26:00 [facility] FluAD FluAD 2021-09-12 Completed [facility] - 16:26:00 [facility] FluAD FluAD 2021-09-12 Completed [facility] - 16:26:00 [facility] FluAD FluAD 2021-09-12 Completed [facility] - 16:26:00 [facility] FluAD FluAD 2021-09-12 Completed [facility] - 16:26:00 [facility] FluAD FluAD 2021-09-12 Completed [facility] - 16:26:00 [facility] FluAD FluAD 2021-09-12 Completed [facility] - 16:26:00 [facility] Vitamin B12 Vitamin B12 2021-06-08 [facility] (Cyanocobalamin) (Cyanocobalamin) 16:53:00 [facility] Vitamin B12 Vitamin B12 2021-06-08 [facility] - (Cyanocobalamin) (Cyanocobalamin) 16:53:00 [facility] Vitamin B12 Vitamin B12 2021-06-08 [facility] (Cyanocobalamin) (Cyanocobalamin) 16:53:00 [facility] Vitamin B12 Vitamin B12 2021-06-08 [facility] (Cyanocobalamin) (Cyanocobalamin) 16:53:00 [facility] Hyalgan 20 mg Hyalgan 20 mg 2021-01-17 [facility] Hyalgan 20 mg Hyalgan 20 mg 2021-01-17 [facility] Hyalgan 20 mg Hyalgan 20 mg 2021-01-17 [facility] Hyalgan 20 mg Hyalgan 20 mg 2021-01-17 [facility] Hyalgan 20 mg Hyalgan 20 mg 2021-01-17 [facility] Hyalgan 20 mg Hyalgan 20 mg 2021-01-17 [facility]00 [facility] Hyalgan 20 mg Hyalgan 20 mg 2021-01-17 [facility]00 [facility] Hyalgan 20 mg Hyalgan 20 mg 2021-01-17 [facility] Hyalgan 20 mg Hyalgan 20 mg 2021-01-05 [facility]00 [facility] Hyalgan 20 mg Hyalgan 20 mg 2021-01-05 [facility]00 [facility] Hyalgan 20 mg Hyalgan 20 mg 2021-01-05 [facility] Hyalgan 20 mg Hyalgan 20 mg 2021-01-05 [facility]00 [facility] Hyalgan 20 mg Hyalgan 20 mg 2021-01-05 [facility] 09:[facility]00 [facility] Hyalgan 20 mg Hyalgan 20 mg 2021-01-05 [facility] 09:[facility]00 [facility] Hy[place] 20 mg Hyalgan 20 mg 2021-01-05 [facility] 09:[facility]00 [facility] Hyalgan 20 mg Hyalgan 20 mg 2021-01-05 [facility] 09:[facility]00 [facility] Hyalgan 20 mg Hyalgan 20 mg 2020-10-28 [facility] 10:27[facility]00 [facility] Hyalgan 20 mg Hyalgan 20 mg 2020-10-28 [facility] 10:[facility]00 [facility] Hyalgan 20 mg Hyalgan 20 mg 2020-10-28 [facility] 10:27[facility]00 [facility] Hyalgan 20 mg Hyalgan 20 mg 2020-10-28 [facility] 10:27[facility]00 [facility] Hy[place] 20 mg Hyalgan 20 mg 2020-10-28 [facility] 10:27[facility]00 [facility] [place] 20 mg Hyalgan 20 mg 2020-10-28 [facility] 10:[facility]00 [facility] [place] 20 mg Hyalgan 20 mg 2020-10-28 [facility] 10:27[facility]00 [facility] Hy[place] 20 mg Hyalgan 20 mg 2020-10-28 [facility]00 [facility] Bupivicaine [place] Bupivicaine [place] 2020-10-28 Completed [facility] - 10:26:00 [facility] Bupivicaine [place] Bupivicaine [place] 2020-10-28 Completed [facility] - 10:26:00 [facility] Kenalog Kenalog 2020-10-28 Completed [facility] - (Triamcinolone) (Triamcinolone) 10::00 [facility] Bupivicaine [place] Bupivicaine [place] 2020-10-28 Completed [facility] - 10:: [facility] Bupivicaine [place] Bupivicaine [place] 2020-10-28 Completed [facility] - 10:: [facility] Kenalog Kenalog 2020-10-28 Completed [facility] - (Triamcinolone) (Triamcinolone) 10:: [facility] Bupivicaine [place] Bupivicaine [place] 2020-10-28 Completed [facility] - 10:: [facility] Bupivicaine [place] Bupivicaine [place] 2020-10-28 Completed [facility] - 10:: [facility] Kenalog Kenalog 2020-10-28 Completed [facility] - (Triamcinolone) (Triamcinolone) 10::00 [facility] Bupivicaine [place] Bupivicaine [place] 2020-10-28 Completed [facility] - 10:: [facility] Bupivicaine [place] Bupivicaine [place] 2020-10-28 Completed [facility] - 10::00 [facility] Kenalog Kenalog 2020-10-28 Completed [facility] - (Triamcinolone) (Triamcinolone) 10:: [facility] Kenalog Kenalog 2020-10-28 Completed [facility] - (Triamcinolone) (Triamcinolone) 10::00 [facility] Kenalog Kenalog 2020-10-28 Completed [facility] - (Triamcinolone) (Triamcinolone) 10:25:00 [facility] Kenalog Kenalog 2020-10-28 Completed [facility] - (Triamcinolone) (Triamcinolone) 10:25:00 [facility] Kenalog Kenalog 2020-10-28 Completed [facility] - (Triamcinolone) (Triamcinolone) 10:25:00 [facility] FluAD FluAD 2019-12-15 Completed [facility] - 16:17:00 [facility] FluAD FluAD 2019-12-15 Completed [facility] - 16:17:00 [facility] FluAD FluAD 2019-12-15 Completed [facility] - 16:17:00 [facility] FluAD FluAD 2019-12-15 Completed [facility] - 16:17:00 [facility] FluAD FluAD 2019-12-15 Completed [facility] - 16:17:00 [facility] FluAD FluAD 2019-12-15 Completed [facility] - 16:17:00 [facility] FluAD FluAD 2019-12-15 Completed [facility] - 16:17:00 [facility] FluAD FluAD 2019-12-15 Completed [facility] - 16:17:00 [facility] FluAD FluAD 2019-12-15 Completed [facility] - 16:17:00 [facility] FluAD FluAD 2019-12-15 Completed [facility] - 16:17:00 [facility] FluAD FluAD 2019-12-15 Completed [facility] - 16:17:00 [facility] FluAD FluAD 2019-12-15 Completed [facility] - 16:17:00 [facility] FluAD FluAD 2019-12-15 Completed [facility] - 16:17:00 [facility] FluAD FluAD 2019-12-15 Completed [facility] - 16:17:00 [facility] FluAD FluAD 2019-12-15 Completed [facility] - 16:17:00 [facility] FluAD FluAD 2019-12-15 Completed [facility] - 16:17:00 [facility] FluAD FluAD 2019-12-15 Completed [facility] - 16:17:00 [facility] FluAD FluAD 2019-12-15 Completed [facility] - 16:17:00 [facility] FluAD FluAD 2019-12-15 Completed [facility] - 16:17:00 [facility] FluAD FluAD 2019-12-15 Completed [facility] - 16:17:00 [facility] FluAD FluAD 2019-12-15 Completed [facility] - 16:17:00 [facility] FluAD FluAD 2019-12-15 Completed [facility] - 16:17:00 [facility] FluAD FluAD 2019-12-15 Completed [facility] - 16:17:00 [facility] FluAD FluAD 2019-12-15 Completed [facility] - 16:17:00 [facility] FluAD FluAD 2019-12-15 Completed [facility] - 16:17:00 [facility] FluAD FluAD 2019-12-15 Completed [facility] - 16:17:00 [facility] FluAD FluAD 2019-12-15 Completed [facility] - 16:17:00 [facility] FluAD FluAD 2019-12-15 Completed [facility] - 16:17:00 [facility] FluAD FluAD 2019-12-15 Completed [facility] - 16:17:00 [facility] FluAD FluAD 2019-12-15 Completed [facility] - 16:17:00 [facility] FluAD FluAD 2019-12-15 Completed [facility] - 16:17:00 [facility] FluAD FluAD 2019-12-15 Completed [facility] - 16:17:00 [facility] FluAD FluAD 2019-12-15 Completed [facility] - 16:17:00 [facility] FluAD FluAD 2019-12-15 Completed [facility] - 16:17:00 [facility] FluAD FluAD 2019-12-15 Completed [facility] - 16:17:00 [facility] FluAD FluAD 2019-12-15 Completed [facility] - 16:17:00 [facility] FluAD FluAD 2019-12-15 Completed [facility] - 16:17:00 [facility] FluAD FluAD 2019-12-15 Completed [facility] - 16:17:00 [facility] FluAD FluAD 2019-12-15 Completed [facility] - 16:17:00 [facility] FluAD FluAD 2019-12-15 Completed [facility] - 16:17:00 [facility] FluAD FluAD 2019-12-15 Completed [facility] - 16:17:00 [facility] FluAD FluAD 2019-12-15 Completed [facility] - 16:17:00 [facility] FluAD FluAD 2019-12-15 Completed [facility] - 16:17:00 [facility] FluAD FluAD 2019-12-15 Completed [facility] - 16:17:00 [facility] FluAD FluAD 2019-12-15 Completed [facility] - 16:17:00 [facility] FluAD FluAD 2019-12-15 Completed [facility] - 16:17:00 [facility] FluAD FluAD 2019-12-15 Completed [facility] - 16:17:00 [facility] FluAD FluAD 2019-12-15 Completed [facility] - 16:17:00 [facility] FluAD FluAD 2019-12-15 Completed [facility] - 16:17:00 [facility] FluAD FluAD 2019-12-15 Completed [facility] - 16:17:00 [facility] FluAD FluAD 2019-12-15 Completed [facility] - 16:17:00 [facility] FluAD FluAD 2019-12-15 Completed [facility] - 16:17:00 [facility] FluAD FluAD 2019-12-15 Completed [facility] - 16:17:00 [facility] FluAD FluAD 2019-12-15 Completed [facility] - 16:17:00 [facility] FluAD FluAD 2019-12-15 Completed [facility] - 16:17:00 [facility] FluAD FluAD 2019-12-15 Completed [facility] - 16:17:00 [facility] FluAD FluAD 2019-12-15 Completed [facility] - 16:17:00 [facility] FluAD FluAD 2019-12-15 Completed [facility] - 16:17:00 [facility] FluAD FluAD 2019-12-15 Completed [facility] - 16:17:00 [facility] FluAD FluAD 2019-12-15 Completed [facility] - 16:17:00 [facility] FluAD FluAD 2019-12-15 Completed [facility] - 16:17:00 [facility] FluAD FluAD 2019-12-15 Completed [facility] - 16:17:00 [facility] FluAD FluAD 2019-12-15 Completed [facility] - 16:17:00 [facility] Influenza A Influenza A 2019-08-25 Completed [facility] monovalent (H5N1), monovalent (H5N1), 00:00:00 Practice ADJUVANTED-2012 ADJUVANTED-2012 PNEUMAVAX 23 PNEUMAVAX 2018-12-24 [facility] PNEUMAVAX 23 PNEUMAVAX 2018-12-24 [facility]pleted [facility] 16:[facility]00 [facility] PNEUMAVAX 23 PNEUMAVAX 2018-12-24 [facility]pleted [facility] - 16:17:00 [facility] PNEUMAVAX 23 PNEUMAVAX 2018-12-24 [facility]pleted [facility] - 16:17:00 [facility] PNEUMAVAX 23 PNEUMAVAX 2018-12-24 [facility]pleted [facility] - 16:17:00 [facility] PNEUMAVAX 23 PNEUMAVAX 2018-12-24 [facility]pleted [facility] - 16:17:00 [facility] PNEUMAVAX 23 PNEUMAVAX 2018-12-24 [facility] - 16:17:00 [facility] PNEUMAVAX 23 PNEUMAVAX 2018-12-24 [facility]pleted [facility] - 16:17:00 [facility] PNEUMAVAX 23 PNEUMAVAX 2018-12-24 [facility]pleted [facility] - 16:17:00 [facility] PNEUMAVAX 23 PNEUMAVAX 2018-12-24 [facility] - 16:17:00 [facility] PNEUMAVAX 23 PNEUMAVAX 2018-12-24 Completed [facility] - 16:17:00 [facility] PNEUMAVAX 23 PNEUMAVAX 2018-12-24 [facility]pleted [facility] - 16:17:00 [facility] PNEUMAVAX 23 PNEUMAVAX 23 2018-12-24 [facility]pleted [facility] - 16:17:00 [facility] PNEUMAVAX 23 PNEUMAVAX 23 2018-12-24 [facility] - 16:17:00 [facility] PNEUMAVAX 23 PNEUMAVAX 23 2018-12-24 [facility] - 16:17:00 [facility] PNEUMAVAX 23 PNEUMAVAX 23 2018-12-24 [facility] - 16:17:00 [facility] PNEUMAVAX 23 PNEUMAVAX 23 2018-12-24 [facility]pleted [facility] - 16:17:00 [facility] PNEUMAVAX 23 PNEUMAVAX 23 2018-12-24 [facility] - 16:17:00 [facility] PNEUMAVAX 23 PNEUMAVAX 23 2018-12-24 [facility] - 16:17:00 [facility] PNEUMAVAX 23 PNEUMAVAX 23 2018-12-24 [facility] 16:17:00 [facility] PNEUMAVAX 23 PNEUMAVAX 23 2018-12-24 [facility]pleted [facility] - 16:17:00 [facility] PNEUMAVAX 23 PNEUMAVAX 23 2018-12-24 [facility]pleted [facility] - 16:17:00 [facility] PNEUMAVAX 23 PNEUMAVAX 23 2018-12-24 [facility]pleted [facility] - 16:17:00 [facility] PNEUMAVAX 23 PNEUMAVAX 23 2018-12-24 [facility]pleted [facility] - 16:17:00 [facility] PNEUMAVAX 23 PNEUMAVAX 23 2018-12-24 [facility]pleted [facility] - 16:17:00 [facility] PNEUMAVAX 23 PNEUMAVAX 23 2018-12-24 [facility]pleted [facility] - 16:17:00 [facility] PNEUMAVAX 23 PNEUMAVAX 23 2018-12-24 [facility]pleted [facility] - 16:17:00 [facility] PNEUMAVAX 23 PNEUMAVAX 2018-12-24 [facility]pleted [facility] - 16:17:00 [facility] PNEUMAVAX 23 PNEUMAVAX 2018-12-24 [facility]pleted [facility] - 16:17:00 [facility] PNEUMAVAX 23 PNEUMAVAX 23 2018-12-24 [facility] - 16:17:00 [facility] PNEUMAVAX 23 PNEUMAVAX 23 2018-12-24 [facility] - 16:17:00 [facility] PNEUMAVAX 23 PNEUMAVAX 2018-12-24 [facility]pleted [facility] 16:17:00 [facility] PNEUMAVAX 23 PNEUMAVAX 2018-12-24 [facility]pleted [facility] - 16:17:00 [facility] PNEUMAVAX 23 PNEUMAVAX 23 2018-12-24 [facility] 16:17:00 [facility] PNEUMAVAX 23 PNEUMAVAX 2018-12-24 [facility]pleted [facility] 16:17:00 [facility] PNEUMAVAX 23 PNEUMAVAX 23 2018-12-24 [facility] 16:17:00 [facility] PNEUMAVAX 23 PNEUMAVAX 23 2018-12-24 [facility] 16:17:00 [facility] PNEUMAVAX 23 PNEUMAVAX 23 2018-12-24 [facility] 16:17:00 [facility] PNEUMAVAX 23 PNEUMAVAX 2018-12-24 [facility] 16:17:00 [facility] PNEUMAVAX 23 PNEUMAVAX 2018-12-24 [facility] 16:17:00 [facility] PNEUMAVAX 23 PNEUMAVAX 2018-12-24 [facility] 16:17:00 [facility] PNEUMAVAX 23 PNEUMAVAX 23 2018-12-24 [facility] 16:17:00 [facility] PNEUMAVAX 23 PNEUMAVAX 2018-12-24 [facility] 16:17:00 [facility] PNEUMAVAX 23 PNEUMAVAX 2018-12-24 [facility] 16:17:00 [facility] PNEUMAVAX 23 PNEUMAVAX 2018-12-24 [facility] 16:17[facility]00 [facility] PNEUMAVAX 23 PNEUMAVAX 2018-12-24 [facility] 16:17:00 [facility] PNEUMAVAX 23 PNEUMAVAX 2018-12-24 [facility] 16:17:00 [facility] PNEUMAVAX 23 PNEUMAVAX 23 2018-12-24 [facility] 16:17:00 [facility] PNEUMAVAX 23 PNEUMAVAX 2018-12-24 [facility] 16:17:00 [facility] PNEUMAVAX 23 PNEUMAVAX 23 2018-12-24 [facility] 16:17:00 [facility] PNEUMAVAX 23 PNEUMAVAX 23 2018-12-24 [facility] 16:17:00 [facility] PNEUMAVAX 23 PNEUMAVAX 23 2018-12-24 [facility] 16:17:00 [facility] PNEUMAVAX 23 PNEUMAVAX 2018-12-24 [facility]pleted [facility] 16:17:00 [facility] PNEUMAVAX 23 PNEUMAVAX 23 2018-12-24 [facility] 16:17:00 [facility] PNEUMAVAX 23 PNEUMAVAX 23 2018-12-24 [facility] 16:17:00 [facility] PNEUMAVAX 23 PNEUMAVAX 2018-12-24 [facility]pleted [facility] 16:17:00 [facility] PNEUMAVAX 23 PNEUMAVAX 23 2018-12-24 [facility] 16:17:00 [facility] PNEUMAVAX 23 PNEUMAVAX 2018-12-24 Completed [facility] 16:17:00 [facility] PNEUMAVAX 23 PNEUMAVAX 23 2018-12-24 [facility]pleted [facility] - 16:17:00 [facility] PNEUMAVAX 23 PNEUMAVAX 2018-12-24 Completed [facility] 16:17:00 [facility] PNEUMAVAX 23 PNEUMAVAX 2018-12-24 [facility]pleted [facility] - 16:17:00 [facility] PNEUMAVAX 23 PNEUMAVAX 2018-12-24 Completed [facility] - 16:17:00 [facility] PNEUMAVAX 23 PNEUMAVAX 2018-12-24 [facility]pleted [facility] 16:17[facility]00 [facility] Vital Signs Vital Name Observation Time Observation Value Comments Source height 2022-11-29 13:30:00 69.00 [in_i] [facility]22-[facility]-29 13:30:00 207.5 [lb_av] [facility] temperature 2022-11-29 13:30:00 97.3 [degF] [facility] bmi 2022-11-29 13:30:00 30.64 kg/[facility]2 [facility] blood pressure 2022-11-29 13:30:00 124 mm[Hg] [facility] - systolic [facility] blood pressure 2022-11-29 13:30:00 78 mm[Hg] [facility] - diastolic [facility] height 2022-10-25 08:15:00 69.00 [in_i] [facility] weight 2022-10-25 08:15:00 207.2 [lb_av] [facility] temperature 2022-10-25 08:15:00 97.6 [degF] [facility] bmi 2022-10-25 08:15:00 30.59 kg/m2 [facility] oximetry 2022-10-25 08:15:00 99 % [facility] respiratory rate 2022-10-25 08:15:00 18 /min [facility] blood pressure 2022-10-25 08:15:00 139 mm[Hg] [facility] - systolic [facility] blood pressure 2022-10-25 08:15:00 75 mm[Hg] [facility] - diastolic [facility] height 2022-10-17 10:00:00 69.00 [in_i] [facility] weight 2022-10-17 10:00:00 204 [lb_av] [facility] temperature 2022-10-17 10:00:00 98.0 [degF] [facility] bmi 2022-10-17 10:00:00 30.12 kg/m2 Common [facility] blood pressure 2022-10-17 10:00:00 118 mm[Hg] [facility] - systolic [facility] blood pressure 2022-10-17 10:00:00 74 mm[Hg] [facility] - diastolic [facility] height 2022-09-10 11:00:00 69.00 [in_i] [facility] weight 2022-09-10 11:00:00 205 [lb_av] [facility] temperature 2022-09-10 11:00:00 97.7 [degF] [facility] bmi 2022-09-10 11:00:00 30.27 kg/m2 [facility] blood pressure 2022-09-10 11:00:00 132 mm[Hg] [facility] blood pressure 2022-09-10 11:00:00 84 mm[Hg] [facility] height 2022-08-28 15:00:00 69.00 [in_i] [facility] weight 2022-08-28 15:00:00 208 [lb_av] [facility] temperature 2022-08-28 15:00:00 97.5 [degF] [facility] bmi 2022-08-28 15:00:00 30.71 kg/m2 [facility] blood pressure 2022-08-28 15:00:00 134 mm[Hg] [facility] blood pressure 2022-08-28 15:00:00 78 mm[Hg] [facility] height 2022-08-16 13:00:00 69.00 [in_i] [facility] weight 2022-08-16 13:00:00 208 [lb_av] [facility] temperature 2022-08-16 13:00:00 98.2 [degF] [facility] bmi 2022-08-16 13:00:00 30.71 kg/m2 [facility] blood pressure 2022-08-16 13:00:00 132 mm[Hg] [facility] blood pressure 2022-08-16 13:00:00 74 mm[Hg] [facility] height 2022-08-14 14:00:00 69.00 [in_i] [facility] weight 2022-08-14 14:00:00 210.6 [lb_av] [facility] temperature 2022-08-14 14:00:00 98.0 [degF] [facility] bmi 2022-08-14 14:00:00 31.1 kg/m2 [facility] oximetry 2022-08-14 14:00:00 97 % [facility] respiratory rate 2022-08-14 14:00:00 18 /min Comm on [facility] blood pressure 2022-08-14 14:00:00 136 mm[Hg] [facility] blood pressure 2022-08-14 14:00:00 71 mm[Hg] Common [facility] - [facility] height 2022-08-14 14:40:00 69.00 [in_i] [facility] weight 2022-08-14 14:40:00 210.6 [lb_av] Common [facility] temperature 2022-08-14 14:40:00 98.0 [degF] [facility] bmi 2022-08-14 14:40:00 31.10 kg/m2 [facility] 2022-08-14 14:40:00 97 % Common S [facility] respiratory rate 2022-08-14 14:40:00 18 /min Comm on [facility] blood pressure 2022-08-14 14:40:00 136 mm[Hg] [facility] blood pressure 2022-08-14 14:40:00 71 mm[Hg] [facility] height 2022-07-11 14:00:00 69.00 [in_i] [facility] 2022-07-11 14:00:00 205 [lb_av] [facility] temperature 2022-07-11 14:00:00 99.8 [degF] [facility] bmi 2022-07-11 14:00:00 30.27 kg/m2 [facility] oximetry 2022-07-11 14:00:00 98 % [facility] respiratory rate 2022-07-11 14:00:00 18 /min Comm on [facility] blood pressure 2022-07-11 14:00:00 180 mm[Hg] [facility] blood pressure 2022-07-11 14:00:00 86 mm[Hg] [facility] height 2022-06-05 10:30:00 69.00 [in_i] Common [facility] weight 2022-06-05 10:30:00 208.7 [lb_av] [facility] bmi 2022-06-05 10:30:00 30.82 kg/m2 [facility] blood pressure 2022-06-05 10:30:00 119 mm[Hg] [facility] blood pressure 2022-06-05 10:30:00 72 mm[Hg] [facility] height 2022-01-08 09:00:00 69.00 [in_i] Common S [facility] weight 2022-01-08 09:00:00 203 [lb_av] [facility] temperature 2022-01-08 09:00:00 97.5 [degF] [facility] bmi 2022-01-08 09:00:00 29.97 kg/m2 [facility] blood pressure 2022-01-08 09:00:00 124 mm[Hg] [facility] blood pressure 2022-01-08 09:00:00 72 mm[Hg] [facility] height 2021-12-14 13:40:00 69.00 [in_i] [facility] weight 2021-12-14 13:40:00 207.4 [lb_av] Common [facility] temperature 2021-12-14 13:40:00 97.8 [degF] [facility] bmi 2021-12-14 13:40:00 30.62 kg/m2 [facility] oximetry 2021-12-14 13:40:00 98 % [facility] respiratory rate 2021-12-14 13:40:00 16 /min Comm on [facility] blood pressure 2021-12-14 13:40:00 136 mm[Hg] [facility] blood pressure 2021-12-14 13:40:00 71 mm[Hg] [facility] height 2021-12-07 15:15:00 69.00 [in_i] [facility] weight 2021-12-07 15:15:00 203 [lb_av] [facility] temperature 2021-12-07 15:15:00 97.6 [degF] [facility] bmi 2021-12-07 15:15:00 29.97 kg/m2 [facility] blood pressure 2021-12-07 15:15:00 124 mm[Hg] [facility] blood pressure 2021-12-07 15:15:00 76 mm[Hg] [facility] height 2021-11-14 15:45:00 69.00 [in_i] [facility] weight 2021-11-14 15:45:00 201 [lb_av] [facility] temperature 2021-11-14 15:45:00 97.3 [degF] [facility] bmi 2021-11-14 15:45:00 29.68 kg/m2 [facility] blood pressure 2021-11-14 15:45:00 136 mm[Hg] [facility] blood pressure 2021-11-14 15:45:00 82 mm[Hg] [facility] height 2021-10-31 09:15:00 69.00 [in_i] [facility] weight 2021-10-31 09:15:00 201 [lb_av] [facility] temperature 2021-10-31 09:15:00 97.3 [degF] [facility] bmi 2021-10-31 09:15:00 29.68 kg/m2 [facility] blood pressure 2021-10-31 09:15:00 136 mm[Hg] [facility] blood pressure 2021-10-31 09:15:00 78 mm[Hg] [facility] height 2021-09-14 13:30:00 69.00 [in_i] [facility] weight 2021-09-14 13:30:00 201.7 [lb_av] [facility] bmi 2021-09-14 13:30:00 29.78 kg/m2 [facility] blood pressure 2021-09-14 13:30:00 114 mm[Hg] [facility] blood pressure 2021-09-14 13:30:00 72 mm[Hg] [facility] height 2021-09-12 15:00:00 69.00 [in_i] [facility] weight 2021-09-12 15:00:00 199 [lb_av] [facility] temperature 2021-09-12 15:00:00 97.7 [degF] [facility] bmi 2021-09-12 15:00:00 29.38 kg/m2 [facility] oximetry 2021-09-12 15:00:00 98 % [facility] respiratory rate 2021-09-12 15:00:00 19 /min Comm on [facility] blood pressure 2021-09-12 15:00:00 119 mm[Hg] [facility] systolic [facility] blood pressure 2021-09-12 15:00:00 62 mm[Hg] [facility] diastolic [facility] Procedures Procedure Date / Time Performed Performing Clinician [facility] e EXTERNAL PROVIDER 2022-05-04 05:01:00 [facility] EXTERNAL PROVIDER 2022-04-09 05:01:00 [facility] Encounters Start End Encounter Admission Attending Care Care Encounter Source Date/Time Date/Time Type Type Clinicians Facility Department ID 2022-11-23 Outpatient Disha, STKELLEELC STLC [id number] Common 09:28:01 Jennifer [id number] [facility] 2022-10-29 [id number] Common 14:38:00 [facility] 2022-10-17 Outpatient Ranjan Van STKELLEEJONH STLC [id number] 2 Common 10:25:02 [id number] [facility] 2022-08-22 Outpatient 3 [id number] ENCPL FERNANDO [id number] [facility] 08:33:22 [facility]28 [facility] 2022-08-21 Outpatient 3 [id number] ENCPL REF [id number] [facility] 13:22:02 0927 [facility] 2022-08-16 Outpatient Van, Na STLMLC STLMLC [id number] 2 Common 11:29:01 [facility] 2022-08-14 Outpatient Van, Na STLMLC STLMLC [id number] 2 Common 14:01:00 [facility] 2022-08-10 Outpatient Van, Na STLMLC STLMLC [id number] 2 Common 10:27:01 [facility] 2022-08-01 Outpatient Van, Na STLMLC STLMLC [id number] 2 Common 16:21:00 [facility] 2022-07-18 Outpatient Van, Na STLMLC STLMLC [id number] 2 Common 10:20:01 [facility] 2022-06-05 Outpatient Van, Na STLMLC STLMLC [id number] 2 Common 16:32:01 [facility] 2022-04-24 Outpatient Vna, Na STLMLC STLMLC [id number] 2 Common 10:48:00 [facility] 2022-04-10 [facility] [id number] Univers 10:12:09 [facility] 2022-04-05 Outpatient R EDUARDO [facility] SOR [id number] Univers 14:55:52 [facility] 2022-03-14 Outpatient Van, Na STLMLC STLMLC [id number] 2 Common 08:54:02 [facility] 2022-02-13 Outpatient Van, Na STLMLC STLMLC [id number] 2 Common 14:43:01 [facility] 2022-02-07 Outpatient Van, Na STLMLC STLMLC [id number] 2 Common 13:52:00 [facility] 2021-12-20 Outpatient Van, Na STLMLC STLMLC [id number] 2 Common 14:31:59 [facility] 2021-12-20 Outpatient Van, Na STLMLC STLMLC [id number] 2 Common 14:21:08 [id number] [facility] 2021-12-20 Outpatient Van, Na STLMLC STLMLC [id number] 2 Common 14:08:38 [id number] [facility] 2021-12-20 Outpatient Van, Na STLMLC STLMLC [id number] 2 Common 14:03:42 [id number] [facility] 2021-12-20 Outpatient Van, Na STLMLC STLMLC [id number] 2 Common 14:02:52 [id number] [facility] 2021-12-20 Outpatient Van, Na STLMLC STLMLC [id number] 2 Common 13:57:01 [id number] [facility] 2021-12-20 Outpatient Van, Na STLMLC STLMLC [id number] 2 Common 13:26:06 [id number] [facility] 2021-12-20 Outpatient Van, Na STLMLC STLMLC [id number] 2 Common 12:31:46 [id number] [facility] 2021-12-20 Outpatient Van, Na STLMLC STLMLC [id number] 2 Common 12:17:55 [id number] [facility] 2021-12-20 Outpatient Van, Na STLMLC STLMLC [id number] 2 Common 12:17:21 [id number] [facility] 2021-12-20 Outpatient Van, Na STLMLC STLMLC [id number] 2 Common 12:11:20 [id number] [facility] 2021-12-20 Outpatient Van, Na STLMLC STLMLC [id number] 2 Common 12:08:44 [id number] [facility] 2021-12-20 Outpatient Van, Na STLMLC STLMLC [id number] 2 Common 12:06:23 [id number] [facility] 2021-12-20 Outpatient Van, Na STLMLC STLMLC [id number] 2 Common 12:00:42 [id number] [facility] 2021-12-20 Outpatient Van, Na STLMLC STLMLC [id number] 2 Common 12:00:23 [id number] [facility] 2021-12-20 Outpatient Van, Na STLMLC STLMLC [id number] 2 Common 11:59:14 [id number] [facility] 2021-12-20 Outpatient Van, Na STLMLC STLMLC [id number] 2 Common 11:17:32 [id number] [facility] 2021-09-21 Outpatient Juani SALTER, [facility] LITA [id number] Univers 10:57:57 LEVAR [facility] 2022-12-07 2022-12-07 BRIDGET Jordan 2.16.840. 2.16.840.1. CLAC [id number] [facility] 16:30:00 17:30:00 Rasheed [id number] [facility] [id number] 2022-12-04 2022-12-04 (TEL) STLMLC STLMLC [id number] Co mmon 00:00:00 00:00:00 [facility] 2022-12-03 2022-12-03 (TEL) STLMLC STLMLC [id number] Co mmon 00:00:00 00:00:00 [facility] 2022-11-29 2022-11-29 OFFICE STLMLC STLMLC [id number] Co mmon 00:00:00 00:00:00 VISIT [facility] LEVEL 4 [facility] 2022-11-23 2022-11-23 (TEL) STLMLC STLMLC [id number] Co mmon 00:00:00 00:00:00 [facility] 2022-11-22 2022-11-22 Outpatient Rasheed_Matthew HANNA DM [id number] [facility] 00:00:00 00:00:00 1229 [facility] 2022-11-01 2022-11-01 OL DIG E/M STLMLC STLMLC [id number] Common 00:00:00 00:00:00 C 11-20 Spir it [facility] 2022-10-25 2022-10-25 OFFICE STLMLC STLMLC [id number] Co mmon 00:00:00 00:00:00 VISIT [facility] LEVEL 4 [facility] 2022-10-17 2022-10-17 NON-BILLAB STLMLC STLMLC [id number] Common 00:00:00 00:00:00 LE VISIT [facility] 2022-10-12 2022-10-12 (TEL) STLMLC STLMLC [id number] Co mmon 00:00:00 00:00:00 [facility] 2022-10-04 2022-10-04 (TEL) STLMLC STLMLC [id number] Co mmon 00:00:00 00:00:00 [facility] 2022-09-26 2022-09-26 (TEL) STLMLC STLMLC [id number] Co mmon 00:00:00 00:00:00 [facility] 2022-09-10 2022-09-10 NON-BILLAB STLMLC STLMLC [id number] Common 00:00:00 00:00:00 LE VISIT [facility] 2022-08-28 2022-08-28 NON-BILLAB STLMLC STLMLC [id number] Common 00:00:00 00:00:00 LE VISIT [facility] 2022-08-24 2022-08-24 (TEL) STLMLC STLMLC [id number] Co mmon 00:00:00 00:00:00 [facility] 2022-08-23 2022-08-23 (TEL) STLMLC STLMLC [id number] Co mmon 00:00:00 00:00:00 [facility] 2022-08-23 2022-08-23 (TEL) STLMLC STLMLC [id number] Co mmon 00:00:00 00:00:00 [facility] 2022-08-21 2022-08-21 BRIDGET Jordan 2.16.840. 2.16.840.1. YASMEEN XAZJRU [facility] 13:30:00 14:30:00 [facility] [id number] [facility] [id number] 2022-08-20 2022-08-20 (TEL) STLMLC STLMLC [id number] Co mmon 00:00:00 00:00:00 [facility] 2022-08-16 2022-08-16 [facility]patient [facility] Dev[facility] 00:00:00 00:00:00 0922 [facility] 2022-08-16 2022-08-16 OFFICE STLMLC STLMLC [id number] Co mmon 00:00:00 00:00:00 VISIT [facility] ESTAB PT - CHI LEVEL 4 [facility] 2022-08-14 2022-08-14 SUB ANNUAL STLMLC STLMLC [id number] Common 00:00:00 00:00:00 MCR [facility] - [facility] VISIT [facility] 2022-08-14 2022-08-14 OFFICE STLMLC STLMLC [id number] Co mmon 00:00:00 00:00:00 VISIT EST Spir it PT LEVEL 3 [facility] 2022-07-27 2022-07-27 ([place]) Nurse STLMLC STLMLC [id number] Common 00:00:00 00:00:00 Visit [facility] 2022-07-26 2022-07-26 (TEL) STLMLC STLMLC [id number] Co mmon 00:00:00 00:00:00 [facility] 2022-07-11 2022-07-11 OFFICE STLMLC STLMLC [id number] Co mmon 00:00:00 00:00:00 VISIT NEW Spir it PT LEVEL 3 - CHI [facility] 2022-07-10 2022-07-10 (TEL) STLMLC STLMLC [id number] Co mmon 00:00:00 00:00:00 [facility] 2022-06-20 2022-06-20 (TEL) STLMLC STLMLC [id number] Co mmon 00:00:00 00:00:00 [facility] 2022-06-08 2022-06-08 Outpatient OWENS_T DMG [facility] [id number] Devoted 03:28:00 03:28:00 0715 [facility] 2022-06-05 2022-06-05 (TEL) STLMLC STLMLC [id number] Co mmon 00:00:00 00:00:00 [facility] 2022-06-05 2022-06-05 (TEL) STLMLC STLMLC [id number] Co mmon 00:00:00 00:00:00 [facility] 2022-06-05 2022-06-05 OFFICE STLMLC STLMLC [id number] Co mmon 00:00:00 00:00:00 VISIT [facility] 4 [facility] 2022-06-05 2022-06-05 (TEL) STLMLC STLMLC [id number] Co mmon 00:00:00 00:00:00 [facility] 2022-05-11 2022-05-11 (TEL) STLMLC STLMLC [id number] Co mmon 00:00:00 00:00:00 [facility] 2022-05-04 2022-05-04 (TEL) STLMLC STLMLC [id number] Co mmon 00:00:00 00:00:00 [facility] 2022-05-04 2022-05-04 Orders Doctor DAVIS [id number] [id number] Univers 00:00:00 00:00:00 Only Unassigned, JUAN MANUEL [id number] ity [facility] [id number] [place] as [id number] [address] 2022-04-30 2022-04-30 Outpatient Juani CLARK [facility] [id number] Univers 13:45:00 13:45:00 LOU [facility] 2022-04-30 2022-04-30 (TEL) STLMLC STLMLC [id number] Co mmon 00:00:00 00:00:00 [facility] 2022-04-27 2022-04-27 Outpatient OWENS_T DMG DMG [id number] Devoted 07:01:00 07:01:00 0603 [facility] 2022-04-24 2022-04-24 [place] [id number] Devoted 09:01:00 09:01:00 0531 [facility] 2022-04-13 2022-04-13 [facility] [id number] Univers 10:15:00 10:15:00 LOU [facility]elam [facility] 2022-04-13 2022-04-13 Outpatient R ED[facility]ARDO [facility] [id number] Univers 10:15:00 10:15:00 [facility] 2022-04-13 2022-04-13 Outpatient OWENS_T JACQUES G [id number] Devoted 09:00:00 09:00:00 0520 [facility] 2022-04-11 2022-04-11 Outpatient R EDUARDO [facility] [id number] Univers 12:32:49 23:59:00 [facility]22-04-11 2022-04-11 [facility] 1.2.840.114 [id number] Univers 12:32:49 23:59:00 Encounter Lou SIMPSON 350.1.13.10 ity of [place] [id number] [facility] [address] 2022-04-11 2022-04-11 Patient Assessment Coordinator Renan, [facility] 1.2.8 40.114 [id number] Univers 12:30:00 12:45:00 Visit Lou Clark 350.1.13.10 [place] of [place] PROF[place] [id number] Nm dical NAL 353 [facility] 2022-04-09 2022-04-09 Orders Doctor DAVIS 1.2.840.114 [id number] Univers 00:00:00 00:00:00 Only Unassigned, JUAN MANUEL 350.1.13.10 ity of [place] [facility] 4.2.7.2.686 Sander as [id number] [address] 2022-04-05 2022-04-07 Outpatient Juani [facility] [id number] Univers 13:00:00 11:47:07 LOU [facility] 2022-04-05 2022-04-05 Ancillary Stephanie Munroe [facility] 1 .2.840.114 [id number] Univers 13:00:00 13:45:00 Visit Lou Clark [place] 350.1.13.10 ity of [place] E[place] [id number] Nm dicramsey NÚÑEZ [address] [place] [address] 2022-04-05 2022-04-05 Outpatient Juani [facility]O [facility] [id number] Univers 13:00:00 13:00:00 LOU [facility] 2022-03-30 2022-03-30 [facility] [id number] Univers 09:48:27 23:59:00 LOUANIBAL [facility] 2022-03-30 2022-03-30 Outpatient Ju[facility] [id number] Univers 09:00:00 10:16:49 YESSI [facility] 2022-03-30 2022-03-30 Office [facility] 1.2.840.114 [id number] Univers 09:00:00 09:30:00 Visit [facility] [id number] it [facility] 4.2.7.2.686 [place]ander as ANNELISE?BLEA [id number] Nm dicramsey TORRES [address] [facility] OFFICE [facility] 2022-03-30 2022-03-30 [facility] [id number] Univers 09:00:00 09:00:00 YESSI [facility] 2022-03-30 2022-03-30 Telephone [facility] [id number] Univers 00:00:00 00:00:00 [facility] 350.1.13.10 it y of [place] 4.2.7.2.686 Sander as ANNELISE?BLEA [phone] Nm dical KNEY [address] [facility] OFFICE [facility] 2022-03-30 2022-03-30 Prep For Eduardo, [facility] 1.2.840.114 [id number] Univers 00:00:00 00:00:00 Surgery [facility] [id number] it y of [place] 4.2.7.2.686 [place] ANNELISE?BLEA [id number] Nm dical [address] MEDICAL OFFICE [facility] 2022-03-20 2022-03-20 (TEL) STLMLC STLMLC [id number] Co mmon 00:00:00 00:00:00 [facility] 2022-03-19 2022-03-19 Orders Doctor DAVIS 1.2.840.114 [id number] Univers 00:00:00 00:00:00 Only Unassigned, JUAN MANUEL 350.1.13.10 [facility] [id number] [place] as [phone] [address] 2022-03-15 2022-03-15 (TEL) STLMLC STLMLC [id number] Co mmon 00:00:00 00:00:00 [facility] 2022-03-14 2022-03-14 OFFICE STLMLC STLMLC [id number] Co mmon 00:00:00 00:00:00 VISIT EST Spir it PT LEVEL [address] [place] [address] 2022-02-28 2022-02-28 (TEL) STLMLC STLMLC [id number] Co mmon 00:00:00 00:00:00 [facility] 2022-02-26 2022-02-26 (TEL) STLMLC STLMLC [id number] Co mmon 00:00:00 00:00:00 [facility] 2022-02-26 2022-02-26 (TEL) STLMLC STLMLC [id number] Co mmon 00:00:00 00:00:00 [facility] 2022-02-26 2022-02-26 (TEL) STLMLC STLMLC [id number] Co mmon 00:00:00 00:00:00 [facility] 2022-01-30 2022-01-30 (TEL) STLMLC STLMLC [id number] Co mmon 00:00:00 00:00:00 [facility] 2022-01-08 2022-01-08 OFFICE STLMLC STLMLC [id number] Co mmon 00:00:00 00:00:00 VISIT [facility] ESTAB PT - CHI LEVEL 4 [facility] 2022-01-03 2022-01-03 (TEL) STLMLC STLMLC [id number] Co mmon 00:00:00 00:00:00 [facility] 2021-12-14 2021-12-14 OFFICE STLMLC STLMLC [id number] Co mmon 00:00:00 00:00:00 VISIT EST Spir it PT LEVEL 3 [facility] 2021-12-07 2021-12-07 (TEL) STLMLC STLMLC [id number] Co mmon 00:00:00 00:00:00 [facility] 2021-12-07 2021-12-07 NON-BILLAB STLMLC STLMLC [id number] Common 00:00:00 00:00:00 LE VISIT [facility] 2021-11-30 2021-11-30 (TEL) STLMLC STLMLC [id number] Co mmon 00:00:00 00:00:00 [facility] 2021-11-28 2021-11-28 (TEL) STLMLC STLMLC [id number] Co mmon 00:00:00 00:00:00 [facility] 2021-11-15 2021-11-15 (TEL) STLMLC STLMLC [id number] Co mmon 00:00:00 00:00:00 [facility] 2021-11-14 2021-11-14 NON-BILLAB STLMLC STLMLC [id number] Common 00:00:00 00:00:00 LE VISIT [facility] t [facility] 2021-10-31 2021-10-31 OFFICE STLMLC STLMLC [id number] Co mmon 00:00:00 00:00:00 VISIT [facility] PT - CHI LEVEL 4 [facility] 2021-09-272021-09-27 (TEL) STLMLC STLMLC [id number] Co mmon 00:00:00 00:00:00 [facility] 2021-09-27 2021-09-27 (TEL) STLMLC STLMLC [id number] Co mmon 00:00:00 00:00:00 [facility] 2021-09-25 2021-09-25 (TEL) STLMLC STLMLC [id number] Co mmon 00:00:00 00:00:00 [facility] 2021-09-25 2021-09-25 (TEL) STLMLC STLMLC [id number] Co mmon 00:00:00 00:00:00 [facility] 2021-09-20 2021-09-20 (TEL) STLMLC STLMLC [id number] Co mmon 00:00:00 00:00:00 [facility] 2021-09-14 2021-09-14 OFFICE STLMLC STLMLC [id number] Co mmon 00:00:00 00:00:00 VISIT [facility] PT - CHI LEVEL 4 [facility] 2021-09-12 2021-09-12 OFFICE STLMLC STLMLC [id number] Co mmon 00:00:00 00:00:00 VISIT [facility] ESTAB PT - CHI LEVEL 4 [facility] 2021-08-15 2021-08-15 Outpatient STLMLC STLMLC [id number] Common 00:00:00 00:00:00 [facility] 2021-06-16 2021-06-16 Outpatient STLMLC STLMLC [id number] Common 00:00:00 00:00:00 [facility] 2021-06-08 2021-06-08 Outpatient STLMLC STLMLC [id number] Common 00:00:00 00:00:00 [facility] 2021-06-06 2021-06-06 Outpatient OWENS_T KE KEG [id number] [facility] 12:57:00 12:57:00 [id number] 2021-03-27 2021-03-27 Outpatient KE KE [id number] [facility] 06:02:00 06:02:00 0[facility] 2021-03-14 2021-03-14 Outpatient DMG DMG [id number] [facility] 12:00:00 12:00:00 0420 [facility] 2021-03-12 2021-03-12 Outpatient STLMLC STLMLC [id number] Common 00:00:00 00:00:00 [facility] 2021-03-09 2021-03-09 Outpatient STLMLC STLMLC [id number] Common 00:00:00 00:00:00 [facility] 2021-03-06 2021-03-06 Outpatient STLMLC STLMLC [id number] Common 00:00:00 00:00:00 [facility] 2021-01-17 2021-01-17 Outpatient STLMLC STLMLC [id number] Common 00:00:00 00:00:00 [facility] 2021-01-05 2021-01-05 Outpatient STLMLC STLMLC [id number] Common 00:00:00 00:00:00 [facility] 2020-12-21 2020-12-21 Laboratory Lab, [facility] [id number] 10:53:43 11:13:43 Only Fam Pob I Health [id number] Jean [id number] Professio [phone] nal 044 [address] One 2020-12-21 2020-12-21 Outpatient Juani COREAS, [facility] [id number] Univers 10:40:00 10:40:00 TAYLER jimenez [facility] 2020-12-05 2020-12-05 Telephone Nurse, [facility] [id number] 00:00:00 00:00:00 Fam Pob I Health [id number] Jean [id number] Professio [phone] nal 044 Office [address] One 2020-12-02 2020-12-02 Laboratory Lab, [facility] [id number] 18:20:33 18:40:33 Only Fam Pob I Health [id number] Jean [id number] Kristy [phone] nal 044 Office [address] One 2020-12-02 2020-12-02 Outpatient Juani GARRETT [facility] [id number] Univers 18:35:00 18:35:00 DAVIS jimenez [facility] 2020-11-30 2020-11-30 Outpatient STLMLC STLMLC [id number] Common 00:00:00 00:00:00 [facility] 2020-11-18 2020-11-18 Outpatient Gay-Mbayo VFP VFP [id number] [place] 12:04:00 12:04:00 _A_AH [id number] Family Practic e 2020-11-18 2020-11-18 Outpatient Gay-Mbayo VFP VFP [id number] [facility] 12:04:00 12:04:00 _A_AH [id number] Family Practic e 2020-11-15 2020-11-15 Outpatient Juani COREAS, [facility] [id number] Univers 09:20:00 09:20:00 TAYLER tony [facility] 2020-11-15 2020-11-15 Letter Doctor DAVIS [id number] 00:00:00 00:00:00 (Out) Unassigned, JUAN MANUEL [id number] [place] [facility] [id number] 2020-10-28 2020-10-28 Outpatient STLMLC STLMLC [id number] Common 00:00:00 00:00:00 [facility] 2020-10-11 2020-10-11 Outpatient STLMLC STLMLC [id number] Common 00:00:00 00:00:00 [facility] 2020-09-22 2020-09-22 Outpatient STLMLC STLMLC [id number] Common 00:00:00 00:00:00 [facility] 2020-09-14 2020-09-14 Laboratory Lab, [facility] [id number] 14:51:48 15:11:48 Only Fam Pob I Health [id number] Jean [id number] [facility] [phone] nal 044 Office [address] One 2020-09-14 2020-09-14 Outpatient Juani JOAN [facility] [id number] Univers 15:00:00 15:00:00 TRENA jimenez [facility] 2020-07-25 2020-07-25 Out[facility] [id number] Common 10:16:00 10:16:[address] [facility] 2020-07-04 2020-07-04 [facility] [id number] Common 15:00:00 15:00:[address] [facility] 2020-07-04 2020-07-04 Outpatient [facility] [id number] Common 09:52:00 09:52:00 [facility] 2020-06-23 2020-06-23 [facility] [id number] Common 10:40:00 10:40:[address] [facility] 2020-06-08 2020-06-08 Outpatient Gay-Mbayo VFP VFP [id number] [facility] 09:39:00 09:39:00 _A_AH [id number] Family Practic e 2020-06-02 2020-06-02 Outpatient Gay-Mbayo VFP VFP [id number] [place] 12:40:00 12:40:00 _A_AH [id number] Family Practic e 2020-04-28 2020-04-28 Outpatient Gay-Mbayo VFP VFP [id number] [facility] 01:10:00 01:10:00 _A_AH 85808 Family Practic e 2020-04-13 2020-04-13 Outpatient [facility] [id number] Common 09:40:00 09:40:[address] [facility] 2020-03-24 2020-03-24 Outpatient Gay-Mbayo VFP VFP [id number] [facility] 12:45:00 12:45:00 _A_AH [id number] Family Practic e 2020-03-24 2020-03-24 Outpatient Gay-Junior VFP VFP [id number] [facility] 12:45:00 12:45:00 _A_AH [id number] Family Practic e 2020-03-23 2020-03-23 Outpatient Zafar VFP VFP [id number] [facility] 08:31:00 08:31:00 _A_AH [id number] Family Practic e 2020-03-17 2020-03-17 Outpatient [facility] [id number] Common 09:20:00 09:20:[address] [facility] 2020-03-03 2020-03-03 Outpatient [facility] [id number] Common 10:34:00 10:34:[address] [facility] 2020-03-03 2020-03-03 Outpatient [facility] [id number] Common 09:00:00 09:00:[address] [facility] 2020-02-24 2020-02-24 Adwoa VFP [place] - [id number] V illage 00:00:00 00:00:00 Eduarda Tompkins Fam kirsten stewart SPECIAL NEEDS CHILD CAREGIVER: Medical - Practi c [address] VM_HOU_V@_ e [facility], [address] [address], [place] [address] , Ph. 2020-01-20 2020-01-20 Located within [facility] [id number] 05:37:00 09:41:00 Encounter Levar Simpson [id number] [place] [id number] Surgical [id number] [place] 071 2020-01-20 2020-01-20 Orders Doctor CANNON [id number] 00:00:00 00:00:00 Only Unassigned, JUAN MANUEL [id number] [place] [facility] [id number] 2020-01-19 2020-01-19 Patient Assessment Coordinator Devon Urrutia [facility] [id number] 13:19:44 13:39:36 Visit Lab Main [place] [id number] [place] [id number] Kristy [id number] [address] 2020-01-19 2020-01-19 Outpatient Juani SALTER [facility] [id number] [facility] 13:30:00 13:30:00 LEVAR jimenez [facility] 2020-01-13 2020-01-13 Outpatient Zafar VFP VFP [id number] [facility] 07:14:00 07:14:00 _A_ [id number] Family Practic e Results This patient has no known results.
[2022-12-16] MEDS ORDERED: ONDANSETRON 4 MG/2 ML VIAL ONE (16:48)
[2022-12-16] MEDS ORDERED: MORPHINE 4 MG/ML SYR ONE (16:48)
[2022-12-16] MEDS ORDERED: NA CHLORIDE 0.9% 250 ML ONE ×2 (16:48→16:56)
[2022-12-16 16:49] LABS: Urine Blood 3+ (Negative); Urine Glucose Negative (Negative); Urine Protein Trace (Negative); Urine Specific Gravity >=1.030 (1.005-1.030); Urine pH 5.5 (5.0-7.0)
[2022-12-16 16:50] LABS: Absolute Lymphocytes (CBC) 0.4 K/uL (0.7-4.9); Hematocrit 37.4 % (39.6-49.0); Lymphocytes % 2.1 % (15.3-44.8); MCV 83.3 fL (80-100); MPV 8.1 fL (7.6-11.3); RBC Red Blood Cell Count 4.48 M/uL (4.33-5.43)
[2022-12-16 17:04] LABS: Albumin 3.9 g/dL (3.4-5.0); Bilirubin Total 0.7 mg/dL (0.2-1.0); Potassium 3.9 mmol/L (3.5-5.1); Protein, Total 8.1 g/dL (6.4-8.2)
[2022-12-16 17:10] LABS: Urine Bacteria None Seen /HPF (<20); Urine Mucus Slight /HPF (None Seen); Urine RBC >50 /HPF (None Seen)
--- NOTE | 2022-12-16 17:18 | RAD REPORT ---
EXAM DESCRIPTION: CT - Stone Protocol - 12/16/2022 5:09 pm CLINICAL HISTORY: Flank pain. right flank pain COMPARISON: Abdomen Pelvis W Contrast dated 07/10/2022 TECHNIQUE: Axial images were obtained without oral or IV contrast. Lack of contrast limits solid org an and vascular assessment. The [id number] spans the entirety of the system partially obscuring uppermost abdomen and lung bases. Coronal reformatted images were obtained and reviewed. All CT scans are performed using dose optimization technique as appropriate and may include automated exposure control or mA/KV adjustment according to patient size. FINDINGS: The lower lung shelley are clear. Cholecystectomy. Imaged portions of the liver and spleen show no suspicious findings on non-contrast imaging. The panc reas and adrenal glands are normal. No pathologic lymphadenopathy in the abdomen or pelvis. 3 mm stone is present mid right ureter with mild right hydronephrosis and hydroureter. Additional pun ctate stone is seen slightly higher in the ureter on the right. Several calculi are present calyx rig ht kidney. Punctate calculus noted left kidney. No bowel obstruction, free air, free fluid or abscess. Postsurgical clips right inguinal region. Mode rate left fat containing hernia.Nonvisualized appendix. Moderate lower lumbar degenerative changes. IMPRESSION: 3 mm stone proximal right ureter with mild right hydronephrosis and hydroureter.
[2022-12-16] MEDS ORDERED: MAGNESIUM SULFATE 1 gm IVPB 1 GM/100 ML BAG IV ONE (17:34)
[2022-12-16] MEDS ORDERED: TAMSULOSIN 0.4 MG SR CAP ONE (17:34)
[2022-12-16] MEDS ORDERED: KETOROLAC 30 MG/ML INJ ONE (17:34)
--- NOTE | 2022-12-16 18:44 | ER ---
Nurse's Notes [facility] Name: Shahid Milton Age: 72 yrs Sex: Male : 1950 Arrival Date: 12/16/2022 Time: 15:44 Bed 7 Private MD: Jens Pool Diagnosis: Calculus of kidney with calculus of ureter-right Presentation: 12/16 16:14 Chief complaint: Patient states: lithotripsy was done on Saturday12/11/[address] evelyn Cristina, Right side pain with NV began today. Coronavirus screen: Vaccine status: Patient reports receiving the 2nd dose of the covid vaccine. Client denies travel out of the [place] in the last 14 days. Ebola Screen: Patient negative for fever greater than or equal to 101.5 degrees Fahrenheit, and additional compatible Ebola Virus Disease symptoms Patient denies exposure to infectious person. Initial Sepsis Screen: Does the patient meet any 2 criteria? No. Patient's initial sepsis screen is negative. Does the patient have a suspected source of infection? No. Patient's initial sepsis screen is negative. Risk Assessment: Do you want to hurt yourself or someone else? Patient reports no desire to harm self or others. Onset of symptoms was December 16, 2022. 16:14 Method Of Arrival: Ambulatory vg1 16:14 Acuity: FAITH 3 vg1 Triage Assessment: 16:20 General: Appears uncomfortable, Behavior is calm, cooperative. Pain: Complains of pain vg1 in posterior aspect of right lateral abdomen Pain currently is 9 out of 10 on a pain scale. Pain began today. GI: Reports nausea, vomiting. : Reports teodoro color of uirne. Historical: - Allergies: 16:20 No Known Allergies; vg1 - Home Meds: 16:20 Acetaminophen-Codeine Oral [Active]; tamsulosin oral [Active]; terbinafine HCl oral vg1 [Active]; gabapentin oral [Active]; pantoprazole oral [Active]; sertraline oral [Active]; iron oral [Active]; - PMHx: 16:20 Anxiety; Kidney Stones; vg1 - PSHx: 16:20 [place] Knee; Hernia; Cholecystectomy; vg1 - Immunization history:: Client reports receiving the 2nd dose of the Covid vaccine. - Social history:: Smoking status: Patient denies any tobacco usage or history of. Screenin:40 [facility] ED Fall Risk Assessment (Adult) History of falling in the last 3 months, aa5 including since admission No falls in past 3 months (0 pts) Confusion or Disorientation No (0 pts) Intoxicated or Sedated No (0 pts) Impaired Gait No (0 pts) Mobility Assist Device Used No (0 pt) Altered Elimination No (0 pt) Score/Fall Risk Level 0 - 2 = Low Risk. Abuse screen: Denies threats or abuse. Nutritional screening: No deficits noted. Tuberculosis screening: No symptoms or risk factors identified. Assessment: 16:40 General: Appears uncomfortable, Behavior is calm, cooperative. Pain: Complains of pain aa5 in posterior aspect of right lateral abdomen Pain currently is 10 out of 10 on a pain scale. Quality of pain is described as sharp, Pain began today Is continuous. Neuro: Level of Consciousness is awake, alert, obeys commands, Oriented to person, place, time, situation. Cardiovascular: Heart tones S1 S2 present Rhythm is regular. Respiratory: Airway is patent Respiratory effort is even, unlabored, Respiratory pattern is regular, symmetrical. GI: Abdomen is round non-distended, Bowel sounds present X 4 quads. Abd is soft and non tender X 4 quads. Reports nausea, vomiting, since today. : Denies burning with urination, inability to void. EENT: No signs and/or symptoms were reported regarding the EENT system. Derm: Skin is pink, warm \\T\\ dry. Musculoskeletal: Range of motion: intact in all extremities. 17:20 Reassessment: Pt c/o pain - reporting to CT that pain has not decreased. ld1 17:55 Reassessment: Patient is alert, oriented x 3, equal unlabored respirations, skin aa5 warm/dry/pink. Patient states feeling better. Patient states symptoms have improved. 18:57 Reassessment: Patient is alert, oriented x 3, equal unlabored respirations, skin aa5 warm/dry/pink. Patient denies pain at this time. Patient states feeling better. Vital Signs: 16:14 BP 166 / 89; Pulse 70; Resp 18; Temp 98.5(O); Pulse Ox 99% on R/A; Weight 93.89 kg; vg1 Height 5 ft. 9 in. (175.26 cm); Pain 9/10; 16:52 BP 168 / 91; Pulse 70; Resp 24 S; Pulse Ox 100% on R/A; aa5 17:19 BP 154 / 85; Pulse 66; Resp 22; Pulse Ox 100% on R/A; Pain 9/10; ld1 17:59 BP 152 / 72; Pulse 76; Resp 16 S; Pulse Ox 96% on R/A; aa5 16:14 Body Mass Index 30.57 (93.89 kg, 175.26 cm) vg1 ED Course: 15:44 Patient arrived in ED. am2 15:44 Jens Pool DO is Private Physician. am2 16:20 Triage completed. vg1 16:20 Arm band placed on. vg1 16:23 Baldomero Hughes PA is PHCP. cp 16:24 Suresh Holder MD is Attending Physician. cp 16:40 Patient has correct armband on for positive identification. Placed in gown. Bed in low aa5 position. Call light in reach. Side rails up X2. Adult w/ patient. Pulse ox on. NIBP on. 16:42 Dolores Healy, RN is Primary Nurse. aa5 16:50 CBC with Diff Sent. bc6 16:50 CMP Sent. bc6 16:51 Lipase Sent. bc6 16:51 Urine Microscopic Only Sent. bc6 16:51 Initial lab(s) drawn, by al, sent to lab. Urine collected: clean catch specimen. bc6 Inserted saline lock: 20 gauge in right antecubital area, using aseptic technique. 17:10 CT Stone Protocol In Process Unspecified. EDMS 18:43 Roney Cristina MD is Referral Physician. cp 18:57 No provider procedures requiring assistance completed. IV discontinued, intact, aa5 bleeding controlled, No redness/swelling at site. Pressure dressing applied. Administered Medications: 16:51 Drug: NS 0.9% 500 ml Route: IV; Rate: 250 ml/hr; Site: right antecubital; aa5 18:14 Follow up: Response: No adverse reaction; IV Status: Completed infusion; IV Intake: ld1 250ml 16:52 Drug: Zofran (Ondansetron) 4 mg Route: IVP; Site: right antecubital; aa5 16:52 Drug: morphine 4 mg Route: IVP; Infused Over: 4 mins; Site: right antecubital; aa5 17:28 Drug: Dilaudid (HYDROmorphone) 1 mg Route: IVP; Site: right antecubital; ld1 17:39 Follow up: Response: No adverse reaction; Pain is decreased ld1 17:39 Drug: Ketorolac 10 mg 10 mg Route: IVP; Site: right antecubital; ld1 18:13 Follow up: Response: No adverse reaction ld1 17:39 Drug: Flomax (tamsulosin) 0.4 mg Route: PO; ld1 18:13 Follow up: Response: No adverse reaction ld1 17:39 Drug: Magnesium Sulfate 1 grams Route: IVPB; Infused Over: 1 hrs; Site: right ld1 antecubital; 18:14 Follow up: Response: No adverse reaction; IV Status: Completed infusion; IV Intake: ld1 100ml Medication: 18:57 VIS not applicable for this client. aa5 Intake: 18:14 IV: 100ml; Total: 100ml. ld1 18:14 IV: 250ml; Total: 350ml. ld1 Outcome: 18:44 Discharge ordered by MD. catarino 18:57 Discharged to home via wheelchair, with significant other. aa5 18:57 Condition: improved 18:57 Discharge instructions given to patient, Instructed on discharge instructions, follow up and referral plans. medication usage, Demonstrated understanding of instructions, follow-up care, medications, Prescriptions given X 2. 19:05 Patient left the ED. aa5 Signatures: Dispatcher [employer] EDMS Dolores Healy RN RN aa5 Baldomero Hughes PA PA cp Moreno, Amanda amPretty Neumann RN RN vg1 Pauly Wilson RN RN ld1 Kelley Martin 6 Corrections: (The following items were deleted from the chart) 16:23 16:20 PMHx: "Anger problems"; vg1 vg1
--- NOTE | 2022-12-16 18:44 | EDPHYS ---
Physician Documentation [facility] Name: Shahid Milton Age: 72 yrs Sex: Male : 1950 Arrival Date: 12/16/2022 Time: 15:44 Bed 7 Private MD: Gracie Poolh ED Physician Suresh Holder HPI: 12/16 16:30 This 72 yrs old Male presents to ER via Ambulatory with complaints of Flank cp Pain, Post Surgical Pain. 16:30 The patient complains of pain in the right flank. cp 16:30 The pain does not radiate. Onset: The symptoms/episode began/occurred today. Associated cp signs and symptoms: Pertinent positives: nausea, vomiting, Pertinent negatives: dysuria, fever, hematuria, pain radiating to the lower extremities. Severity of pain: in the emergency department the pain is unchanged despite home interventions. 16:30 Patient reports having lithotripsy procedure this past by DR Cristina. No cp complications from procedure with right flank pain that started today. Historical: - Allergies: 16:20 No Known Allergies; vg1 - Home Meds: 16:20 Acetaminophen-Codeine Oral [Active]; tamsulosin oral [Active]; terbinafine HCl oral vg1 [Active]; gabapentin oral [Active]; pantoprazole oral [Active]; sertraline oral [Active]; iron oral [Active]; - PMHx: 16:20 Anxiety; Kidney Stones; vg1 - PSHx: 16:20 [place] Knee; Hernia; Cholecystectomy; vg1 - Immunization history:: Client reports receiving the 2nd dose of the Covid vaccine. - Social history:: Smoking status: Patient denies any tobacco usage or history of. ROS: 16:35 Constitutional: Positive for poor PO intake, Negative for body aches, chills, fever. cp 16:35 Eyes: Negative for injury, pain, redness, and discharge. cp 16:35 Neck: Negative for pain with movement, pain at rest, stiffness. 16:35 Respiratory: Negative for cough, shortness of breath, wheezing. 16:35 Abdomen/GI: Positive for abdominal pain, nausea and vomiting, Negative for diarrhea, constipation. 16:35 Back: Positive for flank pain, on the right, Negative for injury or acute deformity, decreased range of motion. 16:35 : Negative for burning with urination, testicular pain 16:35 Skin: Negative for rash. 16:35 Neuro: Negative for altered mental status, dizziness, headache, weakness. 16:35 All other systems are negative. Exam: 16:40 Constitutional: The patient appears in no acute distress, alert, awake, non-toxic, well cp developed, well nourished, in obvious pain, uncomfortable. 16:40 Head/Face: Normocephalic, atraumatic. cp 16:40 Eyes: Periorbital structures: appear normal, Conjunctiva: normal, no exudate, no injection, Sclera: no appreciated abnormality, Lids and lashes: appear normal, bilaterally. 16:40 ENT: External ear(s): are unremarkable, Nose: is normal, Mouth: Lips: moist, Oral mucosa: moist, Posterior pharynx: Airway: no evidence of obstruction, patent. 16:40 Chest/axilla: Inspection: normal. 16:40 Cardiovascular: Rate: normal. 16:40 Respiratory: the patient does not display signs of respiratory distress, Respirations: normal, Breath sounds: are clear throughout, no decreased breath sounds, no stridor, no wheezing. 16:40 Abdomen/GI: Inspection: abdomen appears normal, Bowel sounds: active, all quadrants, Palpation: soft, in all quadrants, moderate abdominal tenderness, in the anterior aspect of right lateral abdomen and posterior aspect of right lateral abdomen, rebound tenderness, is not appreciated. 16:40 Skin: no rash present. 16:40 Neuro: Orientation: to person, place \\T\\ time. Mentation: is normal, Motor: moves all fours, strength is normal, Sensation: is normal. Vital Signs: 16:14 BP 166 / 89; Pulse 70; Resp 18; Temp 98.5(O); Pulse Ox 99% on R/A; Weight 93.89 kg; vg1 Height 5 ft. 9 in. (175.26 cm); Pain 9/10; 16:52 BP 168 / 91; Pulse 70; Resp 24 S; Pulse Ox 100% on R/A; aa5 17:19 BP 154 / 85; Pulse 66; Resp 22; Pulse Ox 100% on R/A; Pain 9/10; ld1 17:59 BP 152 / 72; Pulse 76; Resp 16 S; Pulse Ox 96% on R/A; aa5 16:14 Body Mass Index 30.57 (93.89 kg, 175.26 cm) vg1 MDM: 16:26 Patient medically screened. 18:43 Data reviewed: vital signs, nurses notes, lab test result(s), radiologic studies, CT cp scan. 18:43 Consideration of Admission/Observation Escalation of care including cp admission/observation considered. I considered the following discharge prescriptions or medication management in the emergency department Medications were administered in the Emergency Department. See MAR. Test considered but Not performed: Other Details renal US. Counseling: I had a detailed discussion with the patient and/or guardian regarding: the historical points, exam findings, and any diagnostic results supporting the discharge/admit diagnosis, lab results, radiology results, to return to the emergency department if symptoms worsen or persist or if there are any questions or concerns that arise at home. Response to treatment: the patient's symptoms have markedly improved after treatment, Pain and nausea markedly improved. Will discharge to home for continued monitoring. 12/16 16:25 Order name: CBC with Diff 12/16 17:18 Interpretation: Normal except: WBC 18.30; HGB 12.7; HCT 37.4; PANCHO% 92.9; LYM% 2.1; NEUT cp A 17.0; LYMA 0.4. 12/16 16:25 Order name: CMP; Complete Time: 17:17 cp 12/16 17:18 Interpretation: Normal except: GLUC 124; BUN 26; GFR 69; GLOB 4.2; A/G 0.9. cp 12/16 16:25 Order name: Lipase; Complete Time: 17:17 cp 12/16 16:25 Order name: Urine Microscopic Only; Complete Time: 17:17 cp 12/16 16:41 Order name: CT Stone Protocol; Complete Time: 17:21 cp 12/16 16:49 Order name: Urine Dipstick-Ancillary; Complete Time: 17:17 EDMS 12/16 16:25 Order name: IV Saline Lock; Complete Time: 16:50 cp 12/16 16:25 Order name: Labs collected and sent; Complete Time: 16:50 cp 12/16 16:25 Order name: Urine Dipstick-Ancillary (obtain specimen); Complete Time: 16:51 cp Administered Medications: 16:51 Drug: NS 0.9% 500 ml Route: IV; Rate: 250 ml/hr; Site: right antecubital; aa5 18:14 Follow up: Response: No adverse reaction; IV Status: Completed infusion; IV Intake: ld1 250ml 16:52 Drug: Zofran (Ondansetron) 4 mg Route: IVP; Site: right antecubital; aa5 16:52 Drug: morphine 4 mg Route: IVP; Infused Over: 4 mins; Site: right antecubital; aa5 17:28 Drug: Dilaudid (HYDROmorphone) 1 mg Route: IVP; Site: right antecubital; ld1 17:39 Follow up: Response: No adverse reaction; Pain is decreased ld1 17:39 Drug: Ketorolac 10 mg 10 mg Route: IVP; Site: right antecubital; ld1 18:13 Follow up: Response: No adverse reaction ld1 17:39 Drug: Flomax (tamsulosin) 0.4 mg Route: PO; ld1 18:13 Follow up: Response: No adverse reaction ld1 17:39 Drug: Magnesium Sulfate 1 grams Route: IVPB; Infused Over: 1 hrs; Site: right ld1 antecubital; 18:14 Follow up: Response: No adverse reaction; IV Status: Completed infusion; IV Intake: ld1 100ml Disposition Summary: 12/16/22 18:44 Discharge Ordered Location: Home cp Problem: new cp Symptoms: have improved cp Condition: Stable cp Diagnosis - Calculus of kidney with calculus of ureter - right cp Followup: cp - With: Roney Cristina MD - When: 2 - 3 days - Reason: Recheck today's complaints Discharge Instructions: - Discharge Summary Sheet cp - Kidney Stones cp - Renal Colic cp Forms: - Medication Reconciliation Form cp - Thank You Letter cp - Antibiotic Education cp - Prescription Opioid Use cp Prescriptions: - Flomax 0.4 mg Oral capsule - take 1 capsule by ORAL route once daily 1/2 hour following the same meal each cp day; 7 capsule; Refills: 0, Product Selection Permitted - Zofran 4 mg Oral Tablet - take 1 tablet by ORAL route every 12 hours As needed; 20 tablet; Refills: 0, cp Product Selection Permitted Addendum: 12/18/2022 01:05 Co-signature as Attending Physician, Suresh Holder MD I reviewed the patient's care r n provided by the Advanced Practice Provider and agree with the diagnosis and treatment plan. Signatures: Dispatcher [employer] Suresh Ge MD MD rn Calderon, Audri RN RN aa5 Baldomero Hughes PA PA cp Garcia, Victoria RN RN vg1 Pauly Wilson RN RN ld1 Corrections: (The following items were deleted from the chart) 12/16 16:23 16:20 PMHx: "Anger problems"; vg1 vg1 18:45 18:44 Calculus of ureter - right cp cp
[2022-12-16 19:34] VITALS: TEMP 98.5
[2022-12-16 19:37] VITALS: BP 152/72; O2SAT 96
[2022-12-16 20:08] LABS: Blood Morphology Comment NOT SEEN (NOT SEEN); Platelet Estimate ADEQ; White Blood Cell Scan OK (OK)
== END 2022-12-16 19:05 | disposition home or self-care (01) ==
LOC: ER 15:43
DX: N20.2 Calculus of kidney with calculus of ureter (principal); Z98.890 Other specified postprocedural states; Z87.442 Personal history of urinary calculi; F41.9 Anxiety disorder, unspecified
CPT/HCPCS: 96365; 96361; 85025; 36415; 83690; 80053; 76377; 74176; 96375; 99284; J3475; J7050 ×2; J2405; 81003; 81015

== ENCOUNTER 2023-01-16 06:40 | Day surgery (SDC) | payer MEDICARE ==
--- NOTE | 2023-01-14 12:25 | RAD REPORT ---
EXAM DESCRIPTION: Mario Alberto Henry And Ashkan (2 Views)01/14/2023 12:01 pm CLINICAL HISTORY: Preop for hernia repair COMPARISON: 2021 FINDINGS: The lungs appear clear of acute infiltrate. The heart is mildly enlarged IMPRESSION: No acute abnormalities displayed
--- NOTE | 2023-01-15 16:19 | EKG ---
Test Date: 2023-01-14 Test Time: 11:48:04 Veterinary Livestock Inspector: RONAL MEASUREMENT RESULTS: Intervals: Rate: 69 NH: 154 QRSD: 80 QT: 382 QTc: 409 [place]: P: 67 NH: 154 QRS: 30 T: 25 INTERPRETIVE STATEMENTS: Sinus rhythm with premature atrial complexes Otherwise normal ECG Compared to ECG 07/11/2022 18:26:38 Atrial premature complex(es) now present Sinus arrhythmia no longer present Ventricular premature complex(es) no longer present Electronically Signed On 01-15-23 16:18:15 LINING STRAP CLOSER by Mikael Field
[2023-01-16] MEDS ORDERED: Ringers Lactate 1,000 ML IV ONE (07:32)
[2023-01-16] MEDS ORDERED: CEFAZOLIN SODIUM 1 GM/VIAL ONE (07:32)
[2023-01-16] MEDS ORDERED: propofoL 200 MG/20 ML VIAL IV ONE (08:17)
[2023-01-16] MEDS ORDERED: FENTANYL CITR 100 MCG/2 ML ONE (08:18)
[2023-01-16] MEDS ORDERED: MIDAZOLAM HCL 2 MG/2 ML INJ ONE (08:19)
[2023-01-16] MEDS ORDERED: ONDANSETRON 4 MG/2 ML VIAL ONE ×2 (08:24→10:07)
[2023-01-16] MEDS ORDERED: GLYCOPYRROLATE 0.2 MG/ML SYR ONE (08:24)
[2023-01-16] MEDS ORDERED: LIDOCAINE 2% MPF 5 ML VIAL ONE (08:24)
[2023-01-16] MEDS ORDERED: ROCURONIUM 50 MG/5 ML VIAL IV ONE (08:24)
[2023-01-16] MEDS ORDERED: NEOSTIGMINE 1 MG/ML -10 ML VIAL ONE (08:26)
[2023-01-16] MEDS ORDERED: dexAMETHasone 10 MG/ML VIAL ONE (08:45)
--- NOTE | 2023-01-16 09:52 | P.BOP ---
Preoperative diagnosis: incarcerated tender left inguinal hernia, Reducibletender umbilical hernia Postoperative diagnosis: recurrent incarcerated Left inguinal hernia, reducible umbilical hernia Primary procedure: 1.Open repair Recurrent Incarcerated tender Left inguinal hernia with mesh Secondary procedure: 2. Open repair tender reducible umbilical hernia Estimated blood loss: <10cc Specimen: inguinal lipoma of cord , umbilical sac Findings: as above, pt with transverse scar left inguinal Anesthesia: General Complications: None Implants: medium mesh plug and sheet left inguinal area Transferred to: Recovery Room
[2023-01-16] MEDS ORDERED: HYDROMORPHONE HCL 1 MG/ML INJ ONE (10:07)
[2023-01-16] MEDS: HYDROMORPHONE HCL 1 MG/ML INJ ONE ×2 (10:15→10:20)
[2023-01-16 10:27] VITALS: O2SAT 96
[2023-01-16] MEDS ORDERED: HYDROCODONE/APAP 7.5/325 MG TAB ONE (10:49)
[2023-01-16 10:52] VITALS: BP 119/74; TEMP 97.2
[2023-01-16] MEDS ORDERED: TAMSULOSIN 0.4 MG SR CAP ONE (11:48)
--- NOTE | 2023-01-16 20:44 | OP ---
Date of Procedure: 01/16/2023 Surgeon: Filiberto Mathews MD Preoperative Diagnoses: Incarcerated tender left inguinal hernia, reducible tender umbilical hernia. Postoperative Diagnoses: Recurrent incarcerated left inguinal hernia and reducible umbilical hernia. Procedures: 1.Open repair of recurrent incarcerated tender left inguinal hernia with mesh. 2.Open repair of tender reducible umbilical hernia. Estimated Blood Loss: Less than 10 cc. Specimen: Inguinal, lipoma of the cord and umbilical sac. Findings: Patient has a transverse incision in the area of the groin. He has no recollection of pre vious surgeries, although he has multiple in the right groin and also in the paramedian on the abdome n. That incision, once we shaved the area, it looked an incision probably was done when he was born. So this hernia has been fixed before, difficult for us to approach that area laparoscopically with so many scars in the region and the nature of this and the unknown cause of this, so we made a decisi on when we have those findings to do an open repair. Complications: None. Implant: Mesh sheet and a plug in the left inguinal region. Indication: This is the case of a male, who comes to us with a large left inguinal hernia, increasin g pain and discomfort. He cannot reduce that anymore. He also have a tender umbilical hernia, altho ugh that one is reducible. Patient wanted to have both hernia repaired, so we offered him laparoscop ic, possible open repair of left inguinal hernia with most likely mesh and also open repair of umbili juan hernia with benefits, alternatives, and risks including, but not limited to, infection, bleeding, damage to adjacent structures, anesthesia complication, recurrence, OK, and even . He also und erstands this may not relieve any symptoms. He might need more than one surgical intervention. He u nderstood, signed a consent. Description Of Procedure: Patient was brought to the operating room, placed in supine position. Ane sthesia was done without complication. Abdominal and inguinal area were prepped and draped in a ster ile fashion. A time-out was called. When we went into the left groin, we shaved all that area, we n oticed there was a tiny incision. Patient has no recollection of any surgery there and the family, b ut there is surgery in that area and it had appearance of an inguinal hernia repair. It is an unusua l transverse incision. So because of that another scar tissue patient has present in that region, I believe it is safer at this moment to do a direct approach not only because we have incidental findin gs, but also the scar tissue in that region and the size of this hernia, so an incision was made in t he inguinal region. Incision was carried down to Abby's fascia. Now we noticed immediately the sc ar tissue in the inguinal canal region consistent with a previous hernia repair. So, in that case, w e opened the external oblique aponeurosis in the direction of the fibers to connect to the superficia l inguinal ring. Carefully, the adhesions were dealt with and removed properly. Ilioinguinal nerve, iliohypogastric nerve protected behind external oblique aponeurosis. Once we have the hemostats in the external oblique aponeurosis, we were able to encircle the inguinal ring. We noticed the patient to have a direct hernia in that region. We skeletonized the spermatic cord structures. The deep in guinal ring hernia was coming from that region, so we proceeded then to imbricate the area and reduce it and then put a mesh plug in the deep inguinal ring and secured that in place with a VersaTack. B efore that, the content of that, there was a lipoma of the cord attached to it. It was carefully rem brock, making sure the vas deferens and the rest of the structures were protected. Once we took care of the hernia, we looked for any other hernias. We did not see anymore at that moment. So we put a mesh sheet securing that to the pubic tubercle, shelving edge of the inguinal ligament, and transvers dejan fascia with the help of VersaTack. After that, I proceeded to bring the ilioinguinal nerve, the iliohypogastric nerve back into the inguinal canal, reconstructed the superficial inguinal ring and closed the external oblique aponeurosis making sure the nerves were not included. The area was irrig ated. Local anesthesia was applied. Then the Abby's fascia closed with 3-0 chromic and the skin w ith madison. Sponge count and instrument counts correct. Patient tolerated the procedure well. The n, we went to the umbilical region. At that moment, we did a curvilinear incision. Incision was car ried down to the fascia. We noticed the fascia edges to be open, but intact. It may be approximated without tension. So we proceeded then to remove the hernia sac, cleaned the fascia edges and closed the hernia with Vicryl #1 in a [id number] fashion multiple times. The area was irrigated. Sub cutaneous tissue closed with 3-0 chromic and then the skin with madison. Sponge count and instrument counts were correct. Patient tolerated the procedure well. Patient was sent to Recovery in stable condition. At the end of the case, testicles are within the scrotum. DUSTIN/ADRIANE Voice ID: [id number] Report ID: [id number]
--- NOTE | 2023-01-16 20:50 | DS ---
Date of Discharge: 01/16/2023 Diagnoses: Incarcerated recurrent left inguinal hernia and reducible umbilical hernia. Procedures: Open repair of recurrent incarcerated left inguinal hernia with mesh and open repair of tender reducible umbilical hernia. Disposition: Home. Activity: As tolerated. No heavy lifting. Follow Up: In my office in 1 week. Call for appointment at [phone]. Discharge Instructions: Keep area dry for 48 hours, then may shower. Cold compress of the left ingu inal region. DUSTIN/ADRIANE Voice ID: [id number] Report ID: [id number]
== END 2023-01-16 12:10 | disposition home or self-care (01) ==
LOC: OR 06:40
PROVIDERS: ATTEND Surgery
PROC: 0WQF0ZZ Repair Abdominal Wall, Open Approach (ICD-10-PCS; 2023-01-16)
PROC: 0YU60JZ Supplement Left Inguinal Region with Synthetic Substitute, Open Approach (ICD-10-PCS; principal; 2023-01-16 08:15)
DX: K40.31 Unilateral inguinal hernia, with obstruction, without gangrene, recurrent (principal); K42.9 Umbilical hernia without obstruction or gangrene; I10 Essential (primary) hypertension; E11.9 Type 2 diabetes mellitus without complications
CPT/HCPCS: 49521; 49591; 93005; 88302; 71046; J2704; J2710; J2001; J2250; J3010; J1100; J1170 ×2; J7120; J2405 ×2; J0690

== ENCOUNTER 2025-02-07 09:47 | Emergency (ER) | payer MEDICARE ==
[2025-02-07] MEDS ORDERED: KETOROLAC 30 MG/ML INJ ONE (10:28)
--- NOTE | 2025-02-07 11:26 | RAD REPORT ---
EXAMINATION: CT Thorax Wo Con CLINICAL INDICATION: Male, 74 years old. PAIN TECHNIQUE: Axial CT scan of the chest without intravenous contrast. Multiplanar reformats were genera alex and reviewed. One or more of the following dose reduction techniques were used: Automated exposure control, adjustment of the mA and/or kV according patient size, and/or iterative reconstruct ion. Unless otherwise specified, incidental findings do not require dedicated imaging follow-up. COMPARISON: 11/05/2020 CT chest. 12/16/2022 CT abdomen and pelvis FINDINGS: LOWER NECK: Visualized thyroid gland and soft tissues are normal. LUNGS: The lungs are clear. No evidence of airspace or interstitial process. No worrisome nodules. PLEURA: No pleural effusion. No pneumothorax. . MEDIASTINUM AND LYMPH NODES: No mediastinal mass or fluid collection. Normal size mediastinal, hilar, and axillary lymph nodes. OSSEOUS STRUCTURES AND CHEST WALL: Intact. UPPER ABDOMEN: Status post cholecystectomy. IMPRESSION: No acute or significant abnormalities. Examination is limited by lack of contrast.
--- NOTE | 2025-02-07 11:34 | RAD REPORT ---
EXAM: CT brain without contrast HISTORY: PAIN COMPARISON: None TECHNIQUE: Multiple contiguous axial images were obtained and a CT of the brain without contrast. Sag ittal and coronal reformats were performed. FINDINGS: No evidence of hydrocephalus, intracranial hemorrhage, or extra-axial fluid collection. The brain is normal in morphology. The calvarium is intact. The visualized paranasal sinuses and mastoid air cells are essentially clear . IMPRESSION: No evidence of acute intracranial abnormality. EXAM: CT of the cervical spine without contrast HISTORY: PAIN COMPARISON: None TECHNIQUE: Multiple contiguous axial images were obtained in a CT of the cervical spine without contr ast. Sagittal and coronal reformats were performed. FINDINGS: The vertebral bodies demonstrate normal height. Straightening of normal cervical lordosis w hich could be positional or secondary to muscle spasm. No abnormal subluxation. No evidence of acute fracture or subluxation.. Multilevel degenerative changes with disc height loss most pronounced at C4-5, C6-7, C7-T1. Up to mod erate neural foraminal narrowing on the right at C6-7, the and on the left at C4-5 secondary to uncovertebral joint and facet arthropathy. No prevertebral soft tissue swelling is seen. The posterior facets are well aligned. Normal alignment of the skull base with the cervical spine is seen. The lung apices are unremarkable. IMPRESSION: No evidence of acute osseous abnormality of the cervical spine. Multilevel degenerative changes as above.
--- NOTE | 2025-02-07 12:32 | EDPHYS ---
Physician Documentation [facility] Name: Shahid Milton Age: 74 yrs Sex: Male : 1950 Arrival Date: 02/07/2025 Time: 09:47 Bed 20 Private MD: ED Physician Axel Montoya HPI: 02/07 10:44 This 74 yrs old Male presents to ER via Wheelchair with complaints of Head bo1 Injury-Adult, Back Injury, Chest Pain. 12:21 The patient or guardian reports injury. The complaints affect the left occipital area, bo1 left base of the skull, right occipital area, right base of the skull and left side of head. Context of injury: The problem was sustained at home, on a street or driveway, at Pt was pulling on a alannah and the handles came loose, he fell backwards while on the ramp/trailer into the van. He hit his head and base of his skull. He's been having neck and chest pain from the alannah then falling and hitting his chest. Onset: The symptoms/episode began/occurred suddenly, yesterday, last night, Around 5pm. No LOC, pt's spouse applied an ice pack and he refused to be seen in the ER yesterday. Historical: - Allergies: 10:15 No Known Allergies; cm10 - PMHx: 10:15 Anxiety; Kidney stones; Ulcer; cm10 - PSHx: 10:15 [place] knee; Cholecystectomy; hernia; cm10 - Immunization history:: Adult Immunizations up to date. - Infectious Disease History:: Denies. - Social history:: Smoking status: unknown. ROS: 12:25 Constitutional: Negative for fever, chills, and weight loss bo1 12:25 Constitutional: Negative for body aches, fever, 12:25 Neck: Positive for pain with movement, bony tenderness, 12:25 Cardiovascular: Negative for chest pain, 12:25 Cardiovascular: Positive for chest pain, with movement, of the chest, From the alannah falling on his chest, 12:25 Respiratory: Negative for cough, shortness of breath, 12:25 MS/extremity: Negative for acute changes, injury or acute deformity, 12:25 Skin: Negative for lesions, rash, 12:25 Neuro: Negative for altered mental status, headache, loss of consciousness, 12:25 All other systems are negative, Exam: 12:27 Constitutional: This is a well developed, well nourished patient who is awake, alert, bo1 and in no acute distress. 12:27 Constitutional: The patient appears in no acute distress, alert, awake, comfortable, non-toxic, ER nurse has applied a C-spine collar 12:27 Head/face: Exam is negative for acute changes, helm signs, ecchymosis, hematoma, laceration(s), raccoon eyes, Noted is tenderness, that is mild, of the left occipital area, left base of the skull, right occipital area and right base of the skull, 12:27 Eyes: Exam is negative for acute changes, 12:27 Neck: External neck: swelling, is not appreciated, tenderness, that is mild, of the occiput, left mid cervical area and right mid cervical area, 12:27 Chest/axilla: Inspection: normal, Palpation: tenderness, that is mild, of the right clavicle, left clavicle, anterior aspect of right upper chest and anterior aspect of left upper chest, 12:27 Cardiovascular: Rate: normal, Pulses: no pulse deficits are appreciated, 12:27 Respiratory: the patient does not display signs of respiratory distress, Breath sounds: are clear throughout, 12:27 Skin: injury, is not appreciated, lesion(s), are not present, no rash present. Vital Signs: 10:16 BP 159 / 82; Pulse 68; Resp 15; Temp 97.8(O); Pulse Ox 98% ; Weight 89.36 kg; Height 5 cm10 ft. 9 in. ; Pain 10/10; 11:24 BP 152 / 77; Pulse 63; Resp 18 S; Pulse Ox 97% on R/A; kc6 12:31 BP 148 / 82; Pulse 59; Resp 16 S; Pulse Ox 96% on R/A; kc6 10:16 Body Mass Index 29.09 (89.36 kg, 175.26 cm) cm10 10:16 Pain Scale: Adult cm10 Dl Coma Score: 10:16 Eye Response: spontaneous(4). Motor Response: obeys commands(6). Verbal Response: cm10 oriented(5). Total: 15. MDM: 10:07 Medical Screening Exam initiated bo1 12:29 Differential diagnosis: Contusion of Cervical neck sprain/strain. Data reviewed: vital bo1 signs, radiologic studies, CT scan. ED course: Pt has been reassured. No CT acute findings.. 12:30 I considered the following discharge prescriptions or medication management in the [facility] emergency department Medications were administered in the Emergency Department. See MAR. 02/07 10:19 Order name: CT Chest Wo Con; Complete Time: 11:43 bo1 02/07 10:19 Order name: CT Head C Spine; Complete Time: 11:43 bo1 Administered Medications: 10:39 Drug: Ketorolac IM 30 mg IM once Route: IM; Site: right deltoid; kc6 11:43 Follow up: Response: No adverse reaction kc6 Disposition Summary: 02/07/25 12:32 Discharge Ordered Notes: Location: Home bo1 Problem: new bo1 Symptoms: have improved bo1 Condition: Stable bo1 Diagnosis - Contusion of unspecified part of head, initial encounter bo1 - Contusion of unspecified part of neck, initial encounter bo1 - Sprain of ligaments of cervical spine, initial encounter bo1 Followup: bo1 - With: Private Physician - When: Upon discharge from the Emergency Department - Reason: Recheck today's complaints, Continuance of care Discharge Instructions: - Discharge Summary Sheet bo1 - Neck Contusion bo1 - Cervical Sprain bo1 - Cervical Sprain, [id number] bo1 - Neck Contusion, [id number] bo1 Forms: - Medication Reconciliation Form bo1 - Antibiotic Education bo1 - Prescription Opioid Use bo1 - Patient Portal Instructions bo1 - Leadership Thank You Letter bo1 Prescriptions: - ketorolac 10 mg Oral tablet - take 1 tablet ORAL route every 8 hours for 5 days as needed for pain; 15 bo1 tablet; Refills: 0, Product Selection Permitted - Cyclobenzaprine 5 mg Oral Tablet - take 1 tablet ORAL route 3 times per day As needed; 15 tablet; Refills: 0, bo1 Product Selection Permitted Signatures: Dispatcher [employer] Orquidea Tejeda RN RN kc6 Ana Paula Mathews RN RN cm10 Axel Montoya MD MD bo1
--- NOTE | 2025-02-07 12:32 | ER ---
Nurse's Notes [facility] Name: Shahid Milton Age: 74 yrs Sex: Male : 1950 Arrival Date: 02/07/2025 Time: 09:47 Bed 20 Private MD: Diagnosis: Contusion of unspecified part of head, initial encounter;Contusion of unspecified part of neck, initial encounter;Sprain of ligaments of cervical spine, initial encounter Presentation: 02/07 10:16 Chief complaint: Patient states: Was hauling a log on a alannah and fell backwards over cm10 trailer. Patient complaining of pain to base of head and to substernal chest. Coronavirus screen: Client denies travel out of the [place] in the last 14 days. Ebola Screen: Patient denies travel to an Ebola-affected area in the 21 days before illness onset. Mechanism of Injury: resulted from a fall. Initial Sepsis Screen: Does the patient meet any 2 criteria? No. Patient's initial sepsis screen is negative. Does the patient have a suspected source of infection? No. Patient's initial sepsis screen is negative. Risk Assessment: Do you want to hurt yourself or someone else? Patient reports no desire to harm self or others. 10:16 Method Of Arrival: Wheelchair cm10 10:16 Acuity: FAITH 3 cm10 Triage Assessment: 10:18 General: Appears uncomfortable, Behavior is calm, cooperative. Pain: Complains of pain cm10 in mid-sternal area and back of neck. Neuro: No deficits noted. Level of Consciousness is awake, alert, obeys commands, Oriented to person, place, time, situation, Appropriate for age. Respiratory: No deficits noted. Airway is patent Respiratory effort is even, unlabored, Respiratory pattern is regular, symmetrical. Historical: - Allergies: 10:15 No Known Allergies; cm10 - PMHx: 10:15 Anxiety; Kidney stones; Ulcer; cm10 - PSHx: 10:15 [place] knee; Cholecystectomy; hernia; cm10 - Immunization history:: Adult Immunizations up to date. - Infectious Disease History:: Denies. - Social history:: Smoking status: unknown. Screenin:30 [facility] ED Fall Risk Assessment (Adult) History of falling in the last 3 months, kc6 including since admission Yes- single mechanical fall (1 pt) Confusion or Disorientation No (0 pts) Intoxicated or Sedated No (0 pts) Impaired Gait No (0 pts) Mobility Assist Device Used No (0 pt) Altered Elimination No (0 pt) Score/Fall Risk Level 0 - 2 = Low Risk Oriented to surroundings, Maintained a safe environment, Educated pt \T\ family on fall prevention, incl call for assistance when getting out of bed. Abuse screen: Denies threats or abuse. Denies injuries from another. Nutritional screening: No deficits noted. Tuberculosis screening: No symptoms or risk factors identified. Assessment: 10:30 General: Appears in no apparent distress. uncomfortable, well groomed, well developed, kc6 Behavior is calm, cooperative, appropriate for age. Pain: Complains of pain in base of the skull and mid-sternal area. Neuro: Level of Consciousness is awake, alert, obeys commands, Oriented to person, place, time, situation, Appropriate for age Denies blurred vision dizziness, headache. Cardiovascular: Reports chest pain, Capillary refill < 3 seconds. Respiratory: Airway is patent Trachea midline Respiratory effort is even, unlabored, Respiratory pattern is regular, symmetrical. GI: No signs and/or symptoms were reported involving the gastrointestinal system. : No signs and/or symptoms were reported regarding the genitourinary system. EENT: No signs and/or symptoms were reported regarding the EENT system. Derm: No signs and/or symptoms reported regarding the dermatologic system. Skin is intact, is healthy with good turgor, Skin is pink, warm \T\ dry. Musculoskeletal: Circulation, motion, and sensation intact. Range of motion: intact in all extremities. 11:30 Reassessment: Patient appears in no apparent distress at this time. No changes from kc6 previously documented assessment. Patient and/or family updated on plan of care and expected duration. Pain level reassessed. Patient is alert, oriented x 3, equal unlabored respirations, skin warm/dry/pink. 12:31 Reassessment: Patient appears in no apparent distress at this time. No changes from kc6 previously documented assessment. Patient and/or family updated on plan of care and expected duration. Pain level reassessed. Patient is alert, oriented x 3, equal unlabored respirations, skin warm/dry/pink. Vital Signs: 10:16 BP 159 / 82; Pulse 68; Resp 15; Temp 97.8(O); Pulse Ox 98% ; Weight 89.36 kg; Height 5 cm10 ft. 9 in. ; Pain 10/10; 11:24 BP 152 / 77; Pulse 63; Resp 18 S; Pulse Ox 97% on R/A; kc6 12:31 BP 148 / 82; Pulse 59; Resp 16 S; Pulse Ox 96% on R/A; kc6 10:16 Body Mass Index 29.09 (89.36 kg, 175.26 cm) cm10 10:16 Pain Scale: Adult cm10 Rufus Coma Score: 10:16 Eye Response: spontaneous(4). Motor Response: obeys commands(6). Verbal Response: cm10 oriented(5). Total: 15. ED Course: 09:53 Patient arrived in ED. al6 10:07 Axel Montoya MD is Attending Physician. bo1 10:11 Orquidea Prado, JOEL is Primary Nurse. kc6 10:18 Triage completed. cm10 10:19 Arm band placed on right wrist. Patient placed in an exam room, on a stretcher. cm10 10:29 Patient has correct armband on for positive identification. Bed in low position. Call kc6 light in reach. Side rails up X 1. Adult w/ patient. Pulse ox on. NIBP on. Door closed. Noise minimized. Lights dimmed. Warm blanket given. Pillow given. Verbal reassurance given. 10:30 Patient maintains SpO2 saturation greater than 95% on room air. Rigid cervical collar kc6 applied and checked by physician. 11:10 CT Head C Spine In Process Unspecified. EDMS 11:15 CT Chest Wo Con In Process Unspecified. EDMS 12:31 Removal of Cervical Collar. kc6 12:51 No provider procedures requiring assistance completed. Patient did not have IV access kc6 during this emergency room visit. Administered Medications: 10:39 Drug: Ketorolac IM 30 mg IM once Route: IM; Site: right deltoid; kc6 11:43 Follow up: Response: No adverse reaction kc6 Medication: 12:51 VIS not applicable for this client. kc6 Outcome: 12:32 Discharge ordered by . bo1 12:51 Discharged to home ambulatory, with significant other, kc6 12:51 Condition: good 12:51 Discharge instructions given to patient, Instructed on discharge instructions, follow up and referral plans. medication usage, Demonstrated understanding of instructions, follow-up care, medications, Prescriptions given X 2, 12:52 Patient left the ED. kc6 Signatures: Dispatcher [employer] Orquidea Tejeda RN RN kc6 Ana Paula Mathews RN RN cm10 [place], MD NEHEMIAH Reyna bo1 Leatha Campbell6
[2025-02-07 13:14] VITALS: TEMP 97.8
[2025-02-07 13:16] VITALS: BP 148/82; O2SAT 96
== END 2025-02-07 12:52 | disposition home or self-care (01) ==
LOC: ER 09:47
DX: S00.83XA Contusion of other part of head, initial encounter (principal); S10.83XA Contusion of other specified part of neck, initial encounter; S13.4XXA Sprain of ligaments of cervical spine, initial encounter; W18.30XA Fall on same level, unspecified, initial encounter
CPT/HCPCS: 70450; 71250; 72125; 96372; 99284

== ENCOUNTER 2025-02-18 16:36 | Emergency (ER) | payer MEDICARE ==
[2025-02-18] MEDS ORDERED: ONDANSETRON 4 MG/2 ML VIAL ONE (17:15)
[2025-02-18] MEDS ORDERED: MORPHINE 4 MG/ML SYR ONE (17:15)
[2025-02-18 17:33] LABS: Absolute Basophils 0.1 K/uL (0-0.5); Absolute Eosinophils 0.1 K/uL (0-0.5); Absolute Lymphocytes (CBC) 1.4 K/uL (0.7-4.9); Absolute Monocytes 0.9 K/uL (0.1-1.3); Absolute Neutrophil 7.1 K/uL (1.8-8.0); Basophils % 0.5 % (0-1.3); Eosinophils % 1.3 % (0-4.4); Hematocrit 36.6 % (39.6-49.0); Hemoglobin 12.3 g/dL (13.6-17.9); Lymphocytes % 14.5 % (15.3-44.8); MCH 28.1 pg (27.0-35.0); MCHC 33.5 g/dL (32.0-36.0); MCV 83.8 fL (80-100); MPV 8.3 fL (7.6-11.3); Monocytes % 9.1 % (3.3-12.3); Neutrophils % 74.6 % (41.7-73.7); Platelets 287 thou/uL (152-406); RBC Red Blood Cell Count 4.37 M/uL (4.33-5.43); Red Cell Distribution Width 15.9 % (12.1-15.2)
[2025-02-18 17:34] LABS: PT Prothrombin Time 12.3 SECONDS (10-13.0); Protime INR 1.08
[2025-02-18 17:41] LABS: ALT/SGPT 16 U/L (16-61); AST/SGOT 11 U/L (15-37); Albumin 3.4 g/dL (3.4-5.0); Alkaline Phosphatase 99 U/L (45-117); Anion Gap 9.6 mEq/L (5.0-15.0); BUN Blood Urea Nitrogen 21 mg/dL (7-18); Bicarbonate 26 mEq/L (21-32); Bilirubin Total 0.4 mg/dL (0.2-1.0); Globulin 3.4 g/dL (2.3-3.5); Glomerular Filtration Rate 93 ml/min (=/>90); Glucose Level 125 mg/dL (74-106); Magnesium 1.8 mg/dL (1.6-2.4); NT PRO-BNP 132 pg/mL (<125); Potassium 3.6 mEq/L (3.5-5.1); Protein, Total 6.8 g/dL (6.4-8.2); Sodium Level 141 mEq/L (136-145); Troponin High Sensitivity 6.2 pg/mL (<58.9)
[2025-02-18 17:44] LABS: Bilirubin Direct < 0.2 mg/dL (0-0.2); Bilirubin Indirect, Calculated 0.2 mg/dL (0.2-0.8)
--- NOTE | 2025-02-18 17:55 | RAD REPORT ---
Procedure: Chest Single View HISTORY: Chest pain COMPARISON: February 07, 2025 FINDINGS: The lungs appear clear of acute infiltrate. No significant pleural effusion noted. The heart is mildly to moderately enlarged. IMPRESSION: No acute abnormality is displayed.
[2025-02-18] MEDS ORDERED: METHOCARBAMOL 1,000 MG/10 ML VIAL ONE (18:03)
[2025-02-18] MEDS ORDERED: NA CHLORIDE 0.9% 100 ML ONE (18:04)
[2025-02-18] MEDS ORDERED: KETOROLAC 30 MG/ML INJ ONE (18:04)
--- NOTE | 2025-02-18 19:09 | RAD REPORT ---
EXAM: CTA of the chest, abdomen and pelvis HISTORY: Chest and back and abdominal pain COMPARISON: 2022 CT abdomen. December 2024 CT chest TECHNIQUE: Multiple contiguous axial images were obtained a CTA of the chest and abdomen with contras t per aortic dissection protocol. Sagittal and coronal 3-D MIP reformats were performed. 100 cc Isovue-370 administered intravenously.Automated exposure control, adjustment of the mA and kV accordi ng to the patient size, and iterative reconstruction. Unless otherwise specified, incidental findings do not require dedicated imaging follow-up. FINDINGS: An aortic dissection not seen. No aortic aneurysm Celiac, SMA and AZAEL do not demonstrate a significant abnormality. Renal arteries do not demonstrate a significant abnormality. Lungs are clear Liver, spleen, pancreas, adrenals, kidneys and bladder do not demonstrate a significant abnormality No evidence of diverticulitis. Cholecystectomy. Spondylosis lumbar spine results in spinal stenosis Inguinal hernia repair. Moderate prostatic enlargement. Small bladder diverticula IMPRESSION: No evidence of an aortic dissection
[2025-02-18] MEDS ORDERED: HYDROCODONE/APAP 7.5/325 MG TAB ONE (20:25)
--- NOTE | 2025-02-18 20:34 | EDPHYS ---
Physician Documentation [facility] Name: Shahid Milton Age: 74 yrs Sex: Male : 1950 Arrival Date: 02/18/2025 Time: 16:36 Bed 19 Private MD: ED Physician Suresh Holder HPI: 02/18 16:52 This 74 yrs old Male presents to ER via Ambulatory with complaints of Chest cp Pain, Arm Pain, Back Pain. 16:52 The patient or guardian reports chest pain that is located primarily in the substernal cp area, anterior chest wall. 16:52 Onset: about 10 days. cp 16:52 The pain radiates to Patient reports fall off trailer and increasing chest pain since. cp Historical: - Allergies: 16:51 No Known Allergies; ll1 - PMHx: 16:51 Anxiety; ULCER; Kidney stones; ll1 - PSHx: 16:51 [place] knee; Cholecystectomy; hernia; ll1 - Immunization history:: Adult Immunizations up to date. - Infectious Disease History:: Denies. - Social history:: Smoking status: Patient denies any tobacco usage or history of. ROS: 16:55 Cardiovascular: Positive for chest pain, of the mid and sternal area of chest, cp Exam: 16:56 ECG was reviewed by the Attending Physician. cp 17:00 Constitutional: The patient appears in no acute distress, alert, awake, cp non-diaphoretic, non-toxic, well developed, well nourished, 17:00 Head/Face: Normocephalic, atraumatic. cp 17:00 Eyes: Periorbital structures: appear normal, Conjunctiva: normal, no exudate, no cp injection, Sclera: no appreciated abnormality, Lids and lashes: appear normal, bilaterally, 17:00 ENT: External ear(s): are unremarkable, Nose: is normal, Mouth: Lips: moist, Oral mucosa: moist, Posterior pharynx: Airway: no evidence of obstruction, patent, 17:00 Neck: ROM/movement: is normal, is supple, without pain, no range of motions limitations, 17:00 Chest/axilla: Inspection: normal, Palpation: crepitus, is not appreciated, tenderness, is not appreciated, 17:00 Cardiovascular: Rate: normal, Rhythm: regular, Edema: is not appreciated, JVD: is not cp appreciated, 17:00 Respiratory: the patient does not display signs of respiratory distress, Respirations: cp normal, no use of accessory muscles, no retractions, labored breathing, is not present, Breath sounds: are clear throughout, no decreased breath sounds, no stridor, no wheezing, 17:00 Abdomen/GI: Inspection: abdomen appears normal, Palpation: abdomen is soft and non-tender, in all quadrants, 17:00 Back: pain, that is moderate, of the thoracic area, cp 17:00 Neuro: Orientation: to person, place \T\ time. Mentation: is normal, Vital Signs: 16:52 BP 149 / 88; Pulse 70; Resp 17; Temp 97.9; Pulse Ox 99% ; Weight 90.72 kg; Height 5 ft. ll1 9 in. ; Pain 9/10; 17:49 BP 139 / 84; Pulse 70; Resp 18 S; Pulse Ox 96% on R/A; kc6 19:00 BP 128 / 81; Pulse 64; Resp 17; Pulse Ox 99% ; jj7 20:00 BP 136 / 70; Pulse 64; Resp 17; Pulse Ox 99% ; jj7 21:02 BP 138 / 68; Pulse 61; Resp 17; Temp 98.1; Pulse Ox 99% ; jj7 16:52 Body Mass Index 29.53 (90.72 kg, 175.26 cm) ll1 16:52 Pain Scale: Adult ll1 MDM: 16:49 Medical Screening Exam initiated cp 02/18 16:54 Order name: Basic Metabolic Panel; Complete Time: 17:53 cp 02/18 17:53 Interpretation: Normal except: CL 109; GLUC 125; BUN 21. cp 02/18 16:54 Order name: CBC with Diff; Complete Time: 17:53 cp 02/18 17:53 Interpretation: Normal except: HGB 12.3; HCT 36.6; RDW 15.9; PANCHO% 74.6; LYM% 14.5. cp 02/18 16:54 Order name: LFT's; Complete Time: 17:53 cp 02/18 16:54 Order name: Magnesium; Complete Time: 17:53 cp 02/18 16:54 Order name: NT PRO-BNP; Complete Time: 17:53 cp 02/18 16:54 Order name: PT-INR; Complete Time: 17:53 cp 02/18 16:54 Order name: Troponin HS; Complete Time: 17:53 cp 02/18 19:45 Order name: Troponin High Sensitivity; Complete Time: 20:32 cp 02/18 20:32 Interpretation: Reviewed. cp 02/18 16:54 Order name: XRAY Chest (1 view); Complete Time: 19:14 cp 02/18 19:14 Interpretation: Report review. 02/18 18:13 Order name: CT Aorta for Dissection; Complete Time: 19:14 cp 02/18 16:51 Order name: EKG - Nurse/Tech; Complete Time: 17:02 ll1 02/18 16:54 Order name: Cardiac monitoring; Complete Time: 17:09 cp 02/18 16:54 Order name: IV Saline Lock; Complete Time: 17:29 cp 02/18 16:54 Order name: Labs collected and sent; Complete Time: 17:29 cp 02/18 16:54 Order name: O2 Per Protocol; Complete Time: 17:09 cp 02/18 16:54 Order name: O2 Sat Monitoring; Complete Time: 17:09 cp EC:56 Rate is 71 beats/min. Rhythm is regular. MA interval is normal. QRS interval is normal. cp QT interval is normal. T waves are Inverted in lead III. Interpreted by me. Reviewed by me. Administered Medications: 17:29 Drug: morphine IVP or IV 4 mg IVP once over 4 mins Route: IVP; Infused Over: 4 mins; kc6 Site: right antecubital; 17:52 Follow up: Response: No adverse reaction; Pain is decreased; RASS: Alert and Calm (0) kc6 17:29 Drug: Ondansetron IVP 4 mg IVP once; over 2 minutes Route: IVP; Site: right antecubital;kc6 17:52 Follow up: Response: No adverse reaction kc6 18:11 Drug: Methocarbamol IVPB 1 grams IVPB once over 1 hrs; (mix in NS 100 mL) Route: IVPB; kc6 Infused Over: 1 hrs; Site: right antecubital; 19:00 Follow up: Response: No adverse reaction; IV Status: Completed infusion; IV Intake: kc6 100ml 18:11 Drug: Ketorolac IVP 15 mg IVP once Route: IVP; Site: right antecubital; kc6 19:00 Follow up: Response: No adverse reaction; Pain is decreased kc6 20:37 Drug: Hydrocodone-Acetaminophen PO (7.5 mg-325 mg) 1 tabs PO once; RASS on ADMIN: jj7 Combtv4, Very Agttd3, Agttd2, Rstlss1, AlertClm0, Drwsy-1, Lt Sdtn-2, Mod Sdtn-3, Dp Sdtn-4, UnArsble-5 Route: PO; 21:01 Follow up: Response: Pain is decreased jj7 Disposition: 02/19 09:05 Co-signature as Attending Physician, Sruesh Holder MD I reviewed the patient's care rn provided by the Advanced Practice Provider and agree with the diagnosis and treatment plan. Disposition Summary: 02/18/25 20:33 Discharge Ordered Notes: Location: Home cp Problem: new cp Symptoms: have improved cp Condition: Stable cp Diagnosis - Chest pain, unspecified cp - Pain in right arm cp - Dorsalgia, unspecified cp Followup: cp - With: Private Physician - When: 2 - 3 days - Reason: Recheck today's complaints Discharge Instructions: - Discharge Summary Sheet cp - Acute Back Pain, Adult cp - Nonspecific Chest Pain, Adult cp - Musculoskeletal Pain cp - Aspirin and Your Heart cp Forms: - Medication Reconciliation Form cp - Antibiotic Education cp - Prescription Opioid Use cp - Patient Portal Instructions cp - Leadership Thank You Letter cp Prescriptions: - Celebrex 200 mg Oral Capsule - take 1 capsule ORAL route once daily As needed take with food; 20 capsule; cp Refills: 0, Product Selection Permitted - methocarbamol 750 mg Oral tablet - take 1 tablet ORAL route every 8 hours; 30 tablet; Refills: 0, Product cp Selection Permitted Signatures: Dispatcher [employer] EDMS Suresh Holder MD MD rn Page, Corey, PA PA cp Lali Mccormick RN RN ll1 Orquidea Prado RN RN kc6 Oneal Jarrell RN RN jj7 Corrections: (The following items were deleted from the chart) 02/18 16:55 16:54 BASIC METABOLIC PANEL+C.LAB.BRZ ordered. EDMS EDMS 16:55 16:54 CBC+H.LAB.BRZ ordered. EDMS EDMS 16:55 16:54 HEPATIC FUNCTION+C.LAB.BRZ ordered. EDMS EDMS 16:55 16:54 MAGNESIUM+C.LAB.BRZ ordered. EDMS EDMS 16:55 16:54 PROBNP+C.LAB.BRZ ordered. EDMS EDMS 16:55 16:54 PROTIME (+INR)+COAG.LAB.BRZ ordered. EDMS EDMS 16:55 16:54 Troponin High Sensitivity+C.LAB.BRZ ordered. EDMS EDMS 16:55 16:55 Chest Single View+RAD.RAD.BRZ ordered. EDMS EDMS
--- NOTE | 2025-02-18 20:34 | ER ---
Nurse's Notes [facility] Name: Shahid Milton Age: 74 yrs Sex: Male : 1950 Arrival Date: 02/18/2025 Time: 16:36 Bed 19 Private MD: Diagnosis: Chest pain, unspecified;Pain in right arm;Dorsalgia, unspecified Presentation: 02/18 16:51 Chief complaint: Patient states: CP started the day after he fell off his trailer. CP ll1 got worse yesterday. R arm and back pain also. Coronavirus screen: Client denies travel out of the [place] in the last 14 days. At this time, the client does not indicate any symptoms associated with coronavirus-19. Ebola Screen: Patient denies travel to an Ebola-affected area in the 21 days before illness onset. Initial Sepsis Screen: Does the patient meet any 2 criteria? No. Patient's initial sepsis screen is negative. Does the patient have a suspected source of infection? No. Patient's initial sepsis screen is negative. Risk Assessment: Do you want to hurt yourself or someone else? Patient reports no desire to harm self or others. 16:51 Method Of Arrival: Ambulatory ll1 16:51 Acuity: FAITH 3 ll1 16:52 Onset of symptoms was February 08, 2025. ll1 Historical: - Allergies: 16:51 No Known Allergies; ll1 - PMHx: 16:51 Anxiety; ULCER; Kidney stones; ll1 - PSHx: 16:51 [place] knee; Cholecystectomy; hernia; ll1 - Immunization history:: Adult Immunizations up to date. - Infectious Disease History:: Denies. - Social history:: Smoking status: Patient denies any tobacco usage or history of. Screenin:29 [facility] ED Fall Risk Assessment (Adult) History of falling in the last 3 months, kc6 including since admission Yes- single mechanical fall (1 pt) Confusion or Disorientation No (0 pts) Intoxicated or Sedated No (0 pts) Impaired Gait No (0 pts) Mobility Assist Device Used No (0 pt) Altered Elimination No (0 pt) Score/Fall Risk Level 0 - 2 = Low Risk Oriented to surroundings, Maintained a safe environment, Educated pt \T\ family on fall prevention, incl call for assistance when getting out of bed. Abuse screen: Denies threats or abuse. Denies injuries from another. Nutritional screening: No deficits noted. Tuberculosis screening: No symptoms or risk factors identified. Assessment: 17:50 General: Appears in no apparent distress. comfortable, well groomed, well developed, kc6 Behavior is calm, cooperative, appropriate for age. Pain: Complains of pain in base of the skull and mid-sternal area Pain radiates to anterior aspect of right upper chest and right arm Pain currently is 9 out of 10 on a pain scale. Pain began 2 weeks ago Is episodic. Neuro: Level of Consciousness is awake, alert, obeys commands, Oriented to person, place, time, situation, Appropriate for age. Cardiovascular: Reports chest pain, Heart tones S1 S2 present Capillary refill < 3 seconds Rhythm is sinus rhythm. Respiratory: Airway is patent Trachea midline Respiratory effort is even, unlabored, Respiratory pattern is regular, symmetrical. GI: No signs and/or symptoms were reported involving the gastrointestinal system. : No signs and/or symptoms were reported regarding the genitourinary system. EENT: No signs and/or symptoms were reported regarding the EENT system. Derm: No signs and/or symptoms reported regarding the dermatologic system. Skin is intact, is healthy with good turgor, Skin is pink, warm \T\ dry. Musculoskeletal: Circulation, motion, and sensation intact. Range of motion: intact in all extremities. 18:50 Reassessment: Patient appears in no apparent distress at this time. No changes from kc6 previously documented assessment. Patient and/or family updated on plan of care and expected duration. Pain level reassessed. Patient is alert, oriented x 3, equal unlabored respirations, skin warm/dry/pink. 19:00 General: Appears in no apparent distress. comfortable, Behavior is calm, cooperative, jj7 appropriate for age. Pain: Complains of pain in chest and right arm. Musculoskeletal: Circulation, motion, and sensation intact. Capillary refill < 3 seconds, Range of motion: intact in all extremities, Reports pain in scalp, chest and right arm. Vital Signs: 16:52 BP 149 / 88; Pulse 70; Resp 17; Temp 97.9; Pulse Ox 99% ; Weight 90.72 kg; Height 5 ft. ll1 9 in. ; Pain 9/10; 17:49 BP 139 / 84; Pulse 70; Resp 18 S; Pulse Ox 96% on R/A; kc 19:00 BP 128 / 81; Pulse 64; Resp 17; Pulse Ox 99% ; jj7 20:00 BP 136 / 70; Pulse 64; Resp 17; Pulse Ox 99% ; jj7 21:02 BP 138 / 68; Pulse 61; Resp 17; Temp 98.1; Pulse Ox 99% ; jj7 16:52 Body Mass Index 29.53 (90.72 kg, 175.26 cm) ll1 16:52 Pain Scale: Adult ll1 ED Course: 16:38 Patient arrived in ED. im 16:48 Baldomero Hughes PA is PHCP. cp 16:48 Suresh Holder MD is Attending Physician. cp 16:52 Triage completed. ll1 17:00 Orquidea Prado RN is Primary Nurse. [facility] 17:24 XRAY Chest (1 view) In Process Unspecified. EDMS 17:29 Initial lab(s) drawn, by me, sent to lab. Inserted saline lock: 20 gauge in right [facility] antecubital area, using aseptic technique. Blood collected. Flushed with 10 mL NS. Patient maintains SpO2 saturation greater than 95% on room air. Rigid cervical collar applied and checked by physician. 17:30 Patient has correct armband on for positive identification. Bed in low position. Call [facility] light in reach. Side rails up X 1. Adult w/ patient. monitoring manager on. Pulse ox on. NIBP on. Door closed. Noise minimized. Lights dimmed. Pillow given. Verbal reassurance given. 18:58 CT Aorta for Dissection In Process Unspecified. EDMS 19:07 Report given to JOEL WOOD. [facility] 20:02 Troponin High Sensitivity Sent. jj7 21:03 No provider procedures requiring assistance completed. IV discontinued, intact, jj7 bleeding controlled, No redness/swelling at site. Pressure dressing applied. 21:03 Arm band placed on. jj7 21:03 Provided Education on: MEDS. skylar Administered Medications: 17:29 Drug: morphine IVP or IV 4 mg IVP once over 4 mins Route: IVP; Infused Over: 4 mins; [facility] Site: right antecubital; 17:52 Follow up: Response: No adverse reaction; Pain is decreased; RASS: Alert and Calm (0) [facility] 17:29 Drug: Ondansetron IVP 4 mg IVP once; over 2 minutes Route: IVP; Site: right antecubital;kc6 17:52 Follow up: Response: No adverse reaction kc6 18:11 Drug: Methocarbamol IVPB 1 grams IVPB once over 1 hrs; (mix in NS 100 mL) Route: IVPB; kc6 Infused Over: 1 hrs; Site: right antecubital; 19:00 Follow up: Response: No adverse reaction; IV Status: Completed infusion; IV Intake: kc6 100ml 18:11 Drug: Ketorolac IVP 15 mg IVP once Route: IVP; Site: right antecubital; kc6 19:00 Follow up: Response: No adverse reaction; Pain is decreased kc6 20:37 Drug: Hydrocodone-Acetaminophen PO (7.5 mg-325 mg) 1 tabs PO once; RASS on ADMIN: jjCristobal Combtv4, Very Agttd3, Agttd2, Rstlss1, AlertClm0, Drwsy-1, Lt Sdtn-2, Mod Sdtn-3, Dp Sdtn-4, UnArsble-5 Route: PO; 21:01 Follow up: Response: Pain is decreased jj7 Medication: 21:03 VIS not applicable for this client. jj7 Intake: 19:00 IV: 100ml; Total: 100ml. kc6 Outcome: 20:33 Discharge ordered by . catarino 21:03 Discharged to home ambulatory, with family, skylar 21:03 Condition: improved 21:03 Discharge instructions given to patient, Instructed on discharge instructions, medication usage, Demonstrated understanding of instructions, medications, Prescriptions given X 2, 21:04 Patient left the ED. jj7 Signatures: Dispatcher [employer] EDMS Baldomero Hughes PA PA cp Lewis, Lynsay, RN RN ll1 Orquidea Prado RN RN kc6 Oneal Jarrell RN RN jj7 Raquel Mendoza
[2025-02-18 21:12] VITALS: O2SAT 99
[2025-02-18 21:16] VITALS: BP 138/68; TEMP 98.1
--- NOTE | 2025-02-22 11:32 | EKG ---
Test Date: 2025-02-18 Test Time: 16:49:31 Painter And Decorator Apprentice: GORDON MEASUREMENT RESULTS: Intervals: Rate: 71 WA: 162 QRSD: 84 QT: 400 QTc: 434 Ray: P: 0 WA: 162 QRS: -12 T: -16 INTERPRETIVE STATEMENTS: Normal sinus rhythm Normal ECG Compared to ECG 02/18/2025 16:48:57 Atrial premature complex(es) no longer present Fusion complex(es) no longer present Ventricular premature complex(es) no longer present ST (T wave) deviation no longer present Electronically Signed On 02-22-25 11:23:36 CDT by Ronald Monson
--- NOTE | 2025-02-22 11:32 | EKG ---
Test Date: 2025-02-18 Test Time: 16:48:57 Sql Data Analyst: GORDON MEASUREMENT RESULTS: Intervals: Rate: 75 NC: 156 QRSD: 80 QT: 388 QTc: 433 [place]: P: 63 NC: 156 QRS: -2 T: -89 INTERPRETIVE STATEMENTS: Sinus rhythm with premature atrial complexes and premature ventricular complexes or fusion complexes Nonspecific ST and T wave abnormality Abnormal ECG Compared to ECG 01/14/2023 11:48:04 Fusion complex(es) now present Ventricular premature complex(es) now present ST (T wave) deviation now present Electronically Signed On 02-22-25 11:23:38 CDT by Ronald Monson
== END 2025-02-18 21:04 | disposition home or self-care (01) ==
LOC: ER 16:36
DX: R07.9 Chest pain, unspecified (principal); M79.601 Pain in right arm; M54.9 Dorsalgia, unspecified; Z87.442 Personal history of urinary calculi
CPT/HCPCS: 96365; 93005 ×2; 85025; 80048; 36415; 83735; 85610; 80076; 84484 ×2; 83880; 71275; 74175; 71045; 96375; 99285; Q9967; J2405; J2800